=== PATIENT | female | born 1960 | race Caucasian/White ===

== ENCOUNTER → 2016-06-26 | Outpatient (REF) | payer BC ==
[~2016-06-26] MED LIST: ASPI81TA45 OR; CALTTAB5 PO; CELE-19 PO; GLUC1000 OR; HYDR12.55 PO; IMIT20SP; KLOR1TAB69 PO; LEVO125T3 PO; LEVO150T OR; NAPR500T OR; OMEP20CA3 PO; OMEP40CA2 PO; SIMV20TA2 OR; SKEL-29 PO; SOMA350T PO; TOPA50TA7 PO; TOPI1TAB31 PO; VALT1TAB PO; VIT D 2000 PO; VITA200028 PO
[2016-06-26 13:42] LABS: ALBUMIN 3.4 GM/DL (3.2-5.2); ALBUMIN/GLOBULIN RATIO 0.97 (1.00-1.93); ALKALINE PHOSPHATASE 122 U/L (45-117); ALT/SGPT 29 U/L (12-78); ANION GAP 8 MEQ/L (8-16); AST/SGOT 25 U/L (15-37); BILIRUBIN,TOTAL 0.2 MG/DL (0.2-1.0); BLOOD UREA NITROGEN 16 MG/DL (7-18); CALCIUM LEVEL 8.9 MG/DL (8.5-10.1); CARBON DIOXIDE LEVEL 28 MEQ/L (21-32); CHLORIDE LEVEL 109 MEQ/L (98-107); CHOLESTEROL LEVEL 155 MG/DL (<200); GLOMERULAR FILTRATION RATE > 60.0 (>51); GLUCOSE, FASTING 85 MG/DL (70-105); POTASSIUM SERUM 3.5 MEQ/L (3.5-5.1); SODIUM LEVEL 145 MEQ/L (136-145); TOTAL PROTEIN 6.9 GM/DL (6.4-8.2); TRIGLYCERIDES LEVEL 231 MG/DL (<150)
== END ==
LOC: M LABDRAW1 12:45
PROVIDERS: ATTEND Nurse Practitioner Family
DX: R60.0 Localized edema (principal); E03.8 Other specified hypothyroidism; E55.9 Vitamin D deficiency, unspecified

== ENCOUNTER → 2016-10-02 | Outpatient (REF) | payer BC ==
[2016-10-02 12:32] LABS: ALBUMIN 3.1 GM/DL (3.2-5.2); ALBUMIN/GLOBULIN RATIO 0.94 (1.00-1.93); ALKALINE PHOSPHATASE 92 U/L (45-117); ALT/SGPT 29 U/L (12-78); ANION GAP 8 MEQ/L (8-16); AST/SGOT 17 U/L (15-37); BILIRUBIN,TOTAL 0.3 MG/DL (0.2-1.0); BLOOD UREA NITROGEN 18 MG/DL (7-18); CALCIUM LEVEL 8.5 MG/DL (8.5-10.1); CARBON DIOXIDE LEVEL 27 MEQ/L (21-32); CHLORIDE LEVEL 108 MEQ/L (98-107); CHOLESTEROL LEVEL 92 MG/DL (<200); FREE T4 1.28 NG/DL (0.76-1.46); GLOMERULAR FILTRATION RATE > 60.0 (>51); GLUCOSE, FASTING 87 MG/DL (70-105); MAGNESIUM LEVEL 1.5 MG/DL (1.8-2.4); POTASSIUM SERUM 3.9 MEQ/L (3.5-5.1); SODIUM LEVEL 143 MEQ/L (136-145); TOTAL PROTEIN 6.4 GM/DL (6.4-8.2); TRIGLYCERIDES LEVEL 136 MG/DL (<150)
== END ==
LOC: M LABDRAW1 11:28
PROVIDERS: ATTEND Nurse Practitioner Family
DX: E88.81 Metabolic syndrome and other insulin resistance (principal); E03.8 Other specified hypothyroidism; E78.2 Mixed hyperlipidemia; K21.9 Gastro-esophageal reflux disease without esophagitis; E55.9 Vitamin D deficiency, unspecified

== ENCOUNTER → 2017-01-01 | Outpatient (REF) | payer BC ==
[~2017-01-01] MED LIST changes: -CELE-19 PO; +CELE1CAP4 PO; -LEVO125T3 PO; +LEVO125T4 PO; -SKEL-29 PO; +SKEL800T97 PO; -TOPA50TA7 PO; +TOPA50TA8 PO; +TOPI100T9 PO; -TOPI1TAB31 PO
[2017-01-01 16:39] LABS: ALBUMIN 3.5 GM/DL (3.2-5.2); ALBUMIN/GLOBULIN RATIO 1.17 (1.00-1.93); ALKALINE PHOSPHATASE 86 U/L (45-117); ALT/SGPT 27 U/L (12-78); ANION GAP 10 MEQ/L (8-16); AST/SGOT 17 U/L (15-37); BILIRUBIN,TOTAL 0.4 MG/DL (0.2-1.0); BLOOD UREA NITROGEN 14 MG/DL (7-18); CALCIUM LEVEL 9.1 MG/DL (8.5-10.1); CARBON DIOXIDE LEVEL 27 MEQ/L (21-32); CHLORIDE LEVEL 107 MEQ/L (98-107); CHOLESTEROL LEVEL 125 MG/DL (<200); CREATININE FOR GFR 0.73 MG/DL (0.55-1.02); FREE T4 1.52 NG/DL (0.76-1.46); GLOMERULAR FILTRATION RATE > 60.0 (>51); GLUCOSE, FASTING 84 MG/DL (70-105); POTASSIUM SERUM 3.7 MEQ/L (3.5-5.1); SODIUM LEVEL 144 MEQ/L (136-145); TOTAL PROTEIN 6.5 GM/DL (6.4-8.2); TRIGLYCERIDES LEVEL 85 MG/DL (<150)
== END ==
LOC: M LABDRAW1 15:39
PROVIDERS: ATTEND Nurse Practitioner Family
DX: E88.81 Metabolic syndrome and other insulin resistance (principal); E03.8 Other specified hypothyroidism

== ENCOUNTER → 2017-04-30 | Outpatient (CLI) | payer BC ==
--- NOTE | 2017-04-30 15:03 | REPMRS ---
Patient History The patient states she had a clinical breast exam in 05/13 Patient is postmenopausal. Family history of colorectal cancer in father at age 50 or over and unknown cancer in sister at age 50 or over. Benign ultrasound-guided core biopsy of the right breast, July 24, 2014. Digital Woman Screen Mammo: April 30, 2017 - Exam #: [id number] Bilateral CC and MLO view(s) were taken. Technologist: Georgette Art, Technologist Prior study comparison: January 20, 2016, digital woman screen mammo performed at [facility]. July 01, 2014, digital mammo diagnostic bilateral, performed at [facility]. FINDINGS: The breast tissue is heterogeneously dense. This may lower the sensitivity of mammography. There has been no change in the appearance of the mammogram from the prior studies. There is a moderate amount of anterior residual fibroglandular tissue which is fairly symmetric. There is no interval development of dominant mass, architectural distortion, or clustered microcalcification typical of malignancy. Prior right breast stereotactic clips in inner and outer half of breast unchanged. Scattered lymph nodes are seen in the axillae. There is a stable benign appearing intramammary node in the upper outer quadrant of the right breast at 9 o'clock. No significant changes when compared with prior studies. ASSESSMENT: BI-RADS/ACR category 2 mammogram. Benign finding(s). Recommendation Routine screening mammogram in 1 year (for women over age 40). This mammogram was interpreted with the aid of an FDA-approved computer-aided dectection system. A. Negative x-ray reports should not delay biopsy if a dominant or clinically suspicious mass is present. B. Four to eight percent of cancers are not identified by mammography. C. Adenosis and dense breast may obscure an underlying neoplasm. Electronically Signed By: Ari Beckett MD 04/30/17 [id number]
== END ==
LOC: M WHC 10:28
PROVIDERS: ATTEND Nurse Practitioner Women's Health
DX: Z12.31 Encounter for screening mammogram for malignant neoplasm of breast (principal)

== ENCOUNTER → 2017-04-30 | Outpatient (REF) | payer BC | LOC: M SFHCWAGY 10:45 | PROVIDERS: ATTEND Nurse Practitioner Women's Health | DX: N95.2 Postmenopausal atrophic vaginitis (principal) ==

== ENCOUNTER 2017-06-08 07:18 | Day surgery (SDC) | payer BC ==
[~2017-06-08 07:18] MED LIST changes: -ASPI81TA45 OR; -CALTTAB5 PO; -CELE1CAP4 PO; -GLUC1000 OR; +GLYCOPYRROLATE INJ 0.2 MG/ML 2 ML VIAL As Ordered; -HYDR12.55 PO; -IMIT20SP; +KETOROLAC 60 MG/2 ML VIAL (J1885) As Ordered; -KLOR1TAB69 PO; -LEVO125T4 PO; -LEVO150T OR; +LIDOCAINE 2% INJ 100 MG/5 ML SDV (FOR ANES.) As Ordered; +MIDAZOLAM INJ 2 MG/2 ML VIAL (J2250) As Ordered; -NAPR500T OR; +NEOSTIGMINE 10 MG/10 ML VIAL (J2710) As Ordered; -OMEP20CA3 PO; -OMEP40CA2 PO; +ONDANSETRON 4MG/2ML VIAL (J2405) As Ordered; +PROPOFOL 200 MG/20 ML VIAL As Ordered; +ROCURONIUM BROMIDE 50 MG/5 ML VIAL As Ordered; -SIMV20TA2 OR; -SKEL800T97 PO; -SOMA350T PO; -TOPA50TA8 PO; -TOPI100T9 PO; -VALT1TAB PO; -VIT D 2000 PO; -VITA200028 PO; +fentaNYL 100 MCG/2 ML INJECTION (J3010) As Ordered
[2017-06-08] MEDS ORDERED: ceFAZolin 2 GM/D5W 50 ML IV BAG (J0690 PER 500MG) As Ordered (07:51)
[2017-06-08 08:24] LABS: HEMATOCRIT 38.6 % (36.0-47.0); HEMOGLOBIN 12.7 g/dl (12.0-16.0); MEAN CORPUSCULAR HEMOGLOBIN 28.2 pg (27.0-33.0); MEAN CORPUSCULAR HGB CONC 32.9 g/dl (32.0-36.5); MEAN CORPUSCULAR VOLUME 85.8 fl (80.0-96.0); PLATELET COUNT, AUTOMATED 343 10^3/uL (150-450); RED CELL DISTRIBUTION WIDTH 14.8 % (11.5-14.5); WHITE BLOOD COUNT 5.3 10^3/uL (4.0-10.0)
[2017-06-08] MEDS: LR 1,000 ML IV (08:30)
[2017-06-08 08:50] LABS: BEDSIDE GLUCOSE 85 MG/DL (70-105)
[2017-06-08] MEDS: VASOPRESSIN INJ 20 UNITS/ML VIAL As Ordered (10:08)
[2017-06-08] MEDS ORDERED: ePHEDrine SULFATE 25 MG/5 ML(5MG/ML) SYRINGE As Ordered (10:31)
[2017-06-08] MEDS ORDERED: fentaNYL 100 MCG/2 ML INJECTION (J3010) As Ordered (11:30)
[2017-06-08] MEDS: METHYLENE BLUE 0.5% (5MG/ML) 10 ML AMP (PROVAYBLUE)(Q9968 PER 1MG) As Ordered (11:58)
[2017-06-08] MEDS: ESTROGENS VAGINAL CREAM 30GM As Ordered (12:06)
[2017-06-08] MEDS: BUPIVACAINE HCL 0.25% 30 ML VIAL As Ordered (12:07)
[2017-06-08] MEDS ORDERED: fentaNYL 100 MCG/2 ML INJECTION (J3010) IV (12:45)
[2017-06-08] MEDS ORDERED: ONDANSETRON 4MG/2ML VIAL (J2405) IV (12:45)
[2017-06-08] MEDS ORDERED: LR 1,000 ML IV ×2 (12:45)
== END 2017-06-08 15:55 | disposition home or self-care (01) ==
LOC: M SDC 07:18
DX: N81.2 Incomplete uterovaginal prolapse (principal); E03.9 Hypothyroidism, unspecified; I10 Essential (primary) hypertension; M54.5 Low back pain; E78.00 Pure hypercholesterolemia, unspecified; E11.9 Type 2 diabetes mellitus without complications; K21.9 Gastro-esophageal reflux disease without esophagitis; G43.909 Migraine, unspecified, not intractable, without status migrainosus; Z91.018 Allergy to other foods; Z91.040 Latex allergy status; Z79.899 Other long term (current) drug therapy; Z79.84 Long term (current) use of oral hypoglycemic drugs
CPT/HCPCS: 57240

== ENCOUNTER → 2017-06-28 | Outpatient (REF) | payer BC ==
[2017-06-28 15:12] LABS: TOTAL 25(OH) VITAMIN D 42.5 NG/ML (30.0-100.0)
[2017-06-28 15:42] LABS: ESTIMATED AVERAGE GLUCOSE 120 MG/DL (60-110); HEMOGLOBIN A1c 5.8 %
[2017-06-28 16:10] LABS: ALBUMIN 3.6 GM/DL (3.2-5.2); ALBUMIN/GLOBULIN RATIO 0.92 (1.00-1.93); ALKALINE PHOSPHATASE 114 U/L (45-117); ALT/SGPT 17 U/L (12-78); ANION GAP 10 MEQ/L (8-16); AST/SGOT 15 U/L (7-37); BILIRUBIN,TOTAL 0.2 MG/DL (0.2-1.0); BLOOD UREA NITROGEN 26 MG/DL (7-18); CALCIUM LEVEL 9.4 MG/DL (8.5-10.1); CARBON DIOXIDE LEVEL 26 MEQ/L (21-32); CHLORIDE LEVEL 107 MEQ/L (98-107); FREE T4 0.95 NG/DL (0.76-1.46); GLOMERULAR FILTRATION RATE 55.1 (>51); GLUCOSE, FASTING 90 MG/DL (70-100); POTASSIUM SERUM 3.4 MEQ/L (3.5-5.1); SODIUM LEVEL 143 MEQ/L (136-145); TOTAL PROTEIN 7.5 GM/DL (6.4-8.2)
== END ==
LOC: M LABDRAW1 10:35
DX: M25.50 Pain in unspecified joint (principal); E03.9 Hypothyroidism, unspecified; E88.81 Metabolic syndrome and other insulin resistance; E55.9 Vitamin D deficiency, unspecified

== ENCOUNTER → 2017-08-20 | Outpatient (REF) | payer BC ==
[2017-08-20 15:56] LABS: FREE T4 1.43 NG/DL (0.76-1.46); THYROID STIMULATING HORMONE 0.084 uIU/ML (0.358-3.740)
== END ==
LOC: M LABDRAW1 11:41
DX: E03.8 Other specified hypothyroidism (principal)
CPT/HCPCS: 84443

== ENCOUNTER → 2017-09-10 | Outpatient (REF) | payer BC ==
[2017-09-10 17:57] LABS: BASO # 0.1 10^3/uL (0.0-0.2); BASO % 0.9 % (0.0-1.0); EOS # 0.3 10^3/uL (0.0-0.50); EOS % 4.9 % (0.0-3.0); HEMATOCRIT 36.4 % (36.0-47.0); HEMOGLOBIN 11.5 g/dl (12.0-15.5); IMMATURE GRANULOCYTE % 0.2 % (0-3.0); LYMPH # 1.8 10^3/uL (1.5-4.5); LYMPH % 30.8 % (24.0-44.0); MEAN CORPUSCULAR HEMOGLOBIN 27.4 pg (27.0-33.0); MEAN CORPUSCULAR HGB CONC 31.6 g/dl (32.0-36.5); MEAN CORPUSCULAR VOLUME 86.9 fl (80.0-96.0); MONO # 0.6 10^3/uL (0.0-0.8); MONO % 9.7 % (0.0-5.0); NEUTROPHILS # 3.1 10^3/uL (1.8-7.7); NEUTROPHILS % 53.5 % (36.0-66.0); PLATELET COUNT, AUTOMATED 351 10^3/uL (150-450); RED BLOOD COUNT 4.19 10^6/uL (4.00-5.40); RED CELL DISTRIBUTION WIDTH 15.1 % (11.5-14.5); WHITE BLOOD COUNT 5.8 10^3/uL (4.0-10.0)
[2017-09-10 18:17] LABS: ALBUMIN/GLOBULIN RATIO 0.97 (1.00-1.93); ALKALINE PHOSPHATASE 149 U/L (45-117); ALT/SGPT 82 U/L (12-78); ANION GAP 7 MEQ/L (8-16); AST/SGOT 49 U/L (7-37); BILIRUBIN,TOTAL 0.3 MG/DL (0.2-1.0); BLOOD UREA NITROGEN 17 MG/DL (7-18); CALCIUM LEVEL 8.5 MG/DL (8.5-10.1); CARBON DIOXIDE LEVEL 22 MEQ/L (21-32); CHLORIDE LEVEL 119 MEQ/L (98-107); CREATININE FOR GFR 0.75 MG/DL (0.55-1.30); GLOMERULAR FILTRATION RATE > 60.0 (>51); GLUCOSE, FASTING 82 MG/DL (70-100); SODIUM LEVEL 148 MEQ/L (136-145); TOTAL PROTEIN 6.1 GM/DL (6.4-8.2)
== END ==
LOC: M LABDRAW1 17:03
DX: R51 Headache (principal)
CPT/HCPCS: 80053

== ENCOUNTER → 2017-11-10 | Outpatient (CLI) | payer OTHER | LOC: M LRY 17:58 | DX: M77.32 Calcaneal spur, left foot (principal); M51.36 Other intervertebral disc degeneration, lumbar region; S89.92XA Unspecified injury of left lower leg, initial encounter; S99.912A Unspecified injury of left ankle, initial encounter; M54.5 Low back pain; Y92.89 Other specified places as the place of occurrence of the external cause; Y93.89 Activity, other specified; Y99.8 Other external cause status; X58.XXXA Exposure to other specified factors, initial encounter | CPT/HCPCS: 72110 ==

== ENCOUNTER → 2017-11-27 | Outpatient (REF) | payer BC ==
[2017-11-27 12:38] LABS: TOTAL 25(OH) VITAMIN D 54.6 NG/ML (30.0-100.0)
[2017-11-27 12:43] LABS: ALBUMIN 3.4 GM/DL (3.2-5.2); ALBUMIN/GLOBULIN RATIO 1.03 (1.00-1.93); ALKALINE PHOSPHATASE 135 U/L (45-117); ALT/SGPT 26 U/L (12-78); ANION GAP 10 MEQ/L (8-16); AST/SGOT 15 U/L (7-37); BILIRUBIN,TOTAL 0.3 MG/DL (0.2-1.0); BLOOD UREA NITROGEN 25 MG/DL (7-18); CALCIUM LEVEL 8.8 MG/DL (8.5-10.1); CARBON DIOXIDE LEVEL 24 MEQ/L (21-32); CHLORIDE LEVEL 111 MEQ/L (98-107); CHOLESTEROL LEVEL 169 MG/DL (<200); FREE T4 1.27 NG/DL (0.76-1.46); GLOMERULAR FILTRATION RATE > 60.0 (>51); GLUCOSE, FASTING 97 MG/DL (70-100); HDL CHOLESTEROL 50 MG/DL (>40); LDL CHOLESTEROL 101.2 MG/DL (<100); NON-HDL-C 119 MG/DL; POTASSIUM SERUM 3.7 MEQ/L (3.5-5.1); SODIUM LEVEL 145 MEQ/L (136-145); THYROID STIMULATING HORMONE 0.082 uIU/ML (0.358-3.740); TOTAL PROTEIN 6.7 GM/DL (6.4-8.2); TRIGLYCERIDES LEVEL 89 MG/DL (<150)
[2017-11-27 14:04] LABS: ESTIMATED AVERAGE GLUCOSE 120 MG/DL (60-110); HEMOGLOBIN A1c 5.8 %
== END ==
LOC: M LABDRAW1 10:27
DX: E88.81 Metabolic syndrome and other insulin resistance (principal); E03.8 Other specified hypothyroidism; E78.2 Mixed hyperlipidemia; E55.9 Vitamin D deficiency, unspecified
CPT/HCPCS: 84443

== ENCOUNTER → 2017-12-13 | Outpatient (CLI) | payer BC | LOC: M EKG 15:01 | DX: Z01.818 Encounter for other preprocedural examination (principal); E78.00 Pure hypercholesterolemia, unspecified; E11.9 Type 2 diabetes mellitus without complications; E03.9 Hypothyroidism, unspecified; K21.9 Gastro-esophageal reflux disease without esophagitis | CPT/HCPCS: 93005 ==

== ENCOUNTER 2017-12-14 07:04 | Day surgery (SDC) | payer BC ==
[2017-12-14] MEDS ORDERED: LIDOCAINE 1% MDV 20ML VIAL SQ (07:15)
[2017-12-14] MEDS ORDERED: LR 1,000 ML IV ×2 (07:15→11:45)
[2017-12-14 07:51] LABS: BEDSIDE GLUCOSE 90 MG/DL (70-105)
[2017-12-14] MEDS ORDERED: fentaNYL 250 MCG/5 ML INJECTION (J3010) As Ordered (08:58)
[2017-12-14] MEDS ORDERED: LIDOCAINE 2% INJ 100 MG/5 ML SDV (FOR ANES.) As Ordered (08:58)
[2017-12-14] MEDS ORDERED: ONDANSETRON 4MG/2ML VIAL (J2405) As Ordered (08:58)
[2017-12-14] MEDS ORDERED: dexameTHASONE 4 MG/ML 1ML VIAL (J1100) As Ordered (08:58)
[2017-12-14] MEDS ORDERED: PROPOFOL 200 MG/20 ML VIAL As Ordered (08:58)
[2017-12-14] MEDS ORDERED: ROCURONIUM BROMIDE 50 MG/5 ML VIAL As Ordered (08:58)
[2017-12-14] MEDS ORDERED: MIDAZOLAM INJ 2 MG/2 ML VIAL (J2250) As Ordered (09:07)
[2017-12-14] MEDS: AMPICILLIN SOD/SULBACTAM SOD 3 GM in D5W MINI-BAG PLUS 100 ML IV (09:35)
[2017-12-14] MEDS: LIDOCAINE 1% SDV INJ 30 ML VIAL As Ordered (09:35)
[2017-12-14] MEDS ORDERED: SEVOFLURANE INHAL SOLN 250 ML BTL As Ordered (10:04)
[2017-12-14] MEDS ORDERED: NEOSTIGMINE 10 MG/10 ML VIAL (J2710) As Ordered (10:24)
[2017-12-14] MEDS ORDERED: KETOROLAC 60 MG/2 ML VIAL (J1885) As Ordered (10:24)
[2017-12-14] MEDS ORDERED: GLYCOPYRROLATE INJ 0.2 MG/ML 2 ML VIAL As Ordered (10:24)
[2017-12-14] MEDS ORDERED: HYDROmorphone HCL 2 MG/ML 1ML VIAL (J1170) As Ordered (10:24)
[2017-12-14] MEDS: BUPIVACAINE HCL 0.25% 30 ML VIAL As Ordered (10:56)
[2017-12-14] MEDS ORDERED: PERCOCET 5MG/325MG TAB As Ordered (11:31)
[2017-12-14] MEDS: PERCOCET 5MG/325MG TAB PO ×2 (11:31→12:00)
[2017-12-14] MEDS ORDERED: HYDROMORPHONE HCL 0.5 MG/ 0.5 ML SYRINGE (J1170 PER 1) IV (11:45)
[2017-12-14] MEDS ORDERED: fentaNYL 100 MCG/2 ML INJECTION (J3010) IV (11:45)
[2017-12-14] MEDS ORDERED: NORCO, ANEXSIA 5/325MG TABLET (HYDROcodone/ACETAMINOPHEN) PO ×2 (11:45)
[2017-12-14] MEDS ORDERED: KETOROLAC 30 MG/ML VIAL (J1885) IV (11:45)
[2017-12-14] MEDS ORDERED: ONDANSETRON 4MG/2ML VIAL (J2405) IV ×2 (11:45)
== END 2017-12-14 13:20 | disposition home or self-care (01) ==
LOC: M SDC 07:04
DX: K80.18 Calculus of gallbladder with other cholecystitis without obstruction (principal); E66.9 Obesity, unspecified; Z91.040 Latex allergy status
CPT/HCPCS: 47562

== ENCOUNTER → 2018-02-21 | Outpatient (REF) | payer BC ==
[2018-02-21 13:45] LABS: FREE T4 0.81 NG/DL (0.76-1.46); TOTAL 25(OH) VITAMIN D 32.4 NG/ML (30.0-100.0)
== END ==
LOC: M LABDRAW1 12:07
DX: E03.8 Other specified hypothyroidism (principal); E55.9 Vitamin D deficiency, unspecified
CPT/HCPCS: 84443

== ENCOUNTER → 2018-05-01 | Outpatient (CLI) | payer BC | LOC: M WHC 11:09 | DX: Z12.31 Encounter for screening mammogram for malignant neoplasm of breast (principal); Z78.0 Asymptomatic menopausal state; Z86.018 Personal history of other benign neoplasm | CPT/HCPCS: 77067 ==

== ENCOUNTER → 2018-05-30 | Outpatient (REF) | payer BC ==
[~2018-05-30] MED LIST changes: +ASPI81TA45 OR; +CALTTAB5 PO; +CELE1CAP4 PO; +CODE30TA3 PO; +ESTR62CR PV; +GLUC1000 PO; -GLYCOPYRROLATE INJ 0.2 MG/ML 2 ML VIAL As Ordered; +HYDR12.55 PO; +IBUP80TA PO; +IMIT100T PO; +IMIT20SP; -KETOROLAC 60 MG/2 ML VIAL (J1885) As Ordered; +KLOR1TAB69 PO; +LEVO125T4 PO; +LEVO150T OR; -LIDOCAINE 2% INJ 100 MG/5 ML SDV (FOR ANES.) As Ordered; -MIDAZOLAM INJ 2 MG/2 ML VIAL (J2250) As Ordered; +NAPR500T OR; -NEOSTIGMINE 10 MG/10 ML VIAL (J2710) As Ordered; +OMEP20CA3 PO; +OMEP40CA2 PO; -ONDANSETRON 4MG/2ML VIAL (J2405) As Ordered; -PROPOFOL 200 MG/20 ML VIAL As Ordered; +ROBA500T PO; -ROCURONIUM BROMIDE 50 MG/5 ML VIAL As Ordered; +SIMV20TA2 PO; +SKEL800T97 PO; +SOMA350T PO; +TOPA50TA8 PO; +TOPI100T9 PO; +VALT1TAB PO; +VIT D 2000 PO; +VITA200028 PO; -fentaNYL 100 MCG/2 ML INJECTION (J3010) As Ordered
[2018-05-30 16:55] LABS: FREE T4 1.17 NG/DL (0.76-1.46); THYROID STIMULATING HORMONE 0.55 uIU/ML (0.358-3.740)
== END ==
LOC: M LABDRAW1 16:02
PROVIDERS: ATTEND Nurse Practitioner Family
DX: E03.8 Other specified hypothyroidism (principal)

== ENCOUNTER → 2018-06-11 | Outpatient (CLI) | payer BC ==
--- NOTE | 2018-06-11 11:14 | REP ---
RIGHT LOWER EXTREMITY DUPLEX VEINS: HISTORY: Leg swelling. There are no filling defects in the deep venous system. The deep venous system is patent. IMPRESSION: There is no deep venous thrombosis. Electronically Signed by Alok Austin MD 06/11/2018 11:16 A
== END ==
LOC: M RAD 10:38
PROVIDERS: ATTEND Nurse Practitioner Family
DX: M79.604 Pain in right leg (principal)

== ENCOUNTER → 2018-07-01 | Outpatient (REF) | payer BC ==
[2018-07-01 16:48] LABS: BLOOD UREA NITROGEN 18 MG/DL (7-18); CALCIUM LEVEL 8.7 MG/DL (8.5-10.1); CARBON DIOXIDE LEVEL 28 MEQ/L (21-32); CHLORIDE LEVEL 109 MEQ/L (98-107); CREATININE FOR GFR 0.83 MG/DL (0.55-1.30); GLOMERULAR FILTRATION RATE > 60.0 (>51); GLUCOSE, FASTING 87 MG/DL (70-100); POTASSIUM SERUM 3.9 MEQ/L (3.5-5.1); SODIUM LEVEL 145 MEQ/L (136-145)
[2018-07-01 17:02] LABS: TOTAL 25(OH) VITAMIN D 31.1 NG/ML (30.0-100.0)
== END ==
LOC: M LABDRAW1 15:33
PROVIDERS: ATTEND Nurse Practitioner Family
DX: E88.81 Metabolic syndrome and other insulin resistance (principal); E55.9 Vitamin D deficiency, unspecified

== ENCOUNTER → 2018-07-11 | Outpatient (CLI) | payer BC ==
--- NOTE | 2018-07-11 10:15 | REP ---
LEFT FOOT, FOUR VIEWS: HISTORY: Pain. There is no acute fracture or dislocation. There is narrowing of the first metatarsophalangeal joint space. The remaining joint spaces are normal in appearance. IMPRESSION: There is no acute fracture or dislocation. Electronically Signed by Alok Austin MD 07/11/2018 10:16 A
== END ==
LOC: M SMT 09:43
PROVIDERS: ATTEND Nurse Practitioner Family
DX: M79.672 Pain in left foot (principal)

== ENCOUNTER → 2018-08-20 | Outpatient (CLI) | payer BC ==
--- NOTE | 2018-08-22 00:50 | ECWPNPC ---
PATIENT NAME: RIK FUNES : 1960 GENDER: FEMALE VISIT DATE: 08/20/2018 DISCHARGE DATE: 08/20/18 1515 VISIT LOCKED DATE TIME: PHYSICIAN: ANGELO HERNANDEZ RESOURCE: ANGELO HERNANDEZ REASON FOR APPOINTMENT 1. BACK PAIN HISTORY OF PRESENT ILLNESS HISTORY OF PRESENT ILLNESS: PAIN THE PATIENT DESCRIBES THE PAINDURING THE LAST MONTH SEVERITY - PAIN SCORE OF7/10 LOCATIONSLOWER BACK QUALITYACHING DURATIONCONSTANT PAIN IS INCREASED BY:PROLONGED STANDING, OTHERS PAIN IS DECREASED BY:OTHERS 58 YR OLD FEMALE HERE NEW PATIENT REFERRAL. SHE WAS A PATIENT OF PAIN MANAGEMENT IN THE PAST. SHE IS COMPLAINING OF LOWER LUMBAR PAIN WITH LEFT SIDED RADICULOPATHY. SHE SAYS IT WORSENED AT THE WEEKEND SHE TWISTED ON THE ESCALATOR. LAST MRI 2016: DEGENERATIVE DISC DISEASE AND FACET HYPERTROPHY. SHE SAYS SHE HAS BEEN USING X2 OTC STRENGTH ALLEVE, TWICE ADAY WITH MODERATE EFFECT. SHE DENIES SADDLE ANESTHESIA, FEVER, CHILLS. SHE IS ACTIVELY ON WEIGHT LOSS PROGRAM, MANAGED BY PCP. FALL RISK SCREENING: SCREENING :NO FALLS REPORTED IN THE LAST YEAR CURRENT MEDICATIONS TAKING TOPAMAX 100 MG TABLET 2 TABLETS ORALLY TWICE A DAY, NOTES: JORGE TAKING SUMATRIPTAN SUCCINATE 100 MG TABLET 1 TABLET NEEDED AT ONSET OF [place]OLFE ORALLY ONCE A DAY, NOTES: JORGE TAKING CALCIUM 600-D 600-400 MG-UNIT TABLET 1 TABLET WITH FOOD ORALLY ONCE A DAY TAKING CLARITIN 10 MG TABLET 1 TABLET ORALLY ONCE A DAY, NOTES: NEEDED TAKING SALINE NASAL SPRAY 0.65 % SOLUTION 2 DROPS IN EACH NOSTRIL NEEDED NASALLY EVERY 4HRS NEEDED TAKING NAPROXEN 500 MG TABLET 1 TABLET NEEDED ORALLY EVERY 12 HRS TAKING PHENTERMINE HCL 15 MG CAPSULE 1 CAPSULE ORALLY ONCE A DAY TAKING LEVOTHYROXINE SODIUM 150 MCG TABLET 1 TABLET ON AN EMPTY STOMACH IN THE MORNING ORALLY ONCE A DAY TAKING POTASSIUM CHLORIDE 10 MEQ CAPSULE EXTENDED RELEASE 3 CAPSULES WITH FOOD ORALLY DAILY TAKING DULOXETINE HCL 60 MG CAPSULE DELAYED RELEASE PARTICLES 1 CAPSULE ORALLY ONCE A DAY TAKING SIMVASTATIN 20 MG TABLET 1 TABLET IN THE EVENING ORALLY ONCE A DAY TAKING OMEPRAZOLE 40 MG CAPSULE DELAYED RELEASE 1 CAPSULE ORALLY ONCE A DAY TAKING DRISDOL 56781 UNIT CAPSULE 1 CAPSULE ORALLY ONCE EVERY 2 WEEKS WITH MEAL TAKING METFORMIN 500MG 1 ER TABLET 3 TAB(S) ORALLY DAILY TAKING LASIX 20 MG TABLET 1 TABLET ORALLY ONCE A DAY NOT-TAKING BLOOD GLUCOSE TEST - STRIP VERIO DIRECTED IN VITRO DX E88.81 DAILY NOT-TAKING ONE TOUCH ULTRA 2 LANCET DX 250.00 LANCET DIRECTED NA 1-2 TIMES A DAY NOT-TAKING HYDROCORTISONE 2.5 % CREAM 1 APPLICATION TO AFFECTED AREA EXTERNALLY TWICE A DAY NOT-TAKING MAY USE ONE TOUCH ULTRA GLUCOSE TSTING STRIPS DX 790.21 DIRECTED NA 1-2 TIMES A DAY NOT-TAKING VOLTAREN 1 % GEL 2 GRAMS TRANSDERMAL FOUR TIMES DAILY NOT-TAKING ROBAXIN 500 MG TABLET 2 TABLETS ORALLY EVERY 6 HRS MAY CAUSE DROWSINESS MEDICATION LIST REVIEWED AND RECONCILED WITH THE PATIENT PAST MEDICAL HISTORY GRAVE'S DISEASE/ HYPOTHYROID PRE-DM-2 HYPERLIPIDEMIA OBESITY UTERINE FIBROIDS 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 QUESADA /2017 FAMILY HISTORY FATHER: , COLON CANCER DX 85, DIAGNOSED WITH CANCER IN 85 MOTHER: ALIVE 78 YRS, SLE, CVA SIBLINGS: ALIVE, BROTHER HAS HTN PATERNAL GRAND FATHER: , UNKNOWN PATERNAL GRAND MOTHER: , UNKNOWN MATERNAL GRAND FATHER: , UNKNOWN MATERNAL GRAND MOTHER: , UNKNOWN PATERNAL AUNT: , BREAST CANCER, PRIOR TO AGE 50, CANCER NO KNOWN HX OF BREAST\/OVARIAN CANCER. SOCIAL HISTORY GENERAL: TOBACCO USE ARE YOU A:NONSMOKER LATEX QUESTIONNAIRE LATEX ALLERGY : HAVE YOU EVER DEVELOPED ANY TYPE OF REACTION AFTER HANDLING LATEX PRODUCTS SUCH RUBBER GLOVES, CONDOMS, DIAPHRAGMS, BALLOONS, SOCKS, OR UNDERWEAR?YES PT ALLERGIC TO LATEX BMI CARE GOAL FOLLOW-UP ABOVE NORMAL BMI FOLLOW-UPGIVING ENCOURAGEMENT TO EXERCISE, LIFESTYLE EDUCATION REGARDING DIET ALCOHOL SCREENING DID YOU HAVE A DRINK CONTAINING ALCOHOL IN THE PAST YEAR?NO POINTS0 INTERPRETATIONNEGATIVE RECREATIONAL DRUG USE DENIES. CAFFEINE CAFFEINE USE?YES 2-3 A DAY SEXUAL HX HAD SEX IN THE LAST 12 MONTHS (VAGINAL, ORAL, OR ANAL)?YES WITHMEN ONLY USE PROTECTION?NO LMP:POST MENOPAUSE HAVE YOU EVER HAD AN STD?NO HIV / HEP-C SCREENING HIV TEST OFFERED TO PATIENT:YES DATE OFFERED:11/10/2017 PREVIOUSLY DONE TEST ACCEPTED:YES HEP-C TEST OFFERED TO PATIENT:YES DATE OFFERED:11/10/2017 TEST ACCEPTED:NO REASON:PATIENT DECLINED BROCHURE PROVIDED TO PATIENTNO WORSHIP [id number] NONE LANGUAGE LANGUAGES SPOKEN:AZERI EDUCATION 12 GRADUATE. LEARNING BARRIERS / SPECIAL NEEDS CHANGE FROM LAST VISIT?NO BARRIERS TO LEARNING?NO HEARING IMPAIRED?NO VISION IMPAIRED?YES COGNITIVELY IMPAIRED?NO :CORRECTIVE LENSES READINESS TO LEARN?YES LEARNING PREFERENCES?YES :TAPES/VIDEOS, BOOKLETS, HANDOUTS LEARNING CAPABILITIES PRESENT?YES EMOTIONAL BARRIERS?NO SPECIAL DEVICES?NO PROJECTION TECHNICIAN NEEDED?NO DOMESTIC VIOLENCE NONE. 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 EXERCISE: WALKS DAILY, ELIPTYCAL INTERMITTENTLY PLANET FITNESS 5 DAYS A WEEK. MARITAL STATUS: .. OTHERS AT HOME: SON. PAIN CLINIC PFS, CLERGY, PUBLIC HEALTH REFERRALS HAS THE PATIENT BEEN EDUCATED REGARDING HIS/HER PLAN OF CARE?YES HAS THE PATIENT BEEN EDUCATED REGARDING PAIN, THE RISK FOR PAIN, THE IMPORTANCE OF EFFECTIVE PAIN MANAGEMENT, AND THE PAIN ASSESSMENT PROCESS?YES ADVANCE DIRECTIVE ADVANCE DIRECTIVE DISCUSSED WITH PATIENT:YES PT STATES SHE DOES NOT HAVE HCP. PAPERWORK GIVEN. ASSISTANCE WTIH FORM DECLINED. 08/20/18 08/20/18 REVIEWED WITH PT 1427 BV. HOSPITALIZATION/MAJOR DIAGNOSTIC PROCEDURE NONE REVIEW OF SYSTEMS REVIEWED BY: PROVIDER: ELOY Nguyen CONSTITUTIONAL: ANY CHANGE IN YOUR MEDICAL CONDITION? NO . CHILLS NO . FEVER NO . INFECTION: DO YOU HAVE NEW INFECTIONS? NO . DO YOU HAVE HISTORY OF MRSA? NO . MUSCULOSKELETAL: ANY NEW PATTERNS OF PAIN OR NUMBNESS? YES, PT STATES SHE HAS INTERMITTENT NUMBNESS IN FRONT RIGHT THIGH FOR THE PAST 2 MONTHS. STATES THIS IS NEW TO HER. . GASTROENTEROLOGY: ANY NEW CHANGE IN BOWEL CONTROL? NO . GENITOURINARY: ANY NEW CHANGE IN BLADDER CONTROL? NO . IS THERE A CHANCE YOU COULD BE ? NO . HEMATOLOGY/LYMPH: DO YOU TAKE ANY BLOOD THINNERS? (FOR EXAMPLE- COUMADIN, PLAVIX, AGGRENOX, PLATEL, PRADAXA, OR XARELTO) NO . WHEN WAS YOUR LAST DOSE? DATE: TIME: . NEUROLOGY: HAVE YOU FALLEN IN THE PAST 12 MONTHS? YES, PT HAD A FALL AND LANDED ON LEFT KNEE AT WORK. WAS SEEN AT [facility] REGARDING PAIN IN LEFT KNEE AND WAS CLEARED BY [facility]. . ANY NEW EXTREMITY NUMBNESS OR WEAKNESS? NO . CARDIOLOGY: DO YOU HAVE A PACEMAKER OR DEFIBRILLATOR? NO . RESPIRATORY: HAVE YOU BEEN SICK IN THE PAST WEEK? NO . FEVER NO . FLU LIKE SYMPTOMS? NO . COUGH NO . INTEGUMENTARY: DO YOU HAVE ANY RASHES OR OPEN SORES? NO . ALLERGIC/IMMUNO: ARE YOU ALLERGIC TO IV DYE? NO . ANY NEW ALLERGIES? NO . PSYCHIATRIC: DO YOU HAVE THOUGHTS OF HURTING YOURSELF OR SOMEONE ELSE? NO . ARE YOU ABUSED, NEGLECTED, OR IN AN UNSAFE ENVIRONMENT? NO . ENDOCRINOLOGY: ARE YOU DIABETIC? NO . OTHER: DO YOU NEED ANY PRESCRIPTIONS? NO . IF YES, PLEASE LIST: ____ . ANY NEW PROBLEMS WITH YOUR MEDICATIONS? NO . WHEN DID YOU LAST EAT? ____ . WHEN DID YOU LAST DRINK? ____ . WHAT DID YOU LAST DRINK? ____ . NAME OF PERSON DRIVING YOU HOME? ____ . DO YOU HAVE ANY OTHER QUESTIONS OR CONCERNS NO . VITAL SIGNS WT 217.4 LBS, HT 64 IN, BMI 37.31 INDEX, BP 140/84 MM HG, HR 91 /MIN, RR 18 /MIN, TEMP 98.8 F, OXYGEN SAT % 97%, NA INITIALS SC 14:17, REVIEWED BY: BV. EXAMINATION GENERAL EXAMINATION: GENERAL APPEARANCE:NO ACUTE DISTRESS, WELL NOURISHED AND HYDRATED. PSYCHAPPROPRIATE MOOD AND AFFECT . HEENT:EOMI, NO SCLERAL ICTERUS, NARES PATENT, ORAL MUCOSA MOIST. FACE:UNREMARKABLE. LUNGS:CLEAR TO AUSCULTATION BILATERALLY, NO WHEEZES, RHONCHI, RALES. HEART:NO MURMURS, REGULAR RATE AND RHYTHM. BACK: NO BONY TENDERNESS, NORMAL RANGE OF MOTION OF SPINE, SLR NEGATIVE BILAT,. MUSCULOSKELETAL: MUSCLE STRENGTH TESTING 5/5 BILATERAL. NEUROLOGIC EXAM: ALERT AND ORIENTED X 3, DTRS 1-2+ IN ALL 4 EXTREMITIES. ASSESSMENTS BILATERAL LOW BACK PAIN WITH LEFT-SIDED SCIATICA, UNSPECIFIED CHRONICITY - M54.42 (PRIMARY) TREATMENT BILATERAL LOW BACK PAIN WITH LEFT-SIDED SCIATICA, UNSPECIFIED CHRONICITY START GABAPENTIN CAPSULE, 100 MG, 1 CAPSULE, ORALLY, TWICE A DAY, 30 DAY(S), 60 CAPSULE CLINICAL NOTES: PLAN: START GABAPENTIN AT NIGHT TIME ONLY FOR THE NEXT WEEK, THEN INCREASE TO TWICE A WEEK IN THE FOLLOWING WEEK. ADVISED PATIENT TO D/C OR REDUCE TOPAMAX WHILE BEING TITRATED ON GABAPENTIN.RE ASSESS IN 2 WEEKS. PROCEDURE CODES FA211 ESTABILISHED PATIENT [facility] CHARGE DISPOSITION & COMMUNICATION FOLLOW UP 2 WEEKS ELECTRONICALLY SIGNED BY ALFA VORA ON 08/21/2018 AT 11:39 AM EDT DISCLAIMER : THIS IS A VISIT SUMMARY EXTRACTED FROM THE [facility] CHART. IT IS NOT A COPY OF THE [facility] PROGRESS NOTE. DESTINEY
== END ==
LOC: M PAIN 14:00
PROVIDERS: ATTEND Nurse Practitioner Family
DX: M54.42 Lumbago with sciatica, left side (principal); E03.9 Hypothyroidism, unspecified; E78.5 Hyperlipidemia, unspecified; G43.009 Migraine without aura, not intractable, without status migrainosus; E55.9 Vitamin D deficiency, unspecified; K21.9 Gastro-esophageal reflux disease without esophagitis; R73.03 Prediabetes; Z91.040 Latex allergy status; Z91.010 Allergy to peanuts; Z91.018 Allergy to other foods; Z79.84 Long term (current) use of oral hypoglycemic drugs; Z79.899 Other long term (current) drug therapy

== ENCOUNTER → 2018-09-03 | Outpatient (CLI) | payer BC ==
[~2018-09-03] MED LIST changes: +ACET300T47 PO; -CODE30TA3 PO
--- NOTE | 2018-09-05 00:27 | ECWPNPC ---
PATIENT NAME: RIK FUNES : 1960 GENDER: FEMALE VISIT DATE: 09/03/2018 DISCHARGE DATE: 09/03/18 1551 VISIT LOCKED DATE TIME: PHYSICIAN: ANGELO HERNANDEZ RESOURCE: ANGELO HERNANDEZ REASON FOR APPOINTMENT 1. BACK PAIN HISTORY OF PRESENT ILLNESS HISTORY OF PRESENT ILLNESS: PAIN THE PATIENT DESCRIBES THE PAIN... 58 YR OLD FEMALE HERE FOR 2 WEEK F/U.DID NOT START TAKIGN GABAPENTIN UNTIL LAST WEEK. CONTINUES TO HAVE LOWER BACK PAIN WITH SPAMS AND RIGHT SIDED RADICULOPATHY. FALL RISK SCREENING: SCREENING :NO FALLS REPORTED IN THE LAST YEAR CURRENT MEDICATIONS TAKING BLOOD GLUCOSE TEST - STRIP VERIO DIRECTED IN VITRO DX E88.81 DAILY TAKING ONE TOUCH ULTRA 2 LANCET DX 250.00 LANCET DIRECTED NA 1-2 TIMES A DAY TAKING HYDROCORTISONE 2.5 % CREAM 1 APPLICATION TO AFFECTED AREA EXTERNALLY TWICE A DAY NEEDED TAKING MAY USE ONE TOUCH ULTRA GLUCOSE TSTING STRIPS DX 790.21 DIRECTED NA 1-2 TIMES A DAY TAKING VOLTAREN 1 % GEL 2 GRAMS TRANSDERMAL FOUR TIMES DAILY NEEDED TAKING TOPAMAX 100 MG TABLET 2 TABLETS ORALLY TWICE A DAY, NOTES: JORGE TAKING SUMATRIPTAN SUCCINATE 100 MG TABLET 1 TABLET NEEDED AT ONSET OF [place]OL[place] ORALLY ONCE A DAY, NOTES: JORGE TAKING CALCIUM 600-D 600-400 MG-UNIT TABLET 1 TABLET WITH FOOD ORALLY ONCE A DAY TAKING CLARITIN 10 MG TABLET 1 TABLET ORALLY ONCE A DAY, NOTES: NEEDED TAKING SALINE NASAL SPRAY 0.65 % SOLUTION 2 DROPS IN EACH NOSTRIL NEEDED NASALLY EVERY 4HRS NEEDED TAKING NAPROXEN 500 MG TABLET 1 TABLET NEEDED ORALLY EVERY 12 HRS TAKING LEVOTHYROXINE SODIUM 150 MCG TABLET 1 TABLET ON AN EMPTY STOMACH IN THE MORNING ORALLY ONCE A DAY TAKING POTASSIUM CHLORIDE 10 MEQ CAPSULE EXTENDED RELEASE 3 CAPSULES WITH FOOD ORALLY DAILY TAKING DULOXETINE HCL 60 MG CAPSULE DELAYED RELEASE PARTICLES 1 CAPSULE ORALLY ONCE A DAY TAKING SIMVASTATIN 20 MG TABLET 1 TABLET IN THE EVENING ORALLY ONCE A DAY TAKING OMEPRAZOLE 40 MG CAPSULE DELAYED RELEASE 1 CAPSULE ORALLY ONCE A DAY TAKING DRISDOL 02400 UNIT CAPSULE 1 CAPSULE ORALLY ONCE EVERY 2 WEEKS WITH MEAL TAKING METFORMIN 500MG 1 ER TABLET 2 TAB(S) IN A.M./1 TAB IN P.M. 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 QUESADA FAMILY HISTORY FATHER: , COLON CANCER DX 85, DIAGNOSED WITH CANCER IN 87 MOTHER: ALIVE 78 YRS, SLE, CVA SIBLINGS: ALIVE, BROTHER HAS HTN PATERNAL GRAND FATHER: , UNKNOWN PATERNAL GRAND MOTHER: , UNKNOWN MATERNAL GRAND FATHER: , UNKNOWN MATERNAL GRAND MOTHER: , UNKNOWN PATERNAL AUNT: , BREAST CANCER, PRIOR TO AGE 52, CANCER NO KNOWN HX OF BREAST\\\/OVARIAN CANCER. SOCIAL HISTORY GENERAL: TOBACCO USE ARE YOU A:NONSMOKER LATEX QUESTIONNAIRE LATEX ALLERGY : HAVE YOU EVER DEVELOPED ANY TYPE OF REACTION AFTER HANDLING LATEX PRODUCTS SUCH RUBBER GLOVES, CONDOMS, DIAPHRAGMS, BALLOONS, SOCKS, OR UNDERWEAR?YES PT ALLERGIC TO LATEX BMI CARE GOAL FOLLOW-UP ABOVE NORMAL BMI FOLLOW-UPGIVING ENCOURAGEMENT TO EXERCISE, LIFESTYLE EDUCATION REGARDING DIET ALCOHOL SCREENING DID YOU HAVE A DRINK CONTAINING ALCOHOL IN THE PAST YEAR?NO POINTS0 INTERPRETATIONNEGATIVE RECREATIONAL DRUG USE DENIES. CAFFEINE CAFFEINE USE?YES 2-3 A DAY SEXUAL HX HAD SEX IN THE LAST 12 MONTHS (VAGINAL, ORAL, OR ANAL)?YES WITHMEN ONLY USE PROTECTION?NO LMP:POST MENOPAUSE HAVE YOU EVER HAD AN STD?NO HIV / HEP-C SCREENING HIV TEST OFFERED TO PATIENT:YES DATE OFFERED:11/10/2017 PREVIOUSLY DONE TEST ACCEPTED:YES HEP-C TEST OFFERED TO PATIENT:YES DATE OFFERED:11/10/2017 TEST ACCEPTED:NO REASON:PATIENT DECLINED BROCHURE PROVIDED TO PATIENTNO CHRISTIAN [id number] NONE LANGUAGE LANGUAGES SPOKEN:MEXICAN EDUCATION 12 GRADUATE. 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 EXERCISE: WALKS DAILY, ELIPTYCAL INTERMITTENTLY PLANET FITNESS 5 DAYS A WEEK. MARITAL STATUS: .. OTHERS AT HOME: SON. PAIN CLINIC PFS, CLERGY, PUBLIC HEALTH REFERRALS HAS THE PATIENT BEEN EDUCATED REGARDING HIS/HER PLAN OF CARE?YES HAS THE PATIENT BEEN EDUCATED REGARDING PAIN, THE RISK FOR PAIN, THE IMPORTANCE OF EFFECTIVE PAIN MANAGEMENT, AND THE PAIN ASSESSMENT PROCESS?YES ADVANCE DIRECTIVE ADVANCE DIRECTIVE DISCUSSED WITH PATIENT:YES 09/03/18 PT DOES NOT HAVE ANY ADVANCED DIRECTIVES. INFORMATION ON HCP GIVEN TO PT AND ASSISTANCE OFFERED IN COMPLETING. AD 08/20/18 REVIEWED WITH PT [id number] BV. HOSPITALIZATION/MAJOR DIAGNOSTIC PROCEDURE NONE REVIEW OF SYSTEMS REVIEWED BY: PROVIDER: ELOY . CONSTITUTIONAL: ANY CHANGE IN YOUR MEDICAL CONDITION? NO . CHILLS NO . FEVER NO . INFECTION: DO YOU HAVE NEW INFECTIONS? NO . DO YOU HAVE HISTORY OF MRSA? NO . MUSCULOSKELETAL: ANY NEW PATTERNS OF PAIN OR NUMBNESS? NO . GASTROENTEROLOGY: ANY NEW CHANGE IN BOWEL CONTROL? NO . GENITOURINARY: ANY NEW CHANGE IN BLADDER CONTROL? NO . IS THERE A CHANCE YOU COULD BE ? NO . HEMATOLOGY/LYMPH: DO YOU TAKE ANY BLOOD THINNERS? (FOR EXAMPLE- COUMADIN, PLAVIX, AGGRENOX, PLATEL, PRADAXA, OR XARELTO) NO . WHEN WAS YOUR LAST DOSE? DATE: TIME: . NEUROLOGY: HAVE YOU FALLEN IN THE PAST 12 MONTHS? YES, X 1 SLIPPED WHILE AT WORK . ANY NEW EXTREMITY NUMBNESS OR WEAKNESS? YES, OCCASSIONAL NUMBNESS RIGHT UPPER THIGH AFTER STANDING FOR LONG PERIODS . CARDIOLOGY: DO YOU HAVE A PACEMAKER OR DEFIBRILLATOR? NO . RESPIRATORY: HAVE YOU BEEN SICK IN THE PAST WEEK? NO . FEVER NO . FLU LIKE SYMPTOMS? NO . COUGH NO . INTEGUMENTARY: DO YOU HAVE ANY RASHES OR OPEN SORES? NO . ALLERGIC/IMMUNO: ARE YOU ALLERGIC TO IV DYE? NO . ANY NEW ALLERGIES? NO . PSYCHIATRIC: DO YOU HAVE THOUGHTS OF HURTING YOURSELF OR SOMEONE ELSE? NO . ARE YOU ABUSED, NEGLECTED, OR IN AN UNSAFE ENVIRONMENT? NO . ENDOCRINOLOGY: ARE YOU DIABETIC? YES, . OTHER: DO YOU NEED ANY PRESCRIPTIONS? NO . IF YES, PLEASE LIST: ____ . ANY NEW PROBLEMS WITH YOUR MEDICATIONS? NO . WHEN DID YOU LAST EAT? ____ . WHEN DID YOU LAST DRINK? ____ . WHAT DID YOU LAST DRINK? ____ . NAME OF PERSON DRIVING YOU HOME? ____ . DO YOU HAVE ANY OTHER QUESTIONS OR CONCERNS NO RELIEF FROM GABAPENTIN . VITAL SIGNS WT 215.4 LBS, HT 64 IN, BMI 36.97 INDEX, BP 125/84 MM HG, HR 96 /MIN, RR 18 /MIN, TEMP 97.4 F, OXYGEN SAT % 95%, SAFE IN ENV? (Y/N) Y, NA INITIALS AW 1449, REVIEWED BY: HAMLET. EXAMINATION GENERAL EXAMINATION: GENERAL APPEARANCE:NO ACUTE DISTRESS, WELL NOURISHED AND HYDRATED. PSYCHAPPROPRIATE MOOD AND AFFECT . LUNGS:CLEAR TO AUSCULTATION BILATERALLY, NO WHEEZES, RHONCHI, RALES. HEART:NO MURMURS, REGULAR RATE AND RHYTHM. BACK: NORMAL ALIGNMENT TENDER TO TOUCH ALONG LUMBAR PARASPINAL MUSCLES PAIN WITH EXTENSIONAND ROTATION OF LUMBAR SPINE SLR NEGATIVE BILATERAL . ASSESSMENTS BILATERAL LOW BACK PAIN WITH RIGHT-SIDED SCIATICA - M54.41 (PRIMARY) TREATMENT BILATERAL LOW BACK PAIN WITH RIGHT-SIDED SCIATICA CONTINUE GABAPENTIN CAPSULE, 300 MG, 1 CAPSULE, ORALLY, TWICE A DAY, 90 DAYS, 180 CAPSULE, REFILLS 1 START TIZANIDINE HCL TABLET, 2 MG, 1 TABLET NEEDED, ORALLY, AT BED TIME, 90 DAYS, 90, REFILLS 0 STOP ROBAXIN TABLET, 500 MG, 2 TABLETS, ORALLY, EVERY 6 HRS MAY CAUSE DROWSINESS NOTES: FACET JOINT INJECTION MATERIAL WAS PRINTED,FACET JOINT INJECTION: YOUR EXPERIENCE MATERIAL WAS PRINTED. CLINICAL NOTES: ISTOP REGISTRY REVIEWED AND DEMONSTRATES COMPLLIANCE. (REF # [id number] ) BRINGS IN MEDICATIONS WHICH IS APPROPRIATE FOR WHAT WAS DISPENSED. RECENT URINE TOXICOLOGY REVIEWED. NO UNAUTHORIZED MEDICATIONS. NO ILLICIT SUBSTANCES AND PRESCRIBED MEDICATIONS WERE PRESENT. THERAPEUTIC L4-L5, L5-S1 FACET BLOCK. PROCEDURE CODES FA211 ESTABILISHED PATIENT [facility] CHARGE DISPOSITION & COMMUNICATION FOLLOW UP POST PROCEDURE (REASON: THERAPEUTIC L4-L5, L5-S1 FACET BLOCK) ELECTRONICALLY SIGNED BY ALFA VORA ON 09/04/2018 AT 04:47 PM EDT DISCLAIMER : THIS IS A VISIT SUMMARY EXTRACTED FROM THE [facility] CHART. IT IS NOT A COPY OF THE [facility] PROGRESS NOTE. MTDD
== END ==
LOC: M PAIN 14:45
PROVIDERS: ATTEND Nurse Practitioner Family
DX: M54.41 Lumbago with sciatica, right side (principal); E05.00 Thyrotoxicosis with diffuse goiter without thyrotoxic crisis or storm; R73.03 Prediabetes; E66.9 Obesity, unspecified; D25.9 Leiomyoma of uterus, unspecified; G43.109 Migraine with aura, not intractable, without status migrainosus; E55.9 Vitamin D deficiency, unspecified; J30.9 Allergic rhinitis, unspecified; K21.9 Gastro-esophageal reflux disease without esophagitis; K29.70 Gastritis, unspecified, without bleeding; Z90.49 Acquired absence of other specified parts of digestive tract; Z79.84 Long term (current) use of oral hypoglycemic drugs; Z79.899 Other long term (current) drug therapy; Z91.040 Latex allergy status; Z91.018 Allergy to other foods

== ENCOUNTER → 2018-10-03 | Outpatient (CLI) | payer BC ==
[~2018-10-03] MED LIST changes: +BUPIVACAINE HCL 0.25% 30 ML VIAL As Ordered ONE; +ISOVUE-M 300 61% 15ML VIAL (Q9967) As Ordered ONE; +LIDOCAINE 1% SDV INJ 30 ML VIAL As Ordered ONE; +TRIAMCINOLONE ACETONIDE SUSP 40 MG/ML VIAL (J3301) As Ordered ONE; +diazePAM 5 MG TAB As Ordered ONE; +oxyCODONE 5MG TAB As Ordered ONE
--- NOTE | 2018-10-03 10:40 | REP ---
Partial lumbar spine series: To views. History: Injection procedure for pain. 33 seconds of fluoroscopy time is reported. Findings: A sequence of two fluoroscopically obtained last image hold procedural spot radiographs of the lumbar spine document needle position and contrast injection associated with injection procedure. Electronically Signed by Elliott Haque MD 10/03/2018 10:32 A
--- NOTE | 2018-10-19 23:41 | ECWPNPC ---
PATIENT NAME: RIK FUNES : 1960 GENDER: FEMALE VISIT DATE: 10/03/2018 DISCHARGE DATE: 10/03/18 1026 VISIT LOCKED DATE TIME: PHYSICIAN: ANITA ESCOBAR MD RESOURCE: ANITA ESCOBAR MD REASON FOR APPOINTMENT 1. THERAPEUTIC L4-L5, L5-S1 FACET BLOCK HISTORY OF PRESENT ILLNESS HISTORY OF PRESENT ILLNESS: PAIN THE PATIENT DESCRIBES THE PAIN... FALL RISK SCREENING: SCREENING :NO FALLS REPORTED IN THE LAST YEAR CURRENT MEDICATIONS TAKING BLOOD GLUCOSE TEST - STRIP VERIO DIRECTED IN VITRO DX E88.81 DAILY TAKING ONE TOUCH ULTRA 2 LANCET DX 250.00 LANCET DIRECTED NA 1-2 TIMES A DAY TAKING HYDROCORTISONE 2.5 % CREAM 1 APPLICATION TO AFFECTED AREA EXTERNALLY TWICE A DAY NEEDED, NOTES: NONE RECENT TAKING MAY USE ONE TOUCH ULTRA GLUCOSE TSTING STRIPS DX 790.21 DIRECTED NA 1-2 TIMES A DAY TAKING VOLTAREN 1 % GEL 2 GRAMS TRANSDERMAL FOUR TIMES DAILY NEEDED, NOTES: NONE RECENT TAKING TOPAMAX 100 MG TABLET 2 TABLETS ORALLY TWICE A DAY, NOTES: JORGE 10/02 499 TAKING SUMATRIPTAN SUCCINATE 100 MG TABLET 1 TABLET NEEDED AT ONSET OF [place] ORALLY ONCE A DAY, NOTES: JORGE NONE RECENT TAKING CALCIUM 600-D 600-400 MG-UNIT TABLET 1 TABLET WITH FOOD ORALLY ONCE A DAY, NOTES: 10/02 499 TAKING CLARITIN 10 MG TABLET 1 TABLET ORALLY ONCE A DAY, NOTES: NEEDED NONE RECENT TAKING SALINE NASAL SPRAY 0.65 % SOLUTION 2 DROPS IN EACH NOSTRIL NEEDED NASALLY EVERY 4HRS NEEDED, NOTES: NONE RECENT TAKING NAPROXEN 500 MG TABLET 1 TABLET NEEDED ORALLY EVERY 12 HRS, NOTES: NONE RECENT TAKING LEVOTHYROXINE SODIUM 150 MCG TABLET 1 TABLET ON AN EMPTY STOMACH IN THE MORNING ORALLY ONCE A DAY, NOTES: 10/02 499 TAKING POTASSIUM CHLORIDE 10 MEQ CAPSULE EXTENDED RELEASE 3 CAPSULES WITH FOOD ORALLY DAILY, NOTES: 2 TABS 10/02 499 TAKING DULOXETINE HCL 60 MG CAPSULE DELAYED RELEASE PARTICLES 1 CAPSULE ORALLY ONCE A DAY, NOTES: 10/02 499 TAKING SIMVASTATIN 20 MG TABLET 1 TABLET IN THE EVENING ORALLY ONCE A DAY, NOTES: 10/01 2299 TAKING OMEPRAZOLE 40 MG CAPSULE DELAYED RELEASE 1 CAPSULE ORALLY ONCE A DAY, NOTES: 10/02 499 TAKING DRISDOL 99534 UNIT CAPSULE 1 CAPSULE ORALLY ONCE EVERY 2 WEEKS WITH MEAL, NOTES: 10/02 499 TAKING METFORMIN 500MG 1 ER TABLET 2 TAB(S) IN A.M./1 TAB IN P.M. 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 QUESADA FAMILY HISTORY FATHER: , COLON CANCER DX 87, DIAGNOSED WITH CANCER IN 87 MOTHER: ALIVE 78 YRS, SLE, CVA SIBLINGS: ALIVE, BROTHER HAS HTN PATERNAL GRAND FATHER: , UNKNOWN PATERNAL GRAND MOTHER: , UNKNOWN MATERNAL GRAND FATHER: , UNKNOWN MATERNAL GRAND MOTHER: , UNKNOWN PATERNAL AUNT: , BREAST CANCER, PRIOR TO AGE 52, CANCER NO KNOWN HX OF BREAST\\\/OVARIAN CANCER. SOCIAL HISTORY GENERAL: TOBACCO USE ARE YOU A:NONSMOKER HIV / HEP-C SCREENING HIV TEST OFFERED TO PATIENT:YES DATE OFFERED:11/10/2017 PREVIOUSLY DONE TEST ACCEPTED:YES HEP-C TEST OFFERED TO PATIENT:YES DATE OFFERED:11/10/2017 TEST ACCEPTED:NO REASON:PATIENT DECLINED BROCHURE PROVIDED TO PATIENTNO OTHERS AT HOME: SON. EDUCATION 12 GRADUATE. 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 LANGUAGE LANGUAGES SPOKEN:MACEDONIAN DOMESTIC VIOLENCE DO YOU FEEL SAFE IN YOUR ENVIRONMENT?YES BMI CARE GOAL FOLLOW-UP ABOVE NORMAL BMI FOLLOW-UPGIVING ENCOURAGEMENT TO EXERCISE, LIFESTYLE EDUCATION REGARDING DIET RECREATIONAL DRUG USE DENIES. EXERCISE: WALKS DAILY, ELIPTYCAL INTERMITTENTLY PLANET FITNESS 5 DAYS A WEEK. LEARNING BARRIERS / SPECIAL NEEDS CHANGE FROM LAST VISIT?NO BARRIERS TO LEARNING?NO HEARING IMPAIRED?NO VISION IMPAIRED?YES COGNITIVELY IMPAIRED?NO :CORRECTIVE LENSES READINESS TO LEARN?YES LEARNING PREFERENCES?YES :TAPES/VIDEOS, BOOKLETS, HANDOUTS LEARNING CAPABILITIES PRESENT?YES EMOTIONAL BARRIERS?NO SPECIAL DEVICES?NO DISPATCHER SERVICE CHIEF NEEDED?NO PAIN CLINIC PFS, CLERGY, PUBLIC HEALTH REFERRALS HAS THE PATIENT BEEN EDUCATED REGARDING HIS/HER PLAN OF CARE?YES HAS THE PATIENT BEEN EDUCATED REGARDING PAIN, THE RISK FOR PAIN, THE IMPORTANCE OF EFFECTIVE PAIN MANAGEMENT, AND THE PAIN ASSESSMENT PROCESS?YES LATEX QUESTIONNAIRE LATEX ALLERGY : HAVE YOU EVER DEVELOPED ANY TYPE OF REACTION AFTER HANDLING LATEX PRODUCTS SUCH RUBBER GLOVES, CONDOMS, DIAPHRAGMS, BALLOONS, SOCKS, OR UNDERWEAR?YES PT ALLERGIC TO LATEX DATE ASKED : 10/03/2018 CAFFEINE CAFFEINE USE?YES 2-3 A DAY ADVANCE DIRECTIVE ADVANCE DIRECTIVE DISCUSSED WITH PATIENT:YES 10/03/18 PT DOES NOT HAVE ANY ADVANCED DIRECTIVES. INFORMATION ON HCP GIVEN TO PT AND ASSISTANCE OFFERED IN COMPLETING. AD JEHOVAH'S WITNESS [id number] NONE MARITAL STATUS: .. 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 SEXUAL HX HAD SEX IN THE LAST 12 MONTHS (VAGINAL, ORAL, OR ANAL)?YES WITHMEN ONLY USE PROTECTION?NO LMP:POST MENOPAUSE HAVE YOU EVER HAD AN STD?NO 08/20/18 REVIEWED WITH PT 1427 BV. HOSPITALIZATION/MAJOR DIAGNOSTIC PROCEDURE NONE REVIEW OF SYSTEMS REVIEWED BY: PROVIDER: . CONSTITUTIONAL: ANY CHANGE IN YOUR MEDICAL CONDITION? NO . CHILLS NO . FEVER NO . INFECTION: DO YOU HAVE NEW INFECTIONS? NO . DO YOU HAVE HISTORY OF MRSA? NO . MUSCULOSKELETAL: ANY NEW PATTERNS OF PAIN OR NUMBNESS? NO . GASTROENTEROLOGY: ANY NEW CHANGE IN BOWEL CONTROL? NO . GENITOURINARY: ANY NEW CHANGE IN BLADDER CONTROL? NO . IS THERE A CHANCE YOU COULD BE ? NO . HEMATOLOGY/LYMPH: DO YOU TAKE ANY BLOOD THINNERS? (FOR EXAMPLE- COUMADIN, PLAVIX, AGGRENOX, PLATEL, PRADAXA, OR XARELTO) NO . WHEN WAS YOUR LAST DOSE? DATE: TIME: . NEUROLOGY: HAVE YOU FALLEN IN THE PAST 12 MONTHS? NO . ANY NEW EXTREMITY NUMBNESS OR WEAKNESS? NO . CARDIOLOGY: DO YOU HAVE A PACEMAKER OR DEFIBRILLATOR? NO . RESPIRATORY: HAVE YOU BEEN SICK IN THE PAST WEEK? NO . FEVER NO . FLU LIKE SYMPTOMS? NO . COUGH NO . INTEGUMENTARY: DO YOU HAVE ANY RASHES OR OPEN SORES? NO . ALLERGIC/IMMUNO: ARE YOU ALLERGIC TO IV DYE? NO . ANY NEW ALLERGIES? NO . PSYCHIATRIC: DO YOU HAVE THOUGHTS OF HURTING YOURSELF OR SOMEONE ELSE? NO . ARE YOU ABUSED, NEGLECTED, OR IN AN UNSAFE ENVIRONMENT? NO . ENDOCRINOLOGY: ARE YOU DIABETIC? YES, FSBS @ 0715 WAS 91 . OTHER: DO YOU NEED ANY PRESCRIPTIONS? NO . IF YES, PLEASE LIST: ____ . ANY NEW PROBLEMS WITH YOUR MEDICATIONS? NO . WHEN DID YOU LAST EAT? 10/02 1929 . WHEN DID YOU LAST DRINK? 10/02 2099 . WHAT DID YOU LAST DRINK? WATER . NAME OF PERSON DRIVING YOU HOME? [employer] SWEET . DO YOU HAVE ANY OTHER QUESTIONS OR CONCERNS NO . VITAL SIGNS WT 207 LBS, HT 64 IN, BMI 35.53 INDEX, BP 127/82 MM HG, HR 84 /MIN, RR 18 /MIN, TEMP 96.8 F, OXYGEN SAT % 97%, NA INITIALS SC 08:42. ASSESSMENTS SPONDYLOSIS OF LUMBAR REGION WITHOUT MYELOPATHY OR RADICULOPATHY - M47.816 (PRIMARY) SPONDYLOSIS OF LUMBOSACRAL REGION WITHOUT MYELOPATHY OR RADICULOPATHY - M47.817 PROCEDURES PN LUMBAR FACET BLOCK THERAPEUTIC PRE PROCEDURE DIAGNOSIS LUMBAR SPONDYLOSIS, LUMBOSACRAL SPONDYLOSIS POST PROCEDURE DIAGNOSIS LUMBAR SPONDYLOSIS, LUMBOSACRAL SPONDYLOSIS PROCEDURE BILATERAL L4-L5 AND BILATERAL L5-S1 LUMBAR FACET THERAPEUTIC BLOCK SURGEON DR. 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 I EVALUATE THE PATIENT AND REVIEWED THE CHART. I WENT OVER THE RISKS, ALTERNATIVES, AND BENEFITS ASSOCIATED WITH THIS PROCEDURE. THE PATIENT WOULD LIKE TO PROCEED AND GIVE CONSENT TO PERFORMED THE PROCEDURE. THE PATIENT DENIES UNEXPLAINABLE WEIGHT LOSS, FEVER, CHILLS, OR NEW CHANGES IN URINARY OR BOWEL CONTROL DESCRIPTION OF PROCEDURE THE PATIENT WAS BROUGHT TO THE PROCEDURE ROOM AND PLACED IN THE PRONE POSITION. THE LUMBOSACRAL AREA WAS CLEANED WITH CHLORAPREP SOLUTION AND DRAPED ASEPTICALLY. THE PROCEDURE WAS DONE UNDER STERILE CONDITIONS. I CHECKED LATERALITY AND THE LEVEL WHERE THE PROCEDURE WAS GOING TO BE PERFORMED WITH THE PATIENT AND THE SUPPORTING STAFF AT THE MOMENT OF THE TIME OUT IN THE PROCEDURE ROOM. UNDER FLUOROSCOPIC GUIDANCE, THE TARGET POINT WAS SELECTED AT THE RIGHT AND LEFT L4-L5 AND RIGHT AND LEFT L5-S1 FACET JOINT. TARGET POINT WAS SELECTED AFTER LATERAL ROTATION AND TILT OF THE MAGNIFIER OF THE C-ARM. LIDOCAINE 0.5% WAS USED TO NUMB THE SKIN AND THE SUBCUTANEOUS TISSUE BELOW IT. SPINAL NEEDLES, 22-GAUGE, WERE ADVANCED UNDER FLUOROSCOPIC GUIDANCE AND FOLLOWING PATIENT FEEDBACK UNTIL THE TARGETS WERE TOUCHED. THE POSITION OF THE NEEDLES WAS VERIFIED WITH AP AND LATERAL VIEWS. AFTER PROPER POSITION OF THE NEEDLES WAS ACHIEVED, ISOVUE-M DYE 30% 0.1 ML WAS INJECTED SHOWING ADEQUATE SPREAD OF THE DYE. THEN A SOLUTION OF 1.9 ML OF BUPIVACAINE 0.125% OF KENALOG 10 MG WAS INJECTED AT EACH SITE. THERE WAS NO EVIDENCE OF BLOOD, PARESTHESIA OR CEREBROSPINAL FLUID DURING THE PROCEDURE. THE PATIENT WAS SENT TO THE RECOVERY ROOM. THE PATIENT WAS MOVING THE EXTREMITIES AND DOING WELL. THERE WAS NO COMPLICATION DURING THE PROCEDURE. FLUOROSCOPY TIME WAS 33 SECONDS POST PROCEDURE NOTE THE PATIENT WILL BE SEEN IN A FOLLOW UP IN THE NEXT FEW WEEKS. INSTRUCTIONS WERE GIVEN, QUESTIONS WERE ANSWERED, AND THE PATIENT EXPRESSED UNDERSTANDING AND AGREES WITH THE PLAN. I, SHYAM CUNNINGHAM, DOCUMENTED THE ABOVE INFORMATION ACTING A SCRIBE FOR DR. ESCOBAR. I HAVE REVIEWED THE ABOVE DOCUMENT, WRITTEN BY SHYAM FERRIS AND I VERIFY THAT IT IS ACCURATE. DIAGNOSTIC IMAGING [facility] FACET BLOCK (PAIN)[id number] PROCEDURE CODES 6045F RADXPS IN END [id number] PXD [id number] INJ PARAVERT F JNT L/S 1 LEV, MODIFIERS: 50 [id number] INJ PARAVERT F JNT L/S 2 LEV, MODIFIERS: 50 DISPOSITION & COMMUNICATION FOLLOW UP 3 WEEKS ELECTRONICALLY SIGNED BY ANITA ESCOBAR MD, MD ON 10/19/2018 AT 04:48 PM EDT DISCLAIMER : THIS IS A VISIT SUMMARY EXTRACTED FROM THE [employer] CHART. IT IS NOT A COPY OF THE [employer] PROGRESS NOTE. MTDD
== END ==
LOC: M PAIN 08:30
PROVIDERS: ATTEND Anesthesiology
DX: G89.29 Other chronic pain (principal); M47.816 Spondylosis without myelopathy or radiculopathy, lumbar region; M47.817 Spondylosis without myelopathy or radiculopathy, lumbosacral region; E03.9 Hypothyroidism, unspecified; E11.9 Type 2 diabetes mellitus without complications; E78.5 Hyperlipidemia, unspecified; G43.909 Migraine, unspecified, not intractable, without status migrainosus; K21.9 Gastro-esophageal reflux disease without esophagitis; Z79.84 Long term (current) use of oral hypoglycemic drugs; Z79.899 Other long term (current) drug therapy; Z91.018 Allergy to other foods; Z91.040 Latex allergy status
CPT/HCPCS: 64493; 64494; J3301; Q9967

== ENCOUNTER → 2018-10-31 | Outpatient (CLI) | payer BC ==
[~2018-10-31] MED LIST changes: -BUPIVACAINE HCL 0.25% 30 ML VIAL As Ordered ONE; -ISOVUE-M 300 61% 15ML VIAL (Q9967) As Ordered ONE; -LIDOCAINE 1% SDV INJ 30 ML VIAL As Ordered ONE; -TRIAMCINOLONE ACETONIDE SUSP 40 MG/ML VIAL (J3301) As Ordered ONE; -diazePAM 5 MG TAB As Ordered ONE; -oxyCODONE 5MG TAB As Ordered ONE
--- NOTE | 2018-11-15 02:28 | ECWPNPC ---
PATIENT NAME: RIK FUNES : 1960 GENDER: FEMALE VISIT DATE: 10/31/2018 DISCHARGE DATE: 10/31/18 1051 VISIT LOCKED DATE TIME: PHYSICIAN: JAY MATT RESOURCE: JAY MATT DISCLAIMER : THIS IS A VISIT SUMMARY [facility]ED FROM [facility]. IT IS NOT A COPY OF THE [employer] PROGRESS NOTE. DESTINEY
== END ==
LOC: M PAIN 09:00
PROVIDERS: ATTEND Nurse Practitioner Family
DX: M54.41 Lumbago with sciatica, right side (principal); G89.29 Other chronic pain; Z79.899 Other long term (current) drug therapy; Z79.891 Long term (current) use of opiate analgesic; F17.210 Nicotine dependence, cigarettes, uncomplicated; Z88.8 Allergy status to other drugs, medicaments and biological substances

== ENCOUNTER → 2018-10-31 | Outpatient (REF) | payer BC ==
[2018-10-31 14:29] LABS: ALBUMIN 3.5 GM/DL (3.2-5.2); ALT/SGPT 27 U/L (12-78); BILIRUBIN,TOTAL 0.2 MG/DL (0.2-1.0); BLOOD UREA NITROGEN 23 MG/DL (7-18); CALCIUM LEVEL 8.8 MG/DL (8.5-10.1); CARBON DIOXIDE LEVEL 23 MEQ/L (21-32); CHLORIDE LEVEL 115 MEQ/L (98-107); CREATININE FOR GFR 0.74 MG/DL (0.55-1.30); FREE T4 1.21 NG/DL (0.76-1.46); GLOMERULAR FILTRATION RATE > 60.0 (>51); GLUCOSE, FASTING 82 MG/DL (70-100); POTASSIUM SERUM 3.7 MEQ/L (3.5-5.1); SODIUM LEVEL 144 MEQ/L (136-145); THYROID STIMULATING HORMONE 0.142 uIU/ML (0.358-3.740); TOTAL PROTEIN 6.7 GM/DL (6.4-8.2)
== END ==
LOC: M LABDRAW1 11:12
PROVIDERS: ATTEND Nurse Practitioner Family
DX: R60.0 Localized edema (principal); E03.8 Other specified hypothyroidism; E88.81 Metabolic syndrome and other insulin resistance

== ENCOUNTER → 2018-11-20 | Outpatient (CLI) | payer BC ==
--- NOTE | 2018-11-21 13:39 | REP ---
MRI LUMBAR SPINE WITHOUT CONTRAST: HISTORY: Low back pain radiating down the left leg. Comparison MRI study is from July 24, 2014. Comparison radiographs are from November 10, 2017. TECHNIQUE: Sagittal and axial T1- and T2-weighted scans are acquired in the usual fashion with and without fat saturation. Sequences include spin echo, turbo spin echo, and STIR imaging sequences. MRI FINDINGS: There is straightening of the normal lumbar lordosis. Lumbar vertebral body heights are preserved. Alignment is otherwise normal. There is no evidence of spondylolysis or spondylolisthesis. No extra vertebral abnormality is appreciated. There is degenerative narrowing of the T12-L1 disc. Mild diffuse disc bulging is seen indenting the ventral margin of the thecal sac at this level. No cord compression is seen. The tip of the conus medullaris is normal in position and appearance at L1. At L1-L2, there is no abnormal finding. At L2-3, there is degenerative disc narrowing and diffuse bulging of the posterior disc margin indents the ventral aspect of the thecal sac. Canal size at L2-3 is borderline. These findings are unchanged. There is mild ligamentum flavum hypertrophy again noted. No neural foraminal narrowing or central canal stenosis is noted. At L3-4, there is minimal narrowing and some mild diffuse disc bulging of the posterior disc margin. This subtly indents the ventral margin of the thecal sac. Canal size is borderline unchanged. At L4-5, there is a small right foraminal disc bulge. The nerve root exits the neural foramen surrounded by epidural fat without compression. Minimal disc bulging is seen. There is mild facet hypertrophy and ligamentum flavum hypertrophy. No central canal stenosis is seen. The right foraminal disc bulge appears more prominent. Otherwise unchanged. At L5-S1, there is degenerative disc narrowing, mild diffuse disc bulging and osteophytic ridging, and osteoarthritic facet hypertrophy. No central canal stenosis is noted. There is mild neural foraminal encroachment as before bilaterally, right more so than left. IMPRESSION: Generative spondylosis changes. Multilevel bulging disc. Right foraminal disc bulge at L4-5. Mild bilateral L5-S1 foraminal encroachment unchanged. Electronically Signed by Elliott Haque MD 11/21/2018 02:24 P
== END ==
LOC: M RAD 16:05
PROVIDERS: ATTEND Nurse Practitioner Family
DX: M51.34 Other intervertebral disc degeneration, thoracic region (principal); M51.35 Other intervertebral disc degeneration, thoracolumbar region; M51.36 Other intervertebral disc degeneration, lumbar region; M51.37 Other intervertebral disc degeneration, lumbosacral region

== ENCOUNTER → 2018-12-05 | Outpatient (CLI) | payer BC ==
[~2018-12-05] MED LIST changes: -OMEP20CA3 PO; +OMEP20CA4 PO
== END ==
LOC: M PAIN 14:30
PROVIDERS: ATTEND Nurse Practitioner Family
DX: M54.41 Lumbago with sciatica, right side (principal); Z53.21 Procedure and treatment not carried out due to patient leaving prior to being seen by health care provider

== ENCOUNTER → 2018-12-11 | Outpatient (CLI) | payer BC ==
--- NOTE | 2018-12-26 00:37 | ECWPNPC ---
PATIENT NAME: RIK FUNES : 1960 GENDER: FEMALE VISIT DATE: 12/11/2018 DISCHARGE DATE: 12/11/18 1514 VISIT LOCKED DATE TIME: PHYSICIAN: JAY MATT RESOURCE: JAY MATT REASON FOR APPOINTMENT 1. BACK HISTORY OF PRESENT ILLNESS HISTORY OF PRESENT ILLNESS: HERE FOR F/U OF CHRONIC LBP.CONTINUES TO REPORT EPISODES OF INCAPACITATING PAIN.TRAMADOL 50MG BID HAS BEEN INEFFECTIVE.REVIEWED MRI L/S SPINE ORDERED AT LAST VISIT.DISCUSSED MEDICATION AND TREATMENT OPTIONS.RATING PAIN VAS 9/10. PAIN THE PATIENT DESCRIBES THE PAIN... FALL RISK SCREENING: SCREENING :NO FALLS REPORTED IN THE LAST YEAR CURRENT MEDICATIONS TAKING BLOOD GLUCOSE TEST - STRIP VERIO DIRECTED IN VITRO DX E88.81 DAILY TAKING MAY USE ONE TOUCH ULTRA GLUCOSE TSTING STRIPS DX 790.21 DIRECTED NA 1-2 TIMES A DAY TAKING TOPAMAX 100 MG TABLET 2 TABLETS ORALLY TWICE A DAY TAKING SUMATRIPTAN SUCCINATE 100 MG TABLET 1 TABLET NEEDED AT ONSET OF [place] ORALLY ONCE A DAY TAKING CALCIUM 600-D 600-400 MG-UNIT TABLET 1 TABLET WITH FOOD ORALLY ONCE A DAY TAKING CLARITIN 10 MG TABLET 1 TABLET ORALLY ONCE A DAY, NOTES: OCC TAKING SALINE NASAL SPRAY 0.65 % SOLUTION 2 DROPS IN EACH NOSTRIL NEEDED NASALLY EVERY 4HRS NEEDED TAKING NAPROXEN 500 MG TABLET 1 TABLET NEEDED ORALLY EVERY 12 HRS TAKING DULOXETINE HCL 60 MG CAPSULE DELAYED RELEASE PARTICLES 1 CAPSULE ORALLY ONCE A DAY TAKING DRISDOL 32641 UNIT CAPSULE 1 CAPSULE ORALLY ONCE EVERY 2 WEEKS WITH MEAL TAKING TIZANIDINE HCL 2 MG TABLET 1 TABLET NEEDED ORALLY AT BED TIME TAKING GABAPENTIN 300 MG CAPSULE 1 CAPSULE ORALLY TWICE A DAY TAKING LEVOTHYROXINE SODIUM 125 MCG TABLET 1 TABLET ON AN EMPTY STOMACH IN THE MORNING ORALLY ONCE A DAY TAKING SIMVASTATIN 20 MG TABLET 1 TABLET IN THE EVENING ORALLY ONCE A DAY TAKING OMEPRAZOLE 40 MG CAPSULE DELAYED RELEASE 1 CAPSULE ORALLY ONCE A DAY TAKING LASIX 20 MG TABLET 1 TABLET ORALLY ONCE A DAY TAKING POTASSIUM CHLORIDE 10 MEQ CAPSULE EXTENDED RELEASE 3 CAPSULES WITH FOOD ORALLY DAILY TAKING METFORMIN 500MG 1 ER TABLET 2 TAB(S) IN A.M./1 TAB IN P.M. 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 QUESADA FAMILY HISTORY FATHER: , COLON CANCER DX 85, DIAGNOSED WITH CANCER IN 87 MOTHER: ALIVE 78 YRS, SLE, CVA SIBLINGS: ALIVE, BROTHER HAS HTN PATERNAL GRAND FATHER: , UNKNOWN PATERNAL GRAND MOTHER: , UNKNOWN MATERNAL GRAND FATHER: , UNKNOWN MATERNAL GRAND MOTHER: , UNKNOWN PATERNAL AUNT: , BREAST CANCER, PRIOR TO AGE 52, CANCER NO KNOWN HX OF BREAST\\\/OVARIAN CANCER. SOCIAL HISTORY GENERAL: TOBACCO USE ARE YOU A:NONSMOKER HIV / HEP-C SCREENING HIV TEST OFFERED TO PATIENT:YES DATE OFFERED:11/10/2017 PREVIOUSLY DONE TEST ACCEPTED:YES HEP-C TEST OFFERED TO PATIENT:YES DATE OFFERED:11/10/2017 TEST ACCEPTED:NO REASON:PATIENT DECLINED BROCHURE PROVIDED TO PATIENTNO OTHERS AT HOME: SON. EDUCATION 12 GRADUATE. 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 LANGUAGE LANGUAGES SPOKEN:TURKISH DOMESTIC VIOLENCE DO YOU FEEL SAFE IN YOUR ENVIRONMENT?YES BMI CARE GOAL FOLLOW-UP ABOVE NORMAL BMI FOLLOW-UPGIVING ENCOURAGEMENT TO EXERCISE, LIFESTYLE EDUCATION REGARDING DIET RECREATIONAL DRUG USE DENIES. EXERCISE: WALKS DAILY, ELIPTYCAL INTERMITTENTLY PLANET FITNESS 5 DAYS A WEEK. 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 AUTOMATIC NEEDED?NO PAIN CLINIC PFS, CLERGY, PUBLIC HEALTH REFERRALS HAS THE PATIENT BEEN EDUCATED REGARDING HIS/HER PLAN OF CARE?YES HAS THE PATIENT BEEN EDUCATED REGARDING PAIN, THE RISK FOR PAIN, THE IMPORTANCE OF EFFECTIVE PAIN MANAGEMENT, AND THE PAIN ASSESSMENT PROCESS?YES LATEX QUESTIONNAIRE LATEX ALLERGY : HAVE YOU EVER DEVELOPED ANY TYPE OF REACTION AFTER HANDLING LATEX PRODUCTS SUCH RUBBER GLOVES, CONDOMS, DIAPHRAGMS, BALLOONS, SOCKS, OR UNDERWEAR?YES PT ALLERGIC TO LATEX DATE ASKED : 10/03/2018 CAFFEINE CAFFEINE USE?YES 2-3 A DAY ADVANCE DIRECTIVE ADVANCE DIRECTIVE DISCUSSED WITH PATIENT:YES PT DOES NOT HAVE ANY ADVANCED DIRECTIVES. INFORMATION ON HCP GIVEN TO PT AND ASSISTANCE OFFERED IN COMPLETING. LATTER-DAY [id number] NONE MARITAL STATUS: .. 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 SEXUAL HX HAD SEX IN THE LAST 12 MONTHS (VAGINAL, ORAL, OR ANAL)?YES WITHMEN ONLY USE PROTECTION?NO LMP:POST MENOPAUSE HAVE YOU EVER HAD AN STD?NO 08/20/18 REVIEWED WITH PT 1427 BV. HOSPITALIZATION/MAJOR DIAGNOSTIC PROCEDURE NONE REVIEW OF SYSTEMS REVIEWED BY: PROVIDER: JAY GRIMM . CONSTITUTIONAL: ANY CHANGE IN YOUR MEDICAL CONDITION? NO . CHILLS NO . FEVER NO . INFECTION: DO YOU HAVE NEW INFECTIONS? NO . DO YOU HAVE HISTORY OF MRSA? NO . MUSCULOSKELETAL: ANY NEW PATTERNS OF PAIN OR NUMBNESS? YES, SUNDAY LIMITED ROM PAIN TO RIGHT LOW BACK, SPONTANIOUSLY STARTED WITHOUT ASSOCIATION OF ACTIVITY OR ACCIDENT . GASTROENTEROLOGY: ANY NEW CHANGE IN BOWEL CONTROL? NO . GENITOURINARY: ANY NEW CHANGE IN BLADDER CONTROL? NO . IS THERE A CHANCE YOU COULD BE ? NO . HEMATOLOGY/LYMPH: DO YOU TAKE ANY BLOOD THINNERS? (FOR EXAMPLE- COUMADIN, PLAVIX, AGGRENOX, PLATEL, PRADAXA, OR XARELTO) NO . WHEN WAS YOUR LAST DOSE? DATE: TIME: . NEUROLOGY: HAVE YOU FALLEN IN THE PAST 12 MONTHS? NO . ANY NEW EXTREMITY NUMBNESS OR WEAKNESS? NO . CARDIOLOGY: DO YOU HAVE A PACEMAKER OR DEFIBRILLATOR? NO . RESPIRATORY: HAVE YOU BEEN SICK IN THE PAST WEEK? NO . FEVER NO . FLU LIKE SYMPTOMS? NO . COUGH NO . INTEGUMENTARY: DO YOU HAVE ANY RASHES OR OPEN SORES? NO . ALLERGIC/IMMUNO: ARE YOU ALLERGIC TO IV DYE? NO . ANY NEW ALLERGIES? NO . PSYCHIATRIC: DO YOU HAVE THOUGHTS OF HURTING YOURSELF OR SOMEONE ELSE? NO . ARE YOU ABUSED, NEGLECTED, OR IN AN UNSAFE ENVIRONMENT? NO . ENDOCRINOLOGY: ARE YOU DIABETIC? NO . OTHER: DO YOU NEED ANY PRESCRIPTIONS? YES, TO DISCUSS WITH JAY . IF YES, PLEASE LIST: ____ . ANY NEW PROBLEMS WITH YOUR MEDICATIONS? NO . WHEN DID YOU LAST EAT? ____ . WHEN DID YOU LAST DRINK? ____ . WHAT DID YOU LAST DRINK? ____ . NAME OF PERSON DRIVING YOU HOME? ____ . DO YOU HAVE ANY OTHER QUESTIONS OR CONCERNS YES, JUST WANT PAIN UNDER CONTROL . VITAL SIGNS WT 219.6 LBS, HT 64 IN, BMI 37.69 INDEX, BP 129/61 MM HG, HR 94 /MIN, RR 18 /MIN, TEMP 97.3 F, OXYGEN SAT % 96%, NA INITIALS SC 14:40, REVIEWED BY: EM. EXAMINATION GENERAL EXAMINATION: GENERAL AWAKE,ALERT ,PLEAASANT . PSYCH AFFECT NORMAL . LUNGS: LUNG DEL ROSARIO ARE CLEAR TO AUSCULTATION BILATERALLY. GOOD MOVEMENT OF AIR . HEART: S1, S2 IN A REGULAR RATE AND RHYTHM. NO SIGNIFICANT MURMURS, RUBS OR GALLOPS NOTED . LUMBAR SACRAL SPINEPALPATION:TENDER OVER BILAT. L4/5-L5/S1 LUMBAR FACETS WITH FACET LOADING.. DIAGNOSTIC TESTS REVIEWED MRI L/S SPINE-11/20/18. ASSESSMENTS SPONDYLOSIS OF LUMBOSACRAL JOINT - M47.817 (PRIMARY) BILATERAL LOW BACK PAIN WITH RIGHT-SIDED SCIATICA - M54.41 TREATMENT SPONDYLOSIS OF LUMBOSACRAL JOINT INCREASE TIZANIDINE HCL TABLET, 2 MG, 1 TO 2, ORALLY, AT BED TIME, 30 DAYS, 45, REFILLS 1 INCREASE TRAMADOL HCL TABLET, 50 MG, 1 TO 2, ORALLY, Q8H PRN MDD4, 30 DAY(S), 120, REFILLS 1 NOTES: BILAT L4/5-L5/S1 LFB , ISTOP REGISTRY REVIEWED AND DEMONSTRATES COMPLLIANCE. BRINGS IN MEDICATIONS WHICH IS APPROPRIATE FOR WHAT WAS DISPENSED. RECENT URINE TOXICOLOGY REVIEWED. NO UNAUTHORIZED MEDICATIONS. NO ILLICIT SUBSTANCES AND PRESCRIBED MEDICATIONS WERE PRESENT. , RISKS AND BENEFITS OF NARCOTIC/OPIOD MEDICATIONS WERE REVIEWED WITH PATIENT - THIS INCLUDES BUT IS NOT LIMITED TO RISK OF DEPENDANCE/DEVELOPMENT OF ADDICTION, MOOD DISTURBANCE AND DEPRESSION, OSTEOPOROSIS, HORMONAL AND LABIDAL CHANGES, RESPIRATORY DEPRESSION AND . PATIENT IS ADVISED NOT TO DRIVE OR DRINK ALCOHOL WHILE ON THESE MEDICATIONS. PROCEDURE CODES FA211 ESTABILISHED PATIENT [facility] CHARGE DISPOSITION & COMMUNICATION FOLLOW UP POST (REASON: BILAT L4/5-L5/S1 LFB DX) ELECTRONICALLY SIGNED BY ALFA WASSERMAN ON 12/25/2018 AT 04:14 PM EDT DISCLAIMER : THIS IS A VISIT SUMMARY EXTRACTED FROM THE [employer] CHART. IT IS NOT A COPY OF THE [employer] PROGRESS NOTE. DESTINEY
== END ==
LOC: M PAIN 14:30
PROVIDERS: ATTEND Nurse Practitioner Family
DX: M47.817 Spondylosis without myelopathy or radiculopathy, lumbosacral region (principal); M54.41 Lumbago with sciatica, right side; R73.03 Prediabetes; E78.5 Hyperlipidemia, unspecified; E66.9 Obesity, unspecified; E55.9 Vitamin D deficiency, unspecified; G43.009 Migraine without aura, not intractable, without status migrainosus; D25.9 Leiomyoma of uterus, unspecified; J30.9 Allergic rhinitis, unspecified; K21.9 Gastro-esophageal reflux disease without esophagitis; K29.70 Gastritis, unspecified, without bleeding; Z90.49 Acquired absence of other specified parts of digestive tract; Z79.1 Long term (current) use of non-steroidal anti-inflammatories (NSAID); Z79.84 Long term (current) use of oral hypoglycemic drugs; Z79.899 Other long term (current) drug therapy; Z91.018 Allergy to other foods; Z91.040 Latex allergy status

== ENCOUNTER → 2019-01-23 | Outpatient (CLI) | payer BC ==
[~2019-01-23] MED LIST changes: +BUPIVACAINE HCL 0.25% 30 ML VIAL As Ordered ONE; +ISOVUE-M 200 41% 20ML VIAL (Q9966) As Ordered ONE; +LIDOCAINE 1% SDV INJ 30 ML VIAL As Ordered ONE
--- NOTE | 2019-01-23 12:45 | REP ---
Partial lumbar spine series: Three views . History: Injection procedure for pain. 20 seconds of fluoroscopy time is reported. Findings: A sequence of three fluoroscopically obtained last image hold procedural spot radiographs of the lumbar spine document needle position and contrast injection associated with injection procedure. Electronically Signed by Elliott Haque MD 01/23/2019 12:37 P
--- NOTE | 2019-01-31 02:20 | ECWPNPC ---
PATIENT NAME: RIK FUNES : 1960 GENDER: FEMALE VISIT DATE: 01/23/2019 DISCHARGE DATE: 01/23/19 1031 VISIT LOCKED DATE TIME: PHYSICIAN: ANITA ESCOBAR MD RESOURCE: ANITA ESCOBAR MD REASON FOR APPOINTMENT 1. BILAT L4/5-L5/S1 LFB DX HISTORY OF PRESENT ILLNESS HISTORY OF PRESENT ILLNESS: PAIN THE PATIENT DESCRIBES THE PAIN... FALL RISK SCREENING: SCREENING :NO FALLS REPORTED IN THE LAST YEAR CURRENT MEDICATIONS TAKING BLOOD GLUCOSE TEST - STRIP VERIO DIRECTED IN VITRO DX E88.81 DAILY TAKING MAY USE ONE TOUCH ULTRA GLUCOSE TSTING STRIPS DX 790.21 DIRECTED NA 1-2 TIMES A DAY TAKING TOPAMAX 100 MG TABLET 2 TABLETS ORALLY TWICE A DAY TAKING SUMATRIPTAN SUCCINATE 100 MG TABLET 1 TABLET NEEDED AT ONSET OF [place] ORALLY ONCE A DAY TAKING CALCIUM 600-D 600-400 MG-UNIT TABLET 1 TABLET WITH FOOD ORALLY ONCE A DAY TAKING CLARITIN 10 MG TABLET 1 TABLET ORALLY ONCE A DAY, NOTES: OCC TAKING SALINE NASAL SPRAY 0.65 % SOLUTION 2 DROPS IN EACH NOSTRIL NEEDED NASALLY EVERY 4HRS NEEDED TAKING NAPROXEN 500 MG TABLET 1 TABLET NEEDED ORALLY EVERY 12 HRS TAKING DULOXETINE HCL 60 MG CAPSULE DELAYED RELEASE PARTICLES 1 CAPSULE ORALLY ONCE A DAY TAKING DRISDOL 58345 UNIT CAPSULE 1 CAPSULE ORALLY ONCE EVERY 2 WEEKS WITH MEAL TAKING LEVOTHYROXINE SODIUM 125 MCG TABLET 1 TABLET ON AN EMPTY STOMACH IN THE MORNING ORALLY ONCE A DAY TAKING SIMVASTATIN 20 MG TABLET 1 TABLET IN THE EVENING ORALLY ONCE A DAY TAKING OMEPRAZOLE 40 MG CAPSULE DELAYED RELEASE 1 CAPSULE ORALLY ONCE A DAY TAKING LASIX 20 MG TABLET 1 TABLET ORALLY ONCE A DAY TAKING POTASSIUM CHLORIDE 10 MEQ CAPSULE EXTENDED RELEASE 3 CAPSULES WITH FOOD ORALLY DAILY TAKING METFORMIN 500MG 1 ER TABLET 2 TAB(S) IN A.M./1 TAB IN P.M. ORALLY DAILY, NOTES: 01/22/19@0515 TAKING TIZANIDINE HCL 2 MG TABLET 1 TO 2 ORALLY AT BED TIME TAKING TRAMADOL HCL 50 MG TABLET 1 TO 2 ORALLY Q8H PRN MDD4 TAKING CHOLESTYRAMINE 4 GM/DOSE POWDER 1 SCOOP ORALLY DAILY TAKING PHENTERMINE HCL 30 MG CAPSULE 1 CAPSULE ORALLY ONCE A DAY IN AM TAKING ONE TOUCH ULTRA 2 LANCET DX 250.00 LANCET DIRECTED NA 1-2 TIMES A DAY DISCONTINUED GABAPENTIN 300 MG CAPSULE 1 CAPSULE ORALLY TWICE A DAY, NOTES: STOPPED PER PATIENT DISCONTINUED VOLTAREN 1 % GEL 2 GRAMS TRANSDERMAL FOUR TIMES DAILY NEEDED MEDICATION LIST REVIEWED AND RECONCILED WITH THE PATIENT PAST MEDICAL HISTORY GRAVE'S DISEASE/ HYPOTHYROID PRE-DM-2 HYPERLIPIDEMIA OBESITY UTERINE FIBROIDS 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 QUESADA FAMILY HISTORY FATHER: , COLON CANCER DX 85, DIAGNOSED WITH CANCER IN 85 MOTHER: ALIVE 78 YRS, SLE, CVA SIBLINGS: ALIVE, BROTHER HAS HTN PATERNAL GRAND FATHER: , UNKNOWN PATERNAL GRAND MOTHER: , UNKNOWN MATERNAL GRAND FATHER: , UNKNOWN MATERNAL GRAND MOTHER: , UNKNOWN PATERNAL AUNT: , BREAST CANCER, PRIOR TO AGE 52, CANCER NO KNOWN HX OF BREAST\\\/OVARIAN CANCER. SOCIAL HISTORY GENERAL: TOBACCO USE ARE YOU A:NONSMOKER HIV / HEP-C SCREENING HIV TEST OFFERED TO PATIENT:YES DATE OFFERED:11/10/2017 PREVIOUSLY DONE TEST ACCEPTED:YES HEP-C TEST OFFERED TO PATIENT:YES DATE OFFERED:11/10/2017 TEST ACCEPTED:NO REASON:PATIENT DECLINED BROCHURE PROVIDED TO PATIENTNO OTHERS AT HOME: SON. EDUCATION 12 GRADUATE. 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 LANGUAGE LANGUAGES SPOKEN:RWANDAN DOMESTIC VIOLENCE DO YOU FEEL SAFE IN YOUR ENVIRONMENT?YES BMI CARE GOAL FOLLOW-UP ABOVE NORMAL BMI FOLLOW-UPGIVING ENCOURAGEMENT TO EXERCISE, LIFESTYLE EDUCATION REGARDING DIET RECREATIONAL DRUG USE DENIES. EXERCISE: WALKS DAILY, ELIPTYCAL INTERMITTENTLY PLANET FITNESS 5 DAYS A WEEK. LEARNING BARRIERS / SPECIAL NEEDS CHANGE FROM LAST VISIT?NO BARRIERS TO LEARNING?NO HEARING IMPAIRED?NO VISION IMPAIRED?YES COGNITIVELY IMPAIRED?NO :CORRECTIVE LENSES READINESS TO LEARN?YES LEARNING PREFERENCES?YES :TAPES/VIDEOS, BOOKLETS, HANDOUTS LEARNING CAPABILITIES PRESENT?YES EMOTIONAL BARRIERS?NO SPECIAL DEVICES?NO PEOPLESOFT HCM CONSULTANT NEEDED?NO PAIN CLINIC PFS, CLERGY, PUBLIC HEALTH REFERRALS WAS THE PROVIDER NOTIFIED OF ANY PERTINENT INFO?YES HAS THE PATIENT BEEN EDUCATED REGARDING HIS/HER PLAN OF CARE?YES HAS THE PATIENT BEEN EDUCATED REGARDING PAIN, THE RISK FOR PAIN, THE IMPORTANCE OF EFFECTIVE PAIN MANAGEMENT, AND THE PAIN ASSESSMENT PROCESS?YES LATEX QUESTIONNAIRE LATEX ALLERGY : HAVE YOU EVER DEVELOPED ANY TYPE OF REACTION AFTER HANDLING LATEX PRODUCTS SUCH RUBBER GLOVES, CONDOMS, DIAPHRAGMS, BALLOONS, SOCKS, OR UNDERWEAR?YES PT ALLERGIC TO LATEX - PLEASE INDICATE :RUBBER GLOVES, CONDOMS, BALLOONS, DIAPHRAGMS, SOCKS, UNDERWEAR LATEX ALLERGY : HAVE YOU EVER DEVELOPED ANY TYPE OF REACTION DURING OR AFTER DENTAL APPOINTMENT, VAGINAL/RECTAL EXAMINATION, SURGICAL PROCEDURE, OR ANY OTHER EXPOSURE?YES - PLEASE INDICATE :DENTAL PROCEDURE, VAGINAL EXAM LATEX RISK : HAVE YOU EVER HAD ANY DIFFICULTY BREATHING OR HIVES AFTER EATING OR HANDLING ANY FRUITS, OR VEGETABLES; SUCH KIWI, BANANAS, STONE FRUITS, OR CHESTNUTSYES - PLEASE INDICATE : STONE FRUITS LATEX RISK : DO YOU HAVE A PREVIOUS PERSONAL HISTORY OF MORE THAN NINE SURGERIES, SPINA BIFIDA, OR REPEATED CATHERIZATIONS? NO LATEX RISK : ARE YOU FREQUENTLY EXPOSED TO LATEX PRODUCTS IN YOUR OCCUPATION?YES DATE ASKED : 10/03/2018 CAFFEINE CAFFEINE USE?YES 2-3 A DAY ADVANCE DIRECTIVE ADVANCE DIRECTIVE DISCUSSED WITH PATIENT:YES PT DOES NOT HAVE ANY ADVANCED DIRECTIVES. INFORMATION ON HCP GIVEN TO PT AND ASSISTANCE OFFERED IN COMPLETING. RESTORATIONISM [id number] NONE MARITAL STATUS: .. 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 SEXUAL HX HAD SEX IN THE LAST 12 MONTHS (VAGINAL, ORAL, OR ANAL)?YES WITHMEN ONLY USE PROTECTION?NO LMP:POST MENOPAUSE HAVE YOU EVER HAD AN STD?NO 08/20/18 REVIEWED WITH PT 1427 BV. HOSPITALIZATION/MAJOR DIAGNOSTIC PROCEDURE NONE REVIEW OF SYSTEMS REVIEWED BY: PROVIDER: . CONSTITUTIONAL: ANY CHANGE IN YOUR MEDICAL CONDITION? NO . CHILLS NO . FEVER NO . INFECTION: DO YOU HAVE NEW INFECTIONS? NO . DO YOU HAVE HISTORY OF MRSA? NO . MUSCULOSKELETAL: ANY NEW PATTERNS OF PAIN OR NUMBNESS? NO . GASTROENTEROLOGY: ANY NEW CHANGE IN BOWEL CONTROL? NO . GENITOURINARY: ANY NEW CHANGE IN BLADDER CONTROL? NO . IS THERE A CHANCE YOU COULD BE ? NO . HEMATOLOGY/LYMPH: DO YOU TAKE ANY BLOOD THINNERS? (FOR EXAMPLE- COUMADIN, PLAVIX, AGGRENOX, PLATEL, PRADAXA, OR XARELTO) NO . WHEN WAS YOUR LAST DOSE? DATE: TIME: . NEUROLOGY: HAVE YOU FALLEN IN THE PAST 12 MONTHS? NO . ANY NEW EXTREMITY NUMBNESS OR WEAKNESS? NO . CARDIOLOGY: DO YOU HAVE A PACEMAKER OR DEFIBRILLATOR? NO . RESPIRATORY: HAVE YOU BEEN SICK IN THE PAST WEEK? NO . FEVER NO . FLU LIKE SYMPTOMS? NO . COUGH NO . INTEGUMENTARY: DO YOU HAVE ANY RASHES OR OPEN SORES? NO . ALLERGIC/IMMUNO: ARE YOU ALLERGIC TO IV DYE? NO . ANY NEW ALLERGIES? NO . PSYCHIATRIC: DO YOU HAVE THOUGHTS OF HURTING YOURSELF OR SOMEONE ELSE? NO . ARE YOU ABUSED, NEGLECTED, OR IN AN UNSAFE ENVIRONMENT? NO . ENDOCRINOLOGY: ARE YOU DIABETIC? YES . OTHER: DO YOU NEED ANY PRESCRIPTIONS? NO . IF YES, PLEASE LIST: ____ . ANY NEW PROBLEMS WITH YOUR MEDICATIONS? NO . WHEN DID YOU LAST EAT? ____01/22/19 . WHEN DID YOU LAST DRINK? ____01/22/19 . WHAT DID YOU LAST DRINK? ____GINGERALE . NAME OF PERSON DRIVING YOU HOME? ____SON . DO YOU HAVE ANY OTHER QUESTIONS OR CONCERNS NO . VITAL SIGNS WT 213.2 LBS, HT 64 IN, BMI 36.59 INDEX, BP 133/91 MM HG, HR 77 /MIN, RR 18 /MIN, TEMP 98.9 F, OXYGEN SAT % 100%, SAFE IN ENV? (Y/N) YES, NA INITIALS MO 09:13, REVIEWED BY: VD. ASSESSMENTS SPONDYLOSIS OF LUMBAR REGION WITHOUT MYELOPATHY OR RADICULOPATHY - M47.816 (PRIMARY) SPONDYLOSIS OF LUMBOSACRAL REGION WITHOUT MYELOPATHY OR RADICULOPATHY - M47.817 PROCEDURES PN LUMBAR FACET BLOCK DIAGNOSTIC PRE PROCEDURE DIAGNOSIS LUMBAR SPONDYLOSIS, LUMBOSACRAL SPONDYLOSIS POST PROCEDURE DIAGNOSIS LUMBAR SPONDYLOSIS, LUMBOSACRAL SPONDYLOSIS PROCEDURE RIGHT L4-L5 AND RIGHT L5-S1 LUMBAR FACET BLOCK DIAGNOSTIC NUMBER [address] ANITA ESCOBAR CUFF SLITTER NONE ANESTHESIA LOCAL PRE PROCEDURE NOTE THE PATIENT WITH HISTORY OF CHRONIC LOW BACK PAIN. I EVALUATED THE PATIENT AND REVIEWED THE CHART. I WENT OVER THE RISKS, ALTERNATIVES, AND BENEFITS ASSOCIATED WITH THIS PROCEDURE. THE PATIENT WOULD LIKE TO PROCEED AND GAVE CONSENT TO PERFORM THE PROCEDURE. AGREED WITH THE PATIENT WE ARE DOING THIS PROCEDURE TO DETERMINE IF THE PATIENT IS A CANDIDATE FOR A RADIOFREQUENCY ABLATION OF THE FACETS JOINTS. THE PATIENT DENIES UNEXPLAINABLE WEIGHT LOSS, FEVER, CHILLS, OR NEW CHANGES IN URINARY OR BOWEL CONTROL DESCRIPTION OF PROCEDURE THE PATIENT WAS BROUGHT TO THE PROCEDURE ROOM AND PLACED IN THE PRONE POSITION. THE LUMBOSACRAL AREA WAS CLEANED WITH CHLORAPREP SOLUTION AND DRAPED ASEPTICALLY. THE PROCEDURE WAS DONE UNDER STERILE CONDITIONS. I CHECKED LATERALITY AND THE LEVEL WHERE THE PROCEDURE WAS GOING TO BE PERFORMED WITH THE PATIENT AND THE SUPPORTING STAFF AT THE MOMENT OF THE TIME OUT IN THE PROCEDURE ROOM. UNDER FLUOROSCOPIC GUIDANCE, TARGETS WERE SELECTED AT THE INTERSECTION OF THE RIGHT TRANSVERSE PROCESS OF L4, L5 AND ALA OF S1 WITH ITS RESPECTIVE SUPERIOR ARTICULAR PROCESS. LIDOCAINE WAS USED TO NUMB THE SKIN AND THE SUBCUTANEOUS TISSUE BELOW IT. SPINAL NEEDLE, 22-GAUGE WAS ADVANCED UNDER FLUOROSCOPIC GUIDANCE AND FOLLOWING PATIENT FEEDBACK UNTIL THE TARGETS WERE REACHED. POSITION OF THE NEEDLES WAS VERIFIED WITH AP AND LATERAL VIEWS. AFTER PROPER POSITION OF THE NEEDLES WAS ACHIEVED, ISOVUE-M DYE 30% 0.1 ML WAS INJECTED AT EACH SITE SHOWING ADEQUATE SPREAD OF THE DYE. THEN A SOLUTION OF 0.4 ML OF BUPIVACAINE 0.25% WAS INJECTED AT EACH SITE. THERE WAS NO EVIDENCE OF BLOOD, PARESTHESIA OR CEREBROSPINAL FLUID DURING THE PROCEDURE. THE PATIENT WAS SENT TO THE RECOVERY ROOM. THE PATIENT WAS MOVING THE EXTREMITIES AND DOING WELL. THERE WAS NO COMPLICATION DURING THE PROCEDURE. FLUOROSCOPY TIME WAS 20 SECONDS POST PROCEDURE NOTE THE PATIENT WILL DOCUMENT HIS PAIN LEVEL AND RESPONSE TO THIS PROCEDURE EVERY 30 MINUTES. THE PATIENT WILL BE SEEN IN A FOLLOW UP IN THE NEXT FEW WEEKS. FURTHER DETERMINATION FOR HIS CASE WILL BE DONE AT THE NEXT VISIT. INSTRUCTIONS WERE GIVEN, QUESTIONS WERE ANSWERED, AND THE PATIENT EXPRESSED UNDERSTANDING AND AGREED WITH THE PLAN. I, CHINYERE GALEAS, DOCUMENTED THE ABOVE INFORMATION ACTING A SCRIBE FOR DR. ESCOBAR. I HAVE REVIEWED THE ABOVE DOCUMENT, WRITTEN BY CHINYERE GALEAS SCRIBBecca AND I VERIFY THAT IT IS ACCURATE. DIAGNOSTIC IMAGING [facility] FACET BLOCK (PAIN)[id number] PROCEDURE CODES 03841 INJ PARAVERT F JNT L/S 1 LEV, MODIFIERS: [place] [address] INJ PARAVERT F JNT L/S 2 LEV, MODIFIERS: RT 6045F RADXPS IN END [id number] PXD DISPOSITION & COMMUNICATION FOLLOW UP 3 WEEKS ELECTRONICALLY SIGNED BY ANITA ESCOBAR MD, MD ON 01/30/2019 AT 01:29 PM EDT DISCLAIMER : THIS IS A VISIT SUMMARY EXTRACTED FROM THE [employer] CHART. IT IS NOT A COPY OF THE [employer] PROGRESS NOTE. MTDD
== END ==
LOC: M PAIN 09:00
PROVIDERS: ATTEND Anesthesiology
DX: M47.816 Spondylosis without myelopathy or radiculopathy, lumbar region (principal); M47.817 Spondylosis without myelopathy or radiculopathy, lumbosacral region; R73.03 Prediabetes; E78.5 Hyperlipidemia, unspecified; Z68.36 Body mass index [BMI] 36.0-36.9, adult; E66.9 Obesity, unspecified; E55.9 Vitamin D deficiency, unspecified; E05.00 Thyrotoxicosis with diffuse goiter without thyrotoxic crisis or storm; E03.9 Hypothyroidism, unspecified; G43.009 Migraine without aura, not intractable, without status migrainosus; M54.5 Low back pain; K21.9 Gastro-esophageal reflux disease without esophagitis; K29.70 Gastritis, unspecified, without bleeding; Z90.49 Acquired absence of other specified parts of digestive tract; Z79.891 Long term (current) use of opiate analgesic; Z79.84 Long term (current) use of oral hypoglycemic drugs; Z79.899 Other long term (current) drug therapy; Z91.018 Allergy to other foods; Z91.040 Latex allergy status
CPT/HCPCS: 64493; 64494; Q9966

== ENCOUNTER → 2019-01-28 | Outpatient (REF) | payer BC ==
[~2019-01-28] MED LIST changes: -BUPIVACAINE HCL 0.25% 30 ML VIAL As Ordered ONE; -ISOVUE-M 200 41% 20ML VIAL (Q9966) As Ordered ONE; -LIDOCAINE 1% SDV INJ 30 ML VIAL As Ordered ONE
[2019-01-28 17:10] LABS: HEMOGLOBIN A1c 5.7 %
[2019-01-28 17:13] LABS: ALBUMIN 3.4 GM/DL (3.2-5.2); BILIRUBIN,TOTAL 0.2 MG/DL (0.2-1.0); CALCIUM LEVEL 8.6 MG/DL (8.5-10.1); CHOLESTEROL RISK RATIO 3.106 (<5); CREATININE FOR GFR 1.03 MG/DL (0.55-1.30); FREE T4 0.83 NG/DL (0.76-1.46); POTASSIUM SERUM 3.8 MEQ/L (3.5-5.1); THYROID STIMULATING HORMONE 2.04 uIU/ML (0.358-3.740); TOTAL 25(OH) VITAMIN D 36.9 NG/ML (30.0-100.0); TOTAL PROTEIN 6.4 GM/DL (6.4-8.2)
== END ==
LOC: M LABDRAW1 15:54
PROVIDERS: ATTEND Nurse Practitioner Family
DX: R73.03 Prediabetes (principal); E03.8 Other specified hypothyroidism; E78.2 Mixed hyperlipidemia; E55.9 Vitamin D deficiency, unspecified

== ENCOUNTER → 2019-02-06 | Outpatient (CLI) | payer BC ==
--- NOTE | 2019-02-07 01:37 | ECWPNPC ---
PATIENT NAME: RIK FUNES : 1960 GENDER: FEMALE VISIT DATE: 02/06/2019 DISCHARGE DATE: 02/06/19 1507 VISIT LOCKED DATE TIME: PHYSICIAN: JAY MATT RESOURCE: JAY MATT REASON FOR APPOINTMENT 1. POST PROC HISTORY OF PRESENT ILLNESS HISTORY OF PRESENT ILLNESS: HERE FOR POST PROCEDURE F/U.HAD BILAT LFB DX ON 01/23/19.CONTINUES TO BENEFIT FROM THIS TODAY.RATING PAIN VAS 0-3/10.REPORTING IMPROVED FUNCTIONALITY SINCE PROCEDURE. PAIN THE PATIENT DESCRIBES THE PAIN... FALL RISK SCREENING: SCREENING :NO FALLS REPORTED IN THE LAST YEAR CURRENT MEDICATIONS TAKING BLOOD GLUCOSE TEST - STRIP VERIO DIRECTED IN VITRO DX E88.81 DAILY TAKING MAY USE ONE TOUCH ULTRA GLUCOSE TSTING STRIPS DX 790.21 DIRECTED NA 1-2 TIMES A DAY TAKING TOPAMAX 100 MG TABLET 2 TABLETS ORALLY TWICE A DAY TAKING SUMATRIPTAN SUCCINATE 100 MG TABLET 1 TABLET NEEDED AT ONSET OF [place] ORALLY ONCE A DAY TAKING CALCIUM 600-D 600-400 MG-UNIT TABLET 1 TABLET WITH FOOD ORALLY ONCE A DAY TAKING CLARITIN 10 MG TABLET 1 TABLET ORALLY ONCE A DAY, NOTES: OCC TAKING SALINE NASAL SPRAY 0.65 % SOLUTION 2 DROPS IN EACH NOSTRIL NEEDED NASALLY EVERY 4HRS NEEDED TAKING NAPROXEN 500 MG TABLET 1 TABLET NEEDED ORALLY EVERY 12 HRS TAKING DULOXETINE HCL 60 MG CAPSULE DELAYED RELEASE PARTICLES 1 CAPSULE ORALLY ONCE A DAY TAKING DRISDOL 36573 UNIT CAPSULE 1 CAPSULE ORALLY ONCE EVERY 2 WEEKS WITH MEAL TAKING LEVOTHYROXINE SODIUM 125 MCG TABLET 1 TABLET ON AN EMPTY STOMACH IN THE MORNING ORALLY ONCE A DAY TAKING SIMVASTATIN 20 MG TABLET 1 TABLET IN THE EVENING ORALLY ONCE A DAY TAKING OMEPRAZOLE 40 MG CAPSULE DELAYED RELEASE 1 CAPSULE ORALLY ONCE A DAY TAKING LASIX 20 MG TABLET 1 TABLET ORALLY ONCE A DAY TAKING POTASSIUM CHLORIDE 10 MEQ CAPSULE EXTENDED RELEASE 3 CAPSULES WITH FOOD ORALLY DAILY TAKING METFORMIN 500MG 1 ER TABLET 2 TAB(S) IN A.M./1 TAB IN P.M. 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 QUESADA FAMILY HISTORY FATHER: , COLON CANCER DX 87, DIAGNOSED WITH OTHER MALIGNANT NEOPLASM OF UNSPECIFIED SITE IN 85 MOTHER: ALIVE 78 YRS, SLE, CVA SIBLINGS: ALIVE, BROTHER HAS HTN PATERNAL GRAND FATHER: , UNKNOWN PATERNAL GRAND MOTHER: , UNKNOWN MATERNAL GRAND FATHER: , UNKNOWN MATERNAL GRAND MOTHER: , UNKNOWN PATERNAL AUNT: , BREAST CANCER, PRIOR TO AGE 52, OTHER MALIGNANT NEOPLASM OF UNSPECIFIED SITE NO KNOWN HX OF BREAST\\\/OVARIAN CANCER. SOCIAL HISTORY GENERAL: TOBACCO USE ARE YOU A:NONSMOKER HIV / HEP-C SCREENING HIV TEST OFFERED TO PATIENT:YES DATE OFFERED:11/10/2017 PREVIOUSLY DONE TEST ACCEPTED:YES HEP-C TEST OFFERED TO PATIENT:YES DATE OFFERED:11/10/2017 TEST ACCEPTED:NO REASON:PATIENT DECLINED BROCHURE PROVIDED TO PATIENTNO OTHERS AT HOME: SON. EDUCATION 12 GRADUATE. 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 LANGUAGE LANGUAGES SPOKEN:SENEGALESE DOMESTIC VIOLENCE DO YOU FEEL SAFE IN YOUR ENVIRONMENT?YES BMI CARE GOAL FOLLOW-UP ABOVE NORMAL BMI FOLLOW-UPGIVING ENCOURAGEMENT TO EXERCISE, LIFESTYLE EDUCATION REGARDING DIET RECREATIONAL DRUG USE DENIES. EXERCISE: WALKS DAILY, ELIPTYCAL INTERMITTENTLY PLANET FITNESS 5 DAYS A WEEK. LEARNING BARRIERS / SPECIAL NEEDS CHANGE FROM LAST VISIT?NO BARRIERS TO LEARNING?NO HEARING IMPAIRED?NO VISION IMPAIRED?YES COGNITIVELY IMPAIRED?NO :CORRECTIVE LENSES READINESS TO LEARN?YES LEARNING PREFERENCES?YES :TAPES/VIDEOS, BOOKLETS, HANDOUTS LEARNING CAPABILITIES PRESENT?YES EMOTIONAL BARRIERS?NO SPECIAL DEVICES?NO AUTOMOTIVE SERVICES MANAGER NEEDED?NO PAIN CLINIC PFS, CLERGY, PUBLIC HEALTH REFERRALS WAS THE PROVIDER NOTIFIED OF ANY PERTINENT INFO?YES HAS THE PATIENT BEEN EDUCATED REGARDING HIS/HER PLAN OF CARE?YES HAS THE PATIENT BEEN EDUCATED REGARDING PAIN, THE RISK FOR PAIN, THE IMPORTANCE OF EFFECTIVE PAIN MANAGEMENT, AND THE PAIN ASSESSMENT PROCESS?YES LATEX QUESTIONNAIRE LATEX ALLERGY : HAVE YOU EVER DEVELOPED ANY TYPE OF REACTION AFTER HANDLING LATEX PRODUCTS SUCH RUBBER GLOVES, CONDOMS, DIAPHRAGMS, BALLOONS, SOCKS, OR UNDERWEAR?YES PT ALLERGIC TO LATEX LATEX ALLERGY : HAVE YOU EVER DEVELOPED ANY TYPE OF REACTION DURING OR AFTER DENTAL APPOINTMENT, VAGINAL/RECTAL EXAMINATION, SURGICAL PROCEDURE, OR ANY OTHER EXPOSURE?YES - PLEASE INDICATE :RUBBER GLOVES, CONDOMS, BALLOONS, DIAPHRAGMS, SOCKS, UNDERWEAR - PLEASE INDICATE :DENTAL PROCEDURE, VAGINAL EXAM DATE ASKED : 10/03/2018 LATEX RISK : HAVE YOU EVER HAD ANY DIFFICULTY BREATHING OR HIVES AFTER EATING OR HANDLING ANY FRUITS, OR VEGETABLES; SUCH KIWI, BANANAS, STONE FRUITS, OR CHESTNUTSYES - PLEASE INDICATE : STONE FRUITS LATEX RISK : DO YOU HAVE A PREVIOUS PERSONAL HISTORY OF MORE THAN NINE SURGERIES, SPINA BIFIDA, OR REPEATED CATHERIZATIONS? NO LATEX RISK : ARE YOU FREQUENTLY EXPOSED TO LATEX PRODUCTS IN YOUR OCCUPATION?YES CAFFEINE CAFFEINE USE?YES 2-3 A DAY ADVANCE DIRECTIVE ADVANCE DIRECTIVE DISCUSSED WITH PATIENT:YES PT DOES NOT HAVE ANY ADVANCED DIRECTIVES. INFORMATION ON HCP GIVEN TO PT AND ASSISTANCE OFFERED IN COMPLETING. PACKET GIVEN TO PATIENT STATES SHE DOES NOT JOSE ASSISTANCE FILLING IT OUT 02/06/19 [facility] ANGLICAN [id number] NONE MARITAL STATUS: .. 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 SEXUAL HX HAD SEX IN THE LAST 12 MONTHS (VAGINAL, ORAL, OR ANAL)?YES WITHMEN ONLY USE PROTECTION?NO LMP:POST MENOPAUSE HAVE YOU EVER HAD AN STD?NO 08/20/18 REVIEWED WITH PT 1427 BVREVIEWED WITH PATIENT 02/06/19 1434 NL. HOSPITALIZATION/MAJOR DIAGNOSTIC PROCEDURE NONE REVIEW OF SYSTEMS REVIEWED BY: PROVIDER: JAY GRIMM . CONSTITUTIONAL: ANY CHANGE IN YOUR MEDICAL CONDITION? NO . CHILLS NO . FEVER NO . INFECTION: DO YOU HAVE NEW INFECTIONS? NO . DO YOU HAVE HISTORY OF MRSA? NO . MUSCULOSKELETAL: ANY NEW PATTERNS OF PAIN OR NUMBNESS? NO- STATES THE DIAGNOSTIC BLOCK WORKED WELL AND CONTINUES TO HAVE PAIN RELIEF . GASTROENTEROLOGY: ANY NEW CHANGE IN BOWEL CONTROL? NO . GENITOURINARY: ANY NEW CHANGE IN BLADDER CONTROL? NO . IS THERE A CHANCE YOU COULD BE ? NO . HEMATOLOGY/LYMPH: DO YOU TAKE ANY BLOOD THINNERS? (FOR EXAMPLE- COUMADIN, PLAVIX, AGGRENOX, PLATEL, PRADAXA, OR XARELTO) NO . WHEN WAS YOUR LAST DOSE? DATE: TIME: . NEUROLOGY: HAVE YOU FALLEN IN THE PAST 12 MONTHS? NO . ANY NEW EXTREMITY NUMBNESS OR WEAKNESS? NO . CARDIOLOGY: DO YOU HAVE A PACEMAKER OR DEFIBRILLATOR? NO . RESPIRATORY: HAVE YOU BEEN SICK IN THE PAST WEEK? NO . FEVER NO . FLU LIKE SYMPTOMS? NO . COUGH NO . INTEGUMENTARY: DO YOU HAVE ANY RASHES OR OPEN SORES? NO . ALLERGIC/IMMUNO: ARE YOU ALLERGIC TO IV DYE? NO . ANY NEW ALLERGIES? NO . PSYCHIATRIC: DO YOU HAVE THOUGHTS OF HURTING YOURSELF OR SOMEONE ELSE? NO . ARE YOU ABUSED, NEGLECTED, OR IN AN UNSAFE ENVIRONMENT? NO . ENDOCRINOLOGY: ARE YOU DIABETIC? YES . OTHER: DO YOU NEED ANY PRESCRIPTIONS? YES . IF YES, PLEASE LIST: ____TRAMADOL . ANY NEW PROBLEMS WITH YOUR MEDICATIONS? NO . WHEN DID YOU LAST EAT? ____ . WHEN DID YOU LAST DRINK? ____ . WHAT DID YOU LAST DRINK? ____ . NAME OF PERSON DRIVING YOU HOME? ____ . DO YOU HAVE ANY OTHER QUESTIONS OR CONCERNS NO- STATES DIAGNOSTIC LUMBAR BLOCK WORKED WELL AND SHE CONTINUES TO HAVE PAIN RELIEF . VITAL SIGNS WT 205.8 LBS, HT 64 IN, BMI 35.32 INDEX, BP 119/72 MM HG, HR 86 /MIN, RR 18 /MIN, TEMP 97.3 F, OXYGEN SAT % 97%, SAFE IN ENV? (Y/N) YES, NA INITIALS AW 1433, REVIEWED BY: SP. EXAMINATION GENERAL EXAMINATION: GENERALAWAKE,ALERT ,PLEAASANT . PSYCHAFFECT NORMAL . LUNGS:LUNG DEL ROSARIO ARE CLEAR TO AUSCULTATION BILATERALLY. GOOD MOVEMENT OF AIR . HEART:S1, S2 IN A REGULAR RATE AND RHYTHM. NO SIGNIFICANT MURMURS, RUBS OR GALLOPS NOTED . ASSESSMENTS SPONDYLOSIS OF LUMBAR REGION WITHOUT MYELOPATHY OR RADICULOPATHY - M47.816 (PRIMARY) TREATMENT SPONDYLOSIS OF LUMBAR REGION WITHOUT MYELOPATHY OR RADICULOPATHY CONTINUE TIZANIDINE HCL TABLET, 2 MG, 1 TO 2, ORALLY, AT BED TIME REFILL TRAMADOL HCL TABLET, 50 MG, 1, ORALLY, Q8H PRN PAIN MDD3 #90 TAB FOR 3 MOS SUPPLY CAT D CHRONIC PAIN, 90 DAY(S), 90, REFILLS 0 NOTES: ISTOP REGISTRY REVIEWED AND DEMONSTRATES COMPLLIANCE. (REF # ) BRINGS IN MEDICATIONS WHICH IS APPROPRIATE FOR WHAT WAS DISPENSED. RECENT URINE TOXICOLOGY REVIEWED. NO UNAUTHORIZED MEDICATIONS. NO ILLICIT SUBSTANCES AND PRESCRIBED MEDICATIONS WERE PRESENT. PROCEDURE CODES FA211 ESTABILISHED PATIENT [facility] FACILITY CHARGE DISPOSITION & COMMUNICATION FOLLOW UP 2 MONTHS ELECTRONICALLY SIGNED BY ALFA WASSERMAN ON 02/06/2019 AT 03:19 PM EDT DISCLAIMER : THIS IS A VISIT SUMMARY EXTRACTED FROM THE [employer] CHART. IT IS NOT A COPY OF THE [employer] PROGRESS NOTE. DESTINEY
== END ==
LOC: M PAIN 14:30
PROVIDERS: ATTEND Nurse Practitioner Family
DX: M47.816 Spondylosis without myelopathy or radiculopathy, lumbar region (principal); E03.9 Hypothyroidism, unspecified; E78.5 Hyperlipidemia, unspecified; G43.009 Migraine without aura, not intractable, without status migrainosus; E55.9 Vitamin D deficiency, unspecified; K21.9 Gastro-esophageal reflux disease without esophagitis; Z91.010 Allergy to peanuts; Z91.018 Allergy to other foods; Z91.040 Latex allergy status; E11.9 Type 2 diabetes mellitus without complications; Z79.84 Long term (current) use of oral hypoglycemic drugs; Z79.891 Long term (current) use of opiate analgesic; Z79.899 Other long term (current) drug therapy

== ENCOUNTER → 2019-04-10 | Outpatient (CLI) | payer BC ==
[~2019-04-10] MED LIST changes: -OMEP40CA2 PO; +OMEP40CA97 PO
--- NOTE | 2019-04-29 07:33 | ECWPNPC ---
PATIENT NAME: RIK FUNES : 1960 GENDER: FEMALE VISIT DATE: 04/10/2019 DISCHARGE DATE: 04/10/19 1533 VISIT LOCKED DATE TIME: PHYSICIAN: JAY MATT RESOURCE: JAY MATT REASON FOR APPOINTMENT 1. LOW BACK HISTORY OF PRESENT ILLNESS HISTORY OF PRESENT ILLNESS: COMPLAIING OF AN INCREASE IN LOW BACK PAIN OVER THE PAST MONTH.RATING PAIN VAS 7/10.DESCRIBES PAIN CONTINUOUS AND ACHING.USES TRAMADOL PRN WITH SOME IMPROVEMENT.HAS RESPONDED TO LUMBAR THERAPEUTIC FACET BLOCKS IN PAST. PAIN THE PATIENT DESCRIBES THE PAIN... FALL RISK SCREENING: SCREENING :NO FALLS REPORTED IN THE LAST YEAR CURRENT MEDICATIONS TAKING BLOOD GLUCOSE TEST - STRIP VERIO DIRECTED IN VITRO DX E88.81 DAILY TAKING MAY USE ONE TOUCH ULTRA GLUCOSE TSTING STRIPS DX 790.21 DIRECTED NA 1-2 TIMES A DAY TAKING TOPAMAX 100 MG TABLET 2 TABLETS ORALLY TWICE A DAY TAKING SUMATRIPTAN SUCCINATE 100 MG TABLET 1 TABLET NEEDED AT ONSET OF [place] ORALLY ONCE A DAY TAKING CALCIUM 600-D 600-400 MG-UNIT TABLET 1 TABLET WITH FOOD ORALLY ONCE A DAY TAKING CLARITIN 10 MG TABLET 1 TABLET ORALLY ONCE A DAY, NOTES: OCC TAKING SALINE NASAL SPRAY 0.65 % SOLUTION 2 DROPS IN EACH NOSTRIL NEEDED NASALLY EVERY 4HRS NEEDED TAKING NAPROXEN 500 MG TABLET 1 TABLET NEEDED ORALLY EVERY 12 HRS TAKING ONE TOUCH ULTRA 2 LANCET DX 250.00 LANCET DIRECTED NA 1-2 TIMES A DAY TAKING TIZANIDINE HCL 2 MG TABLET 1 TO 2 ORALLY AT BED TIME TAKING TRAMADOL HCL 50 MG TABLET 1 ORALLY Q8H PRN PAIN MDD3 #90 TAB FOR 3 MOS SUPPLY CAT D CHRONIC PAIN TAKING CHOLESTYRAMINE 4 GM/DOSE POWDER 1 SCOOP ORALLY DAILY TAKING DULOXETINE HCL 60 MG CAPSULE DELAYED RELEASE PARTICLES 1 CAPSULE ORALLY ONCE A DAY TAKING METFORMIN 500MG 1 ER TABLET 2 TAB(S) IN A.M./1 TAB IN P.M. ORALLY 3 TABS DAILY TAKING LASIX 20 MG TABLET 1 TABLET ORALLY ONCE A DAY TAKING LEVOTHYROXINE SODIUM 125 MCG TABLET 1 TABLET ON AN EMPTY STOMACH IN THE MORNING ORALLY ONCE A DAY TAKING POTASSIUM CHLORIDE 10 MEQ CAPSULE EXTENDED RELEASE 3 CAPSULES WITH FOOD ORALLY DAILY TAKING OMEPRAZOLE 40 MG CAPSULE DELAYED RELEASE 1 CAPSULE ORALLY ONCE A DAY TAKING SIMVASTATIN 20 MG TABLET 1 TABLET IN THE EVENING ORALLY ONCE A DAY TAKING PHENTERMINE HCL 30 MG CAPSULE 1 CAPSULE ORALLY ONCE A DAY IN AM TAKING DRISDOL 93356 UNIT CAPSULE 1 CAPSULE ORALLY ONCE EVERY 2 WEEKS WITH MEAL MEDICATION LIST REVIEWED AND RECONCILED WITH THE PATIENT PAST MEDICAL HISTORY GRAVE'S DISEASE/ HYPOTHYROID PRE-DM-2 HYPERLIPIDEMIA OBESITY UTERINE FIBROIDS 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 QUESADA FAMILY HISTORY FATHER: , COLON CANCER DX 87, DIAGNOSED WITH OTHER MALIGNANT NEOPLASM OF UNSPECIFIED SITE IN 85 MOTHER: ALIVE 78 YRS, SLE, CVA SIBLINGS: ALIVE, BROTHER HAS HTN PATERNAL GRAND FATHER: , UNKNOWN PATERNAL GRAND MOTHER: , UNKNOWN MATERNAL GRAND FATHER: , UNKNOWN MATERNAL GRAND MOTHER: , UNKNOWN PATERNAL AUNT: , BREAST CANCER, PRIOR TO AGE 50, OTHER MALIGNANT NEOPLASM OF UNSPECIFIED SITE NO KNOWN HX OF BREAST\\\/OVARIAN CANCER. SOCIAL HISTORY GENERAL: TOBACCO USE ARE YOU A:NONSMOKER HIV / HEP-C SCREENING HIV TEST OFFERED TO PATIENT:YES DATE OFFERED:11/10/2017 PREVIOUSLY DONE TEST ACCEPTED:YES HEP-C TEST OFFERED TO PATIENT:YES DATE OFFERED:11/10/2017 TEST ACCEPTED:NO REASON:PATIENT DECLINED BROCHURE PROVIDED TO PATIENTNO OTHERS AT HOME: SON. EDUCATION 12 GRADUATE. 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 LANGUAGE LANGUAGES SPOKEN:TURKMEN DOMESTIC VIOLENCE DO YOU FEEL SAFE IN YOUR ENVIRONMENT?YES BMI CARE GOAL FOLLOW-UP ABOVE NORMAL BMI FOLLOW-UPGIVING ENCOURAGEMENT TO EXERCISE, LIFESTYLE EDUCATION REGARDING DIET RECREATIONAL DRUG USE DENIES. EXERCISE: WALKS DAILY, ELIPTYCAL INTERMITTENTLY PLANET FITNESS 5 DAYS A WEEK. LEARNING BARRIERS / SPECIAL NEEDS CHANGE FROM LAST VISIT?NO BARRIERS TO LEARNING?NO HEARING IMPAIRED?NO VISION IMPAIRED?YES COGNITIVELY IMPAIRED?NO :CORRECTIVE LENSES READINESS TO LEARN?YES LEARNING PREFERENCES?YES :TAPES/VIDEOS, BOOKLETS, HANDOUTS LEARNING CAPABILITIES PRESENT?YES EMOTIONAL BARRIERS?NO SPECIAL DEVICES?NO FORGING PRESS LEVER TENDER NEEDED?NO PAIN CLINIC PFS, CLERGY, PUBLIC HEALTH REFERRALS WAS THE PROVIDER NOTIFIED OF ANY PERTINENT INFO?YES HAS THE PATIENT BEEN EDUCATED REGARDING HIS/HER PLAN OF CARE?YES HAS THE PATIENT BEEN EDUCATED REGARDING PAIN, THE RISK FOR PAIN, THE IMPORTANCE OF EFFECTIVE PAIN MANAGEMENT, AND THE PAIN ASSESSMENT PROCESS?YES LATEX QUESTIONNAIRE LATEX ALLERGY : HAVE YOU EVER DEVELOPED ANY TYPE OF REACTION AFTER HANDLING LATEX PRODUCTS SUCH RUBBER GLOVES, CONDOMS, DIAPHRAGMS, BALLOONS, SOCKS, OR UNDERWEAR?YES PT ALLERGIC TO LATEX - PLEASE INDICATE :RUBBER GLOVES, CONDOMS, BALLOONS, DIAPHRAGMS, SOCKS, UNDERWEAR LATEX ALLERGY : HAVE YOU EVER DEVELOPED ANY TYPE OF REACTION DURING OR AFTER DENTAL APPOINTMENT, VAGINAL/RECTAL EXAMINATION, SURGICAL PROCEDURE, OR ANY OTHER EXPOSURE?YES - PLEASE INDICATE :DENTAL PROCEDURE, VAGINAL EXAM LATEX RISK : HAVE YOU EVER HAD ANY DIFFICULTY BREATHING OR HIVES AFTER EATING OR HANDLING ANY FRUITS, OR VEGETABLES; SUCH KIWI, BANANAS, STONE FRUITS, OR CHESTNUTSYES - PLEASE INDICATE : STONE FRUITS LATEX RISK : DO YOU HAVE A PREVIOUS PERSONAL HISTORY OF MORE THAN NINE SURGERIES, SPINA BIFIDA, OR REPEATED CATHERIZATIONS? NO LATEX RISK : ARE YOU FREQUENTLY EXPOSED TO LATEX PRODUCTS IN YOUR OCCUPATION?YES DATE ASKED : 10/03/2018 CAFFEINE CAFFEINE USE?YES 2-3 A DAY ADVANCE DIRECTIVE ADVANCE DIRECTIVE DISCUSSED WITH PATIENT:YES PT DOES NOT HAVE ANY ADVANCED DIRECTIVES. INFORMATION ON HCP GIVEN TO PT AND ASSISTANCE OFFERED IN COMPLETING. PACKET GIVEN TO PATIENT STATES SHE DOES NOT NEED ASSISTANCE FILLING IT OUT. ANGLICAN [id number] NONE MARITAL STATUS: .. 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 SEXUAL HX HAD SEX IN THE LAST 12 MONTHS (VAGINAL, ORAL, OR ANAL)?YES WITHMEN ONLY USE PROTECTION?NO LMP:POST MENOPAUSE HAVE YOU EVER HAD AN STD?NO 08/20/18 REVIEWED WITH PT 1427 BVREVIEWED WITH PATIENT 02/06/19 1434 NLJREVIEWED WITH PATIENT 04/10/19 9508 JS. HOSPITALIZATION/MAJOR DIAGNOSTIC PROCEDURE NONE REVIEW OF SYSTEMS REVIEWED BY: PROVIDER: JAY GRIMM . CONSTITUTIONAL: ANY CHANGE IN YOUR MEDICAL CONDITION? NO . CHILLS NO . FEVER NO . INFECTION: DO YOU HAVE NEW INFECTIONS? NO . DO YOU HAVE HISTORY OF MRSA? NO . MUSCULOSKELETAL: ANY NEW PATTERNS OF PAIN OR NUMBNESS? NO . GASTROENTEROLOGY: ANY NEW CHANGE IN BOWEL CONTROL? NO . GENITOURINARY: ANY NEW CHANGE IN BLADDER CONTROL? NO . IS THERE A CHANCE YOU COULD BE ? NO . HEMATOLOGY/LYMPH: DO YOU TAKE ANY BLOOD THINNERS? (FOR EXAMPLE- COUMADIN, PLAVIX, AGGRENOX, PLATEL, PRADAXA, OR XARELTO) NO . WHEN WAS YOUR LAST DOSE? DATE: TIME: . NEUROLOGY: HAVE YOU FALLEN IN THE PAST 12 MONTHS? NO . ANY NEW EXTREMITY NUMBNESS OR WEAKNESS? NO . CARDIOLOGY: DO YOU HAVE A PACEMAKER OR DEFIBRILLATOR? NO . RESPIRATORY: HAVE YOU BEEN SICK IN THE PAST WEEK? NO . FEVER NO . FLU LIKE SYMPTOMS? NO . COUGH NO . INTEGUMENTARY: DO YOU HAVE ANY RASHES OR OPEN SORES? NO . ALLERGIC/IMMUNO: ARE YOU ALLERGIC TO IV DYE? NO . ANY NEW ALLERGIES? NO . PSYCHIATRIC: DO YOU HAVE THOUGHTS OF HURTING YOURSELF OR SOMEONE ELSE? NO . ARE YOU ABUSED, NEGLECTED, OR IN AN UNSAFE ENVIRONMENT? NO . ENDOCRINOLOGY: ARE YOU DIABETIC? YES . OTHER: DO YOU NEED ANY PRESCRIPTIONS? YES . IF YES, PLEASE LIST: ____TRAMADOL, TIZANIDINE . ANY NEW PROBLEMS WITH YOUR MEDICATIONS? NO . WHEN DID YOU LAST EAT? ____ . WHEN DID YOU LAST DRINK? ____ . WHAT DID YOU LAST DRINK? ____ . NAME OF PERSON DRIVING YOU HOME? ____ . DO YOU HAVE ANY OTHER QUESTIONS OR CONCERNS YES, FLU VACCINE IN FEBRUARY . VITAL SIGNS WT 205.8 LBS, HT 64 IN, BMI 35.32 INDEX, BP 117/83 MM HG, HR 109 /MIN, RR 18 /MIN, TEMP 97.0 F, OXYGEN SAT % 99%, SAFE IN ENV? (Y/N) YES, NA INITIALS AW 1450, REVIEWED BY: JS. EXAMINATION GENERAL EXAMINATION: GENERAL AWAKE,ALERT ,PLEASANT . PSYCH AFFECT NORMAL . LUNGS: LUNG DEL ROSARIO ARE CLEAR TO AUSCULTATION BILATERALLY. GOOD MOVEMENT OF AIR . HEART: S1, S2 IN A REGULAR RATE AND RHYTHM. NO SIGNIFICANT MURMURS, RUBS OR GALLOPS NOTED . LUMBAR SACRAL SPINEPALPATION:TENDER OVER BILAT. L4/5-L5/S1 LUMBAR FACETS WITH FACET LOADING.. DIAGNOSTIC: MRI L/S SPINE-11/20/18-REVIEWED. ASSESSMENTS SPONDYLOSIS OF LUMBOSACRAL JOINT - M47.817 (PRIMARY) BILATERAL LOW BACK PAIN WITH RIGHT-SIDED SCIATICA - M54.41 TREATMENT SPONDYLOSIS OF LUMBOSACRAL JOINT REFILL TIZANIDINE HCL TABLET, 2 MG, 1 TO 2, ORALLY, AT BED TIME, 90 DAY(S), 180, REFILLS 0 REFILL TRAMADOL HCL TABLET, 50 MG, 1, ORALLY, Q8H PRN PAIN MDD3 #90 TAB FOR 3 MOS SUPPLY CAT D CHRONIC PAIN, 90 DAY(S), 90, REFILLS 0 NOTES: RIGHT L4/5 -L5/S1 LFBDX #2 . PREVENTIVE MEDICINE PAIN CLINIC TEACHING: PROCEDURE TEACHING REVIEWED INFORMATION ON FACET BLOCK PROCEDURE WITH PATIENT. ALSO REVIEWED PRE-PROCEDURE INSTRUCTIONS. PATIENT VERBALIZED AN UNDERSTANDING. RACHAEL PAN 04/10/2019 3:41:40 PM > . PROCEDURE CODES FA211 ESTABILISHED PATIENT [facility] CHARGE DISPOSITION & COMMUNICATION FOLLOW UP POST (REASON: RIGHT L4/5 -L5/S1 LFBDX #2) ELECTRONICALLY SIGNED BY ALFA WASSERMAN ON 04/28/2019 AT 04:32 PM EST DISCLAIMER : THIS IS A VISIT SUMMARY EXTRACTED FROM THE [employer] CHART. IT IS NOT A COPY OF THE [employer] PROGRESS NOTE. DESTINEY
== END ==
LOC: M PAIN 14:45
PROVIDERS: ATTEND Nurse Practitioner Family
DX: M47.817 Spondylosis without myelopathy or radiculopathy, lumbosacral region (principal); M54.41 Lumbago with sciatica, right side; E03.9 Hypothyroidism, unspecified; E11.9 Type 2 diabetes mellitus without complications; E78.5 Hyperlipidemia, unspecified; G43.909 Migraine, unspecified, not intractable, without status migrainosus; E55.9 Vitamin D deficiency, unspecified; K21.9 Gastro-esophageal reflux disease without esophagitis; Z91.010 Allergy to peanuts; Z91.018 Allergy to other foods; Z91.040 Latex allergy status; Z79.84 Long term (current) use of oral hypoglycemic drugs; Z79.891 Long term (current) use of opiate analgesic; Z79.899 Other long term (current) drug therapy

== ENCOUNTER → 2019-05-05 | Outpatient (REF) | payer BC ==
[~2019-05-05] MED LIST changes: +OMEP-172 PO; -OMEP20CA4 PO
[2019-05-05 19:13] LABS: ALBUMIN 3.3 GM/DL (3.2-5.2); ALT/SGPT 16 U/L (12-78); BILIRUBIN,TOTAL 0.5 MG/DL (0.2-1.0); BLOOD UREA NITROGEN 11 MG/DL (7-18); CALCIUM LEVEL 8.9 MG/DL (8.5-10.1); CARBON DIOXIDE LEVEL 26 MEQ/L (21-32); CHLORIDE LEVEL 111 MEQ/L (98-107); CREATININE FOR GFR 0.97 MG/DL (0.55-1.30); FREE T4 0.92 NG/DL (0.76-1.46); GLOMERULAR FILTRATION RATE > 60.0 (>51); GLUCOSE, FASTING 88 MG/DL (70-100); POTASSIUM SERUM 3.5 MEQ/L (3.5-5.1); SODIUM LEVEL 143 MEQ/L (136-145); TOTAL 25(OH) VITAMIN D 30.4 NG/ML (30.0-100.0); TOTAL PROTEIN 6.6 GM/DL (6.4-8.2)
[2019-05-05 19:14] LABS: HEMOGLOBIN A1c 5.7 %
== END ==
LOC: M LABDRAW1 16:55
PROVIDERS: ATTEND Nurse Practitioner Family
DX: E03.9 Hypothyroidism, unspecified (principal); R73.03 Prediabetes; E55.9 Vitamin D deficiency, unspecified

== ENCOUNTER 2019-05-15 17:50 | Emergency (ER) | payer BC ==
[~2019-05-15] VITALS: Ht 160 cm; Wt 92.3 kg
[2019-05-15] MEDS ORDERED: TETRACAINE 0.5% OPHTH SOLN 4ML OS ONE (19:15)
[2019-05-15] MEDS ORDERED: TROPICAMIDE 0.5% OPHTH SOLN 15 ML OS ONE (19:15)
--- NOTE | 2019-05-15 21:21 | REPVR ---
PROCEDURE INFORMATION: Exam: MR Head Without Contrast Exam date and time: 05/15/2019 8:12 PM Age: 58 years old Clinical indication: Visual disturbance; Patient HX: Vision loss lt eye; Additional info: Vision changes TECHNIQUE: Imaging protocol: MR of the head without contrast. COMPARISON: CT Head without contrast 05/15/2019 6:15 PM FINDINGS: Brain: Normal. No acute infarct. No hemorrhage. No significant white matter disease. No edema. Ventricles: Normal. No ventriculomegaly. Bones/joints: Unremarkable. Soft tissues: Unremarkable. Sinuses: Normal as visualized. No acute sinusitis. Mastoid air cells: Normal as visualized. No mastoid effusion. Orbits: Unremarkable. IMPRESSION: No acute findings. Electronically signed by: Robin Washburn On 05/15/2019 21:20:46 PM
--- NOTE | 2019-05-15 21:25 | REPVR ---
PROCEDURE INFORMATION: Exam: MR Angiogram Head Without Contrast, Arteries Exam date and time: 05/15/2019 8:12 PM Age: 58 years old Clinical indication: Visual disturbance; Sudden visual loss; Patient HX: Vision loss lt eye; Additional info: Vision changes TECHNIQUE: Imaging protocol: MR angiogram head without contrast. Exam focused on the arteries. COMPARISON: CT Head without contrast 05/15/2019 6:15 PM FINDINGS: Right internal carotid artery: Unremarkable. Intracranial segment is patent with no significant stenosis. No aneurysm. Right anterior cerebral artery: Unremarkable. No occlusion or significant stenosis. No aneurysm. Right middle cerebral artery: Unremarkable. No occlusion or significant stenosis. No aneurysm. Right posterior cerebral artery: Unremarkable. No occlusion or significant stenosis. No aneurysm. Right vertebral artery: Unremarkable. No occlusion or significant stenosis. No aneurysm. Left internal carotid artery: Unremarkable. Intracranial segment is patent with no significant stenosis. No aneurysm. Left anterior cerebral artery: Unremarkable. No occlusion or significant stenosis. No aneurysm. Left middle cerebral artery: Unremarkable. No occlusion or significant stenosis. No aneurysm. Left posterior cerebral artery: Unremarkable. No occlusion or significant stenosis. No aneurysm. Left vertebral artery: Unremarkable. No occlusion or significant stenosis. No aneurysm. Basilar artery: Unremarkable. No occlusion or significant stenosis. No aneurysm. IMPRESSION: No acute findings. Normal MRA. No significant stenosis, aneurysm, or vascular occlusion. Electronically signed by: Robin Washburn On 05/15/2019 21:25:06 PM
[2019-05-15 22:29] VITALS: BP 130/83
--- NOTE | 2019-05-16 08:24 | REP ---
CT brain: 05/15/2019. Indication: Blurred vision. Stroke. Comparison: None. Technique: Unenhanced axial CT images of the brain were performed from skull base to vertex with coronal reconstructions provided. Findings: There is no acute intracranial hemorrhage, acute cortical infarction, mass effect or hydrocephalous. Impression: No acute intracranial process. Electronically Signed by Haider Interiano DO 05/16/2019 08:15 A
== END 2019-05-15 22:48 | disposition home or self-care (01) ==
LOC: M ED 17:50
DX: H53.8 Other visual disturbances (principal); E11.9 Type 2 diabetes mellitus without complications; K21.9 Gastro-esophageal reflux disease without esophagitis; E03.9 Hypothyroidism, unspecified; E78.5 Hyperlipidemia, unspecified; G89.29 Other chronic pain; M54.9 Dorsalgia, unspecified; G43.909 Migraine, unspecified, not intractable, without status migrainosus; Z79.899 Other long term (current) drug therapy; Z91.018 Allergy to other foods; Z91.040 Latex allergy status

== ENCOUNTER → 2019-06-30 | Outpatient (REF) | payer BC ==
[~2019-06-30] MED LIST changes: -OMEP-172 PO; +OMEP1CAP73 PO
[2019-06-30 16:42] LABS: BLOOD UREA NITROGEN 33 MG/DL (7-18); CALCIUM LEVEL 8.9 MG/DL (8.5-10.1); CARBON DIOXIDE LEVEL 30 MEQ/L (21-32); CHLORIDE LEVEL 112 MEQ/L (98-107); CREATININE FOR GFR 0.71 MG/DL (0.55-1.30); FREE T4 1.73 NG/DL (0.76-1.46); GLOMERULAR FILTRATION RATE > 60.0 (>51); GLUCOSE, FASTING 78 MG/DL (70-100); SODIUM LEVEL 144 MEQ/L (136-145); THYROID STIMULATING HORMONE 0.262 uIU/ML (0.358-3.740)
== END ==
LOC: M LABDRAW1 15:43
PROVIDERS: ATTEND Nurse Practitioner Family
DX: E03.8 Other specified hypothyroidism (principal); R73.03 Prediabetes

== ENCOUNTER → 2019-07-28 | Outpatient (CLI) | payer BC ==
[~2019-07-28] MED LIST changes: +BUPIVACAINE HCL 0.25% 30 ML VIAL As Ordered ONE; +ISOVUE-M 300 61% 15ML VIAL (Q9967) As Ordered ONE; +LIDOCAINE 1% SDV INJ 30 ML VIAL As Ordered ONE
--- NOTE | 2019-07-28 14:01 | REP ---
C-ARM VIEWS LUMBAR SPINE: CLINICAL HISTORY: Pain. Three C-arm views of the lower lumbar spine are performed during facet injection performed by Dr. Heredia. [place] are seen along the lower lumbar facet joints and a small amount of contrast is injected. 19 seconds fluoroscopy time utilized. Electronically Signed by Berny Beck MD 07/28/2019 05:55 P
--- NOTE | 2019-08-05 03:38 | ECWPNPC ---
PATIENT NAME: RIK FUNES : 1960 GENDER: FEMALE VISIT DATE: 07/28/2019 DISCHARGE DATE: 07/28/19 1315 VISIT LOCKED DATE TIME: PHYSICIAN: ANITA ESCOBAR MD RESOURCE: ANITA ESCOBAR MD REASON FOR APPOINTMENT 1. RIGHT L4/5 -L5/S1 LFBDX #2 HISTORY OF PRESENT ILLNESS HISTORY OF PRESENT ILLNESS: PAIN THE PATIENT DESCRIBES THE PAIN... FALL RISK SCREENING: SCREENING :NO FALLS REPORTED IN THE LAST YEAR CURRENT MEDICATIONS TAKING BLOOD GLUCOSE TEST - STRIP VERIO DIRECTED IN VITRO DX E88.81 DAILY TAKING MAY USE ONE TOUCH ULTRA GLUCOSE TSTING STRIPS DX 790.21 DIRECTED NA 1-2 TIMES A DAY TAKING SUMATRIPTAN SUCCINATE 100 MG TABLET 1 TABLET NEEDED AT ONSET OF [place] ORALLY ONCE A DAY, NOTES: NONE LATELY TAKING CLARITIN 10 MG TABLET 1 TABLET ORALLY ONCE A DAY, NOTES: NONE LATELY TAKING SALINE NASAL SPRAY 0.65 % SOLUTION 2 DROPS IN EACH NOSTRIL NEEDED NASALLY EVERY 4HRS NEEDED, NOTES: NONE LATELY TAKING NAPROXEN 500 MG TABLET 1 TABLET NEEDED ORALLY EVERY 12 HRS, NOTES: 07/28/19 TAKING ONE TOUCH ULTRA 2 LANCET DX 250.00 LANCET DIRECTED NA 1-2 TIMES A DAY TAKING LEVOTHYROXINE SODIUM 125 MCG TABLET 1 TABLET ON AN EMPTY STOMACH IN THE MORNING ORALLY ONCE A DAY, NOTES: 07/28/19 TAKING METFORMIN 500MG 1 ER TABLET 2 TAB(S) IN A.M./1 TAB IN P.M. ORALLY DAILY, NOTES: 07/27/19 TAKING SIMVASTATIN 20 MG TABLET 1 TABLET IN THE EVENING ORALLY ONCE A DAY, NOTES: 07/27/19 TAKING OMEPRAZOLE 40 MG CAPSULE DELAYED RELEASE 1 CAPSULE ORALLY ONCE A DAY, NOTES: 07/27/19 TAKING CHOLESTYRAMINE 4 GM/DOSE POWDER 1 SCOOP ORALLY DAILY, NOTES: 07/27/19 TAKING DULOXETINE HCL 60 MG CAPSULE DELAYED RELEASE PARTICLES 1 CAPSULE ORALLY ONCE A DAY, NOTES: NONE LATELY TAKING DRISDOL 57983 UNIT CAPSULE 1 CAPSULE ORALLY ONCE EVERY WEEK WITH MEAL, NOTES: 07/28/19 TAKING LASIX 20 MG TABLET 1 TABLET ORALLY ONCE A DAY, NOTES: 07/25/19 TAKING POTASSIUM CHLORIDE 10 MEQ CAPSULE EXTENDED RELEASE 3 CAPSULES WITH FOOD ORALLY DAILY, NOTES: 07/27/19 NOT-TAKING TOPAMAX 100 MG TABLET 2 TABLETS ORALLY TWICE A DAY DISCONTINUED CALCIUM 600-D 600-400 MG-UNIT TABLET 1 TABLET WITH FOOD ORALLY ONCE A DAY DISCONTINUED TIZANIDINE HCL 2 MG TABLET 1 TO 2 ORALLY AT BED TIME DISCONTINUED TRAMADOL HCL 50 MG TABLET 1 ORALLY Q8H PRN PAIN MDD3 #90 TAB FOR 3 MOS SUPPLY CAT D CHRONIC PAIN MEDICATION LIST REVIEWED AND RECONCILED WITH THE PATIENT PAST MEDICAL HISTORY GRAVE'S DISEASE/ HYPOTHYROID PRE-DM-2 HYPERLIPIDEMIA OBESITY UTERINE FIBROIDS 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 QUESADA /2017 DETACHMENT LEFT RETINA FAMILY HISTORY FATHER: , COLON CANCER DX 85, DIAGNOSED WITH OTHER MALIGNANT NEOPLASM OF UNSPECIFIED SITE IN 85 MOTHER: ALIVE 78 YRS, SLE, CVA SIBLINGS: ALIVE, BROTHER HAS HTN PATERNAL GRAND FATHER: , UNKNOWN PATERNAL GRAND MOTHER: , UNKNOWN MATERNAL GRAND FATHER: , UNKNOWN MATERNAL GRAND MOTHER: , UNKNOWN PATERNAL AUNT: , BREAST CANCER, PRIOR TO AGE 52, OTHER MALIGNANT NEOPLASM OF UNSPECIFIED SITE NO KNOWN HX OF BREAST\\\/OVARIAN CANCER. SOCIAL HISTORY GENERAL: TOBACCO USE ARE YOU A:NONSMOKER HIV / HEP-C SCREENING HIV TEST OFFERED TO PATIENT:YES DATE OFFERED:11/10/2017 PREVIOUSLY DONE TEST ACCEPTED:YES HEP-C TEST OFFERED TO PATIENT:YES DATE OFFERED:11/10/2017 TEST ACCEPTED:NO REASON:PATIENT DECLINED BROCHURE PROVIDED TO PATIENTNO OTHERS AT HOME: SON. EDUCATION 12 GRADUATE. 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 LANGUAGE LANGUAGES SPOKEN:NIGERIEN DOMESTIC VIOLENCE DO YOU FEEL SAFE IN YOUR ENVIRONMENT?YES BMI CARE GOAL FOLLOW-UP ABOVE NORMAL BMI FOLLOW-UPGIVING ENCOURAGEMENT TO EXERCISE, LIFESTYLE EDUCATION REGARDING DIET RECREATIONAL DRUG USE DENIES. EXERCISE: WALKS DAILY, ELIPTYCAL INTERMITTENTLY PLANET FITNESS 5 DAYS A WEEK. LEARNING BARRIERS / SPECIAL NEEDS CHANGE FROM LAST VISIT?NO BARRIERS TO LEARNING?NO HEARING IMPAIRED?NO VISION IMPAIRED?YES COGNITIVELY IMPAIRED?NO :CORRECTIVE LENSES READINESS TO LEARN?YES LEARNING PREFERENCES?YES :TAPES/VIDEOS, BOOKLETS, HANDOUTS LEARNING CAPABILITIES PRESENT?YES EMOTIONAL BARRIERS?NO SPECIAL DEVICES?NO OWNER/PHOTOGRAPHER NEEDED?NO PAIN CLINIC PFS, CLERGY, PUBLIC HEALTH REFERRALS WAS THE PROVIDER NOTIFIED OF ANY PERTINENT INFO?YES HAS THE PATIENT BEEN EDUCATED REGARDING HIS/HER PLAN OF CARE?YES HAS THE PATIENT BEEN EDUCATED REGARDING PAIN, THE RISK FOR PAIN, THE IMPORTANCE OF EFFECTIVE PAIN MANAGEMENT, AND THE PAIN ASSESSMENT PROCESS?YES LATEX QUESTIONNAIRE LATEX ALLERGY : HAVE YOU EVER DEVELOPED ANY TYPE OF REACTION AFTER HANDLING LATEX PRODUCTS SUCH RUBBER GLOVES, CONDOMS, DIAPHRAGMS, BALLOONS, SOCKS, OR UNDERWEAR?YES PT ALLERGIC TO LATEX LATEX ALLERGY : HAVE YOU EVER DEVELOPED ANY TYPE OF REACTION DURING OR AFTER DENTAL APPOINTMENT, VAGINAL/RECTAL EXAMINATION, SURGICAL PROCEDURE, OR ANY OTHER EXPOSURE?YES - PLEASE INDICATE :RUBBER GLOVES, CONDOMS, BALLOONS, DIAPHRAGMS, SOCKS, UNDERWEAR - PLEASE INDICATE :DENTAL PROCEDURE, VAGINAL EXAM DATE ASKED : 10/03/2018 LATEX RISK : HAVE YOU EVER HAD ANY DIFFICULTY BREATHING OR HIVES AFTER EATING OR HANDLING ANY FRUITS, OR VEGETABLES; SUCH KIWI, BANANAS, STONE FRUITS, OR CHESTNUTSYES - PLEASE INDICATE : STONE FRUITS LATEX RISK : DO YOU HAVE A PREVIOUS PERSONAL HISTORY OF MORE THAN NINE SURGERIES, SPINA BIFIDA, OR REPEATED CATHERIZATIONS? NO LATEX RISK : ARE YOU FREQUENTLY EXPOSED TO LATEX PRODUCTS IN YOUR OCCUPATION?YES CAFFEINE CAFFEINE USE?YES 2-3 A DAY ADVANCE DIRECTIVE ADVANCE DIRECTIVE DISCUSSED WITH PATIENT:YES PT DOES NOT HAVE ANY ADVANCED DIRECTIVES. INFORMATION ON HCP GIVEN TO PT AND ASSISTANCE OFFERED IN COMPLETING. PACKET GIVEN TO PATIENT STATES SHE DOES NOT NEED ASSISTANCE FILLING IT OUT. CAODAISM [id number] NONE MARITAL STATUS: .. 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 SEXUAL HX HAD SEX IN THE LAST 12 MONTHS (VAGINAL, ORAL, OR ANAL)?YES WITHMEN ONLY USE PROTECTION?NO LMP:POST MENOPAUSE HAVE YOU EVER HAD AN STD?NO 08/20/18 REVIEWED WITH PT 1427 BVREVIEWED WITH PATIENT 02/06/19 1434 NLJREVIEWED WITH PATIENT 04/10/19 1458 JSPREADMISSION COMPLETED 07-14-19 KEG. HOSPITALIZATION/MAJOR DIAGNOSTIC PROCEDURE NONE REVIEW OF SYSTEMS REVIEWED BY: PROVIDER: . CONSTITUTIONAL: ANY CHANGE IN YOUR MEDICAL CONDITION? NO . CHILLS NO . FEVER NO . INFECTION: DO YOU HAVE NEW INFECTIONS? NO . DO YOU HAVE HISTORY OF MRSA? NO . MUSCULOSKELETAL: ANY NEW PATTERNS OF PAIN OR NUMBNESS? NO . GASTROENTEROLOGY: ANY NEW CHANGE IN BOWEL CONTROL? NO . GENITOURINARY: ANY NEW CHANGE IN BLADDER CONTROL? NO . IS THERE A CHANCE YOU COULD BE ? NO . HEMATOLOGY/LYMPH: DO YOU TAKE ANY BLOOD THINNERS? (FOR EXAMPLE- COUMADIN, PLAVIX, AGGRENOX, PLATEL, PRADAXA, OR XARELTO) NO . WHEN WAS YOUR LAST DOSE? DATE: TIME: . NEUROLOGY: HAVE YOU FALLEN IN THE PAST 12 MONTHS? YES, FELL LAST WEEK ON THE ICE, PT REPORTS INJURIES TO CHEST, PT WAS SEEN AT CLINIC WHERE IMAGING WAS DONE, NO FX NOTED. . ANY NEW EXTREMITY NUMBNESS OR WEAKNESS? NO . CARDIOLOGY: DO YOU HAVE A PACEMAKER OR DEFIBRILLATOR? NO . RESPIRATORY: HAVE YOU BEEN SICK IN THE PAST WEEK? NO . FEVER NO . FLU LIKE SYMPTOMS? NO . COUGH NO . INTEGUMENTARY: DO YOU HAVE ANY RASHES OR OPEN SORES? NO . ALLERGIC/IMMUNO: ARE YOU ALLERGIC TO IV DYE? NO . ANY NEW ALLERGIES? NO . PSYCHIATRIC: DO YOU HAVE THOUGHTS OF HURTING YOURSELF OR SOMEONE ELSE? NO . ARE YOU ABUSED, NEGLECTED, OR IN AN UNSAFE ENVIRONMENT? NO . ENDOCRINOLOGY: ARE YOU DIABETIC? YES, FS 111 TODAY AT 0715 . OTHER: DO YOU NEED ANY PRESCRIPTIONS? NO . IF YES, PLEASE LIST: ____ . ANY NEW PROBLEMS WITH YOUR MEDICATIONS? NO . WHEN DID YOU LAST EAT? 07/27/191999 . WHEN DID YOU LAST DRINK? 07/28/19714 . WHAT DID YOU LAST DRINK? POWER AIDE DRINK . NAME OF PERSON DRIVING YOU HOME? [facility] . DO YOU HAVE ANY OTHER QUESTIONS OR CONCERNS NO . VITAL SIGNS WT 218.8 LBS, HT 64 IN, BMI 37.55 INDEX, BP 161/90 MM HG, HR 78 /MIN, RR 18 /MIN, TEMP 96.8 F, OXYGEN SAT % 99%, SAFE IN ENV? (Y/N) Y, NA INITIALS AW 1137, REVIEWED BY: EM. ASSESSMENTS SPONDYLOSIS WITHOUT MYELOPATHY OR RADICULOPATHY, LUMBAR REGION - M47.816 (PRIMARY) SPONDYLOSIS OF LUMBOSACRAL REGION WITHOUT MYELOPATHY OR RADICULOPATHY - M47.817 TREATMENT SPONDYLOSIS OF LUMBOSACRAL REGION WITHOUT MYELOPATHY OR RADICULOPATHY SMC FACET BLOCK (PAIN)[id number] PROCEDURES PN LUMBAR FACET BLOCK DIAGNOSTIC PRE PROCEDURE DIAGNOSIS LUMBAR SPONDYLOSIS, LUMBOSACRAL SPONDYLOSIS POST PROCEDURE DIAGNOSIS LUMBAR SPONDYLOSIS, LUMBOSACRAL SPONDYLOSIS PROCEDURE RIGHT L4-L5 AND RIGHT L5-S1 FACET BLOCK DIAGNOSTIC NUMBER [address] ANITA ESCOBAR GREETING CARD EDITOR NONE ANESTHESIA LOCAL PRE PROCEDURE NOTE THE PATIENT WITH HISTORY OF CHRONIC LOW BACK PAIN. I EVALUATED THE PATIENT AND REVIEWED THE CHART. I WENT OVER THE RISKS, ALTERNATIVES, AND BENEFITS ASSOCIATED WITH THIS PROCEDURE. THE PATIENT WOULD LIKE TO PROCEED AND GAVE CONSENT TO PERFORM THE PROCEDURE. AGREED WITH THE PATIENT WE ARE DOING THIS PROCEDURE TO DETERMINE IF THE PATIENT IS A CANDIDATE FOR A RADIOFREQUENCY ABLATION OF THE FACETS JOINTS. THE PATIENT DENIES UNEXPLAINABLE WEIGHT LOSS, FEVER, CHILLS, OR NEW CHANGES IN URINARY OR BOWEL CONTROL DESCRIPTION OF PROCEDURE THE PATIENT WAS BROUGHT TO THE PROCEDURE ROOM AND PLACED IN THE PRONE POSITION. THE LUMBOSACRAL AREA WAS CLEANED WITH CHLORAPREP SOLUTION AND DRAPED ASEPTICALLY. THE PROCEDURE WAS DONE UNDER STERILE CONDITIONS. I CHECKED LATERALITY AND THE LEVEL WHERE THE PROCEDURE WAS GOING TO BE PERFORMED WITH THE PATIENT AND THE SUPPORTING STAFF AT THE MOMENT OF THE TIME OUT IN THE PROCEDURE ROOM. UNDER FLUOROSCOPIC GUIDANCE, TARGETS WERE SELECTED AT THE INTERSECTION OF THE RIGHT TRANSVERSE PROCESS OF L4, L5 AND ALA OF S1 WITH ITS RESPECTIVE SUPERIOR ARTICULAR PROCESS. LIDOCAINE WAS USED TO NUMB THE SKIN AND THE SUBCUTANEOUS TISSUE BELOW IT. SPINAL NEEDLE, 22-GAUGE WAS ADVANCED UNDER FLUOROSCOPIC GUIDANCE AND FOLLOWING PATIENT FEEDBACK UNTIL THE TARGETS WERE REACHED. POSITION OF THE NEEDLES WAS VERIFIED WITH AP AND LATERAL VIEWS. AFTER PROPER POSITION OF THE NEEDLES WAS ACHIEVED, ISOVUE-M DYE 30% 0.1 ML WAS INJECTED AT EACH SITE SHOWING ADEQUATE SPREAD OF THE DYE. THEN A SOLUTION OF 0.4 ML OF BUPIVACAINE 0.25% WAS INJECTED AT EACH SITE. THERE WAS NO EVIDENCE OF BLOOD, PARESTHESIA OR CEREBROSPINAL FLUID DURING THE PROCEDURE. THE PATIENT WAS SENT TO THE RECOVERY ROOM. THE PATIENT WAS MOVING THE EXTREMITIES AND DOING WELL. THERE WAS NO COMPLICATION DURING THE PROCEDURE. FLUOROSCOPY TIME WAS 19 SECONDS POST PROCEDURE NOTE THE PATIENT WILL DOCUMENT HIS PAIN LEVEL AND RESPONSE TO THIS PROCEDURE EVERY 30 MINUTES. THE PATIENT WILL BE SEEN IN A FOLLOW UP IN THE NEXT FEW WEEKS. FURTHER DETERMINATION FOR HIS CASE WILL BE DONE AT THE NEXT VISIT. INSTRUCTIONS WERE GIVEN, QUESTIONS WERE ANSWERED, AND THE PATIENT EXPRESSED UNDERSTANDING AND AGREED WITH THE PLAN. I, CHINYERE GALEAS, DOCUMENTED THE ABOVE INFORMATION ACTING A SCRIBE FOR DR. ESCOBAR. I HAVE REVIEWED THE ABOVE DOCUMENT, WRITTEN BY CHINYERE GALEAS SCRIBE AND I VERIFY THAT IT IS ACCURATE. PROCEDURE CODES 18049 INJ PARAVERT F JNT L/S 1 LEV, MODIFIERS: [place] [id number] INJ PARAVERT F JNT L/S 2 LEV, MODIFIERS: RT 6045F RADXPS IN END [id number] PXD DISPOSITION & COMMUNICATION FOLLOW UP 3 WEEKS ELECTRONICALLY SIGNED BY ANITA ESCOBAR MD, MD ON 08/04/2019 AT 03:31 PM EDT DISCLAIMER : THIS IS A VISIT SUMMARY EXTRACTED FROM THE [employer] CHART. IT IS NOT A COPY OF THE [employer] PROGRESS NOTE. MTDD
== END ==
LOC: M PAIN 11:15
PROVIDERS: ATTEND Anesthesiology
DX: M47.816 Spondylosis without myelopathy or radiculopathy, lumbar region (principal); M47.817 Spondylosis without myelopathy or radiculopathy, lumbosacral region; R73.03 Prediabetes; E78.5 Hyperlipidemia, unspecified; E66.9 Obesity, unspecified; E55.9 Vitamin D deficiency, unspecified; G43.909 Migraine, unspecified, not intractable, without status migrainosus; J30.9 Allergic rhinitis, unspecified; K21.9 Gastro-esophageal reflux disease without esophagitis; Z68.37 Body mass index [BMI] 37.0-37.9, adult; Z79.84 Long term (current) use of oral hypoglycemic drugs; Z79.899 Other long term (current) drug therapy; Z91.040 Latex allergy status; Z91.018 Allergy to other foods; Z91.010 Allergy to peanuts
CPT/HCPCS: 64493; 64494; Q9967

== ENCOUNTER → 2019-08-11 | Outpatient (CLI) | payer BC ==
[~2019-08-11] MED LIST changes: -BUPIVACAINE HCL 0.25% 30 ML VIAL As Ordered ONE; -ISOVUE-M 300 61% 15ML VIAL (Q9967) As Ordered ONE; -LIDOCAINE 1% SDV INJ 30 ML VIAL As Ordered ONE
--- NOTE | 2019-08-26 05:00 | ECWPNPC ---
PATIENT NAME: RIK FUNES : 1960 GENDER: FEMALE VISIT DATE: 08/11/2019 DISCHARGE DATE: 08/11/19 1213 VISIT LOCKED DATE TIME: PHYSICIAN: JAY MATT RESOURCE: JAY MATT REASON FOR APPOINTMENT 1. POST FACET HISTORY OF PRESENT ILLNESS HISTORY OF PRESENT ILLNESS: HERE FOR POST PROCEDURE FOLLOW-UP. HAD RIGHT L4-5, L5-S1 DIAGNOSTIC LUMBAR FACET BLOCK #2 ON . REPORTS MARKED REDUCTION IN RIGHT LOW BACK PAIN THAT CONTINUES TODAY. RATING 0/10 VAS FOR RIGHT LOW BACK PAIN. SUFFERS FROM PERSISTENT LEFT LOW BACK PAIN THAT RADIATES INTO LEFT LATERAL THIGH. STATES THIS BEGAN AFTER BLUNT TRAUMA INJURY IN APRIL. DISCUSSED INITIAL WORKUP FOR PERSISTENT PAIN POST INJURY TO INCLUDE PHYSICAL THERAPY AND X-RAY AND PATIENT IS DECLINING AT THIS TIME. PAIN THE PATIENT DESCRIBES THE PAIN... FALL RISK SCREENING: SCREENING :NO FALLS REPORTED IN THE LAST YEAR CURRENT MEDICATIONS TAKING BLOOD GLUCOSE TEST - STRIP VERIO DIRECTED IN VITRO DX E88.81 DAILY TAKING MAY USE ONE TOUCH ULTRA GLUCOSE TSTING STRIPS DX 790.21 DIRECTED NA 1-2 TIMES A DAY TAKING SUMATRIPTAN SUCCINATE 100 MG TABLET 1 TABLET NEEDED AT ONSET OF [place] ORALLY ONCE A DAY TAKING CLARITIN 10 MG TABLET 1 TABLET ORALLY ONCE A DAY TAKING SALINE NASAL SPRAY 0.65 % SOLUTION 2 DROPS IN EACH NOSTRIL NEEDED NASALLY EVERY 4HRS NEEDED TAKING NAPROXEN 500 MG TABLET 1 TABLET NEEDED ORALLY EVERY 12 HRS TAKING ONE TOUCH ULTRA 2 LANCET DX 250.00 LANCET DIRECTED NA 1-2 TIMES A DAY TAKING LEVOTHYROXINE SODIUM 125 MCG TABLET 1 TABLET ON AN EMPTY STOMACH IN THE MORNING ORALLY ONCE A DAY TAKING METFORMIN 500MG 1 ER TABLET 2 TAB(S) IN A.M./1 TAB IN P.M. ORALLY DAILY TAKING SIMVASTATIN 20 MG TABLET 1 TABLET IN THE EVENING ORALLY ONCE A DAY TAKING OMEPRAZOLE 40 MG CAPSULE DELAYED RELEASE 1 CAPSULE ORALLY ONCE A DAY TAKING CHOLESTYRAMINE 4 GM/DOSE POWDER 1 SCOOP ORALLY DAILY TAKING DULOXETINE HCL 60 MG CAPSULE DELAYED RELEASE PARTICLES 1 CAPSULE ORALLY ONCE A DAY TAKING DRISDOL 43787 UNIT CAPSULE 1 CAPSULE ORALLY ONCE EVERY WEEK WITH MEAL TAKING LASIX 20 MG TABLET 1 TABLET ORALLY ONCE A DAY TAKING POTASSIUM CHLORIDE 10 MEQ CAPSULE EXTENDED RELEASE 3 CAPSULES WITH FOOD ORALLY DAILY TAKING TRAMADOL HCL 50 MG TABLET SOLUBLE Q8 PRN ORALLY MDD 3 TAKING TIZANIDINE HCL 2 MG TABLET ORALLY PRN HS MDD 2 NOT-TAKING TOPAMAX 100 MG TABLET 2 TABLETS ORALLY TWICE A DAY MEDICATION LIST REVIEWED AND RECONCILED WITH THE PATIENT PAST MEDICAL HISTORY GRAVE'S DISEASE/ HYPOTHYROID PRE-DM-2 HYPERLIPIDEMIA OBESITY UTERINE FIBROIDS 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 QUESADA DETACHMENT LEFT RETINA FAMILY HISTORY FATHER: , COLON CANCER DX 85, DIAGNOSED WITH OTHER MALIGNANT NEOPLASM OF UNSPECIFIED SITE IN 85 MOTHER: ALIVE 78 YRS, SLE, CVA SIBLINGS: ALIVE, BROTHER HAS HTN PATERNAL GRAND FATHER: , UNKNOWN PATERNAL GRAND MOTHER: , UNKNOWN MATERNAL GRAND FATHER: , UNKNOWN MATERNAL GRAND MOTHER: , UNKNOWN PATERNAL AUNT: , BREAST CANCER, PRIOR TO AGE 50, OTHER MALIGNANT NEOPLASM OF UNSPECIFIED SITE NO KNOWN HX OF BREAST\\\/OVARIAN CANCER. SOCIAL HISTORY GENERAL: TOBACCO USE ARE YOU A:NONSMOKER HIV / HEP-C SCREENING HIV TEST OFFERED TO PATIENT:YES DATE OFFERED:11/10/2017 PREVIOUSLY DONE TEST ACCEPTED:YES HEP-C TEST OFFERED TO PATIENT:YES DATE OFFERED:11/10/2017 TEST ACCEPTED:NO REASON:PATIENT DECLINED BROCHURE PROVIDED TO PATIENTNO OTHERS AT HOME: SON. EDUCATION 12 GRADUATE. 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 LANGUAGE LANGUAGES SPOKEN:TURKISH DOMESTIC VIOLENCE DO YOU FEEL SAFE IN YOUR ENVIRONMENT?YES BMI CARE GOAL FOLLOW-UP ABOVE NORMAL BMI FOLLOW-UPGIVING ENCOURAGEMENT TO EXERCISE, LIFESTYLE EDUCATION REGARDING DIET RECREATIONAL DRUG USE DENIES. EXERCISE: WALKS DAILY, ELIPTYCAL INTERMITTENTLY PLANET FITNESS 5 DAYS A WEEK. LEARNING BARRIERS / SPECIAL NEEDS CHANGE FROM LAST VISIT?NO BARRIERS TO LEARNING?NO HEARING IMPAIRED?NO VISION IMPAIRED?YES COGNITIVELY IMPAIRED?NO :CORRECTIVE LENSES READINESS TO LEARN?YES LEARNING PREFERENCES?YES :TAPES/VIDEOS, BOOKLETS, HANDOUTS LEARNING CAPABILITIES PRESENT?YES EMOTIONAL BARRIERS?NO SPECIAL DEVICES?NO CASINO CAGE SUPERVISOR NEEDED?NO PAIN CLINIC PFS, CLERGY, PUBLIC HEALTH REFERRALS WAS THE PROVIDER NOTIFIED OF ANY PERTINENT INFO?YES HAS THE PATIENT BEEN EDUCATED REGARDING HIS/HER PLAN OF CARE?YES HAS THE PATIENT BEEN EDUCATED REGARDING PAIN, THE RISK FOR PAIN, THE IMPORTANCE OF EFFECTIVE PAIN MANAGEMENT, AND THE PAIN ASSESSMENT PROCESS?YES LATEX QUESTIONNAIRE LATEX ALLERGY : HAVE YOU EVER DEVELOPED ANY TYPE OF REACTION AFTER HANDLING LATEX PRODUCTS SUCH RUBBER GLOVES, CONDOMS, DIAPHRAGMS, BALLOONS, SOCKS, OR UNDERWEAR?YES PT ALLERGIC TO LATEX - PLEASE INDICATE :RUBBER GLOVES, CONDOMS, BALLOONS, DIAPHRAGMS, SOCKS, UNDERWEAR LATEX ALLERGY : HAVE YOU EVER DEVELOPED ANY TYPE OF REACTION DURING OR AFTER DENTAL APPOINTMENT, VAGINAL/RECTAL EXAMINATION, SURGICAL PROCEDURE, OR ANY OTHER EXPOSURE?YES - PLEASE INDICATE :DENTAL PROCEDURE, VAGINAL EXAM LATEX RISK : HAVE YOU EVER HAD ANY DIFFICULTY BREATHING OR HIVES AFTER EATING OR HANDLING ANY FRUITS, OR VEGETABLES; SUCH KIWI, BANANAS, STONE FRUITS, OR CHESTNUTSYES - PLEASE INDICATE : STONE FRUITS LATEX RISK : DO YOU HAVE A PREVIOUS PERSONAL HISTORY OF MORE THAN NINE SURGERIES, SPINA BIFIDA, OR REPEATED CATHERIZATIONS? NO LATEX RISK : ARE YOU FREQUENTLY EXPOSED TO LATEX PRODUCTS IN YOUR OCCUPATION?YES DATE ASKED : 07/24/2019 CAFFEINE CAFFEINE USE?YES 2-3 A DAY ADVANCE DIRECTIVE ADVANCE DIRECTIVE DISCUSSED WITH PATIENT:YES HCP - [facility]I GOMEZ (SON) TAOISM [id number] NONE MARITAL STATUS: .. 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 SEXUAL HX HAD SEX IN THE LAST 12 MONTHS (VAGINAL, ORAL, OR ANAL)?YES WITHMEN ONLY USE PROTECTION?NO LMP:POST MENOPAUSE HAVE YOU EVER HAD AN STD?NO HOSPITALIZATION/MAJOR DIAGNOSTIC PROCEDURE NONE REVIEW OF SYSTEMS REVIEWED BY: PROVIDER: JAY GRIMM . CONSTITUTIONAL: ANY CHANGE IN YOUR MEDICAL CONDITION? NO . CHILLS NO . FEVER NO . INFECTION: DO YOU HAVE NEW INFECTIONS? NO . DO YOU HAVE HISTORY OF MRSA? NO . MUSCULOSKELETAL: ANY NEW PATTERNS OF PAIN OR NUMBNESS? NO . GASTROENTEROLOGY: ANY NEW CHANGE IN BOWEL CONTROL? NO . GENITOURINARY: ANY NEW CHANGE IN BLADDER CONTROL? NO . IS THERE A CHANCE YOU COULD BE ? NO . HEMATOLOGY/LYMPH: DO YOU TAKE ANY BLOOD THINNERS? (FOR EXAMPLE- COUMADIN, PLAVIX, AGGRENOX, PLATEL, PRADAXA, OR XARELTO) NO . WHEN WAS YOUR LAST DOSE? DATE: TIME: . NEUROLOGY: HAVE YOU FALLEN IN THE PAST 12 MONTHS? YES, FALL AT END OF JUNE FROM SLIPPING ON ICE - WENT TO [facility] DUE TO RIB PAIN, NO BROKEN RIBS SEEN ON IMAGING . ANY NEW EXTREMITY NUMBNESS OR WEAKNESS? NO . CARDIOLOGY: DO YOU HAVE A PACEMAKER OR DEFIBRILLATOR? NO . RESPIRATORY: HAVE YOU BEEN SICK IN THE PAST WEEK? NO . FEVER NO . FLU LIKE SYMPTOMS? NO . COUGH NO . INTEGUMENTARY: DO YOU HAVE ANY RASHES OR OPEN SORES? NO . ALLERGIC/IMMUNO: ARE YOU ALLERGIC TO IV DYE? NO . ANY NEW ALLERGIES? NO . PSYCHIATRIC: DO YOU HAVE THOUGHTS OF HURTING YOURSELF OR SOMEONE ELSE? NO . ARE YOU ABUSED, NEGLECTED, OR IN AN UNSAFE ENVIRONMENT? NO - MARKED INCORRECTLY ON SHEET . ENDOCRINOLOGY: ARE YOU DIABETIC? YES . OTHER: DO YOU NEED ANY PRESCRIPTIONS? YES . IF YES, PLEASE LIST: ____TIZANIDINE, TRAMADOL . ANY NEW PROBLEMS WITH YOUR MEDICATIONS? NO . WHEN DID YOU LAST EAT? ____ . WHEN DID YOU LAST DRINK? ____ . WHAT DID YOU LAST DRINK? ____ . NAME OF PERSON DRIVING YOU HOME? ____ . DO YOU HAVE ANY OTHER QUESTIONS OR CONCERNS NO . VITAL SIGNS WT 214.4 LBS, HT 64 IN, BMI 36.80 INDEX, BP 136/93 MM HG, HR 74 /MIN, RR 16 /MIN, TEMP 98.5 F, OXYGEN SAT % 99%, SAFE IN ENV? (Y/N) YES, REVIEWED BY: MIMA. EXAMINATION GENERAL EXAMINATION: GENERALAWAKE,ALERT ,PLEASANT . PSYCHAFFECT NORMAL . LUNGS:LUNG DEL ROSARIO ARE CLEAR TO AUSCULTATION BILATERALLY. GOOD MOVEMENT OF AIR . HEART:S1, S2 IN A REGULAR RATE AND RHYTHM. NO SIGNIFICANT MURMURS, RUBS OR GALLOPS NOTED . ASSESSMENTS SPONDYLOSIS OF LUMBOSACRAL JOINT - M47.817 (PRIMARY) BILATERAL LOW BACK PAIN WITH RIGHT-SIDED SCIATICA - M54.41 TREATMENT SPONDYLOSIS OF LUMBOSACRAL JOINT REFILL TRAMADOL HCL TABLET SOLUBLE, 50 MG, Q8 PRN, ORALLY, MDD 3 (3 MOS SUPPLY CAT D CHRONIC PAIN), 90 DAY(S), 270, REFILLS 0 REFILL TIZANIDINE HCL TABLET, 2 MG, 1 TAB, ORALLY, PRN HS MDD 2, 90 DAY(S), 180, REFILLS 0 NOTES: ISTOP REGISTRY REVIEWED AND DEMONSTRATES COMPLLIANCE. (REF # ) FORGOT TO BRING IN MEDICATION RECENT URINE TOXICOLOGY REVIEWED. NO UNAUTHORIZED MEDICATIONS. NO ILLICIT SUBSTANCES AND PRESCRIBED MEDICATIONS WERE PRESENT. UTOX NEXT VISIT, RISKS OF NARCOTIC/OPIOD MEDICATIONS INCLUDES BUT IS NOT LIMITED TO RISK OF DEPENDANCE/DEVELOPMENT OF ADDICTION, MOOD DISTURBANCE AND DEPRESSION, OSTEOPOROSIS, HORMONAL AND LABIDAL CHANGES, RESPIRATORY DEPRESSION AND . PATIENT IS ADVISED NOT TO DRIVE OR DRINK ALCOHOL WHILE ON THESE MEDICATIONS. PROCEDURE CODES FA211 ESTABILISHED PATIENT [facility] CHARGE DISPOSITION & COMMUNICATION FOLLOW UP 2 MONTHS ELECTRONICALLY SIGNED BY ALFA WASSERMAN ON 08/25/2019 AT 02:34 PM EDT DISCLAIMER : THIS IS A VISIT SUMMARY EXTRACTED FROM THE [employer] CHART. IT IS NOT A COPY OF THE [employer] PROGRESS NOTE. DESTINEY
== END ==
LOC: M PAIN 10:45
PROVIDERS: ATTEND Nurse Practitioner Family
DX: M47.817 Spondylosis without myelopathy or radiculopathy, lumbosacral region (principal); M54.41 Lumbago with sciatica, right side; Z79.84 Long term (current) use of oral hypoglycemic drugs; Z79.891 Long term (current) use of opiate analgesic; Z79.899 Other long term (current) drug therapy; Z91.010 Allergy to peanuts; Z91.018 Allergy to other foods; Z91.040 Latex allergy status

== ENCOUNTER → 2019-10-16 | Outpatient (REF) | payer BC ==
[2019-10-16 18:41] LABS: BLOOD UREA NITROGEN 17 MG/DL (7-18); CALCIUM LEVEL 8.7 MG/DL (8.5-10.1); CARBON DIOXIDE LEVEL 27 MEQ/L (21-32); CHLORIDE LEVEL 111 MEQ/L (98-107); CREATININE FOR GFR 0.88 MG/DL (0.55-1.30); FREE T4 0.95 NG/DL (0.76-1.46); GLOMERULAR FILTRATION RATE > 60.0 (>51); GLUCOSE, FASTING 82 MG/DL (70-100); POTASSIUM SERUM 4.2 MEQ/L (3.5-5.1); SODIUM LEVEL 142 MEQ/L (136-145)
[2019-10-16 19:38] LABS: HEMOGLOBIN A1c 5.6 %
== END ==
LOC: M PLALAB 14:03
PROVIDERS: ATTEND Nurse Practitioner Family
DX: E03.8 Other specified hypothyroidism (principal); R73.03 Prediabetes

== ENCOUNTER → 2019-10-27 | Outpatient (CLI) | payer BC ==
--- NOTE | 2019-10-29 00:58 | ECWPNPC ---
PATIENT NAME: RIK FUNES : 1960 GENDER: FEMALE VISIT DATE: 10/27/2019 DISCHARGE DATE: 10/27/19 1556 VISIT LOCKED DATE TIME: PHYSICIAN: JAY MATT RESOURCE: JAY MATT REASON FOR APPOINTMENT 1. 2 MONTHS HISTORY OF PRESENT ILLNESS GENERAL: HERE FOR FOLLOW-UP OF CHRONIC LOW BACK PAIN. PAIN HAS INCREASED DRAMATICALLY SINCE HER LAST VISIT HERE. SHE IS STATUS POST RIGHT DIAGNOSTIC #2 LUMBAR FACET BLOCK DONE IN JULY. SHE HAD A THERAPEUTIC RESPONSE GREATER THAN 48 HOURS OF PAIN CONTROL POST DIAGNOSTIC TEST. DISCUSSED RADIOFREQUENCY. -. FALL RISK SCREENING: SCREENING :ONE FALL WITH INJURY IN THE PAST YEAR SLIPPED ON ICE INJURYING CHEST-WAS SEEN AT -CHEST XRAY WAS NEG PAIN SCREENING: PATIENT HAS A COMPLAINT OF ACUTE OR CHRONIC PAIN :YES LOCATION OF PAIN:LOW BACK INTENSITY OF PAIN (SCALE OF 1 TO 10):9 AVERAGING 9/10 WHAT DOES YOUR PAIN FEEL LIKE:ACHING, BURNING, CONTINOUS, SHARP, STABBING, TENDER, THROBBING, SORE, SHOOTING, OTHER PINCHING DURATION:CONTINOUS, CONSTANT, ALL DAY, AWAKENS FROM SLEEP PAIN IS INCREASED BY: EVERYTHING PAIN IS DECREASED BY: NOTHING PLAN/GOALS/TREATMENT/INTERVENTION/FOLLOW UP:SEE PLAN NURSING NOTE: -. PAIN CENTER INTAKE QUESTIONS: DO YOU HAVE A HISTORY OF MRSA? :NO DO YOU TAKE A BLOOD THINNERS? :NO DO YOU HAVE ANY BLEEDING DISORDERS? :NO ANY NEW NUMBNESS OR WEAKNESS IN YOUR LEGS OR ARMS? :YES FRI. SHE HAS "ELECTRICAL SHOCK" DOWN LEFT ARM X2 ANY PACEMAKER,DEFIBRILLATOR, OR DORSAL COLUMN STIMULATOR? :NO DO YOU HAVE ANY RASHES OR OPEN SORES? :NO ARE YOU ALLERGIC TO IV DYE? :NO ARE YOU DIABETIC? :YES ANY NEW PROBLEMS WITH YOUR MEDICATIONS? :NO HAVE YOU RECEIVED A VACCINE IN THE PAST 30 DAYS? :NO DO YOU PLAN TO RECEIVE A VACCINE IN THE NEXT 21 DAYS? :NO DO YOU NEED ANY PRESCRIPTION? :NO DO YOU TAKE ANY IMMUNOSUPPRESSIVE MEDICATIONS? :NO CURRENT MEDICATIONS TAKING BLOOD GLUCOSE TEST - STRIP VERIO DIRECTED IN VITRO DX E88.81 DAILY TAKING MAY USE ONE TOUCH ULTRA GLUCOSE TSTING STRIPS DX 790.21 DIRECTED NA 1-2 TIMES A DAY TAKING SUMATRIPTAN SUCCINATE 100 MG TABLET 1 TABLET NEEDED AT ONSET OF [place]OL[place] ORALLY ONCE A DAY TAKING CLARITIN 10 MG TABLET 1 TABLET ORALLY ONCE A DAY TAKING SALINE NASAL SPRAY 0.65 % SOLUTION 2 DROPS IN EACH NOSTRIL NEEDED NASALLY EVERY 4HRS NEEDED TAKING NAPROXEN 500 MG TABLET 1 TABLET NEEDED ORALLY EVERY 12 HRS TAKING ONE TOUCH ULTRA 2 LANCET DX 250.00 LANCET DIRECTED NA 1-2 TIMES A DAY TAKING TIZANIDINE HCL 2 MG TABLET 1 TAB ORALLY PRN HS MDD 2 TAKING CHOLESTYRAMINE 4 GM/DOSE POWDER 1 SCOOP ORALLY DAILY TAKING SYNTHROID 150 MCG TABLET 1 TABLET IN THE MORNING ON AN EMPTY STOMACH ORALLY ONCE A DAY *ELIZA* TAKING METFORMIN 500MG 1 ER TABLET 2 TAB(S) IN A.M./1 TAB IN P.M. ORALLY DAILY TAKING OMEPRAZOLE 40 MG CAPSULE DELAYED RELEASE 1 CAPSULE ORALLY ONCE A DAY TAKING LASIX 20 MG TABLET 1 TABLET ORALLY ONCE A DAY TAKING POTASSIUM CHLORIDE 10 MEQ CAPSULE EXTENDED RELEASE 3 CAPSULES WITH FOOD ORALLY DAILY TAKING DRISDOL 58096 UNIT CAPSULE 1 CAPSULE ORALLY ONCE EVERY WEEK WITH MEAL TAKING DULOXETINE HCL 60 MG CAPSULE DELAYED RELEASE PARTICLES 1 CAPSULE ORALLY ONCE A DAY TAKING SIMVASTATIN 20 MG TABLET 1 TABLET IN THE EVENING ORALLY ONCE A DAY TAKING TOPAMAX 100 MG TABLET 2 TABLETS ORALLY TWICE A DAY NOT-TAKING TRAMADOL HCL 50 MG TABLET SOLUBLE Q8 PRN ORALLY MDD 3 (3 MOS SUPPLY CAT D CHRONIC PAIN) MEDICATION LIST REVIEWED AND RECONCILED WITH THE PATIENT PAST MEDICAL HISTORY GRAVE'S DISEASE/ HYPOTHYROID PRE-DM-2 HYPERLIPIDEMIA OBESITY UTERINE FIBROIDS 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 QUESADA /2017 DETACHMENT LEFT RETINA FAMILY HISTORY FATHER: , COLON CANCER DX 85, DIAGNOSED WITH OTHER MALIGNANT NEOPLASM OF UNSPECIFIED SITE IN 85 MOTHER: ALIVE 78 YRS, SLE, CVA SIBLINGS: ALIVE, BROTHER HAS HTN PATERNAL GRAND FATHER: , UNKNOWN PATERNAL GRAND MOTHER: , UNKNOWN MATERNAL GRAND FATHER: , UNKNOWN MATERNAL GRAND MOTHER: , UNKNOWN PATERNAL AUNT: , BREAST CANCER, PRIOR TO AGE 50, OTHER MALIGNANT NEOPLASM OF UNSPECIFIED SITE NO KNOWN HX OF BREAST\\\\\\/OVARIAN CANCER. SOCIAL HISTORY GENERAL: TOBACCO USE ARE YOU A:NONSMOKER LATEX QUESTIONNAIRE LATEX ALLERGY : HAVE YOU EVER DEVELOPED ANY TYPE OF REACTION AFTER HANDLING LATEX PRODUCTS SUCH RUBBER GLOVES, CONDOMS, DIAPHRAGMS, BALLOONS, SOCKS, OR UNDERWEAR?YES PT ALLERGIC TO LATEX - PLEASE INDICATE :RUBBER GLOVES, CONDOMS, BALLOONS, DIAPHRAGMS, SOCKS, UNDERWEAR LATEX ALLERGY : HAVE YOU EVER DEVELOPED ANY TYPE OF REACTION DURING OR AFTER DENTAL APPOINTMENT, VAGINAL/RECTAL EXAMINATION, SURGICAL PROCEDURE, OR ANY OTHER EXPOSURE?YES - PLEASE INDICATE :DENTAL PROCEDURE, VAGINAL EXAM LATEX RISK : HAVE YOU EVER HAD ANY DIFFICULTY BREATHING OR HIVES AFTER EATING OR HANDLING ANY FRUITS, OR VEGETABLES; SUCH KIWI, BANANAS, STONE FRUITS, OR CHESTNUTSYES - PLEASE INDICATE : STONE FRUITS LATEX RISK : DO YOU HAVE A PREVIOUS PERSONAL HISTORY OF MORE THAN NINE SURGERIES, SPINA BIFIDA, OR REPEATED CATHERIZATIONS? NO LATEX RISK : ARE YOU FREQUENTLY EXPOSED TO LATEX PRODUCTS IN YOUR OCCUPATION?YES DATE ASKED : 10/27/2019 BMI CARE GOAL FOLLOW-UP ABOVE NORMAL BMI FOLLOW-UPGIVING ENCOURAGEMENT TO EXERCISE, LIFESTYLE EDUCATION REGARDING DIET ALCOHOL SCREENING DID YOU HAVE A DRINK CONTAINING ALCOHOL IN THE PAST YEAR?NO POINTS0 INTERPRETATIONNEGATIVE RECREATIONAL DRUG USE DENIES. CAFFEINE CAFFEINE USE?YES 2-3 A DAY SEXUAL HX HAD SEX IN THE LAST 12 MONTHS (VAGINAL, ORAL, OR ANAL)?YES WITHMEN ONLY USE PROTECTION?NO LMP:POST MENOPAUSE HAVE YOU EVER HAD AN STD?NO HIV / HEP-C SCREENING HIV TEST OFFERED TO PATIENT:YES DATE OFFERED:11/10/2017 PREVIOUSLY DONE TEST ACCEPTED:YES HEP-C TEST OFFERED TO PATIENT:YES DATE OFFERED:11/10/2017 TEST ACCEPTED:NO REASON:PATIENT DECLINED BROCHURE PROVIDED TO PATIENTNO CONFUCIANIST [id number] NONE LANGUAGE LANGUAGES SPOKEN:MACANESE EDUCATION 12 GRADUATE. 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 EXERCISE: WALKS DAILY, ELIPTYCAL INTERMITTENTLY PLANET FITNESS 5 DAYS A WEEK. MARITAL STATUS: .. OTHERS AT HOME: SON. PAIN CLINIC PFS, CLERGY, PUBLIC HEALTH REFERRALS HAS THE PATIENT BEEN EDUCATED REGARDING HIS/HER PLAN OF CARE?YES HAS THE PATIENT BEEN EDUCATED REGARDING PAIN, THE RISK FOR PAIN, THE IMPORTANCE OF EFFECTIVE PAIN MANAGEMENT, AND THE PAIN ASSESSMENT PROCESS?YES ADVANCE DIRECTIVE ADVANCE DIRECTIVE DISCUSSED WITH PATIENT:YES 10/27/2019 PT STATES SHE HAS A HCP - [facility] GOME[facility] ([facility]) HOSPITALIZATION/MAJOR DIAGNOSTIC PROCEDURE NONE REVIEW OF SYSTEMS CONSTITUTIONAL: ANY RECENT FEVER OR ILLNESS NO . CHILLS NO . GASTROENTEROLOGY: BOWEL INCONTINENCE NO . ANY NEW CHANGE IN BOWEL CONTROL? NO . ABDOMINAL PAIN NO . CONSTIPATION NO . GENITOURINARY: ANY NEW CHANGE IN BLADDER CONTROL? NO . IS THERE A CHANCE YOU COULD BE ? NO . URINARY INCONTINENCE NO . CARDIOLOGY: CHEST PRESSURE NO . CHEST PAIN NO . RESPIRATORY: COUGH NO . SHORTNESS OF BREATH NO . VITAL SIGNS WT 217.6 LBS, HT 64 IN, BMI 37.35 INDEX, BP 127/71 MM HG, HR 95 /MIN, RR 16 /MIN, TEMP 98 F, OXYGEN SAT % 98, SAFE IN ENV? (Y/N) Y, NA INITIALS TL, REVIEWED BY: HAMLET. EXAMINATION GENERAL EXAMINATION: GENERAL AWAKE,ALERT ,PLEASANT . PSYCH AFFECT NORMAL . LUNGS: LUNG DEL ROSARIO ARE CLEAR TO AUSCULTATION BILATERALLY. GOOD MOVEMENT OF AIR . HEART: S1, S2 IN A REGULAR RATE AND RHYTHM. NO SIGNIFICANT MURMURS, RUBS OR GALLOPS NOTED . LUMBAR:PALPATION:TENDER OVER BILAT. L4/5-L5/S1 LUMBAR FACETS WITH FACET LOADING.. DIAGNOSTIC: MRI L/S SPINE-11/20/18-REVIEWED. ASSESSMENTS SPONDYLOSIS OF LUMBOSACRAL JOINT - M47.817 (PRIMARY) BILATERAL LOW BACK PAIN WITH RIGHT-SIDED SCIATICA - M54.41 TREATMENT SPONDYLOSIS OF LUMBOSACRAL JOINT NOTES: RIGHT L4-5, L5-S1 RADIOFREQUENCY. PREVENTIVE MEDICINE PAIN CLINIC TEACHING: PROCEDURE TEACHING PRINTED INFORMATION ON LUMBAR RADIOFREQUENCY GIVEN TO AND REVIEWED WITH PATIENT ALONG WITH PRINTED PRE-PROCDURED INSTRUCTIONS. PATIENT VERBALIZED UNDERSTANDING. AD. PROCEDURE CODES [id number] ESTABILISHED PATIENT [facility] CHARGE DISPOSITION & COMMUNICATION FOLLOW UP POST PROCEDURE (REASON: RIGHT L4-5, L5-S1 RADIOFREQUENCY) ELECTRONICALLY SIGNED BY ALFA WASSERMAN ON 10/28/2019 AT 03:44 PM EDT DISCLAIMER : THIS IS A VISIT SUMMARY EXTRACTED FROM THE [facility] CHART. IT IS NOT A COPY OF THE [employer] PROGRESS NOTE. MTDD
== END ==
LOC: M PAIN 14:30
PROVIDERS: ATTEND Nurse Practitioner Family
DX: M47.817 Spondylosis without myelopathy or radiculopathy, lumbosacral region (principal); M54.41 Lumbago with sciatica, right side; E11.9 Type 2 diabetes mellitus without complications; E03.9 Hypothyroidism, unspecified; Z79.84 Long term (current) use of oral hypoglycemic drugs; Z79.899 Other long term (current) drug therapy; Z91.018 Allergy to other foods; Z91.040 Latex allergy status

== ENCOUNTER → 2019-12-15 | Outpatient (REF) | payer BC ==
[2019-12-15 18:12] LABS: ALBUMIN 2.9 GM/DL (3.2-5.2); ALT/SGPT 52 U/L (12-78); BILIRUBIN,TOTAL 0.2 MG/DL (0.2-1.0); BLOOD UREA NITROGEN 15 MG/DL (7-18); CALCIUM LEVEL 8.9 MG/DL (8.5-10.1); CARBON DIOXIDE LEVEL 26 MEQ/L (21-32); CHLORIDE LEVEL 112 MEQ/L (98-107); CREATININE FOR GFR 0.76 MG/DL (0.55-1.30); FREE T4 1.09 NG/DL (0.76-1.46); GLOMERULAR FILTRATION RATE > 60.0 (>51); GLUCOSE, FASTING 84 MG/DL (70-100); SODIUM LEVEL 144 MEQ/L (136-145); TOTAL PROTEIN 6.6 GM/DL (6.4-8.2)
== END ==
LOC: M PLALAB 14:36
PROVIDERS: ATTEND Nurse Practitioner Family
DX: R60.0 Localized edema (principal); E03.8 Other specified hypothyroidism

== ENCOUNTER → 2019-12-15 | Outpatient (CLI) | payer BC ==
[2020-02-10 14:57] LABS: TOPIRAMATE LEVEL SEE SEPARATE REPORT
== END ==
LOC: M PLALAB 14:37
PROVIDERS: ATTEND Physician Assistant Medical
DX: G43.919 Migraine, unspecified, intractable, without status migrainosus (principal)

== ENCOUNTER → 2020-01-31 | Outpatient (CLI) | payer BC | LOC: M LABSMTC 09:01 | PROVIDERS: ATTEND Nurse Practitioner Family | DX: Z20.828 Contact with and (suspected) exposure to other viral communicable diseases (principal) | CPT/HCPCS: C9803; U0003 ==

== ENCOUNTER → 2020-02-05 | Outpatient (CLI) | payer BC ==
[~2020-02-05] MED LIST changes: +BUPIVACAINE HCL 0.25% 30ML VIAL As Ordered ONE; +LIDOCAINE 1% SDV 30ML VIAL As Ordered ONE
--- NOTE | 2020-02-25 13:22 | REP ---
C-ARM VIEWS OF THE LOWER LUMBAR SPINE: HISTORY: Pain. FINDINGS: Multiple C-arm views of the lumbar spine performed during injections by Dr. Heredia. [place] are seen along the lower lumbar spine. 1 minute 10 seconds fluoroscopy time utilized. DESTINEY
== END ==
LOC: M PAIN 09:48
PROVIDERS: ATTEND Anesthesiology
DX: M47.816 Spondylosis without myelopathy or radiculopathy, lumbar region (principal); M47.817 Spondylosis without myelopathy or radiculopathy, lumbosacral region

== ENCOUNTER → 2020-02-24 | Outpatient (CLI) | payer BC ==
[~2020-02-24] MED LIST changes: -BUPIVACAINE HCL 0.25% 30ML VIAL As Ordered ONE; -LIDOCAINE 1% SDV 30ML VIAL As Ordered ONE
== END ==
LOC: M PAIN 10:27
PROVIDERS: ATTEND Nurse Practitioner Family
DX: M47.816 Spondylosis without myelopathy or radiculopathy, lumbar region (principal)

== ENCOUNTER → 2020-03-13 | Outpatient (CLI) | payer BC | LOC: M LABSMTC 11:45 | PROVIDERS: ATTEND Anesthesiology | DX: Z20.828 Contact with and (suspected) exposure to other viral communicable diseases (principal) | CPT/HCPCS: C9803; U0003 ==

== ENCOUNTER → 2020-03-18 | Outpatient (CLI) | payer BC ==
[~2020-03-18] MED LIST changes: +BUPIVACAINE HCL 0.25% 30ML VIAL As Ordered ONE; +ISOVUE-M 300 61% 15ML VIAL As Ordered ONE; +LIDOCAINE 1% SDV 30ML VIAL As Ordered ONE
--- NOTE | 2020-03-18 12:09 | REP ---
INDICATION: LEFT LUMBAR DIAGNOSTIC FACET BLOCK. Pain COMPARISON: None. TECHNIQUE: C-arm views lower lumbar spine performed. FINDINGS: [place] are seen along the left lower lumbar facet joints. A small amount of contrast is injected. IMPRESSION: 25 seconds of fluoroscopy time utilized. <Electronically signed by Berny Beck > 03/18/20 [id number]
--- NOTE | 2020-03-22 16:55 | ECWPNPC ---
PATIENT NAME: RIK FUNES : 1960 GENDER: FEMALE VISIT DATE: 03/18/2020 DISCHARGE DATE: 03/18/20 1140 VISIT LOCKED DATE TIME: PHYSICIAN: ANITA ESCOBAR MD PHYSICIAN PAGER NO: ACTIVE RESOURCE: ANITA ESCOBAR MD REASON FOR APPOINTMENT 1. DIAGNOSTIC LUMBAR FACET BLOCK LEFT L4/L5, L5/S1 # 2 HISTORY OF PRESENT ILLNESS GENERAL: -. FALL RISK SCREENING: SCREENING :NO FALLS REPORTED IN THE LAST YEAR PAIN SCREENING: PATIENT HAS A COMPLAINT OF ACUTE OR CHRONIC PAIN :YES LOCATION OF PAIN:LOW BACK, LEFT HIP INTENSITY OF PAIN (SCALE OF 1 TO 10):8 WHAT DOES YOUR PAIN FEEL LIKE:ACHING, CONTINOUS DURATION:CONTINOUS PAIN IS INCREASED BY:ACTIVITIES, PROLONGED STANDING PAIN IS DECREASED BY:OTHERS NOTHING REALLY HELPS THE PAIN RIGHT NOW NURSING NOTE: -. PAIN CENTER INTAKE QUESTIONS: DO YOU HAVE A HISTORY OF MRSA? :NO DO YOU TAKE A BLOOD THINNERS? :NO DO YOU HAVE ANY BLEEDING DISORDERS? :NO ANY NEW NUMBNESS OR WEAKNESS IN YOUR LEGS OR ARMS? :NO ANY PACEMAKER,DEFIBRILLATOR, OR DORSAL COLUMN STIMULATOR? :NO DO YOU HAVE ANY RASHES OR OPEN SORES? :NO ARE YOU ALLERGIC TO IV DYE? :NO ARE YOU DIABETIC? :YES FSBS 96 0600 ANY NEW PROBLEMS WITH YOUR MEDICATIONS? :NO HAVE YOU RECEIVED A VACCINE IN THE PAST 30 DAYS? :YES IF SO WHAT VACCINE AND WHEN? - 2019 DO YOU PLAN TO RECEIVE A VACCINE IN THE NEXT 21 DAYS? :NO DO YOU TAKE ANY IMMUNOSUPPRESSIVE MEDICATIONS? :NO ANY HISTORY OF SEIZURES? :NO ANY HISTORY OF CARDIAC ISSUES OR EVENTS? :NO DO YOU HAVE SLEEP APNEA? :NO ANY RECENT HEAD INJURY? :NO DO YOU HAVE ANY NEW INFECTIONS? :NO IS THERE A CHANCE YOU COULD BE ? :NO ARE YOU BREAST FEEDING? :NO WHEN DID YOU LAST EAT? : 03/17/20202029 WHEN DID YOU LAST DRINK? : 03/17/20202029 WHAT DID YOU LAST DRINK? : WATER NAME OF PERSON DRIVING YOU HOME? : SON-GOPI DO YOU HAVE ANY OTHER QUESTIONS OR CONCERNS? : - CURRENT MEDICATIONS TAKING BLOOD GLUCOSE TEST - STRIP VERIO DIRECTED IN VITRO DX E88.81 DAILY TAKING MAY USE ONE TOUCH ULTRA GLUCOSE TSTING STRIPS DX 790.21 DIRECTED NA 1-2 TIMES A DAY TAKING SUMATRIPTAN SUCCINATE 100 MG TABLET 1 TABLET NEEDED AT ONSET OF [place] ORALLY ONCE A DAY, NOTES: A COUPLE OF WEEKS AGO TAKING CLARITIN 10 MG TABLET 1 TABLET ORALLY ONCE A DAY, NOTES: TAKING SALINE NASAL SPRAY 0.65 % SOLUTION 2 DROPS IN EACH NOSTRIL NEEDED NASALLY EVERY 4HRS NEEDED, NOTES: TAKING NAPROXEN 500 MG TABLET 1 TABLET NEEDED ORALLY EVERY 12 HRS, NOTES: 03/17/2020899 TAKING ONE TOUCH ULTRA 2 LANCET DX 250.00 LANCET DIRECTED NA 1-2 TIMES A DAY TAKING CHOLESTYRAMINE 4 GM/DOSE POWDER 1 SCOOP ORALLY DAILY, NOTES: 03/17/2020899 TAKING SYNTHROID 150 MCG TABLET 1 TABLET IN THE MORNING ON AN EMPTY STOMACH ORALLY ONCE A DAY *ELIZA*, NOTES: 03/17/2020899 TAKING METFORMIN 500MG 1 ER TABLET 2 TAB(S) IN A.M./1 TAB IN P.M. ORALLY DAILY, NOTES: 03/17/2020499 TAKING OMEPRAZOLE 40 MG CAPSULE DELAYED RELEASE 1 CAPSULE ORALLY ONCE A DAY, NOTES: 03/17/2020499 TAKING LASIX 20 MG TABLET 1 TABLET ORALLY ONCE A DAY, NOTES: 03/17/2020499 TAKING DRISDOL 46701 UNIT CAPSULE 1 CAPSULE ORALLY ONCE EVERY WEEK WITH MEAL, NOTES: SUNDAY TAKING DULOXETINE HCL 60 MG CAPSULE DELAYED RELEASE PARTICLES 1 CAPSULE ORALLY ONCE A DAY, NOTES: 03/17/2020499 TAKING SIMVASTATIN 20 MG TABLET 1 TABLET IN THE EVENING ORALLY ONCE A DAY, NOTES: 03/16/20202099 TAKING TOPAMAX 100 MG TABLET 2 TABLETS ORALLY TWICE A DAY, NOTES: 03/17/2020499 TAKING POTASSIUM CHLORIDE 10 MEQ CAPSULE EXTENDED RELEASE 3 CAPSULES WITH FOOD ORALLY DAILY, NOTES: 03/17/2020499 NOT-TAKING TIZANIDINE HCL 2 MG TABLET 1 TAB ORALLY PRN HS MDD 2 NOT-TAKING TRAMADOL HCL 50 MG TABLET SOLUBLE Q8 PRN ORALLY MDD 3 (3 MOS SUPPLY CAT D CHRONIC PAIN) MEDICATION LIST REVIEWED AND RECONCILED WITH THE PATIENT PAST MEDICAL HISTORY GRAVE'S DISEASE/ HYPOTHYROID PRE-DM-2 HYPERLIPIDEMIA OBESITY UTERINE FIBROIDS 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 QUESADA DETACHMENT LEFT RETINA FAMILY HISTORY FATHER: , COLON CANCER DX 85, DIAGNOSED WITH OTHER MALIGNANT NEOPLASM OF UNSPECIFIED SITE IN 85 MOTHER: ALIVE 78 YRS, SLE, CVA SIBLINGS: ALIVE, BROTHER HAS HTN PATERNAL GRAND FATHER: , UNKNOWN PATERNAL GRAND MOTHER: , UNKNOWN MATERNAL GRAND FATHER: , UNKNOWN MATERNAL GRAND MOTHER: , UNKNOWN PATERNAL AUNT: , BREAST CANCER, PRIOR TO AGE 50, OTHER MALIGNANT NEOPLASM OF UNSPECIFIED SITE NO KNOWN HX OF BREAST\\\/OVARIAN CANCER. SOCIAL HISTORY GENERAL: TOBACCO USE ARE YOU A:NONSMOKER LATEX QUESTIONNAIRE LATEX ALLERGY : HAVE YOU EVER DEVELOPED ANY TYPE OF REACTION AFTER HANDLING LATEX PRODUCTS SUCH RUBBER GLOVES, CONDOMS, DIAPHRAGMS, BALLOONS, SOCKS, OR UNDERWEAR?YES PT ALLERGIC TO LATEX - PLEASE INDICATE :RUBBER GLOVES, CONDOMS, BALLOONS, DIAPHRAGMS, SOCKS, UNDERWEAR LATEX ALLERGY : HAVE YOU EVER DEVELOPED ANY TYPE OF REACTION DURING OR AFTER DENTAL APPOINTMENT, VAGINAL/RECTAL EXAMINATION, SURGICAL PROCEDURE, OR ANY OTHER EXPOSURE?YES - PLEASE INDICATE :DENTAL PROCEDURE, VAGINAL EXAM LATEX RISK : HAVE YOU EVER HAD ANY DIFFICULTY BREATHING OR HIVES AFTER EATING OR HANDLING ANY FRUITS, OR VEGETABLES; SUCH KIWI, BANANAS, STONE FRUITS, OR CHESTNUTSYES - PLEASE INDICATE : STONE FRUITS LATEX RISK : DO YOU HAVE A PREVIOUS PERSONAL HISTORY OF MORE THAN NINE SURGERIES, SPINA BIFIDA, OR REPEATED CATHERIZATIONS? NO LATEX RISK : ARE YOU FREQUENTLY EXPOSED TO LATEX PRODUCTS IN YOUR OCCUPATION?YES DATE ASKED : 03/18/2020 BMI CARE GOAL FOLLOW-UP ABOVE NORMAL BMI FOLLOW-UPGIVING ENCOURAGEMENT TO EXERCISE, LIFESTYLE EDUCATION REGARDING DIET ALCOHOL SCREENING DID YOU HAVE A DRINK CONTAINING ALCOHOL IN THE PAST YEAR?NO POINTS0 INTERPRETATIONNEGATIVE RECREATIONAL DRUG USE DENIES. CAFFEINE CAFFEINE USE?YES 2-3 A DAY SEXUAL HX HAD SEX IN THE LAST 12 MONTHS (VAGINAL, ORAL, OR ANAL)?YES WITHMEN ONLY USE PROTECTION?NO LMP:POST MENOPAUSE HAVE YOU EVER HAD AN STD?NO HIV / HEP-C SCREENING HIV TEST OFFERED TO PATIENT:YES DATE OFFERED:11/10/2017 PREVIOUSLY DONE TEST ACCEPTED:YES HEP-C TEST OFFERED TO PATIENT:YES DATE OFFERED:11/10/2017 TEST ACCEPTED:NO REASON:PATIENT DECLINED BROCHURE PROVIDED TO PATIENTNO CHEONDOISM [id number] NONE LANGUAGE LANGUAGES SPOKEN:ITALIAN EDUCATION 12 GRADUATE. 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 EXERCISE: WALKS DAILY, ELIPTYCAL INTERMITTENTLY PLANET FITNESS 5 DAYS A WEEK. MARITAL STATUS: .. OTHERS AT HOME: SON. PAIN CLINIC PFS, CLERGY, PUBLIC HEALTH REFERRALS HAS THE PATIENT BEEN EDUCATED REGARDING HIS/HER PLAN OF CARE?YES HAS THE PATIENT BEEN EDUCATED REGARDING PAIN, THE RISK FOR PAIN, THE IMPORTANCE OF EFFECTIVE PAIN MANAGEMENT, AND THE PAIN ASSESSMENT PROCESS?YES ADVANCE DIRECTIVE ADVANCE DIRECTIVE DISCUSSED WITH PATIENT:YES 10/27/2019 PT STATES SHE HAS A HCP - [facility] ([facility]) HOSPITALIZATION/MAJOR DIAGNOSTIC PROCEDURE NONE VITAL SIGNS WT 238.6 LBS, HT 64 IN, BMI 40.95 INDEX, BP 122/85 MM HG, HR 86 /MIN, RR 16 /MIN, TEMP 95.4 F, OXYGEN SAT % 95%, BLOOD GLUCOSE LEVEL 96 @ 0600, SAFE IN ENV? (Y/N) YES, NA INITIALS LA 09:34, REVIEWED BY: SP. EXAMINATION GENERAL EXAMINATION: THE PATIENT IS ALERT, ORIENTED TIMES THREE AND COOPERATIVE. HEART SHOWS REGULAR RHYTHM, NO MURMURS AND NO GALLOPS. LUNGS ARE CLEAR TO AUSCULTATION. ASSESSMENTS SPONDYLOSIS WITHOUT MYELOPATHY OR RADICULOPATHY, LUMBAR REGION - M47.816 (PRIMARY) SPONDYLOSIS WITHOUT MYELOPATHY OR RADICULOPATHY, LUMBOSACRAL REGION - M47.817 TREATMENT SPONDYLOSIS WITHOUT MYELOPATHY OR RADICULOPATHY, LUMBAR REGION [facility] FACET BLOCK (PAIN)[id number] PROCEDURES PAIN NURSING RECORD PROCEDURE IN ROOM 1100, PHYSICIAN IN ROOM 1115, START 1119, FINISH 1124, PHYSICIAN OUT OF ROOM 1126, OUT OF ROOM 1131, STEROID N/A, O2 RA, ECG NORMAL SINUS, PATIENT SHIELDED YES, SAFETY STRAP YES, PREP CHLOROPREP BY Nate OSORIO RN, IV INFUSED N/A, DRESSING TEGADERM BY DR ESCOBAR LOC: SHYAM GALLO 03/18/2020 11:12:08 AM > , 1. ALERT, ORIENTED RESP: SHYAM GALLO 03/18/2020 11:12:12 AM > , 1. REGULAR, NO DYSPNEA COLOR: SHYAM GALLO 03/18/2020 11:12:15 AM > , 1. PINK SKIN: SHYAM GALLO 03/18/2020 11:12:17 AM > , 1. WARM, DRY POSITION: SHYAM GALLO 03/18/2020 11:12:20 AM > , 1. PRONE VITALS: SHYAM GALLO 03/18/2020 11:05:24 AM > 127/54-49-86-100% RA SHYAM GALLO 03/18/2020 11:15 AM> 139/75-69-11-100% RA SHYAM GALLO 03/18/2020 11:36 AM > 159/79-77-18-99% RA DISCHARGE: POST PAIN 0/10 LEFT LOWER BACK, DRESSING SITE DRY AND INTACT LEFT LOWER BACK, IV N/A, GAIT STEADY, TEACHING COMPLETED, PATIENT ACKNOWLEDGES UNDERSTANDING YES PATIENT VERBALIZES UNDERSTANDING OF DISCHARGE INSTRUCTIONS REVIEWED., PATIENT DISCHARGED AT 1142 PN LUMBAR FACET BLOCK DIAGNOSTIC PRE PROCEDURE DIAGNOSIS LUMBAR SPONDYLOSIS, LUMBOSACRAL SPONDYLOSIS POST PROCEDURE DIAGNOSIS LUMBAR SPONDYLOSIS, LUMBOSACRAL SPONDYLOSIS PROCEDURE LEFT L4-L5 AND LEFT L5-S1 FACET BLOCK DIAGNOSTIC NUMBER [address] ANITA ESCOBAR DEHYDROGENATION OPERATOR NONE ANESTHESIA LOCAL PRE PROCEDURE NOTE THE PATIENT WITH HISTORY OF CHRONIC LOW BACK PAIN. I EVALUATED THE PATIENT AND REVIEWED THE CHART. THE PATIENT HAD A BILATERAL L4-L5, L5-S1 DIAGNOSTIC FACET BLOCK NUMBER ONE DONE ON 10/12/2012. I WENT OVER THE RISKS, ALTERNATIVES, AND BENEFITS ASSOCIATED WITH THIS PROCEDURE. THE PATIENT WOULD LIKE TO PROCEED AND GAVE CONSENT TO PERFORM THE PROCEDURE. AGREED WITH THE PATIENT, WE ARE DOING THIS PROCEDURE TO DETERMINE IF THE PATIENT IS A CANDIDATE FOR A RADIOFREQUENCY ABLATION OF THE FACETS JOINTS. THE PATIENT DENIES UNEXPLAINABLE WEIGHT LOSS, FEVER, CHILLS, OR NEW CHANGES IN URINARY OR BOWEL CONTROL. THE PATIENT IS COVID-19 NEGATIVE DESCRIPTION OF PROCEDURE THE PATIENT WAS BROUGHT TO THE PROCEDURE ROOM AND PLACED IN THE PRONE POSITION. THE LUMBOSACRAL AREA WAS CLEANED WITH CHLORAPREP SOLUTION AND DRAPED ASEPTICALLY. THE PROCEDURE WAS DONE UNDER STERILE CONDITIONS. A TIMEOUT WAS PERFORMED WHERE LATERALITY AND THE SITE OF THE PROCEDURE WERE CHECKED AND CONFIRMED WITH EVERYONE IN THE ROOM. UNDER FLUOROSCOPIC GUIDANCE, TARGETS WERE SELECTED AT THE INTERSECTION OF THE LEFT TRANSVERSE PROCESS OF L4, L5 AND ALA OF S1 WITH ITS RESPECTIVE SUPERIOR ARTICULAR PROCESS WITH A TARGET OF THE MEDIAN BRANCHES OF L3, L4 AND THE DORSAL RAMI OF L5. I CONFIRMED AGAIN WITH EVERYONE IN THE ROOM THE LATERALITY OF THE TARGET AT 1019. LIDOCAINE WAS USED TO NUMB THE SKIN AND THE SUBCUTANEOUS TISSUE BELOW IT. SPINAL NEEDLE, 22-GAUGE, WAS ADVANCED UNDER FLUOROSCOPIC GUIDANCE AND FOLLOWING PATIENT FEEDBACK UNTIL THE TARGETS WERE REACHED. POSITION OF THE NEEDLES WAS VERIFIED WITH AP AND LATERAL VIEWS. AFTER PROPER POSITION OF THE NEEDLES WAS ACHIEVED, ISOVUE-M DYE 30%, 0.1 ML, WAS INJECTED AT EACH SITE SHOWING ADEQUATE SPREAD OF THE DYE. THEN, A SOLUTION OF 0.4 ML OF BUPIVACAINE 0.25% WAS INJECTED AT EACH SITE. THE MEDICATIONS WERE VERIFIED WITH THE NURSE. THERE WAS NO EVIDENCE OF BLOOD, PARESTHESIA OR CEREBROSPINAL FLUID DURING THE PROCEDURE. THE PATIENT WAS SENT TO THE RECOVERY ROOM. THE PATIENT WAS MOVING THE EXTREMITIES AND DOING WELL. THERE WERE NO COMPLICATIONS DURING THE PROCEDURE. ESTIMATED BLOOD LOSS WAS LESS THAN 5 ML. FLUOROSCOPY TIME WAS 24 SECONDS POST PROCEDURE NOTE THE PATIENT WILL DOCUMENT THE PAIN LEVEL AND RESPONSE TO THIS PROCEDURE PER PAIN DIARY. THE PATIENT WILL BE SEEN IN A FOLLOW UP IN THE NEXT FEW WEEKS. FURTHER DETERMINATION FOR THE PATIENT'S CASE WILL BE DONE AT THE NEXT VISIT. INSTRUCTIONS WERE GIVEN, QUESTIONS WERE ANSWERED, AND THE PATIENT EXPRESSED UNDERSTANDING AND AGREED WITH THE PLAN. I, NOAH BALLARD, DOCUMENTED THE ABOVE INFORMATION ACTING A SCRIBE FOR DR. ESCOBAR. I HAVE REVIEWED THE ABOVE DOCUMENT, WRITTEN BY NOAH BALLARD, MAILER, AND I VERIFY THAT IT IS ACCURATE PROCEDURE CODES 37106 INJ PARAVERT F JNT L/S 1 LEV, MODIFIERS: [place] [id number] INJ PARAVERT F JNT L/S 2 LEV, MODIFIERS: LT DISPOSITION & COMMUNICATION FOLLOW UP FOLLOW UP WITH LOGISTICS SUPERVISOR (REASON: POST DIAGNOSTIC FACET BLOCK LEFT L4-L5, L5-S1 #2) ELECTRONICALLY SIGNED BY ANITA ESCOBAR MD, MD ON 03/22/2020 AT 02:10 PM EDT DISCLAIMER : THIS IS A VISIT SUMMARY EXTRACTED FROM THE [employer] CHART. IT IS NOT A COPY OF THE [employer] PROGRESS NOTE. MTDD
== END ==
LOC: M PAIN 09:30
PROVIDERS: ATTEND Anesthesiology
DX: M47.816 Spondylosis without myelopathy or radiculopathy, lumbar region (principal); M47.817 Spondylosis without myelopathy or radiculopathy, lumbosacral region; E03.9 Hypothyroidism, unspecified; E11.9 Type 2 diabetes mellitus without complications; E78.5 Hyperlipidemia, unspecified; G43.909 Migraine, unspecified, not intractable, without status migrainosus; E55.9 Vitamin D deficiency, unspecified; K21.9 Gastro-esophageal reflux disease without esophagitis; Z91.010 Allergy to peanuts; Z91.018 Allergy to other foods; Z91.040 Latex allergy status; E66.01 Morbid (severe) obesity due to excess calories; Z68.41 Body mass index [BMI] 40.0-44.9, adult; Z79.84 Long term (current) use of oral hypoglycemic drugs; Z79.899 Other long term (current) drug therapy
CPT/HCPCS: 64493; 64494; Q9967

== ENCOUNTER → 2020-04-20 | Outpatient (CLI) | payer BC ==
[~2020-04-20] MED LIST changes: -BUPIVACAINE HCL 0.25% 30ML VIAL As Ordered ONE; -ISOVUE-M 300 61% 15ML VIAL As Ordered ONE; -LIDOCAINE 1% SDV 30ML VIAL As Ordered ONE
--- NOTE | 2020-04-27 03:46 | ECWPNPC ---
PATIENT NAME: RIK FUNES : 1960 GENDER: FEMALE VISIT DATE: 04/20/2020 DISCHARGE DATE: 04/20/20 1152 VISIT LOCKED DATE TIME: PHYSICIAN: JAY MATT PHYSICIAN PAGER NO: ACTIVE RESOURCE: JAY MATT REASON FOR APPOINTMENT 1. POST DIAGNOSTIC FACET BLOCK LEFT L4-L5, L5-S1 #2 HISTORY OF PRESENT ILLNESS GENERAL: HERE FOR POST PROCEDURE FOLLOW-UP. HAD LEFT L4-5, L5-S1 LUMBAR FACET BLOCK DIAGNOSTIC #2 ON 03/18/2020. PATIENT REPORTS MARKED REDUCTION IN PAIN FOR SEVERAL DAYS POSTPROCEDURE. PAIN RETURNED ABRUPTLY WITH INCREASE RESPONSIBILITY AND LIFTING AT WORK A FEW DAYS AGO. DISCUSSED RADIOFREQUENCY PROCEDURE. DISCUSSED TREATMENT OF ACUTE LOW BACK PAIN. -. FALL RISK SCREENING: SCREENING :NO FALLS REPORTED IN THE LAST YEAR PAIN SCREENING: PATIENT HAS A COMPLAINT OF ACUTE OR CHRONIC PAIN :YES LOCATION OF PAIN:OTHER: LEFT LOW BACK, LEFT BUTTOCK, LEFT LATERAL THIGH INTENSITY OF PAIN (SCALE OF 1 TO 10):7 WHAT DOES YOUR PAIN FEEL LIKE:ACHING, BURNING, SHARP DURATION:CONTINOUS PAIN IS INCREASED BY:ACTIVITIES, PROLONGED STANDING PAIN IS DECREASED BY:USE OF PAIN MEDICATIONS USES ADVIL WITH ONLY SLIGHT IMPROVEMENT NURSING NOTE: -. PAIN CENTER INTAKE QUESTIONS: DO YOU HAVE A HISTORY OF MRSA? :NO DO YOU TAKE A BLOOD THINNERS? :NO DO YOU HAVE ANY BLEEDING DISORDERS? :NO ANY NEW NUMBNESS OR WEAKNESS IN YOUR LEGS OR ARMS? :NO ANY PACEMAKER,DEFIBRILLATOR, OR DORSAL COLUMN STIMULATOR? :NO DO YOU HAVE ANY RASHES OR OPEN SORES? :NO ARE YOU ALLERGIC TO IV DYE? :NO ARE YOU DIABETIC? :YES ANY NEW PROBLEMS WITH YOUR MEDICATIONS? :NO HAVE YOU RECEIVED A VACCINE IN THE PAST 30 DAYS? :NO DO YOU PLAN TO RECEIVE A VACCINE IN THE NEXT 21 DAYS? :NO DO YOU NEED ANY PRESCRIPTION? :YES WOULD LIKE PAIN MEDICINE. DO YOU TAKE ANY IMMUNOSUPPRESSIVE MEDICATIONS? :NO IS THERE A CHANCE YOU COULD BE ? :NO ARE YOU BREAST FEEDING? :NO CURRENT MEDICATIONS TAKING BLOOD GLUCOSE TEST - STRIP VERIO DIRECTED IN VITRO DX E88.81 DAILY TAKING MAY USE ONE TOUCH ULTRA GLUCOSE TSTING STRIPS DX 790.21 DIRECTED NA 1-2 TIMES A DAY TAKING SUMATRIPTAN SUCCINATE 100 MG TABLET 1 TABLET NEEDED AT ONSET OF [place] ORALLY ONCE A DAY TAKING CLARITIN 10 MG TABLET 1 TABLET ORALLY ONCE A DAY TAKING SALINE NASAL SPRAY 0.65 % SOLUTION 2 DROPS IN EACH NOSTRIL NEEDED NASALLY EVERY 4HRS NEEDED TAKING ONE TOUCH ULTRA 2 LANCET DX 250.00 LANCET DIRECTED NA 1-2 TIMES A DAY TAKING SYNTHROID 150 MCG TABLET 1 TABLET IN THE MORNING ON AN EMPTY STOMACH ORALLY ONCE A DAY *ELIZA* TAKING OMEPRAZOLE 40 MG CAPSULE DELAYED RELEASE 1 CAPSULE ORALLY ONCE A DAY TAKING DRISDOL 51522 UNIT CAPSULE 1 CAPSULE ORALLY ONCE EVERY WEEK WITH MEAL TAKING TOPAMAX 100 MG TABLET 2 TABLETS ORALLY TWICE A DAY TAKING POTASSIUM CHLORIDE 10 MEQ CAPSULE EXTENDED RELEASE 3 CAPSULES WITH FOOD ORALLY DAILY TAKING METFORMIN 500MG 1 ER TABLET 2 TAB(S) IN A.M./1 TAB IN P.M. ORALLY DAILY TAKING SIMVASTATIN 20 MG TABLET 1 TABLET IN THE EVENING ORALLY ONCE A DAY TAKING DULOXETINE HCL 60 MG CAPSULE DELAYED RELEASE PARTICLES 1 CAPSULE ORALLY ONCE A DAY TAKING LASIX 20 MG TABLET 1 TABLET ORALLY ONCE A DAY TAKING CHOLESTYRAMINE 4 GM/DOSE POWDER 1 SCOOP ORALLY DAILY TAKING ADVIL 200 MG TABLET 2 TABLETS WITH FOOD OR MILK NEEDED ORALLY 2TIMES A DAY NEEDED NOT-TAKING NAPROXEN 500 MG TABLET 1 TABLET NEEDED ORALLY EVERY 12 HRS NOT-TAKING TIZANIDINE HCL 2 MG TABLET 1 TAB ORALLY PRN HS MDD 2 NOT-TAKING TRAMADOL HCL 50 MG TABLET SOLUBLE Q8 PRN ORALLY MDD 3 (3 MOS SUPPLY CAT D CHRONIC PAIN) MEDICATION LIST REVIEWED AND RECONCILED WITH THE PATIENT PAST MEDICAL HISTORY GRAVE'S DISEASE/ HYPOTHYROID PRE-DM-2 HYPERLIPIDEMIA OBESITY UTERINE FIBROIDS 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 QUESADA DETACHMENT LEFT RETINA / FAMILY HISTORY FATHER: , COLON CANCER DX 85, DIAGNOSED WITH OTHER MALIGNANT NEOPLASM OF UNSPECIFIED SITE IN 85 MOTHER: ALIVE 78 YRS, SLE, CVA SIBLINGS: ALIVE, BROTHER HAS HTN PATERNAL GRAND FATHER: , UNKNOWN PATERNAL GRAND MOTHER: , UNKNOWN MATERNAL GRAND FATHER: , UNKNOWN MATERNAL GRAND MOTHER: , UNKNOWN PATERNAL AUNT: , BREAST CANCER, PRIOR TO AGE 50, OTHER MALIGNANT NEOPLASM OF UNSPECIFIED SITE 2 BROTHER(S) , 3 SISTER(S) . 2 SON(S) , 1 DAUGHTER(S) - HEALTHY. NO KNOWN HX OF BREAST\\\/OVARIAN CANCER1 SISTER DUE TO EKATERINA'S. SOCIAL HISTORY GENERAL: TOBACCO USE ARE YOU A:NONSMOKER LATEX QUESTIONNAIRE LATEX ALLERGY : HAVE YOU EVER DEVELOPED ANY TYPE OF REACTION AFTER HANDLING LATEX PRODUCTS SUCH RUBBER GLOVES, CONDOMS, DIAPHRAGMS, BALLOONS, SOCKS, OR UNDERWEAR?YES PT ALLERGIC TO LATEX LATEX ALLERGY : HAVE YOU EVER DEVELOPED ANY TYPE OF REACTION DURING OR AFTER DENTAL APPOINTMENT, VAGINAL/RECTAL EXAMINATION, SURGICAL PROCEDURE, OR ANY OTHER EXPOSURE?YES - PLEASE INDICATE :RUBBER GLOVES, CONDOMS, BALLOONS, DIAPHRAGMS, SOCKS, UNDERWEAR - PLEASE INDICATE :DENTAL PROCEDURE, VAGINAL EXAM DATE ASKED : 03/18/2020 LATEX RISK : HAVE YOU EVER HAD ANY DIFFICULTY BREATHING OR HIVES AFTER EATING OR HANDLING ANY FRUITS, OR VEGETABLES; SUCH KIWI, BANANAS, STONE FRUITS, OR CHESTNUTSYES - PLEASE INDICATE : STONE FRUITS LATEX RISK : DO YOU HAVE A PREVIOUS PERSONAL HISTORY OF MORE THAN NINE SURGERIES, SPINA BIFIDA, OR REPEATED CATHERIZATIONS? NO LATEX RISK : ARE YOU FREQUENTLY EXPOSED TO LATEX PRODUCTS IN YOUR OCCUPATION?YES BMI CARE GOAL FOLLOW-UP ABOVE NORMAL BMI FOLLOW-UPGIVING ENCOURAGEMENT TO EXERCISE, LIFESTYLE EDUCATION REGARDING DIET ALCOHOL SCREENING DID YOU HAVE A DRINK CONTAINING ALCOHOL IN THE PAST YEAR?NO POINTS0 INTERPRETATIONNEGATIVE RECREATIONAL DRUG USE DENIES. CAFFEINE CAFFEINE USE?YES 2-3 A DAY SEXUAL HX HAD SEX IN THE LAST 12 MONTHS (VAGINAL, ORAL, OR ANAL)?YES WITHMEN ONLY USE PROTECTION?NO LMP:POST MENOPAUSE HAVE YOU EVER HAD AN STD?NO HIV / HEP-C SCREENING HIV TEST OFFERED TO PATIENT:YES DATE OFFERED:11/10/2017 PREVIOUSLY DONE TEST ACCEPTED:YES HEP-C TEST OFFERED TO PATIENT:YES DATE OFFERED:11/10/2017 TEST ACCEPTED:NO REASON:PATIENT DECLINED BROCHURE PROVIDED TO PATIENTNO HOLINESS [id number] NONE LANGUAGE LANGUAGES SPOKEN:LATVIAN EDUCATION 12 GRADUATE. 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 EXERCISE: WALKS DAILY, ELIPTYCAL INTERMITTENTLY PLANET FITNESS 5 DAYS A WEEK. MARITAL STATUS: .. OTHERS AT HOME: SON. PAIN CLINIC PFS, CLERGY, PUBLIC HEALTH REFERRALS HAS THE PATIENT BEEN EDUCATED REGARDING HIS/HER PLAN OF CARE?YES HAS THE PATIENT BEEN EDUCATED REGARDING PAIN, THE RISK FOR PAIN, THE IMPORTANCE OF EFFECTIVE PAIN MANAGEMENT, AND THE PAIN ASSESSMENT PROCESS?YES ADVANCE DIRECTIVE ADVANCE DIRECTIVE DISCUSSED WITH PATIENT:YES 10/27/2019 PT STATES SHE HAS A HCP - [facility] GOME[facility] ([facility]) HOSPITALIZATION/MAJOR DIAGNOSTIC PROCEDURE NONE REVIEW OF SYSTEMS CONSTITUTIONAL: ANY RECENT FEVER NO . CHILLS NO . WEIGHT CHANGE OF UNKNOWN REASONS NO . GASTROENTEROLOGY: NEW UNEXPLAINABLE CHANGES IN BOWEL CONTROL NO . CONSTIPATION NO . GENITOURINARY: ANY NEW CHANGE IN BLADDER CONTROL? NO . NEUROLOGY: NEW ONSET DIZZINESS OR NEUROLOGICAL CHANGES NOT MENTIONED NO . NEW NUMBNESS OR PAIN PATTERNS NOT MENTIONED AND PERTINENT TO TODAY'S VISIT NO . CARDIOLOGY: NEW CHEST PRESSURE NO . NEW CHEST PAIN NO . RESPIRATORY: UNEXPLAINABLE COUGH NO . NEW SHORTNESS OF BREATH NO . VITAL SIGNS WT 244.2 LBS, HT 64 IN, BMI 41.91 INDEX, BP 138/109 MM HG, HR 95 /MIN, RR 18 /MIN, TEMP 97.3 F, OXYGEN SAT % 98%, SAFE IN ENV? (Y/N) YES, NA INITIALS DC 10:51REVIEWED 04/20/20 1112 Maurizio KRISHNAMURTHY RNB/P RECHECKED 144/94. 04/20/20 1117 Maurizio KRISHNAMURTHY RN. EXAMINATION GENERAL EXAMINATION: GENERAL AWAKE,ALERT ,PLEASANT . PSYCH AFFECT NORMAL . LUNGS: LUNG DEL ROSARIO ARE CLEAR TO AUSCULTATION BILATERALLY. GOOD MOVEMENT OF AIR . HEART: S1, S2 IN A REGULAR RATE AND RHYTHM. NO SIGNIFICANT MURMURS, RUBS OR GALLOPS NOTED . LUMBAR:PALPATION:TENDER OVER BILAT. L4/5-L5/S1 LUMBAR FACETS WITH FACET LOADING.. DIAGNOSTIC: MRI L/S SPINE-11/20/18-REVIEWED. ASSESSMENTS SPONDYLOSIS OF LUMBOSACRAL JOINT - M47.817 (PRIMARY) OTHER CHRONIC PAIN - G89.29 TREATMENT SPONDYLOSIS OF LUMBOSACRAL JOINT START KETOROLAC TROMETHAMINE TABLET, 10 MG, 1 TABLET WITH FOOD OR MILK NEEDED, ORALLY, EVERY 6 HRS, 5 DAY(S), 20, REFILLS 0 START TRAMADOL HCL TABLET, 50 MG, 1 TO 2 TAB DIRECTED, ORALLY, Q4-6HR PRN PAIN MDD4, 30 DAYS, 45, REFILLS 1 NOTES: LEFT L4-5, L5-S1 RADIOFREQUENCY PRE-PROCEDURE INSTRUCTIONS REVIEWED WITH PT. WRITTEN INFORMATION PROVIDED AND DISCUSSED REGARDING NEW MEDICATIONS KETOROLAC AND TRAMADOL. VERBALIZED UNDERSTANDING. OTHER CHRONIC PAIN PAIN PROCEDURE LOGDATE OF OEIHYCHDA20/22/2020PROCEDURE:LEFT LUMBAR FACET BLOCK DIAGNOSTIC #2 L4/5, L5/[id number] OF PRE SEDATEGREATER THAN 80% REDUCTION IN PAIN FOR 24 HOURS PROCEDURE CODES FA211 ESTABILISHED [facility]IENT [facility] CHARGE DISPOSITION & COMMUNICATION FOLLOW UP POST PROCEDURE (REASON: LEFT L4-5, L5-S1 RADIOFREQUENCY) ELECTRONICALLY SIGNED BY ALFA WASSERMAN ON 04/26/2020 AT 01:24 PM EST DISCLAIMER : THIS IS A VISIT SUMMARY EXTRACTED FROM THE [employer] CHART. IT IS NOT A COPY OF THE [employer] PROGRESS NOTE. DESTINEY
== END ==
LOC: M PAIN 10:45
PROVIDERS: ATTEND Nurse Practitioner Family
DX: G89.29 Other chronic pain (principal); M47.817 Spondylosis without myelopathy or radiculopathy, lumbosacral region; E05.00 Thyrotoxicosis with diffuse goiter without thyrotoxic crisis or storm; R73.03 Prediabetes; E66.9 Obesity, unspecified; G43.909 Migraine, unspecified, not intractable, without status migrainosus; E55.9 Vitamin D deficiency, unspecified; Z79.84 Long term (current) use of oral hypoglycemic drugs; Z79.899 Other long term (current) drug therapy; Z91.018 Allergy to other foods; Z91.040 Latex allergy status

== ENCOUNTER → 2020-06-01 | Outpatient (REF) | payer BC ==
[2020-06-01 18:50] LABS: HEMOGLOBIN A1c 5.7 %
[2020-06-01 19:03] LABS: ALBUMIN 3.2 GM/DL (3.2-5.2); ALT/SGPT 23 U/L (12-78); BILIRUBIN,TOTAL 0.2 MG/DL (0.2-1.0); BLOOD UREA NITROGEN 17 MG/DL (7-18); CALCIUM LEVEL 8.6 MG/DL (8.5-10.1); CARBON DIOXIDE LEVEL 25 MEQ/L (21-32); CHLORIDE LEVEL 114 MEQ/L (98-107); CHOLESTEROL LEVEL 175 MG/DL (<200); CHOLESTEROL RISK RATIO 4.166 (<5); CREATININE FOR GFR 0.94 MG/DL (0.55-1.30); FREE T4 1.16 NG/DL (0.76-1.46); GLOMERULAR FILTRATION RATE > 60.0 (>51); GLUCOSE, FASTING 87 MG/DL (70-100); HDL CHOLESTEROL 42 MG/DL (>40); LDL CHOLESTEROL 104 MG/DL (<100); NON-HDL-C 133 MG/DL; POTASSIUM SERUM 4.3 MEQ/L (3.5-5.1); SODIUM LEVEL 143 MEQ/L (136-145); THYROID STIMULATING HORMONE 0.323 uIU/ML (0.358-3.740); TOTAL PROTEIN 6.5 GM/DL (6.4-8.2); TRIGLYCERIDES LEVEL 144 MG/DL (<150)
[2020-06-01 19:42] LABS: TOTAL 25(OH) VITAMIN D 54.4 NG/ML (30.0-100.0)
[2020-06-01 20:26] LABS: CREATININE, URINE 60.2 MG/DL; MALB URINE SIEMENS < 5.0 MG/L; MAU/CREAT RATIO 8.3 MCG/MG (0.0-30.0)
== END ==
LOC: M PLALAB 14:31
PROVIDERS: ATTEND Nurse Practitioner Family
DX: R73.03 Prediabetes (principal); E03.8 Other specified hypothyroidism; E78.2 Mixed hyperlipidemia; E55.9 Vitamin D deficiency, unspecified

== ENCOUNTER → 2020-06-05 | Outpatient (CLI) | payer BC | LOC: M LABSMTC 09:59 | PROVIDERS: ATTEND Anesthesiology | DX: Z01.812 Encounter for preprocedural laboratory examination (principal); Z20.822 Contact with and (suspected) exposure to COVID-19 ==

== ENCOUNTER → 2020-06-10 | Outpatient (CLI) | payer BC ==
[~2020-06-10] MED LIST changes: +BUPIVACAINE HCL 0.25% 30ML VIAL As Ordered ONE; +ISOVUE-M 300 61% 15ML VIAL As Ordered ONE; +LIDOCAINE 1% SDV 30ML VIAL As Ordered ONE; +dexameTHASONE 10MG/1ML VIAL PRES.FREE (J1100 PER 1MG) As Ordered ONE
--- NOTE | 2020-06-11 09:31 | REP ---
INDICATION: LEFT RADIOFREQUENCY. COMPARISON: 03/18/2020. TECHNIQUE: Two C-arm views lower lumbar spine performed. FINDINGS: Tornado are seen along the lower lumbar spine. A small amount of contrast is injected. IMPRESSION: 27 seconds fluoroscopy time utilized. <Electronically signed by Berny Beck > 06/11/20 0928
--- NOTE | 2020-06-12 04:11 | ECWPNPC ---
PATIENT NAME: RIK FUNES : 1960 GENDER: FEMALE VISIT DATE: 06/10/2020 DISCHARGE DATE: 06/10/20 1153 VISIT LOCKED DATE TIME: PHYSICIAN: ANITA ESCOBAR MD PHYSICIAN PAGER NO: ACTIVE RESOURCE: ANITA ESCOBAR MD REASON FOR APPOINTMENT 1. LEFT DIAGNOSTIC LUMBAR FACET BLOCK #2 L4-L5, L5-S1 HISTORY OF PRESENT ILLNESS PAIN CENTER INTAKE QUESTIONS: DO YOU HAVE A HISTORY OF MRSA? :NO DO YOU TAKE A BLOOD THINNERS? :NO DO YOU HAVE ANY BLEEDING DISORDERS? :NO ANY NEW NUMBNESS OR WEAKNESS IN YOUR LEGS OR ARMS? :NO ANY PACEMAKER,DEFIBRILLATOR, OR DORSAL COLUMN STIMULATOR? :NO DO YOU HAVE ANY RASHES OR OPEN SORES? :NO ARE YOU ALLERGIC TO IV DYE? :NO ARE YOU DIABETIC? :YES FINGER STICK 89 ANY NEW PROBLEMS WITH YOUR MEDICATIONS? :NO HAVE YOU RECEIVED A VACCINE IN THE PAST 30 DAYS? :NO DO YOU PLAN TO RECEIVE A VACCINE IN THE NEXT 21 DAYS? :NO DO YOU NEED ANY PRESCRIPTION? :NO DO YOU TAKE ANY IMMUNOSUPPRESSIVE MEDICATIONS? :NO ANY HISTORY OF SEIZURES? :NO ANY HISTORY OF CARDIAC ISSUES OR EVENTS? :NO DO YOU HAVE SLEEP APNEA? :NO ANY RECENT HEAD INJURY? :NO DO YOU HAVE ANY NEW INFECTIONS? :NO IS THERE A CHANCE YOU COULD BE ? :NO ARE YOU BREAST FEEDING? :NO WHEN DID YOU LAST EAT? : -LAST NIGHT 1900 WHEN DID YOU LAST DRINK? : LATE LAST NIGHT WHAT DID YOU LAST DRINK? : -JUSICE NAME OF PERSON DRIVING YOU HOME? : -GOPI GOMEZ PTS SON DO YOU HAVE ANY OTHER QUESTIONS OR CONCERNS? : - CURRENT MEDICATIONS TAKING BLOOD GLUCOSE TEST - STRIP VERIO DIRECTED IN VITRO DX E88.81 DAILY TAKING MAY USE ONE TOUCH ULTRA GLUCOSE TSTING STRIPS DX 790.21 DIRECTED NA 1-2 TIMES A DAY TAKING SUMATRIPTAN SUCCINATE 100 MG TABLET 1 TABLET NEEDED AT ONSET OF [place] ORALLY ONCE A DAY TAKING CLARITIN 10 MG TABLET 1 TABLET ORALLY ONCE A DAY TAKING SALINE NASAL SPRAY 0.65 % SOLUTION 2 DROPS IN EACH NOSTRIL NEEDED NASALLY EVERY 4HRS NEEDED TAKING ONE TOUCH ULTRA 2 LANCET DX 250.00 LANCET DIRECTED NA 1-2 TIMES A DAY TAKING SYNTHROID 150 MCG TABLET 1 TABLET IN THE MORNING ON AN EMPTY STOMACH ORALLY ONCE A DAY *ELIZA* TAKING OMEPRAZOLE 40 MG CAPSULE DELAYED RELEASE 1 CAPSULE ORALLY ONCE A DAY TAKING DRISDOL 08051 UNIT CAPSULE 1 CAPSULE ORALLY ONCE EVERY WEEK WITH MEAL TAKING TOPAMAX 100 MG TABLET 2 TABLETS ORALLY TWICE A DAY TAKING POTASSIUM CHLORIDE 10 MEQ CAPSULE EXTENDED RELEASE 3 CAPSULES WITH FOOD ORALLY DAILY TAKING METFORMIN 500MG 1 ER TABLET 2 TAB(S) IN A.M./1 TAB IN P.M. ORALLY DAILY TAKING SIMVASTATIN 20 MG TABLET 1 TABLET IN THE EVENING ORALLY ONCE A DAY TAKING DULOXETINE HCL 60 MG CAPSULE DELAYED RELEASE PARTICLES 1 CAPSULE ORALLY ONCE A DAY TAKING LASIX 20 MG TABLET 1 TABLET ORALLY ONCE A DAY TAKING ADVIL 200 MG TABLET 2 TABLETS WITH FOOD OR MILK NEEDED ORALLY 2TIMES A DAY NEEDED TAKING CHOLESTYRAMINE 4 GM/DOSE POWDER 1 SCOOP ORALLY DAILY TAKING TRAMADOL HCL 50 MG TABLET 1 TO 2 TAB DIRECTED ORALLY Q4-6HR PRN PAIN MDD4 NOT-TAKING KETOROLAC TROMETHAMINE 10 MG TABLET 1 TABLET WITH FOOD OR MILK NEEDED ORALLY EVERY 6 HRS NOT-TAKING NAPROXEN 500 MG TABLET 1 TABLET NEEDED ORALLY EVERY 12 HRS NOT-TAKING TIZANIDINE HCL 2 MG TABLET 1 TAB ORALLY PRN HS MDD 2 NOT-TAKING TRAMADOL HCL 50 MG TABLET SOLUBLE Q8 PRN ORALLY MDD 3 (3 MOS SUPPLY CAT D CHRONIC PAIN) MEDICATION LIST REVIEWED AND RECONCILED WITH THE PATIENT PAST MEDICAL HISTORY GRAVE'S DISEASE/ HYPOTHYROID PRE-DM-2 HYPERLIPIDEMIA OBESITY UTERINE FIBROIDS 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 QUESADA DETACHMENT LEFT RETINA FAMILY HISTORY FATHER: , COLON CANCER DX 87, DIAGNOSED WITH OTHER MALIGNANT NEOPLASM OF UNSPECIFIED SITE IN 85 MOTHER: ALIVE 78 YRS, SLE, CVA SIBLINGS: ALIVE, BROTHER HAS HTN PATERNAL GRAND FATHER: , UNKNOWN PATERNAL GRAND MOTHER: , UNKNOWN MATERNAL GRAND FATHER: , UNKNOWN MATERNAL GRAND MOTHER: , UNKNOWN PATERNAL AUNT: , BREAST CANCER, PRIOR TO AGE 50, OTHER MALIGNANT NEOPLASM OF UNSPECIFIED SITE 2 BROTHER(S) , 3 SISTER(S) . 2 SON(S) , 1 DAUGHTER(S) - HEALTHY. NO KNOWN HX OF BREAST\\\/OVARIAN CANCER1 SISTER DUE TO EKATERINA'S. SOCIAL HISTORY GENERAL: TOBACCO USE ARE YOU A:NONSMOKER LATEX QUESTIONNAIRE LATEX ALLERGY : HAVE YOU EVER DEVELOPED ANY TYPE OF REACTION AFTER HANDLING LATEX PRODUCTS SUCH RUBBER GLOVES, CONDOMS, DIAPHRAGMS, BALLOONS, SOCKS, OR UNDERWEAR?YES PT ALLERGIC TO LATEX LATEX ALLERGY : HAVE YOU EVER DEVELOPED ANY TYPE OF REACTION DURING OR AFTER DENTAL APPOINTMENT, VAGINAL/RECTAL EXAMINATION, SURGICAL PROCEDURE, OR ANY OTHER EXPOSURE?YES - PLEASE INDICATE :RUBBER GLOVES, CONDOMS, BALLOONS, DIAPHRAGMS, SOCKS, UNDERWEAR - PLEASE INDICATE :DENTAL PROCEDURE, VAGINAL EXAM DATE ASKED : 03/18/2020 LATEX RISK : HAVE YOU EVER HAD ANY DIFFICULTY BREATHING OR HIVES AFTER EATING OR HANDLING ANY FRUITS, OR VEGETABLES; SUCH KIWI, BANANAS, STONE FRUITS, OR CHESTNUTSYES - PLEASE INDICATE : STONE FRUITS LATEX RISK : DO YOU HAVE A PREVIOUS PERSONAL HISTORY OF MORE THAN NINE SURGERIES, SPINA BIFIDA, OR REPEATED CATHERIZATIONS? NO LATEX RISK : ARE YOU FREQUENTLY EXPOSED TO LATEX PRODUCTS IN YOUR OCCUPATION?YES BMI CARE GOAL FOLLOW-UP ABOVE NORMAL BMI FOLLOW-UPGIVING ENCOURAGEMENT TO EXERCISE, LIFESTYLE EDUCATION REGARDING DIET ALCOHOL SCREENING DID YOU HAVE A DRINK CONTAINING ALCOHOL IN THE PAST YEAR?NO POINTS0 INTERPRETATIONNEGATIVE RECREATIONAL DRUG USE DENIES. CAFFEINE CAFFEINE USE?YES 2-3 A DAY SEXUAL HX HAD SEX IN THE LAST 12 MONTHS (VAGINAL, ORAL, OR ANAL)?YES WITHMEN ONLY USE PROTECTION?NO LMP:POST MENOPAUSE HAVE YOU EVER HAD AN STD?NO HIV / HEP-C SCREENING HIV TEST OFFERED TO PATIENT:YES DATE OFFERED:11/10/2017 PREVIOUSLY DONE TEST ACCEPTED:YES HEP-C TEST OFFERED TO PATIENT:YES DATE OFFERED:11/10/2017 TEST ACCEPTED:NO REASON:PATIENT DECLINED BROCHURE PROVIDED TO PATIENTNO MU-ISM [id number] NONE LANGUAGE LANGUAGES SPOKEN:ESTONIAN EDUCATION 12 GRADUATE. 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 EXERCISE: WALKS DAILY, ELIPTYCAL INTERMITTENTLY PLANET FITNESS 5 DAYS A WEEK. MARITAL STATUS: .. OTHERS AT HOME: SON. PAIN CLINIC PFS, CLERGY, PUBLIC HEALTH REFERRALS HAS THE PATIENT BEEN EDUCATED REGARDING HIS/HER PLAN OF CARE?YES HAS THE PATIENT BEEN EDUCATED REGARDING PAIN, THE RISK FOR PAIN, THE IMPORTANCE OF EFFECTIVE PAIN MANAGEMENT, AND THE PAIN ASSESSMENT PROCESS?YES ADVANCE DIRECTIVE ADVANCE DIRECTIVE DISCUSSED WITH PATIENT:YES 10/27/2019 PT STATES SHE HAS A HCP - [facility]I GOME[facility] ([facility]) HOSPITALIZATION/MAJOR DIAGNOSTIC PROCEDURE NONE VITAL SIGNS WT 234.6 LBS, HT 64 IN, BMI 40.26 INDEX, BP 123/83 MM HG, HR 77 /MIN, RR 18 /MIN, TEMP 97.1 F, OXYGEN SAT % 96%, NA INITIALS SC 10:05. ASSESSMENTS SPONDYLOSIS WITHOUT MYELOPATHY OR RADICULOPATHY, LUMBAR REGION - M47.816 (PRIMARY) SPONDYLOSIS WITHOUT MYELOPATHY OR RADICULOPATHY, LUMBOSACRAL REGION - M47.817 TREATMENT SPONDYLOSIS WITHOUT MYELOPATHY OR RADICULOPATHY, LUMBAR REGION SMC FACET BLOCK (PAIN)[id number] SPONDYLOSIS WITHOUT MYELOPATHY OR RADICULOPATHY, LUMBOSACRAL REGION SMC FACET BLOCK (PAIN)[id number] PROCEDURES PAIN NURSING RECORD PROCEDURE IN ROOM 1120, PHYSICIAN IN ROOM 1134, START 1136, FINISH 1139, PHYSICIAN OUT OF ROOM 1141, OUT OF ROOM 1145, ECG NORMAL SINUS, PATIENT SHIELDED YES, SAFETY STRAP YES, PREP CHLOROPREP Nate OSORIO RN, DRESSING TEGADERM DR ESCOBAR LOC: 1. ALERT, ORIENTED RESP: 1. REGULAR, NO DYSPNEA COLOR: 1. PINK SKIN: 1. WARM, DRY POSITION: 1. PRONE VITALS: 1120 130/86 61 18 100% KGULLO RN NOTES WENT OVER THE IMPORTANCE OF THE DIARY AND DOCUMENTING PAIN ALL DAY WITH THE PT WHO VERBALIZES UNDERSTANDING DISCHARGE: POST PAIN 0, DRESSING SITE DRY AND INTACT, GAIT STEADY, TEACHING COMPLETED, PATIENT ACKNOWLEDGES UNDERSTANDING YES, PATIENT DISCHARGED AT 1155 PN LUMBAR FACET BLOCK DIAGNOSTIC PRE PROCEDURE DIAGNOSIS LUMBAR SPONDYLOSIS, LUMBOSACRAL SPONDYLOSIS POST PROCEDURE DIAGNOSIS LUMBAR SPONDYLOSIS, LUMBOSACRAL SPONDYLOSIS PROCEDURE LEFT L4-L5 AND LEFT L5-S1 FACET BLOCK DIAGNOSTIC NUMBER [address] ANITA ESCOBAR ASSET MANAGEMENT ANALYST NONE ANESTHESIA LOCAL PRE PROCEDURE NOTE THE PATIENT WITH HISTORY OF CHRONIC LOW BACK PAIN. I EVALUATED THE PATIENT AND REVIEWED THE CHART. I WENT OVER THE RISKS, ALTERNATIVES, AND BENEFITS ASSOCIATED WITH THIS PROCEDURE. THE PATIENT WOULD LIKE TO PROCEED AND GAVE CONSENT TO PERFORM THE PROCEDURE. AGREED WITH THE PATIENT, WE ARE DOING THIS PROCEDURE TO DETERMINE IF THE PATIENT IS A CANDIDATE FOR A RADIOFREQUENCY ABLATION OF THE FACETS JOINTS. THE PATIENT DENIES UNEXPLAINABLE WEIGHT LOSS, FEVER, CHILLS, OR NEW CHANGES IN URINARY OR BOWEL CONTROL. THE PATIENT IS COVID-19 NEGATIVE DESCRIPTION OF PROCEDURE THE PATIENT WAS BROUGHT TO THE PROCEDURE ROOM AND PLACED IN THE PRONE POSITION. THE LUMBOSACRAL AREA WAS CLEANED WITH CHLORAPREP SOLUTION AND DRAPED ASEPTICALLY. THE PROCEDURE WAS DONE UNDER STERILE CONDITIONS. A TIMEOUT WAS PERFORMED WHERE LATERALITY AND THE SITE OF THE PROCEDURE WERE CHECKED AND CONFIRMED WITH EVERYONE IN THE ROOM. UNDER FLUOROSCOPIC GUIDANCE, TARGETS WERE SELECTED AT THE INTERSECTION OF THE LEFT TRANSVERSE PROCESS OF L4, L5 AND ALA OF S1 WITH ITS RESPECTIVE SUPERIOR ARTICULAR PROCESS WITH A TARGET OF THE MEDIAN BRANCHES OF L3, L4 AND THE DORSAL RAMI OF L5. I CONFIRMED AGAIN WITH EVERYONE IN THE ROOM THE LATERALITY AND SITE OF THE TARGET AT 1135. LIDOCAINE WAS USED TO NUMB THE SKIN AND THE SUBCUTANEOUS TISSUE BELOW IT. SPINAL NEEDLE, 22-GAUGE, WAS ADVANCED UNDER FLUOROSCOPIC GUIDANCE AND FOLLOWING PATIENT FEEDBACK UNTIL THE TARGETS WERE REACHED. POSITION OF THE NEEDLES WAS VERIFIED WITH AP AND LATERAL VIEWS. AFTER PROPER POSITION OF THE NEEDLES WAS ACHIEVED, ISOVUE-M DYE 30%, 0.1 ML, WAS INJECTED AT EACH SITE SHOWING ADEQUATE SPREAD OF THE DYE. THEN, A SOLUTION OF 0.4 ML OF BUPIVACAINE 0.25% WAS INJECTED AT EACH SITE. THE MEDICATIONS WERE VERIFIED WITH THE NURSE. THERE WAS NO EVIDENCE OF BLOOD, PARESTHESIA OR CEREBROSPINAL FLUID DURING THE PROCEDURE. THE PATIENT WAS SENT TO THE RECOVERY ROOM. THE PATIENT WAS MOVING THE EXTREMITIES AND DOING WELL. THERE WERE NO COMPLICATIONS DURING THE PROCEDURE. ESTIMATED BLOOD LOSS WAS LESS THAN 5 ML. FLUOROSCOPY TIME WAS 26 SECONDS POST PROCEDURE NOTE THE PATIENT WILL DOCUMENT THE PAIN LEVEL AND RESPONSE TO THIS PROCEDURE PER PAIN DIARY. THE PATIENT WILL BE SEEN IN A FOLLOW UP IN THE NEXT FEW WEEKS. FURTHER DETERMINATION FOR THE PATIENT'S CASE WILL BE DONE AT THE NEXT VISIT. INSTRUCTIONS WERE GIVEN, QUESTIONS WERE ANSWERED, AND THE PATIENT EXPRESSED UNDERSTANDING AND AGREED WITH THE PLAN. I, NOAH BALLARD, DOCUMENTED THE ABOVE INFORMATION ACTING A SCRIBE FOR DR. ESCOBAR. I HAVE REVIEWED THE ABOVE DOCUMENT, WRITTEN BY NOAH BALLARD, MANUFACTURING SUPPORT ENGINEER, AND I VERIFY THAT IT IS ACCURATE PROCEDURE CODES 68899 INJ PARAVERT F JNT L/S 1 LEV, MODIFIERS: [place] [id number] INJ PARAVERT F JNT L/S 2 LEV, MODIFIERS: LT DISPOSITION & COMMUNICATION FOLLOW UP FOLLOW UP WITH HEAD WAITER/WAITRESS (REASON: POST LEFT DIAGNOSTIC LUMBAR FACET BLOCK #2 L4-L5, L5-S1) ELECTRONICALLY SIGNED BY ANITA ESCOBAR MD, MD ON 06/11/2020 AT 01:22 PM EST DISCLAIMER : THIS IS A VISIT SUMMARY EXTRACTED FROM THE [employer] CHART. IT IS NOT A COPY OF THE [employer] PROGRESS NOTE. DESTINEY
== END ==
LOC: M PAIN 10:00
PROVIDERS: ATTEND Anesthesiology
DX: M47.816 Spondylosis without myelopathy or radiculopathy, lumbar region (principal); M47.817 Spondylosis without myelopathy or radiculopathy, lumbosacral region; E11.9 Type 2 diabetes mellitus without complications; E03.9 Hypothyroidism, unspecified; G43.909 Migraine, unspecified, not intractable, without status migrainosus; E55.9 Vitamin D deficiency, unspecified; K21.9 Gastro-esophageal reflux disease without esophagitis; Z91.010 Allergy to peanuts; Z91.018 Allergy to other foods; Z91.040 Latex allergy status; E66.01 Morbid (severe) obesity due to excess calories; Z68.41 Body mass index [BMI] 40.0-44.9, adult; Z79.84 Long term (current) use of oral hypoglycemic drugs; Z79.891 Long term (current) use of opiate analgesic; Z79.899 Other long term (current) drug therapy
CPT/HCPCS: 64493; 64494; J1100; Q9967

== ENCOUNTER → 2020-06-24 | Outpatient (CLI) | payer BC ==
[~2020-06-24] MED LIST changes: -BUPIVACAINE HCL 0.25% 30ML VIAL As Ordered ONE; -ISOVUE-M 300 61% 15ML VIAL As Ordered ONE; -LIDOCAINE 1% SDV 30ML VIAL As Ordered ONE; -dexameTHASONE 10MG/1ML VIAL PRES.FREE (J1100 PER 1MG) As Ordered ONE
--- NOTE | 2020-06-30 02:18 | ECWPNPC ---
PATIENT NAME: RIK FUNES : 1960 GENDER: FEMALE VISIT DATE: 06/24/2020 DISCHARGE DATE: 06/24/20 1519 VISIT LOCKED DATE TIME: PHYSICIAN: JAY MATT PHYSICIAN PAGER NO: ACTIVE RESOURCE: JAY MATT REASON FOR APPOINTMENT 1. POST LEFT DIAGNOSTIC LUMBAR FACET BLOCK #2 L4-L5, L5-S1 HISTORY OF PRESENT ILLNESS GENERAL: HERE FOR POST PROCEDURE F/U.HAD LEFT LUMBAR FACET BLOCK #2.HOURLY POST PROCEDURE DIARY IS REVIEWED AND IS SHOWING MARKED REDUCTION IN PAIN FOR GREATER THAN 24 HRS.DISCUSSED RADIOFREQUENCY PROCEDURE. -. FALL RISK SCREENING: SCREENING :NO FALLS REPORTED IN THE LAST YEAR PAIN SCREENING: PATIENT HAS A COMPLAINT OF ACUTE OR CHRONIC PAIN :YES LOCATION OF PAIN:LOW BACK INTENSITY OF PAIN (SCALE OF 1 TO 10):0 TREATMENT/MEDICATIONS USED TO MANAGE PAIN:OPIOIDS TIZANIDINE AND TRAMADOL. PATIENT STATES "LEFT LUMBAR FACET BLOCK HAS HELPED THE MOST." LEVEL OF RELIEF FROM PAIN TREATMENTS IN THE PAST:100% NURSING NOTE: -. PAIN CENTER INTAKE QUESTIONS: DO YOU HAVE A HISTORY OF MRSA? :NO DO YOU TAKE A BLOOD THINNERS? :NO DO YOU HAVE ANY BLEEDING DISORDERS? :NO ANY NEW NUMBNESS OR WEAKNESS IN YOUR LEGS OR ARMS? :NO ANY PACEMAKER,DEFIBRILLATOR, OR DORSAL COLUMN STIMULATOR? :NO DO YOU HAVE ANY RASHES OR OPEN SORES? :NO ARE YOU ALLERGIC TO IV DYE? :NO ARE YOU DIABETIC? :NO ANY NEW PROBLEMS WITH YOUR MEDICATIONS? :NO HAVE YOU RECEIVED A VACCINE IN THE PAST 30 DAYS? :NO DO YOU PLAN TO RECEIVE A VACCINE IN THE NEXT 21 DAYS? :NO DO YOU NEED ANY PRESCRIPTION? :NO DO YOU TAKE ANY IMMUNOSUPPRESSIVE MEDICATIONS? :NO IS THERE A CHANCE YOU COULD BE ? :NO ARE YOU BREAST FEEDING? :NO CURRENT MEDICATIONS TAKING DRISDOL 77289 UNIT CAPSULE 1 CAPSULE ORALLY ONCE EVERY WEEK WITH MEAL TAKING OMEPRAZOLE 40 MG CAPSULE DELAYED RELEASE 1 CAPSULE ORALLY ONCE A DAY TAKING METFORMIN 500MG 1 ER TABLET 2 TAB(S) IN A.M./1 TAB IN P.M. ORALLY DAILY TAKING LEVOTHYROXINE SODIUM 125 MCG TABLET 1 TABLET IN THE MORNING ON AN EMPTY STOMACH ORALLY ONCE A DAY TAKING SIMVASTATIN 20 MG TABLET 1 TABLET IN THE EVENING ORALLY ONCE A DAY TAKING POTASSIUM CHLORIDE 10 MEQ CAPSULE EXTENDED RELEASE 3 CAPSULES WITH FOOD ORALLY DAILY TAKING LASIX 20 MG TABLET 1TAB ORALLY ONCE A DAY TAKING BLOOD GLUCOSE TEST - STRIP VERIO DIRECTED IN VITRO DX E88.81 DAILY TAKING MAY USE ONE TOUCH ULTRA GLUCOSE TSTING STRIPS DX 790.21 DIRECTED NA 1-2 TIMES A DAY TAKING SUMATRIPTAN SUCCINATE 100 MG TABLET 1 TABLET NEEDED AT ONSET OF [place] ORALLY ONCE A DAY TAKING CLARITIN 10 MG TABLET 1 TABLET ORALLY ONCE A DAY TAKING SALINE NASAL SPRAY 0.65 % SOLUTION 2 DROPS IN EACH NOSTRIL NEEDED NASALLY EVERY 4HRS NEEDED TAKING ONE TOUCH ULTRA 2 LANCET DX 250.00 LANCET DIRECTED NA 1-2 TIMES A DAY TAKING TOPAMAX 100 MG TABLET 2 TABLETS ORALLY TWICE A DAY TAKING DULOXETINE HCL 60 MG CAPSULE DELAYED RELEASE PARTICLES 1 CAPSULE ORALLY ONCE A DAY TAKING ADVIL 200 MG TABLET 1 TABLET WITH FOOD OR MILK NEEDED ORALLY 2TIMES A DAY NEEDED TAKING CHOLESTYRAMINE 4 GM/DOSE POWDER 1 SCOOP ORALLY DAILY TAKING TRAMADOL HCL 50 MG TABLET 1 TO 2 TAB DIRECTED ORALLY Q4-6HR PRN PAIN MDD4 TAKING KETOROLAC TROMETHAMINE 10 MG TABLET 1 TABLET WITH FOOD OR MILK NEEDED ORALLY EVERY 6 HRS NOT-TAKING TIZANIDINE HCL 2 MG TABLET 1 TAB ORALLY PRN HS MDD 2 NOT-TAKING TRAMADOL HCL 50 MG TABLET SOLUBLE Q8 PRN ORALLY MDD 3 (3 MOS SUPPLY CAT D CHRONIC PAIN) MEDICATION LIST REVIEWED AND RECONCILED WITH THE PATIENT PAST MEDICAL HISTORY GRAVE'S DISEASE/ HYPOTHYROID PRE-DM-2 HYPERLIPIDEMIA OBESITY UTERINE FIBROIDS 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, 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 CHRONIC LOW BACK PAIN UNSPECIFIED VITAMIN D DEFICIENCY ALLERGIC RHINITIS, CAUSE UNSPECIFIED CHOLELITHIASIS ESOPHAGEAL REFLUX, GASTRITIS 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YES - PLEASE INDICATE :DENTAL PROCEDURE, VAGINAL EXAM LATEX RISK : HAVE YOU EVER HAD ANY DIFFICULTY BREATHING OR HIVES AFTER EATING OR HANDLING ANY FRUITS, OR VEGETABLES; SUCH KIWI, BANANAS, STONE FRUITS, OR CHESTNUTSYES - PLEASE INDICATE : STONE FRUITS LATEX RISK : DO YOU HAVE A PREVIOUS PERSONAL HISTORY OF MORE THAN NINE SURGERIES, SPINA BIFIDA, OR REPEATED CATHERIZATIONS? NO LATEX RISK : ARE YOU FREQUENTLY EXPOSED TO LATEX PRODUCTS IN YOUR OCCUPATION?YES DATE ASKED : 06/24/2020 ALCOHOL USE: NO. BMI CARE GOAL FOLLOW-UP ABOVE NORMAL BMI FOLLOW-UPGIVING ENCOURAGEMENT TO EXERCISE, LIFESTYLE EDUCATION REGARDING DIET ALCOHOL SCREENING DID YOU HAVE A DRINK CONTAINING ALCOHOL IN THE PAST YEAR?NO POINTS0 INTERPRETATIONNEGATIVE RECREATIONAL DRUG USE DENIES. CAFFEINE CAFFEINE USE?YES 2-3 A DAY SEXUAL HX HAD SEX IN THE LAST 12 MONTHS (VAGINAL, ORAL, OR ANAL)?YES WITHMEN ONLY USE PROTECTION?NO LMP:POST MENOPAUSE HAVE YOU EVER HAD AN STD?NO HIV / HEP-C SCREENING HIV TEST OFFERED TO PATIENT:YES DATE OFFERED:11/10/2017 PREVIOUSLY DONE TEST ACCEPTED:YES HEP-C TEST OFFERED TO PATIENT:YES DATE OFFERED:11/10/2017 TEST ACCEPTED:NO REASON:PATIENT DECLINED BROCHURE PROVIDED TO PATIENTNO MOSQUE [id number] NONE LANGUAGE LANGUAGES SPOKEN:[employer]UC[employer] 12 GRADUATE. 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 EXERCISE: WALKS DAILY, ELIPTYCAL INTERMITTENTLY PLANET FITNESS 5 DAYS A WEEK. MARITAL STATUS: .. OTHERS AT HOME: SON. - HAS THE PATIENT BEEN EDUCATED REGARDING HIS/HER PLAN OF CARE?YES HAS THE PATIENT BEEN EDUCATED REGARDING PAIN, THE RISK FOR PAIN, THE IMPORTANCE OF EFFECTIVE PAIN MANAGEMENT, AND THE PAIN ASSESSMENT PROCESS?YES ADVANCE DIRECTIVE ADVANCE DIRECTIVE DISCUSSED WITH PATIENT:YES 10/27/2019 PT STATES SHE HAS A HCP - GOPI GOMEZ ([facility]) REVIEW OF SYSTEMS CONSTITUTIONAL: ANY RECENT FEVER NO . CHILLS NO . WEIGHT CHANGE OF UNKNOWN REASONS NO . GASTROENTEROLOGY: NEW UNEXPLAINABLE CHANGES IN BOWEL CONTROL NO . CONSTIPATION NO . GENITOURINARY: ANY NEW CHANGE IN BLADDER CONTROL? NO . NEUROLOGY: NEW ONSET DIZZINESS OR NEUROLOGICAL CHANGES NOT MENTIONED NO . NEW NUMBNESS OR PAIN PATTERNS NOT MENTIONED AND PERTINENT TO TODAY'S VISIT NO . CARDIOLOGY: NEW CHEST PRESSURE NO . NEW CHEST PAIN NO . RESPIRATORY: UNEXPLAINABLE COUGH NO . NEW SHORTNESS OF BREATH NO . VITAL SIGNS WT 237 LBS, HT 64 IN, BMI 40.68 INDEX, BP 117/74 MM HG, HR 75 /MIN, RR 18 /MIN, TEMP 98.7 F, OXYGEN SAT % 98%, SAFE IN ENV? (Y/N) YES, REVIEWED BY: KEN BOYCE MA. EXAMINATION GENERAL EXAMINATION: GENERAL AWAKE,ALERT ,PLEASANT . PSYCH AFFECT NORMAL . LUNGS: LUNG DEL ROSARIO ARE CLEAR TO AUSCULTATION BILATERALLY. GOOD MOVEMENT OF AIR . HEART: S1, S2 IN A REGULAR RATE AND RHYTHM. NO SIGNIFICANT MURMURS, RUBS OR GALLOPS NOTED . LUMBAR:PALPATION:TENDER OVER LEFT L4/5-L5/S1 LUMBAR FACETS WITH FACET LOADING.. DIAGNOSTIC: MRI L/S SPINE-11/20/18-REVIEWED. ASSESSMENTS OTHER CHRONIC PAIN - G89.29 (PRIMARY) TREATMENT OTHER CHRONIC PAIN PAIN PROCEDURE LOGDATE OF PROCEDURE06/10/20PROCEDURE:LEFT DIAGNOSTIC LUMBAR FACET BLOCKAMOUNT OF PRE SEDATENONERESULT:MARKED REDUCTION IN PAIN FOR GREATER THAN 24 HRS NOTES: LEFT COOL RADIOFREQUENCY L4-5, L5-S1. CLINICAL NOTES: 06/24/2020. PATIENT GIVEN PRE PROCEDURE INFORMATION. PATIENT REFUSED INFORMATION ON PROCEDURE. CHAR BOYCE MA. PROCEDURE CODES [id number] ESTABILISHED PATIENT [facility] CHARGE DISPOSITION & COMMUNICATION FOLLOW UP POST PROCEDURE (REASON: LEFT COOL RADIOFREQUENCY L4-5, L5-S1) ELECTRONICALLY SIGNED BY ALFA WASSERMAN ON 06/29/2020 AT 06:18 PM EST DISCLAIMER : THIS IS A VISIT SUMMARY EXTRACTED FROM THE [facility] CHART. IT IS NOT A COPY OF THE [employer] PROGRESS NOTE. MTDD
== END ==
LOC: M PAIN 14:45
PROVIDERS: ATTEND Nurse Practitioner Family
DX: G89.29 Other chronic pain (principal); R73.03 Prediabetes; E78.5 Hyperlipidemia, unspecified; E66.9 Obesity, unspecified; E03.9 Hypothyroidism, unspecified; Z68.41 Body mass index [BMI] 40.0-44.9, adult; M54.5 Low back pain; E55.9 Vitamin D deficiency, unspecified; K21.9 Gastro-esophageal reflux disease without esophagitis; G43.909 Migraine, unspecified, not intractable, without status migrainosus; Z91.040 Latex allergy status; Z91.018 Allergy to other foods; Z79.84 Long term (current) use of oral hypoglycemic drugs; Z79.891 Long term (current) use of opiate analgesic; Z79.899 Other long term (current) drug therapy

== ENCOUNTER → 2020-07-13 | Outpatient (CLI) | payer BC | LOC: M PAIN 14:00 | PROVIDERS: ATTEND Anesthesiology | DX: Z53.29 Procedure and treatment not carried out because of patient's decision for other reasons (principal) ==

== ENCOUNTER → 2020-07-27 | Outpatient (CLI) | payer BC ==
[~2020-07-27] MED LIST changes: +BUPIVACAINE HCL 0.25% 30ML VIAL As Ordered ONE; +LIDOCAINE 1% SDV 30ML VIAL As Ordered ONE; +dexameTHASONE 10MG/1ML VIAL PRES.FREE (J1100 PER 1MG) As Ordered ONE
--- NOTE | 2020-07-27 16:24 | REP ---
INDICATION: LEFT LUMBAR COOL RADIOFREQUENCY. COMPARISON: None. TECHNIQUE: Intraoperative fluoroscopic imaging using portable C-arm technique FINDINGS: Catheter is identified along the lumbar facet joints. Total fluoroscopic time 1 minutes 19 seconds. IMPRESSION: Findings consistent with left lumbar facet block. <Electronically signed by Brendan Sam > 07/27/20 [id number]
--- NOTE | 2020-08-04 01:39 | ECWPNPC ---
PATIENT NAME: RIK FUNES : 1960 GENDER: FEMALE VISIT DATE: 07/27/2020 DISCHARGE DATE: 07/27/20 1639 VISIT LOCKED DATE TIME: PHYSICIAN: ANITA ESCOBAR MD PHYSICIAN PAGER NO: ACTIVE RESOURCE: ANITA ESCOBAR MD REASON FOR APPOINTMENT 1. LEFT LUMBAR COOL RADIOFREQUENCY L4-L5, L5-S1 HISTORY OF PRESENT ILLNESS GENERAL: -. FALL RISK SCREENING: SCREENING : NO FALLS REPORTED IN THE LAST YEAR. PAIN SCREENING: PATIENT HAS A COMPLAINT OF ACUTE OR CHRONIC PAIN :YES LOCATION OF PAIN:LOW BACK, LEFT HIP INTENSITY OF PAIN (SCALE OF 1 TO 10):8 WHAT DOES YOUR PAIN FEEL LIKE:ACHING, BURNING, CONTINOUS, SHARP, STABBING, TENDER, THROBBING, SORE, SHOOTING DURATION:CONSTANT PAIN IS INCREASED BY:ACTIVITIES NURSING NOTE: -. PAIN CENTER INTAKE QUESTIONS: DO YOU HAVE A HISTORY OF MRSA? :NO DO YOU TAKE A BLOOD THINNERS? :NO DO YOU HAVE ANY BLEEDING DISORDERS? :NO ANY NEW NUMBNESS OR WEAKNESS IN YOUR LEGS OR ARMS? :NO ANY PACEMAKER,DEFIBRILLATOR, OR DORSAL COLUMN STIMULATOR? :NO DO YOU HAVE ANY RASHES OR OPEN SORES? :NO ARE YOU ALLERGIC TO IV DYE? :NO ARE YOU DIABETIC? :NO ANY NEW PROBLEMS WITH YOUR MEDICATIONS? :NO HAVE YOU RECEIVED A VACCINE IN THE PAST 30 DAYS? :NO DO YOU PLAN TO RECEIVE A VACCINE IN THE NEXT 21 DAYS? :NO DO YOU TAKE ANY IMMUNOSUPPRESSIVE MEDICATIONS? :NO ANY HISTORY OF SEIZURES? :NO ANY HISTORY OF CARDIAC ISSUES OR EVENTS? :NO DO YOU HAVE ANY KIDNEY OR LIVER DISEASE? :NO DO YOU HAVE SLEEP APNEA? :NO ANY RECENT HEAD INJURY? :NO DO YOU HAVE ANY NEW INFECTIONS? :NO IS THERE A CHANCE YOU COULD BE ? :NO ARE YOU BREAST FEEDING? :NO WHEN DID YOU LAST EAT? : -07/26/20`@2100 WHEN DID YOU LAST DRINK? : -07/27/20 @0600 WHAT DID YOU LAST DRINK? : -SIPS OF WATER NAME OF PERSON DRIVING YOU HOME? : -SON GOPI GOMEZ DO YOU HAVE ANY OTHER QUESTIONS OR CONCERNS? : DENES CURRENT MEDICATIONS TAKING DRISDOL 96276 UNIT CAPSULE 1 CAPSULE ORALLY ONCE EVERY WEEK WITH MEAL TAKING OMEPRAZOLE 40 MG CAPSULE DELAYED RELEASE 1 CAPSULE ORALLY ONCE A DAY TAKING METFORMIN 500MG 1 ER TABLET 2 TAB(S) IN A.M./1 TAB IN P.M. ORALLY DAILY, NOTES: 07/12/200 TAKING LEVOTHYROXINE SODIUM 125 MCG TABLET 1 TABLET IN THE MORNING ON AN EMPTY STOMACH ORALLY ONCE A DAY TAKING SIMVASTATIN 20 MG TABLET 1 TABLET IN THE EVENING ORALLY ONCE A DAY TAKING POTASSIUM CHLORIDE 10 MEQ CAPSULE EXTENDED RELEASE 3 CAPSULES WITH FOOD ORALLY DAILY TAKING LASIX 20 MG TABLET 1TAB ORALLY ONCE A DAY, NOTES: 07/12/20 0500 TAKING BLOOD GLUCOSE TEST - STRIP VERIO DIRECTED IN VITRO DX E88.81 DAILY TAKING MAY USE ONE TOUCH ULTRA GLUCOSE TSTING STRIPS DX 790.21 DIRECTED NA 1-2 TIMES A DAY TAKING SUMATRIPTAN SUCCINATE 100 MG TABLET 1 TABLET NEEDED AT ONSET OF [place] ORALLY ONCE A DAY TAKING CLARITIN 10 MG TABLET 1 TABLET ORALLY ONCE A DAY TAKING SALINE NASAL SPRAY 0.65 % SOLUTION 2 DROPS IN EACH NOSTRIL NEEDED NASALLY EVERY 4HRS NEEDED TAKING ONE TOUCH ULTRA 2 LANCET DX 250.00 LANCET DIRECTED NA 1-2 TIMES A DAY TAKING TOPAMAX 100 MG TABLET 2 TABLETS ORALLY TWICE A DAY TAKING ADVIL 200 MG TABLET 1 TABLET WITH FOOD OR MILK NEEDED ORALLY 2TIMES A DAY NEEDED, NOTES: 07/12/20 0500 TAKING CHOLESTYRAMINE 4 GM/DOSE POWDER 1 SCOOP ORALLY DAILY TAKING TRAMADOL HCL 50 MG TABLET 1 TO 2 TAB DIRECTED ORALLY Q4-6HR PRN PAIN MDD4, NOTES: 07/26/20 @ 1900 TAKING KETOROLAC TROMETHAMINE 10 MG TABLET 1 TABLET WITH FOOD OR MILK NEEDED ORALLY EVERY 6 HRS, NOTES: 07/26/20 @ 1900 TAKING DULOXETINE HCL 60 MG CAPSULE DELAYED RELEASE PARTICLES 1 CAPSULE ORALLY ONCE A DAY NOT-TAKING TIZANIDINE HCL 2 MG TABLET 1 TAB ORALLY PRN HS MDD 2 NOT-TAKING TRAMADOL HCL 50 MG TABLET SOLUBLE Q8 PRN ORALLY MDD 3 (3 MOS SUPPLY CAT D CHRONIC PAIN) MEDICATION LIST REVIEWED AND RECONCILED WITH THE PATIENT PAST MEDICAL HISTORY GRAVE'S DISEASE/ HYPOTHYROID PRE-DM-2 HYPERLIPIDEMIA OBESITY UTERINE FIBROIDS 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 QUESADA DETACHMENT LEFT RETINA SOCIAL HISTORY GENERAL: TOBACCO USE ARE YOU A:NONSMOKER LATEX QUESTIONNAIRE LATEX ALLERGY : HAVE YOU EVER DEVELOPED ANY TYPE OF REACTION AFTER HANDLING LATEX PRODUCTS SUCH RUBBER GLOVES, CONDOMS, DIAPHRAGMS, BALLOONS, SOCKS, OR UNDERWEAR?YES PT ALLERGIC TO LATEX LATEX ALLERGY : HAVE YOU EVER DEVELOPED ANY TYPE OF REACTION DURING OR AFTER DENTAL APPOINTMENT, VAGINAL/RECTAL EXAMINATION, SURGICAL PROCEDURE, OR ANY OTHER EXPOSURE?YES - PLEASE INDICATE :RUBBER GLOVES, CONDOMS, BALLOONS, DIAPHRAGMS, SOCKS, UNDERWEAR - PLEASE INDICATE :DENTAL PROCEDURE, VAGINAL EXAM DATE ASKED : 07/13/2020 LATEX RISK : HAVE YOU EVER HAD ANY DIFFICULTY BREATHING OR HIVES AFTER EATING OR HANDLING ANY FRUITS, OR VEGETABLES; SUCH KIWI, BANANAS, STONE FRUITS, OR CHESTNUTSYES - PLEASE INDICATE : STONE FRUITS LATEX RISK : DO YOU HAVE A PREVIOUS PERSONAL HISTORY OF MORE THAN NINE SURGERIES, SPINA BIFIDA, OR REPEATED CATHERIZATIONS? NO LATEX RISK : ARE YOU FREQUENTLY EXPOSED TO LATEX PRODUCTS IN YOUR OCCUPATION?YES ALCOHOL USE: NO. BMI CARE GOAL FOLLOW-UP ABOVE NORMAL BMI FOLLOW-UPGIVING ENCOURAGEMENT TO EXERCISE, LIFESTYLE EDUCATION REGARDING DIET ALCOHOL SCREENING DID YOU HAVE A DRINK CONTAINING ALCOHOL IN THE PAST YEAR?NO POINTS0 INTERPRETATIONNEGATIVE RECREATIONAL DRUG USE DENIES. CAFFEINE CAFFEINE USE?YES 2-3 A DAY SEXUAL HX HAD SEX IN THE LAST 12 MONTHS (VAGINAL, ORAL, OR ANAL)?YES WITHMEN ONLY USE PROTECTION?NO LMP:POST MENOPAUSE HAVE YOU EVER HAD AN STD?NO HIV / HEP-C SCREENING HIV TEST OFFERED TO PATIENT:YES DATE OFFERED:11/10/2017 PREVIOUSLY DONE TEST ACCEPTED:YES HEP-C TEST OFFERED TO PATIENT:YES DATE OFFERED:11/10/2017 TEST ACCEPTED:NO REASON:PATIENT DECLINED BROCHURE PROVIDED TO PATIENTNO JUDAISM [id number] NONE LANGUAGE LANGUAGES SPOKEN:VIETNAMESE EDUCATION 12 GRADUATE. 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 EXERCISE: WALKS DAILY, ELIPTYCAL INTERMITTENTLY PLANET FITNESS 5 DAYS A WEEK. MARITAL STATUS: .. OTHERS AT HOME: SON. - HAS THE PATIENT BEEN EDUCATED REGARDING HIS/HER PLAN OF CARE?YES HAS THE PATIENT BEEN EDUCATED REGARDING PAIN, THE RISK FOR PAIN, THE IMPORTANCE OF EFFECTIVE PAIN MANAGEMENT, AND THE PAIN ASSESSMENT PROCESS?YES ADVANCE DIRECTIVE ADVANCE DIRECTIVE DISCUSSED WITH PATIENT:YES 10/27/2019 PT STATES SHE HAS A HCP - GOPI GOMEZ ([facility]) HOSPITALIZATION/MAJOR DIAGNOSTIC PROCEDURE NONE VITAL SIGNS WT 232.6 LBS, HT 64 IN, BMI 39.92 INDEX, BP 131/78 MM HG, HR 84 /MIN, RR 18 /MIN, TEMP 98.5 F, OXYGEN SAT % 95%, NA INITIALS AW 1402. EXAMINATION GENERAL EXAMINATION: THE PATIENT IS ALERT, ORIENTED TIMES THREE AND COOPERATIVE. LUNGS ARE CLEAR TO AUSCULTATION. HEART SHOWS REGULAR RHYTHM, NO MURMURS AND NO GALLOPS. ASSESSMENTS SPONDYLOSIS WITHOUT MYELOPATHY OR RADICULOPATHY, LUMBAR REGION - M47.816 (PRIMARY) SPONDYLOSIS WITHOUT MYELOPATHY OR RADICULOPATHY, LUMBOSACRAL REGION - M47.817 TREATMENT SPONDYLOSIS WITHOUT MYELOPATHY OR RADICULOPATHY, LUMBAR REGION [facility] FACET BLOCK (PAIN)[id number] COMPLETION OF PROCEDURAL VISIT WHEN MEETS CRITERIAROEL ROPER 07/27/2020 4:41:42 PM > CRITERIA MET AT 1631 PROCEDURES PAIN NURSING RECORD PROCEDURE IN ROOM 1512, PHYSICIAN IN ROOM 1536, START 1541, FINISH 1615, PHYSICIAN OUT OF ROOM 1618, OUT OF ROOM 1626, ECG NORMAL SINUS, PATIENT SHIELDED YES, SAFETY STRAP N/A, PREP CHLOROPREP BY Stef WADE, DRESSING TEGADERM TO LOWER BACK BY DR ESCOBAR LOC: 1. ALERT, ORIENTEDJUDSON TOM 07/27/2020 1540> RESP: 1. REGULAR, NO DYSPNEABRADLEY,ROEL 07/27/2020 1540 COLOR: 1. PINKBRADLEY,ROEL 07/27/2020 1540 SKIN: 1. WARM, DRYBRADLEY,ROEL 07/27/2020 1540 POSITION: 1. PRONEBRADLEY,[facility] 07/27/2020 1540 VITALS: 1530- HR 69, 131/78, 100% R 16 1545 - HR 61, 134/78, 99%, R 16 1600 - HR 69, 136/86, 99%, R 16 1615- HR 66, 127/79, 99%, R16 EXIT VITALS 1631 - HR 72, 141/91, 100%, R 16 ETELVINA ROPER RN COMPLETION OF PROCEDURE APPOINTMENT: POST PAIN 0, DRESSING SITE DRY AND INTACT, IV N/A, GAIT STEADY, TEACHING COMPLETED, PATIENT ACKNOWLEDGES UNDERSTANDING YES, PROCEDURE APPOINTMENT COMPLETED AT 1631 PN RADIOFREQUENCY DATE OF PROCEDURE 07/27/2020 . THERMO LESION RADIOFREQUENCY > 80 DEGREES : V[employer]ler - [employer] SYSTEM SET AT 60* WITH TISSUE TARGET TEMP > 80* OR MORE. STRAIGHT NEEDLE . SIDE: : LEFT . LEVELS: : L4-L5, L5-S1. NEEDLE/CATHETER/GAUGE: : 17 . CANULA LENGTH: : 150 MM . ACTIVE TIP: : 4 MM . GROUNDING PAD PLACED ON AFFECTED SIDE (MUSCULAR AREA): : LUMBAR (POSTERIOR UPPER THIGH) . 1 ST LEVEL: : L3,INITAL POSTIVE SENSORY RESPONE (50 HZ) 0.4,MOTOR RESPONSE (2 HZ-UP TO 3 VOLTS) 3.0 ,PRE-LOCAL IMPEDENCE READING OHMS 581 ,POST-LOCAL IMPEDENCE READING OHMS 178 ,DURING RF IMPEDENCE READING OHMS 202 , 2 ND LEVEL: : L4,INITIAL POSITIVE SENSORY RESPONSE (50 HZ) 0.2,MOTOR RESPONSE (2 HZ- UP TO 3 VOLTS) 3.0 ,PRE-LOCAL IMPEDENCE READING OHMS 560 ,POST-LOCAL IMEPEDENCE READING OHMS 408 ,DURING RF IMPEDENCE READING OHMS 324 , 3 RD LEVEL: : L5,INITIAL POSITIVE SENSORY RESPONSE (50 HZ) 0.1,MOTOR RESPONSE (2HZ- UP TO 3 VOLTS) 3.0 ,PRE- LOCAL IMPEDENCE READING OHMS 650 ,POST-LOCAL IMPEDENCE READING OHMS 416 ,DURING RF IMPEDENCE READING OHMS 336 , PRE PROCEDURE DIAGNOSES 1. LUMBAR SPONDYLOSIS. 2. LUMBOSACRAL SPONDYLOSIS POST PROCEDURE DIAGNOSES 1. LUMBAR SPONDYLOSIS. 2. LUMBOSACRAL SPONDYLOSIS PROCEDURE LEFT L4-L5 AND LEFT L5-S1 LUMBAR FACET RADIOFREQUENCY- AVANOS:COOLED RF SURGEON DR. ANITA ESCOBAR ROLLER COASTER DESIGNER NONE ANESTHESIA LOCAL PRE PROCEDURE REPORT THE PATIENT HAS HISTORY OF CHRONIC LOW BACK PAIN. I EVALUATED THE PATIENT AND REVIEWED THE CHART. I WENT OVER THE RISKS, ALTERNATIVES, AND BENEFITS ASSOCIATED WITH THIS PROCEDURE. THE PATIENT WOULD LIKE TO PROCEED AND GIVE CONSENT TO PERFORMED THE PROCEDURE. THE PATIENT DENIES UNEXPLAINABLE WEIGHT LOSS, FEVER, CHILLS, OR NEW CHANGES IN URINARY OR BOWEL CONTROL. THE PATIENT IS COVID-19 NEGATIVE DESCRIPTION OF PROCEDURE THE PATIENT WAS BROUGHT TO THE PROCEDURE ROOM AND PLACED IN THE PRONE POSITION. A TIMEOUT WAS PERFORMED WHERE THE CONSENTED SITE WAS VERIFIED WITH EVERYONE IN THE ROOM. THE LUMBOSACRAL AREA WAS CLEANED WITH CHLORAPREP SOLUTION AND DRAPED ASEPTICALLY. THE PROCEDURE WAS DONE UNDER STERILE CONDITIONS. UNDER FLUOROSCOPIC GUIDANCE, TARGETS WERE SELECTED AT THE INTERSECTION OF THE LEFT TRANSVERSE PROCESS OF L4, L5 AND ALA OF S1 WITH ITS RESPECTIVE SUPERIOR ARTICULAR PROCESS. I CONFIRMED AGAIN THE SITE OF TARGET. LIDOCAINE WAS USED TO NUMB THE SKIN AND THE SUBCUTANEOUS TISSUE BELOW IT. RADIOFREQUENCY CANNULAS, 17-GAUGE, 150 MM LONG WITH 4 MM ACTIVE TIP, WERE ADVANCED UNDER FLUOROSCOPIC GUIDANCE AND FOLLOWING PATIENT FEEDBACK UNTIL THE TARGET AREA WAS REACHED. POSITION OF THE CANNULA WAS VERIFIED WITH AP AND LATERAL VIEWS. AFTER PROPER POSITION OF THE CANNULA WAS ACHIEVED, WE WORKED WITH THE LEFT SELECTED MEDIAN BRANCHES OF L3, L4 AND THE DORSAL RAMI OF L5. WE MEASURED THE CORRESPONDING IMPEDANCES AND MOTOR RESPONSES INDICATED IN THE RADIOFREQUENCY WORK SHEET. POSITION OF THE CANNULA WAS VERIFIED AGAIN WITH AP AND LATERAL VIEWS. LIDOCAINE 1%, 2 ML, WAS INJECTED AT EACH LEVEL. RADIOFREQUENCY WAS DONE AT EACH LEVEL USING THE The [employer] SYSTEM-- COOLED RF-- WITH A SETTING AT THE MACHINE OF 60 DEGREES WITH A TARGET TISSUE TEMPERATURE OF 80 TO 90 DEGREES FOR A MINIMUM OF 150 SECONDS. AFTER RADIOFREQUENCY WAS DONE, THE PATIENT RECEIVED BUPIVACAINE 0.125%,1 ML, WITH DEXAMETHASONE 3 MG AT EACH SITE. THERE WAS NO EVIDENCE OF BLOOD, PARESTHESIA OR CEREBROSPINAL FLUID DURING THE PROCEDURE. THE PATIENT WAS SENT TO THE RECOVERY ROOMS. THE PATIENT WAS MOVING THE EXTREMITIES AND DOING WELL. EBL LESS THAN 5 ML. THERE WERE NO COMPLICATIONS DURING THE PROCEDURE. FLUOROSCOPY TIME WAS 1 MINUTE 19 SECONDS. POST PROCEDURE NOTE THE PROCEDURE DONE WAS DISCUSSED WITH THE PATIENT. THE PATIENT WILL BE SEEN IN A FOLLOW UP IN THE NEXT FEW WEEKS. I AM LOOKING FOR LONG LASTING PAIN RELIEF FOR THE PATIENT WITH THIS INTERVENTION. INSTRUCTIONS WERE GIVEN, QUESTIONS WERE ANSWERED, AND THE PATIENT EXPRESSED UNDERSTANDING AND AGREES WITH THE PLAN. I, NOAH BALLARD, DOCUMENTED THE ABOVE INFORMATION ACTING A SCRIBE FOR DR. ESCOBAR. I HAVE REVIEWED THE ABOVE DOCUMENT, WRITTEN BY NOAH BALLARD, VICE PRESIDENT OF COMMUNICATIONS, AND I VERIFY THAT IT IS ACCURATE PROCEDURE CODES 48720 DESTROY LUMB/SAC FACET JNT, [place]: [place] [id number] DESTROY L/S FACET JNT ADDL, MODIFIERS: LT DISPOSITION & COMMUNICATION FOLLOW UP FOLLOW UP WITH PHD INTERN (REASON: POST LEFT LUMBAR COOL RADIOFREQUENCY L4-L5, L5-S1) ELECTRONICALLY SIGNED BY ANITA ESCOBAR MD, MD ON 08/03/2020 AT 12:42 PM EST DISCLAIMER : THIS IS A VISIT SUMMARY EXTRACTED FROM THE [employer] CHART. IT IS NOT A COPY OF THE [employer] [facility] PROGRESS NOTE. DESTINEY
== END ==
LOC: M PAIN 14:00
PROVIDERS: ATTEND Anesthesiology
DX: M47.816 Spondylosis without myelopathy or radiculopathy, lumbar region (principal); M47.817 Spondylosis without myelopathy or radiculopathy, lumbosacral region; E03.9 Hypothyroidism, unspecified; R73.03 Prediabetes; G43.909 Migraine, unspecified, not intractable, without status migrainosus; E55.9 Vitamin D deficiency, unspecified; K21.9 Gastro-esophageal reflux disease without esophagitis; Z91.018 Allergy to other foods; Z91.040 Latex allergy status; Z79.84 Long term (current) use of oral hypoglycemic drugs; Z79.891 Long term (current) use of opiate analgesic; Z79.899 Other long term (current) drug therapy
CPT/HCPCS: 64635; 64636; J1100

== ENCOUNTER → 2020-08-19 | Outpatient (CLI) | payer BC ==
[~2020-08-19] MED LIST changes: -BUPIVACAINE HCL 0.25% 30ML VIAL As Ordered ONE; -LIDOCAINE 1% SDV 30ML VIAL As Ordered ONE; -dexameTHASONE 10MG/1ML VIAL PRES.FREE (J1100 PER 1MG) As Ordered ONE
--- NOTE | 2020-08-26 02:01 | ECWPNPC ---
PATIENT NAME: RIK FUNES : 1960 GENDER: FEMALE VISIT DATE: 08/19/2020 DISCHARGE DATE: 08/19/20 1506 VISIT LOCKED DATE TIME: PHYSICIAN: JAY MATT PHYSICIAN PAGER NO: ACTIVE RESOURCE: JAY MATT REASON FOR APPOINTMENT 1. POST LEFT LUMBAR COOL RADIOFREQUENCY L4-L5, L5-S1 HISTORY OF PRESENT ILLNESS DEPRESSION SCREENING: PHQ-2 (2015 EDITION) LITTLE INTEREST OR PLEASURE IN DOING THINGS?NOT AT ALL FEELING DOWN, DEPRESSED, OR HOPELESS?NOT AT ALL TOTAL SCORE0 GENERAL: HERE FOR POST PROCEDURE FOLLOW-UP. HAD LEFT COOL RF L4-5, L5-S1 ON 07/27/2020. REPORTING MARKED REDUCTION IN LOW BACK PAIN THAT CONTINUES TODAY BUT HAS ONE AREA OVER THE SACROILIAC JOINT THAT HAS BEEN BOTHERSOME AND NOT IMPROVED WITH INJECTIONS OR TESTING WE HAVE DONE HERE. THIS OCCURRED AFTER LIFTING A PATIENT OVER A YEAR AGO. REVIEWED MRI OF THE LS-SPINE. DISCUSSED SACROILIAC JOINT BLOCK.-. FALL RISK SCREENING: SCREENING : NO FALLS REPORTED IN THE LAST YEAR. PAIN SCREENING: PATIENT HAS A COMPLAINT OF ACUTE OR CHRONIC PAIN :YES LOCATION OF PAIN:LOW BACK INTENSITY OF PAIN (SCALE OF 1 TO 10):8 WHAT DOES YOUR PAIN FEEL LIKE:ACHING, BURNING, TENDER, THROBBING, SHOOTING DURATION:CONTINOUS, CONSTANT, ALL DAY PAIN IS INCREASED BY:ACTIVITIES PAIN IS DECREASED BY:OTHERS NOTHING HELP NURSING NOTE: -. PAIN CENTER INTAKE QUESTIONS: DO YOU HAVE A HISTORY OF MRSA? :NO DO YOU TAKE A BLOOD THINNERS? :NO DO YOU HAVE ANY BLEEDING DISORDERS? :NO ANY NEW NUMBNESS OR WEAKNESS IN YOUR LEGS OR ARMS? :NO ANY PACEMAKER,DEFIBRILLATOR, OR DORSAL COLUMN STIMULATOR? :NO DO YOU HAVE ANY RASHES OR OPEN SORES? :NO ARE YOU ALLERGIC TO IV DYE? :NO ARE YOU DIABETIC? :YES ANY NEW PROBLEMS WITH YOUR MEDICATIONS? :NO HAVE YOU RECEIVED A VACCINE IN THE PAST 30 DAYS? :NO DO YOU PLAN TO RECEIVE A VACCINE IN THE NEXT 21 DAYS? :NO DO YOU NEED ANY PRESCRIPTION? :NO DO YOU TAKE ANY IMMUNOSUPPRESSIVE MEDICATIONS? :NO IS THERE A CHANCE YOU COULD BE ? :NO ARE YOU BREAST FEEDING? :NO CURRENT MEDICATIONS TAKING DRISDOL 22117 UNIT CAPSULE 1 CAPSULE ORALLY ONCE EVERY WEEK WITH MEAL TAKING OMEPRAZOLE 40 MG CAPSULE DELAYED RELEASE 1 CAPSULE ORALLY ONCE A DAY TAKING METFORMIN 500MG 1 ER TABLET 2 TAB(S) IN A.M./1 TAB IN P.M. ORALLY DAILY TAKING LEVOTHYROXINE SODIUM 125 MCG TABLET 1 TABLET IN THE MORNING ON AN EMPTY STOMACH ORALLY ONCE A DAY TAKING SIMVASTATIN 20 MG TABLET 1 TABLET IN THE EVENING ORALLY ONCE A DAY TAKING POTASSIUM CHLORIDE 10 MEQ CAPSULE EXTENDED RELEASE 3 CAPSULES WITH FOOD ORALLY DAILY TAKING LASIX 20 MG TABLET 1TAB ORALLY ONCE A DAY TAKING BLOOD GLUCOSE TEST - STRIP VERIO DIRECTED IN VITRO DX E88.81 DAILY TAKING MAY USE ONE TOUCH ULTRA GLUCOSE TSTING STRIPS DX 790.21 DIRECTED NA 1-2 TIMES A DAY TAKING SUMATRIPTAN SUCCINATE 100 MG TABLET 1 TABLET NEEDED AT ONSET OF [place] ORALLY ONCE A DAY TAKING CLARITIN 10 MG TABLET 1 TABLET ORALLY ONCE A DAY TAKING SALINE NASAL SPRAY 0.65 % SOLUTION 2 DROPS IN EACH NOSTRIL NEEDED NASALLY EVERY 4HRS NEEDED TAKING ONE TOUCH ULTRA 2 LANCET DX 250.00 LANCET DIRECTED NA 1-2 TIMES A DAY TAKING TOPAMAX 100 MG TABLET 2 TABLETS ORALLY TWICE A DAY TAKING ADVIL 200 MG TABLET 1 TABLET WITH FOOD OR MILK NEEDED ORALLY 2TIMES A DAY NEEDED TAKING CHOLESTYRAMINE 4 GM/DOSE POWDER 1 SCOOP ORALLY DAILY TAKING TRAMADOL HCL 50 MG TABLET 1 TO 2 TAB DIRECTED ORALLY Q4-6HR PRN PAIN MDD4 TAKING KETOROLAC TROMETHAMINE 10 MG TABLET 1 TABLET WITH FOOD OR MILK NEEDED ORALLY EVERY 6 HRS TAKING DULOXETINE HCL 60 MG CAPSULE DELAYED RELEASE PARTICLES 1 CAPSULE ORALLY ONCE A DAY NOT-TAKING TIZANIDINE HCL 2 MG TABLET 1 TAB ORALLY PRN HS MDD 2 NOT-TAKING TRAMADOL HCL 50 MG TABLET SOLUBLE Q8 PRN ORALLY MDD 3 (3 MOS SUPPLY CAT D CHRONIC PAIN) MEDICATION LIST REVIEWED AND RECONCILED WITH THE PATIENT PAST MEDICAL HISTORY GRAVE'S DISEASE/ HYPOTHYROID PRE-DM-2 HYPERLIPIDEMIA OBESITY UTERINE FIBROIDS 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, 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 CHRONIC LOW BACK PAIN UNSPECIFIED VITAMIN D DEFICIENCY ALLERGIC RHINITIS, CAUSE UNSPECIFIED CHOLELITHIASIS ESOPHAGEAL REFLUX, GASTRITIS 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YES - PLEASE INDICATE :DENTAL PROCEDURE, VAGINAL EXAM LATEX RISK : HAVE YOU EVER HAD ANY DIFFICULTY BREATHING OR HIVES AFTER EATING OR HANDLING ANY FRUITS, OR VEGETABLES; SUCH KIWI, BANANAS, STONE FRUITS, OR CHESTNUTSYES - PLEASE INDICATE : STONE FRUITS LATEX RISK : DO YOU HAVE A PREVIOUS PERSONAL HISTORY OF MORE THAN NINE SURGERIES, SPINA BIFIDA, OR REPEATED CATHERIZATIONS? NO LATEX RISK : ARE YOU FREQUENTLY EXPOSED TO LATEX PRODUCTS IN YOUR OCCUPATION?YES DATE ASKED : 08/19/2020 ALCOHOL USE: NO. BMI CARE GOAL FOLLOW-UP ABOVE NORMAL BMI FOLLOW-UPGIVING ENCOURAGEMENT TO EXERCISE, LIFESTYLE EDUCATION REGARDING DIET ALCOHOL SCREENING DID YOU HAVE A DRINK CONTAINING ALCOHOL IN THE PAST YEAR?NO POINTS0 INTERPRETATIONNEGATIVE RECREATIONAL DRUG USE DENIES. CAFFEINE CAFFEINE USE?YES 2-3 A DAY SEXUAL HX HAD SEX IN THE LAST 12 MONTHS (VAGINAL, ORAL, OR ANAL)?YES WITHMEN ONLY USE PROTECTION?NO LMP:POST MENOPAUSE HAVE YOU EVER HAD AN STD?NO HIV / HEP-C SCREENING HIV TEST OFFERED TO PATIENT:YES DATE OFFERED:11/10/2017 PREVIOUSLY DONE TEST ACCEPTED:YES HEP-C TEST OFFERED TO PATIENT:YES DATE OFFERED:11/10/2017 TEST ACCEPTED:NO REASON:PATIENT DECLINED BROCHURE PROVIDED TO PATIENTNO MANDAEISM [id number] NONE LANGUAGE LANGUAGES SPOKEN:[employer] EDUCATION 12 GRADUATE. 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 EXERCISE: WALKS DAILY, ELIPTYCAL INTERMITTENTLY PLANET FITNESS 5 DAYS A WEEK. MARITAL STATUS: .. OTHERS AT HOME: SON. - HAS THE PATIENT BEEN EDUCATED REGARDING HIS/HER PLAN OF CARE?YES HAS THE PATIENT BEEN EDUCATED REGARDING PAIN, THE RISK FOR PAIN, THE IMPORTANCE OF EFFECTIVE PAIN MANAGEMENT, AND THE PAIN ASSESSMENT PROCESS?YES ADVANCE DIRECTIVE ADVANCE DIRECTIVE DISCUSSED WITH PATIENT:YES 10/27/2019 PT STATES SHE HAS A HCP - GOPI GOMEZ ([facility]) REVIEW OF SYSTEMS CONSTITUTIONAL: ANY RECENT FEVER NO . CHILLS NO . WEIGHT CHANGE OF UNKNOWN REASONS NO . GASTROENTEROLOGY: NEW UNEXPLAINABLE CHANGES IN BOWEL CONTROL NO . CONSTIPATION NO . GENITOURINARY: ANY NEW CHANGE IN BLADDER CONTROL? NO . NEUROLOGY: NEW ONSET DIZZINESS OR NEUROLOGICAL CHANGES NOT MENTIONED NO . NEW NUMBNESS OR PAIN PATTERNS NOT MENTIONED AND PERTINENT TO TODAY'S VISIT NO . CARDIOLOGY: NEW CHEST PRESSURE NO . PATIENT DENIES NO . RESPIRATORY: UNEXPLAINABLE COUGH NO . NEW SHORTNESS OF BREATH NO . VITAL SIGNS WT 234 LBS, HT 64 IN, BMI 40.16 INDEX, BP 121/81 MM HG, HR 82 /MIN, RR 18 /MIN, TEMP 98.2 F, OXYGEN SAT % 98%, SAFE IN ENV? (Y/N) YEST.GELA WEBSTER. EXAMINATION GENERAL EXAMINATION: GENERAL ALERT,NO DISTRESS . PSYCH AFFECT NORMAL . LUNGS: LUNG SOUNDS ARE CLEAR . HEART: HEART RATE REGULAR . MUSCULOSKELETAL: MST 5/5 BILAT. LOWER EXTREMITIES . LUMBAR: SPECIFIC POINT TENDERNESS NOTED OVER LEFT. SIJ . DIAGNOSTIC TESTS REVIEWED CT L/S [id number] . ASSESSMENTS OTHER CHRONIC PAIN - G89.29 (PRIMARY) SACROILIITIS - M46.1 TREATMENT OTHER CHRONIC PAIN REFILL TRAMADOL HCL TABLET, 50 MG, 1 TO 2 TAB NEEDED, ORALLY, TWICE DAILY PRN MDD4 3 MOS SUPPLY CAT D CHRONIC PAIN, 90 DAY(S), 360, REFILLS 0 PAIN PROCEDURE LOGDATE OF PROCEDURE07/27/20PROCEDURE:LEFT COOL RADIOFREQUENCY L4-L5, L5-H2LTIDRS OF PRE SEDATE0/0RESULT:REDUCTION IN PAIN CONTINUES TODAY NOTES: LEFT SACROILIAC JOINT BLOCK , ISTOP REGISTRY REVIEWED AND DEMONSTRATES COMPLLIANCE. BRINGS IN MEDICATIONS WHICH IS APPROPRIATE FOR WHAT WAS DISPENSED. RECENT URINE TOXICOLOGY REVIEWED. NO UNAUTHORIZED MEDICATIONS. NO ILLICIT SUBSTANCES AND PRESCRIBED MEDICATIONS WERE PRESENT. PRINTED AND REVIEWED PRE PROCEDURE WITH PATIENT CARLOS WEBSTER. PROCEDURE CODES FA211 ESTABILISHED PATIENT [facility] FACILITY CHARGE DISPOSITION & COMMUNICATION FOLLOW UP POST PROCEDURE (REASON: LEFT SACROILIAC JOINT BLOCK ) ELECTRONICALLY SIGNED BY ALFA WASSERMAN ON 08/25/2020 AT 03:33 PM EDT DISCLAIMER : THIS IS A VISIT SUMMARY EXTRACTED FROM THE [employer] CHART. IT IS NOT A COPY OF THE [employer] PROGRESS NOTE. DESTINEY
== END ==
LOC: M PAIN 14:15
PROVIDERS: ATTEND Nurse Practitioner Family
DX: M46.1 Sacroiliitis, not elsewhere classified (principal); G89.29 Other chronic pain; E11.9 Type 2 diabetes mellitus without complications; E03.9 Hypothyroidism, unspecified; G43.909 Migraine, unspecified, not intractable, without status migrainosus; E55.9 Vitamin D deficiency, unspecified; K21.9 Gastro-esophageal reflux disease without esophagitis; Z91.010 Allergy to peanuts; Z91.018 Allergy to other foods; Z91.040 Latex allergy status; E66.01 Morbid (severe) obesity due to excess calories; Z68.41 Body mass index [BMI] 40.0-44.9, adult; Z79.84 Long term (current) use of oral hypoglycemic drugs; Z79.891 Long term (current) use of opiate analgesic; Z79.899 Other long term (current) drug therapy

== ENCOUNTER → 2020-09-11 | Outpatient (CLI) | payer BC | LOC: M LABSMTC 09:42 | PROVIDERS: ATTEND Anesthesiology | DX: Z01.812 Encounter for preprocedural laboratory examination (principal); Z20.828 Contact with and (suspected) exposure to other viral communicable diseases ==

== ENCOUNTER → 2020-09-16 | Outpatient (CLI) | payer BC ==
[~2020-09-16] MED LIST changes: +BUPIVACAINE HCL 0.25% 30ML VIAL As Ordered ONE; +ISOVUE-M 300 61% 15ML VIAL As Ordered ONE; +LIDOCAINE 1% SDV 30ML VIAL As Ordered ONE; +TRIAMCINOLONE ACETONIDE SUSP 40 MG/ML VIAL (J3301) As Ordered ONE
--- NOTE | 2020-09-16 12:45 | REP ---
INDICATION: LEFT SACROILIAC JOINT BLOCK. COMPARISON: None. TECHNIQUE: Single-view. 34.0 seconds of fluoroscopy is reported. FINDINGS: A single last image hold fluoroscopically obtained spot radiograph documents needle position associated with injection procedure left SI joint. IMPRESSION: Procedural imaging. <Electronically signed by Billy Haque > 09/16/20 [id number]
--- NOTE | 2020-09-22 03:00 | ECWPNPC ---
PATIENT NAME: RIK FUNES : 1960 GENDER: FEMALE VISIT DATE: 09/16/2020 DISCHARGE DATE: 09/16/20 1144 VISIT LOCKED DATE TIME: PHYSICIAN: ANITA ESCOBAR MD PHYSICIAN PAGER NO: ACTIVE RESOURCE: ANITA ESCOBAR MD REASON FOR APPOINTMENT 1. LEFT SACROILIAC JOINT BLOCK HISTORY OF PRESENT ILLNESS GENERAL: -. FALL RISK SCREENING: SCREENING : NO FALLS REPORTED IN THE LAST YEAR. PAIN SCREENING: PATIENT HAS A COMPLAINT OF ACUTE OR CHRONIC PAIN :YES LOCATION OF PAIN:LOW BACK, LEFT HIP, LEG(S) DOWN TO LEFT KNEE INTENSITY OF PAIN (SCALE OF 1 TO 10):8 WHAT DOES YOUR PAIN FEEL LIKE:ACHING, CONTINOUS DURATION:CONSTANT PAIN IS INCREASED BY:ACTIVITIES PAIN IS DECREASED BY:USE OF PAIN MEDICATIONS NURSING NOTE: -. PAIN CENTER INTAKE QUESTIONS: DO YOU HAVE A HISTORY OF MRSA? :NO DO YOU TAKE A BLOOD THINNERS? :NO DO YOU HAVE ANY BLEEDING DISORDERS? :NO ANY NEW NUMBNESS OR WEAKNESS IN YOUR LEGS OR ARMS? :NO ANY PACEMAKER,DEFIBRILLATOR, OR DORSAL COLUMN STIMULATOR? :NO DO YOU HAVE ANY RASHES OR OPEN SORES? :NO ARE YOU ALLERGIC TO IV DYE? :NO ARE YOU DIABETIC? :YES BORDERLINE ANY NEW PROBLEMS WITH YOUR MEDICATIONS? :NO HAVE YOU RECEIVED A VACCINE IN THE PAST 30 DAYS? :NO DO YOU PLAN TO RECEIVE A VACCINE IN THE NEXT 21 DAYS? :NO DO YOU TAKE ANY IMMUNOSUPPRESSIVE MEDICATIONS? :NO ANY HISTORY OF SEIZURES? :NO ANY HISTORY OF CARDIAC ISSUES OR EVENTS? :NO DO YOU HAVE ANY KIDNEY OR LIVER DISEASE? :NO DO YOU HAVE SLEEP APNEA? :NO ANY RECENT HEAD INJURY? :NO DO YOU HAVE ANY NEW INFECTIONS? :NO IS THERE A CHANCE YOU COULD BE ? :NO ARE YOU BREAST FEEDING? :NO WHEN DID YOU LAST EAT? : 09/15/2020 173 WHEN DID YOU LAST DRINK? : 09/15/20202199 WHAT DID YOU LAST DRINK? : WATER NAME OF PERSON DRIVING YOU HOME? : SON DO YOU HAVE ANY OTHER QUESTIONS OR CONCERNS? : - CURRENT MEDICATIONS TAKING DRISDOL 47721 UNIT CAPSULE 1 CAPSULE ORALLY ONCE EVERY WEEK WITH MEAL TAKING OMEPRAZOLE 40 MG CAPSULE DELAYED RELEASE 1 CAPSULE ORALLY ONCE A DAY TAKING METFORMIN 500MG 1 ER TABLET 2 TAB(S) IN A.M./1 TAB IN P.M. ORALLY DAILY TAKING LEVOTHYROXINE SODIUM 125 MCG TABLET 1 TABLET IN THE MORNING ON AN EMPTY STOMACH ORALLY ONCE A DAY TAKING SIMVASTATIN 20 MG TABLET 1 TABLET IN THE EVENING ORALLY ONCE A DAY TAKING POTASSIUM CHLORIDE 10 MEQ CAPSULE EXTENDED RELEASE 3 CAPSULES WITH FOOD ORALLY DAILY TAKING LASIX 20 MG TABLET 1TAB ORALLY ONCE A DAY TAKING BLOOD GLUCOSE TEST - STRIP VERIO DIRECTED IN VITRO DX E88.81 DAILY TAKING MAY USE ONE TOUCH ULTRA GLUCOSE TSTING STRIPS DX 790.21 DIRECTED NA 1-2 TIMES A DAY TAKING SUMATRIPTAN SUCCINATE 100 MG TABLET 1 TABLET NEEDED AT ONSET OF [place] ORALLY ONCE A DAY TAKING CLARITIN 10 MG TABLET 1 TABLET ORALLY ONCE A DAY TAKING SALINE NASAL SPRAY 0.65 % SOLUTION 2 DROPS IN EACH NOSTRIL NEEDED NASALLY EVERY 4HRS NEEDED TAKING ONE TOUCH ULTRA 2 LANCET DX 250.00 LANCET DIRECTED NA 1-2 TIMES A DAY TAKING TOPAMAX 100 MG TABLET 2 TABLETS ORALLY TWICE A DAY TAKING ADVIL 200 MG TABLET 1 TABLET WITH FOOD OR MILK NEEDED ORALLY 2TIMES A DAY NEEDED TAKING CHOLESTYRAMINE 4 GM/DOSE POWDER 1 SCOOP ORALLY DAILY TAKING TRAMADOL HCL 50 MG TABLET 1 TO 2 TAB DIRECTED ORALLY Q4-6HR PRN PAIN MDD4 TAKING DULOXETINE HCL 60 MG CAPSULE DELAYED RELEASE PARTICLES 1 CAPSULE ORALLY ONCE A DAY TAKING TRAMADOL HCL 50 MG TABLET 1 TO 2 TAB NEEDED ORALLY TWICE DAILY PRN MDD4 3 MOS SUPPLY CAT D CHRONIC PAIN TAKING KETOROLAC TROMETHAMINE 10 MG TABLET 1 TABLET WITH FOOD OR MILK NEEDED ORALLY EVERY 6 HRS NOT-TAKING TIZANIDINE HCL 2 MG TABLET 1 TAB ORALLY PRN HS MDD 2 MEDICATION LIST REVIEWED AND RECONCILED WITH THE PATIENT PAST MEDICAL HISTORY GRAVE'S DISEASE/ HYPOTHYROID PRE-DM-2 HYPERLIPIDEMIA OBESITY UTERINE FIBROIDS 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, 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 CHRONIC LOW BACK PAIN UNSPECIFIED VITAMIN D DEFICIENCY ALLERGIC RHINITIS, CAUSE UNSPECIFIED CHOLELITHIASIS ESOPHAGEAL REFLUX, GASTRITIS 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YES - PLEASE INDICATE :DENTAL PROCEDURE, VAGINAL EXAM LATEX RISK : HAVE YOU EVER HAD ANY DIFFICULTY BREATHING OR HIVES AFTER EATING OR HANDLING ANY FRUITS, OR VEGETABLES; SUCH KIWI, BANANAS, STONE FRUITS, OR CHESTNUTSYES - PLEASE INDICATE : STONE FRUITS LATEX RISK : DO YOU HAVE A PREVIOUS PERSONAL HISTORY OF MORE THAN NINE SURGERIES, SPINA BIFIDA, OR REPEATED CATHERIZATIONS? NO LATEX RISK : ARE YOU FREQUENTLY EXPOSED TO LATEX PRODUCTS IN YOUR OCCUPATION?YES DATE ASKED : 09/16/2020 ALCOHOL USE: NO. BMI CARE GOAL FOLLOW-UP ABOVE NORMAL BMI FOLLOW-UPGIVING ENCOURAGEMENT TO EXERCISE, LIFESTYLE EDUCATION REGARDING DIET ALCOHOL SCREENING DID YOU HAVE A DRINK CONTAINING ALCOHOL IN THE PAST YEAR?NO POINTS0 INTERPRETATIONNEGATIVE RECREATIONAL DRUG USE DENIES. CAFFEINE CAFFEINE USE?YES 2-3 A DAY SEXUAL HX HAD SEX IN THE LAST 12 MONTHS (VAGINAL, ORAL, OR ANAL)?YES WITHMEN ONLY USE PROTECTION?NO LMP:POST MENOPAUSE HAVE YOU EVER HAD AN STD?NO HIV / HEP-C SCREENING HIV TEST OFFERED TO PATIENT:YES DATE OFFERED:11/10/2017 PREVIOUSLY DONE TEST ACCEPTED:YES HEP-C TEST OFFERED TO PATIENT:YES DATE OFFERED:11/10/2017 TEST ACCEPTED:NO REASON:PATIENT DECLINED BROCHURE PROVIDED TO PATIENTNO [id number] NONE LANGUAGE LANGUAGES SPOKEN:[employer] EDUCATION 12 GRADUATE. 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 EXERCISE: WALKS DAILY, ELIPTYCAL INTERMITTENTLY PLANET FITNESS 5 DAYS A WEEK. MARITAL STATUS: .. OTHERS AT HOME: SON. - HAS THE PATIENT BEEN EDUCATED REGARDING HIS/HER PLAN OF CARE?YES HAS THE PATIENT BEEN EDUCATED REGARDING PAIN, THE RISK FOR PAIN, THE IMPORTANCE OF EFFECTIVE PAIN MANAGEMENT, AND THE PAIN ASSESSMENT PROCESS?YES ADVANCE DIRECTIVE ADVANCE DIRECTIVE DISCUSSED WITH PATIENT:YES 10/27/2019 PT STATES SHE HAS A HCP - GOPI GOMEZ ([facility]) VITAL SIGNS WT 227.6 LBS, HT 64 IN, BMI 39.06 INDEX, BP 124/85 MM HG, HR 87 /MIN, RR 18 /MIN, TEMP 96.8 F, OXYGEN SAT % 99%, SAFE IN ENV? (Y/N) YES, NA INITIALS SC 10:31, REVIEWED BY: Nate OSORIO RN. EXAMINATION GENERAL: A HISTORY AND PHYSICAL EXAM ON THE PATIENT WAS DONE ON 08/19/2020 (DATE OF ORIGINAL ASSESSMENT) IN PREPARATION OF SURGERY/PROCEDURE. I HAVE NOW REASSESSED THIS PATIENT'S HEALTH STATUS AND PERFORMED AN UPDATED EXAM TODAY. ALL CHANGES IN THE PATIENT'S HISTORY, PHYSICAL EXAM, PRE-EXISTING CONDITONS, AND INDICATIONS/CONTRAINDICATIONS TO THE PLANNED PROCEDURE AND ANESTHESIA ARE DOCUMENTED AND EVALUATED BELOW. I ATTEST TO THE ADEQUACY AND APPROPRIATENESS OF MY ASSESSMENT, AND CONFIRM THE NECESSITY FOR THE PLANNED PROCEDURE. THE PATIENT IS ALERT, ORIENTED TIMES THREE AND COOPERATIVE. LUNGS ARE CLEAR TO AUSCULTATION. HEART SHOWS REGULAR RHYTHM, NO MURMURS AND NO GALLOPS. ASSESSMENTS SACROILIITIS - M46.1 (PRIMARY) TREATMENT SACROILIITIS [facility] FLUORO GUIDANCE (PAIN)[id number] COMPLETION OF PROCEDURAL VISIT WHEN MEETS CRITERIASHYAM GALLO 09/16/2020 11:48:55 AM > 1144 CRITERIA MET PROCEDURES PAIN NURSING RECORD PROCEDURE IN ROOM 1107, PHYSICIAN IN ROOM 1117, START 1125, FINISH 1127, PHYSICIAN OUT OF ROOM 1128, OUT OF ROOM 1137 VIA STRETCHER, ECG NORMAL SINUS, PATIENT SHIELDED YES, SAFETY STRAP YES, PREP CHLOROPREP Israel OSORIO RN, DRESSING TEGADERM DR. ESCOBAR LOC: SHYAM GALLO 09/16/2020 11:22:12 AM > , 1. ALERT, ORIENTED RESP: SHYAM GALLO 09/16/2020 11:22:19 AM > , 1. REGULAR, NO DYSPNEA COLOR: SHYAM GALLO 09/16/2020 11:22:23 AM > , 1. PINK SKIN: SHYAM GALLO 09/16/2020 11:22:27 AM > , 1. WARM, DRY POSITION: SHYAM GALLO 09/16/2020 11:23:53 AM > , 1. PRONE VITALS: SHYAM GALLO 09/16/2020 11:23:56 AM > 126/79-68-18-98%/ 09/16/2020 1141 171/77-80-18-99% NOTES Israel OSORIO RN COMPLETION OF PROCEDURE APPOINTMENT: POST PAIN 0, DRESSING SITE DRY AND INTACT LEFT LOW BACK, IV N/A, GAIT STEADY, TEACHING COMPLETED, PATIENT ACKNOWLEDGES UNDERSTANDING YES PATIENT VERBALIZES UNDERSTANDING OF POST PROCEDURE INSTRUCTIONS REVIEWED, PROCEDURE APPOINTMENT COMPLETED AT 1144 BY: Israel OSORIO RN PRE PROCEDURE DIAGNOSIS SACROILITIS, SACROILIAC JOINT DYSFUNCTION POST PROCEDURE DIAGNOSIS SACROILIITIS, SACROILIAC JOINT DYSFUNCTION PROCEDURE LEFT SACROILIAC JOINT BLOCK SURGEON DR. ANITA ESCOBAR PORTFOLIO MANAGER NONE ANESTHESIA LOCAL PRE PROCEDURE NOTE THE PATIENT HAS A HISTORY OF CHRONIC LOW BACK PAIN. I EVALUATED THE PATIENT AND REVIEWED THE CHART. I WENT OVER THE RISKS, BENEFITS AND ALTERNATIVES ASSOCIATED WITH THIS PROCEDURE. THE PATIENT WOULD LIKE TO PROCEED AND GIVES CONSENT TO PERFORM THE PROCEDURE. THE PATIENT DENIES UNEXPLAINABLE WEIGHT LOSS, FEVER, CHILLS OR NEW CHANGES IN URINARY OR BOWEL CONTROL. THE PATIENT IS COVID-19 NEGATIVE. DESCRIPTION OF PROCEDURE THE PATIENT WAS BROUGHT TO THE PROCEDURE ROOM AND PLACED IN THE PRONE POSITION. THE LUMBOSACRAL AREA WAS CLEANED WITH CHLORHEXIDINE AND DURAPREP SOLUTION AND DRAPED ASEPTICALLY. THE PROCEDURE WAS DONE UNDER STERILE CONDITIONS. A TIMEOUT WAS PERFORMED WHERE THE CONSENTED SITE WAS VERIFIED WITH EVERYONE IN THE ROOM UNDER FLUOROSCOPIC GUIDANCE, THE TARGET POINT WAS SELECTED AT THE LOWER BORDER OF THE LEFT SACROILIAC JOINT. TARGET POINT WAS SELECTED AFTER MEDIAL ROTATION AND TILT OF THE MAGNIFIER OR THE C-ARM. I CONFIRMED AGAIN THE SITE OF TARGET. LIDOCAINE 0.5% WAS USED TO NUMB THE SKIN AND THE SUBCUTANEOUS TISSUE BELOW IT. SPINAL NEEDLE, 22-GAUGE, WAS ADVANCED UNDER FLUOROSCOPIC GUIDANCE AND FOLLOWING PATIENT FEEDBACK UNTIL THE TARGET WAS TOUCHED. THE POSITION OF THE NEEDLE WAS VERIFIED WITH AP AND OBLIQUE VIEWS. AFTER PROPER POSITION OF THE NEEDLE WAS ACHIEVED, ISOVUE-M DYE 30%, 0.1 ML, WAS INJECTED SHOWING ADEQUATE SPREAD OF THE DYE. KENALOG 40 MG WAS INJECTED. THEN, A SOLUTION OF 3.0 ML OF BUPIVACAINE 0.125% WAS USED TO FLUSH THE NEEDLE. THE MEDICATIONS WERE VERIFIED WITH THE NURSE. THERE WAS NO EVIDENCE OF BLOOD, PARESTHESIA OR CEREBROSPINAL FLUID DURING THE PROCEDURE. THE PATIENT WAS SENT TO THE RECOVERY ROOM. THE PATIENT WAS MOVING THE EXTREMITIES AND DOING WELL. THERE WERE NO COMPLICATIONS DURING THE PROCEDURE. ESTIMATED BLOOD LOSS WAS LESS THAN 5 ML. FLUOROSCOPIC TIME WAS 33 SECONDS. POST PROCEDURE NOTE DEPENDING ON THE RESULTS, CONSIDER AN EPIDURAL STEROID INJECTION. THE PATIENT WILL BE SEEN IN A FOLLOW UP IN THE NEXT FEW WEEKS. I AM LOOKING FOR LONG LASTING RELIEF FOR THE PATIENT WITH THIS INTERVENTION. INSTRUCTIONS WERE GIVEN, QUESTIONS WERE ANSWERED AND THE PATIENT EXPRESSED UNDERSTANDING AND AGREES WITH THE PAIN. I, NOAH BALLARD, DOCUMENTED THE ABOVE INFORMATION ACTING A SCRIBE FOR DR. ESCOBAR. I HAVE REVIEWED THE ABOVE DOCUMENT WRITTEN BY NOAH BALLARD, BLACKING WHEEL TENDER, AND I VERIFY THAT IT IS ACCURATE. PROCEDURE CODES 51234 INJECT SACROILIAC JOINT, MODIFIERS: LT DISPOSITION & COMMUNICATION FOLLOW UP FOLLOW UP WITH STRIP MINE SUPERVISOR (REASON: POST LEFT SACROILIAC JOINT BLOCK) ELECTRONICALLY SIGNED BY ANITA ESCOBAR MD, MD ON 09/21/2020 AT 11:46 AM EDT DISCLAIMER : THIS IS A VISIT SUMMARY EXTRACTED FROM THE [employer] CHART. IT IS NOT A COPY OF THE [employer] PROGRESS NOTE. DESTINEY
== END ==
LOC: M PAIN 10:20
PROVIDERS: ATTEND Anesthesiology
DX: M46.1 Sacroiliitis, not elsewhere classified (principal); E03.9 Hypothyroidism, unspecified; R73.03 Prediabetes; E78.5 Hyperlipidemia, unspecified; E66.9 Obesity, unspecified; G43.909 Migraine, unspecified, not intractable, without status migrainosus; K21.9 Gastro-esophageal reflux disease without esophagitis; J30.9 Allergic rhinitis, unspecified; M54.5 Low back pain; E55.9 Vitamin D deficiency, unspecified; Z68.39 Body mass index [BMI] 39.0-39.9, adult; Z79.891 Long term (current) use of opiate analgesic; Z79.899 Other long term (current) drug therapy; Z79.84 Long term (current) use of oral hypoglycemic drugs; Z91.018 Allergy to other foods; Z91.040 Latex allergy status
CPT/HCPCS: G0260; J3301; Q9967

== ENCOUNTER → 2020-09-16 | Outpatient (CLI) | payer BC ==
[~2020-09-16] MED LIST changes: -BUPIVACAINE HCL 0.25% 30ML VIAL As Ordered ONE; -ISOVUE-M 300 61% 15ML VIAL As Ordered ONE; -LIDOCAINE 1% SDV 30ML VIAL As Ordered ONE; -TRIAMCINOLONE ACETONIDE SUSP 40 MG/ML VIAL (J3301) As Ordered ONE
--- NOTE | 2020-09-16 16:12 | REPPI ---
INDICATION: M79.672 PAIN IN LEFT FOOT COMPARISON: Left foot dated 07/11/2018 TECHNIQUE: AP, lateral, bilateral oblique views right and left foot. FINDINGS: The osseous structures and joint spaces are intact, symmetric and demonstrate mild age-related arthritic degenerative changes including subchondral sclerosis and joint space narrowing at the bilateral 1st metatarsophalangeal joints as well as subtle heterogeneity and joint space narrowing at the tarsal and tarsometatarsal joints. Lateral views demonstrate moderate bilateral calcaneal heel spurs. There is no evidence for acute fracture or dislocation. Surrounding soft tissues are unremarkable. IMPRESSION: Relatively symmetric moderate age related arthritic changes which remain relatively stable when compared with left foot radiographs dated 2019. <Electronically signed by Brendan Sam > 09/16/20 [id number]
[2020-09-16 18:40] LABS: BLOOD UREA NITROGEN 23 MG/DL (7-18); CALCIUM LEVEL 9.4 MG/DL (8.5-10.1); CARBON DIOXIDE LEVEL 25 MEQ/L (21-32); CHLORIDE LEVEL 113 MEQ/L (98-107); CREATININE FOR GFR 0.78 MG/DL (0.55-1.30); FREE T4 0.95 NG/DL (0.76-1.46); GLOMERULAR FILTRATION RATE > 60.0 (>51); GLUCOSE, FASTING 127 MG/DL (70-100); POTASSIUM SERUM 3.9 MEQ/L (3.5-5.1); SODIUM LEVEL 142 MEQ/L (136-145); THYROID STIMULATING HORMONE 0.348 uIU/ML (0.358-3.740); TOTAL 25(OH) VITAMIN D 61.3 NG/ML (30.0-100.0)
[2020-09-16 19:09] LABS: HEMOGLOBIN A1c 5.6 %
== END ==
LOC: M PLAIMG 15:48
PROVIDERS: ATTEND Nurse Practitioner Family
DX: M19.072 Primary osteoarthritis, left ankle and foot (principal); M79.672 Pain in left foot

== ENCOUNTER → 2020-09-28 | Outpatient (CLI) | payer BC ==
--- NOTE | 2020-09-30 03:20 | ECWPNPC ---
PATIENT NAME: RIK FUNES : 1960 GENDER: FEMALE VISIT DATE: 09/28/2020 DISCHARGE DATE: 09/28/20 1542 VISIT LOCKED DATE TIME: PHYSICIAN: JAY MATT PHYSICIAN PAGER NO: ACTIVE RESOURCE: JAY MATT REASON FOR APPOINTMENT 1. POST LEFT SACROILIAC JOINT BLOCK HISTORY OF PRESENT ILLNESS GENERAL: HERE FOR POST PROCEDURE F/U.HAD LEFT SIJ ON 09/16/2020.REPORTING MARKED REDUCTION IN PAIN THAT CONTINUES TODAY.HAS NOT NEEDED TO TAKE PAIN MEDICATION SINCE PROCEDURE. -. FALL RISK SCREENING: SCREENING : NO FALLS REPORTED IN THE LAST YEAR. PAIN SCREENING: PATIENT HAS A COMPLAINT OF ACUTE OR CHRONIC PAIN :YES LOCATION OF PAIN:LOW BACK INTENSITY OF PAIN (SCALE OF 1 TO 10):3 WHAT DOES YOUR PAIN FEEL LIKE:TENDER DURATION:CONTINOUS, STEADY PAIN IS INCREASED BY:ACTIVITIES, PROLONGED STANDING PAIN IS DECREASED BY:USE OF PAIN MEDICATIONS NURSING NOTE: -. PAIN CENTER INTAKE QUESTIONS: DO YOU HAVE A HISTORY OF MRSA? :NO DO YOU TAKE A BLOOD THINNERS? :NO DO YOU HAVE ANY BLEEDING DISORDERS? :NO ANY NEW NUMBNESS OR WEAKNESS IN YOUR LEGS OR ARMS? :NO ANY PACEMAKER,DEFIBRILLATOR, OR DORSAL COLUMN STIMULATOR? :NO DO YOU HAVE ANY RASHES OR OPEN SORES? :NO ARE YOU ALLERGIC TO IV DYE? :NO ARE YOU DIABETIC? :NO ANY NEW PROBLEMS WITH YOUR MEDICATIONS? :NO HAVE YOU RECEIVED A VACCINE IN THE PAST 30 DAYS? :NO DO YOU PLAN TO RECEIVE A VACCINE IN THE NEXT 21 DAYS? :NO DO YOU NEED ANY PRESCRIPTION? :YES KETOROAC TROMETHAMINE DO YOU TAKE ANY IMMUNOSUPPRESSIVE MEDICATIONS? :NO IS THERE A CHANCE YOU COULD BE ? :NO ARE YOU BREAST FEEDING? :NO CURRENT MEDICATIONS TAKING OMEPRAZOLE 40 MG CAPSULE DELAYED RELEASE 1 CAPSULE ORALLY ONCE A DAY TAKING METFORMIN 500MG 1 ER TABLET 2 TAB(S) IN A.M./1 TAB IN P.M. ORALLY DAILY TAKING SIMVASTATIN 20 MG TABLET 1 TABLET IN THE EVENING ORALLY ONCE A DAY TAKING POTASSIUM CHLORIDE 10 MEQ CAPSULE EXTENDED RELEASE 3 CAPSULES WITH FOOD ORALLY DAILY TAKING LASIX 20 MG TABLET 1TAB ORALLY ONCE A DAY TAKING BLOOD GLUCOSE TEST - STRIP VERIO DIRECTED IN VITRO DX E88.81 DAILY TAKING MAY USE ONE TOUCH ULTRA GLUCOSE TSTING STRIPS DX 790.21 DIRECTED NA 1-2 TIMES A DAY TAKING SUMATRIPTAN SUCCINATE 100 MG TABLET 1 TABLET NEEDED AT ONSET OF [place] ORALLY ONCE A DAY TAKING CLARITIN 10 MG TABLET 1 TABLET ORALLY ONCE A DAY TAKING SALINE NASAL SPRAY 0.65 % SOLUTION 2 DROPS IN EACH NOSTRIL NEEDED NASALLY EVERY 4HRS NEEDED TAKING ONE TOUCH ULTRA 2 LANCET DX 250.00 LANCET DIRECTED NA 1-2 TIMES A DAY TAKING TOPAMAX 100 MG TABLET 2 TABLETS ORALLY TWICE A DAY TAKING ADVIL 200 MG TABLET 1 TABLET WITH FOOD OR MILK NEEDED ORALLY 2TIMES A DAY NEEDED TAKING CHOLESTYRAMINE 4 GM/DOSE POWDER 1 SCOOP ORALLY DAILY TAKING TRAMADOL HCL 50 MG TABLET 1 TO 2 TAB DIRECTED ORALLY Q4-6HR PRN PAIN MDD4 TAKING DULOXETINE HCL 60 MG CAPSULE DELAYED RELEASE PARTICLES 1 CAPSULE ORALLY ONCE A DAY TAKING TRAMADOL HCL 50 MG TABLET 1 TO 2 TAB NEEDED ORALLY TWICE DAILY PRN MDD4 3 MOS SUPPLY CAT D CHRONIC PAIN TAKING KETOROLAC TROMETHAMINE 10 MG TABLET 1 TABLET WITH FOOD OR MILK NEEDED ORALLY EVERY 6 HRS TAKING LEVOTHYROXINE SODIUM 125 MCG TABLET 1 TABLET IN THE MORNING ON AN EMPTY STOMACH ORALLY ONCE A DAY TAKING VITAMIN D3 25 MCG (1000 UT) CAPSULE 1 CAPSULE ORALLY ONCE A DAY NOT-TAKING TIZANIDINE HCL 2 MG TABLET 1 TAB ORALLY PRN HS MDD 2 MEDICATION LIST REVIEWED AND RECONCILED WITH THE PATIENT PAST MEDICAL HISTORY GRAVE'S DISEASE/ HYPOTHYROID PRE-DM-2 HYPERLIPIDEMIA OBESITY UTERINE FIBROIDS 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 QUESADA /2017 DETACHMENT LEFT RETINA -2019 CATARACT SURG LEFT EYE 09/29/2020 SOCIAL HISTORY GENERAL: TOBACCO USE ARE YOU A:NONSMOKER LATEX QUESTIONNAIRE LATEX ALLERGY : HAVE YOU EVER DEVELOPED ANY TYPE OF REACTION AFTER HANDLING LATEX PRODUCTS SUCH RUBBER GLOVES, CONDOMS, DIAPHRAGMS, BALLOONS, SOCKS, OR UNDERWEAR?YES PT ALLERGIC TO LATEX - PLEASE INDICATE :RUBBER GLOVES, CONDOMS, BALLOONS, DIAPHRAGMS, SOCKS, UNDERWEAR LATEX ALLERGY : HAVE YOU EVER DEVELOPED ANY TYPE OF REACTION DURING OR AFTER DENTAL APPOINTMENT, VAGINAL/RECTAL EXAMINATION, SURGICAL PROCEDURE, OR ANY OTHER EXPOSURE?YES - PLEASE INDICATE :DENTAL PROCEDURE, VAGINAL EXAM LATEX RISK : HAVE YOU EVER HAD ANY DIFFICULTY BREATHING OR HIVES AFTER EATING OR HANDLING ANY FRUITS, OR VEGETABLES; SUCH KIWI, BANANAS, STONE FRUITS, OR CHESTNUTSYES - PLEASE INDICATE : STONE FRUITS LATEX RISK : DO YOU HAVE A PREVIOUS PERSONAL HISTORY OF MORE THAN NINE SURGERIES, SPINA BIFIDA, OR REPEATED CATHERIZATIONS? NO LATEX RISK : ARE YOU FREQUENTLY EXPOSED TO LATEX PRODUCTS IN YOUR OCCUPATION?YES DATE ASKED : 09/16/2020 ALCOHOL USE: NO. BMI CARE GOAL FOLLOW-UP ABOVE NORMAL BMI FOLLOW-UPGIVING ENCOURAGEMENT TO EXERCISE, LIFESTYLE EDUCATION REGARDING DIET ALCOHOL SCREENING DID YOU HAVE A DRINK CONTAINING ALCOHOL IN THE PAST YEAR?NO POINTS0 INTERPRETATIONNEGATIVE RECREATIONAL DRUG USE DENIES. CAFFEINE CAFFEINE USE?YES 2-3 A DAY SEXUAL HX HAD SEX IN THE LAST 12 MONTHS (VAGINAL, ORAL, OR ANAL)?YES WITHMEN ONLY USE PROTECTION?NO LMP:POST MENOPAUSE HAVE YOU EVER HAD AN STD?NO HIV / HEP-C SCREENING HIV TEST OFFERED TO PATIENT:YES DATE OFFERED:11/10/2017 PREVIOUSLY DONE TEST ACCEPTED:YES HEP-C TEST OFFERED TO PATIENT:YES DATE OFFERED:11/10/2017 TEST ACCEPTED:NO REASON:PATIENT DECLINED BROCHURE PROVIDED TO PATIENTNO RASTAFARIAN [id number] NONE LANGUAGE LANGUAGES SPOKEN:BENGALI EDUCATION 12 GRADUATE. 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 EXERCISE: WALKS DAILY, ELIPTYCAL INTERMITTENTLY PLANET FITNESS 5 DAYS A WEEK. MARITAL STATUS: .. OTHERS AT HOME: SON. - HAS THE PATIENT BEEN EDUCATED REGARDING HIS/HER PLAN OF CARE?YES HAS THE PATIENT BEEN EDUCATED REGARDING PAIN, THE RISK FOR PAIN, THE IMPORTANCE OF EFFECTIVE PAIN MANAGEMENT, AND THE PAIN ASSESSMENT PROCESS?YES ADVANCE DIRECTIVE ADVANCE DIRECTIVE DISCUSSED WITH PATIENT:YES 10/27/2019 PT STATES SHE HAS A HCP - [facility] GOMEZ ([facility]) HOSPITALIZATION/MAJOR DIAGNOSTIC PROCEDURE NONE REVIEW OF SYSTEMS CONSTITUTIONAL: ANY RECENT FEVER NO . CHILLS NO . WEIGHT CHANGE OF UNKNOWN REASONS NO . GASTROENTEROLOGY: NEW UNEXPLAINABLE CHANGES IN BOWEL CONTROL NO . CONSTIPATION NO . GENITOURINARY: ANY NEW CHANGE IN BLADDER CONTROL? NO . NEUROLOGY: NEW ONSET DIZZINESS OR NEUROLOGICAL CHANGES NOT MENTIONED NO . NEW NUMBNESS OR PAIN PATTERNS NOT MENTIONED AND PERTINENT TO TODAY'S VISIT NO . CARDIOLOGY: NEW CHEST PRESSURE NO . PATIENT DENIES NO . RESPIRATORY: UNEXPLAINABLE COUGH NO . NEW SHORTNESS OF BREATH NO . VITAL SIGNS WT 226.8 LBS, HT 64 IN, BMI 38.93 INDEX, BP 140/94 MM HG, HR 76 /MIN, RR 18 /MIN, TEMP 97.6 F, OXYGEN SAT % 97%, SAFE IN ENV? (Y/N) YES, NA INITIALS AW 1521T.GELA WEBSTER. EXAMINATION GENERAL EXAMINATION: GENERALAWAKE,ALERT ,PLEASANT . PSYCHAFFECT NORMAL . LUNGS:LUNG DEL ROSARIO ARE CLEAR TO AUSCULTATION BILATERALLY. GOOD MOVEMENT OF AIR . HEART:S1, S2 IN A REGULAR RATE AND RHYTHM. NO SIGNIFICANT MURMURS, RUBS OR GALLOPS NOTED . ASSESSMENTS OTHER CHRONIC PAIN - G89.29 (PRIMARY) SACROILIITIS - M46.1 TREATMENT OTHER CHRONIC PAIN REFILL KETOROLAC TROMETHAMINE TABLET, 10 MG, 1 TABLET WITH FOOD OR MILK NEEDED, ORALLY, EVERY 6 HRS, 5 DAY(S), 20, REFILLS 0 PAIN PROCEDURE LOGDATE OF PROCEDURE1PROCEDURE:LEFT SACROILIAC JOINT BLOCKAMOUNT OF PRE SEDATE0/0RESULT:MRKED REDUCTION IN PAIN CONTINUES TODAY PROCEDURE CODES FA211 ESTABILISHED PATIENT [facility] FACILITY CHARGE DISPOSITION & COMMUNICATION FOLLOW UP 3 MONTHS (REASON: LEFT LOW BACK/RESPONDS WELL TO SIJ) ELECTRONICALLY SIGNED BY ALFA WASSERMAN ON 09/29/2020 AT 03:40 PM EDT DISCLAIMER : THIS IS A VISIT SUMMARY EXTRACTED FROM THE [employer] CHART. IT IS NOT A COPY OF THE [employer] PROGRESS NOTE. DESTINEY
== END ==
LOC: M PAIN 14:45
PROVIDERS: ATTEND Nurse Practitioner Family
DX: M46.1 Sacroiliitis, not elsewhere classified (principal); G89.29 Other chronic pain; E03.9 Hypothyroidism, unspecified; R73.03 Prediabetes; G43.909 Migraine, unspecified, not intractable, without status migrainosus; E55.9 Vitamin D deficiency, unspecified; K21.9 Gastro-esophageal reflux disease without esophagitis; Z91.010 Allergy to peanuts; Z91.018 Allergy to other foods; Z91.040 Latex allergy status; Z79.84 Long term (current) use of oral hypoglycemic drugs; Z79.891 Long term (current) use of opiate analgesic; Z79.899 Other long term (current) drug therapy

== ENCOUNTER → 2020-12-13 | Outpatient (CLI) | payer BC ==
[~2020-12-13] MED LIST changes: +OMEP40CA4 PO; -OMEP40CA97 PO
[2020-12-13 18:11] LABS: HEMOGLOBIN A1c 5.7 %
[2020-12-13 18:26] LABS: CALCIUM LEVEL 8.7 MG/DL (8.5-10.1); CREATININE FOR GFR 1.13 MG/DL (0.55-1.30); FREE T4 1.1 NG/DL (0.76-1.46); GLOMERULAR FILTRATION RATE 52.6 (>51); POTASSIUM SERUM 4.1 MEQ/L (3.5-5.1); THYROID STIMULATING HORMONE 8.93 uIU/ML (0.358-3.740)
== END ==
LOC: M PLALAB 14:53
PROVIDERS: ATTEND Nurse Practitioner Family
DX: R73.03 Prediabetes (principal); E03.8 Other specified hypothyroidism; E06.3 Autoimmune thyroiditis

== ENCOUNTER → 2020-12-29 | Outpatient (CLI) | payer BC ==
--- NOTE | 2020-12-31 04:23 | ECWPNPC ---
PATIENT NAME: RIK FUNES : 1960 GENDER: FEMALE VISIT DATE: 12/29/2020 DISCHARGE DATE: 12/29/20 1519 VISIT LOCKED DATE TIME: PHYSICIAN: JAY MATT PHYSICIAN PAGER NO: ACTIVE RESOURCE: JAY MATT REASON FOR APPOINTMENT 1. LEFT LOW BACK/RESPONDS WELL TO SIJ HISTORY OF PRESENT ILLNESS GENERAL: HERE FOR FOLLOW-UP OF CHRONIC LOW BACK PAIN. PAIN HAS INCREASED OVER THE PAST 3 WEEKS. 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 PATIENT WAS BEDRIDDEN DUE TO LOW BACK PAIN YESTERDAY. REVIEWED MRI OF THE LS SPINE AND DISCUSSED TREATMENT PLAN. -. FALL RISK SCREENING: SCREENING : NO FALLS REPORTED IN THE LAST YEAR. PAIN SCREENING: PATIENT HAS A COMPLAINT OF ACUTE OR CHRONIC PAIN :YES LOCATION OF PAIN:LOW BACK INTENSITY OF PAIN (SCALE OF 1 TO 10):10 SPAMS WHAT DOES YOUR PAIN FEEL LIKE:CONTINOUS, SHOOTING DURATION:CONTINOUS, CONSTANT, ALL DAY PAIN IS INCREASED BY:ACTIVITIES PAIN IS DECREASED BY:OTHERS NOTHING NURSING NOTE: -. PAIN CENTER INTAKE QUESTIONS: DO YOU HAVE A HISTORY OF MRSA? :NO DO YOU TAKE A BLOOD THINNERS? :NO DO YOU HAVE ANY BLEEDING DISORDERS? :NO ANY NEW NUMBNESS OR WEAKNESS IN YOUR LEGS OR ARMS? :NO ANY PACEMAKER,DEFIBRILLATOR, OR DORSAL COLUMN STIMULATOR? :NO DO YOU HAVE ANY RASHES OR OPEN SORES? :NO ARE YOU ALLERGIC TO IV DYE? :NO ARE YOU DIABETIC? :NO ANY NEW PROBLEMS WITH YOUR MEDICATIONS? :NO HAVE YOU RECEIVED A VACCINE IN THE PAST 30 DAYS? :NO DO YOU PLAN TO RECEIVE A VACCINE IN THE NEXT 21 DAYS? :NO DO YOU NEED ANY PRESCRIPTION? :YES ON ALL HER PAIN MEDS DO YOU TAKE ANY IMMUNOSUPPRESSIVE MEDICATIONS? :NO IS THERE A CHANCE YOU COULD BE ? :NO ARE YOU BREAST FEEDING? :NO CURRENT MEDICATIONS TAKING OMEPRAZOLE 40 MG CAPSULE DELAYED RELEASE 1 CAPSULE ORALLY ONCE A DAY TAKING METFORMIN 500MG 1 ER TABLET 2 TAB(S) IN A.M./1 TAB IN P.M. ORALLY DAILY TAKING SIMVASTATIN 20 MG TABLET 1 TABLET IN THE EVENING ORALLY ONCE A DAY TAKING POTASSIUM CHLORIDE 10 MEQ CAPSULE EXTENDED RELEASE 3 CAPSULES WITH FOOD ORALLY DAILY TAKING LASIX 20 MG TABLET 1TAB ORALLY ONCE A DAY TAKING BLOOD GLUCOSE TEST - STRIP VERIO DIRECTED IN VITRO DX E88.81 DAILY TAKING MAY USE ONE TOUCH ULTRA GLUCOSE TSTING STRIPS DX 790.21 DIRECTED NA 1-2 TIMES A DAY TAKING SUMATRIPTAN SUCCINATE 100 MG TABLET 1 TABLET NEEDED AT ONSET OF [place] ORALLY ONCE A DAY TAKING CLARITIN 10 MG TABLET 1 TABLET ORALLY ONCE A DAY TAKING SALINE NASAL SPRAY 0.65 % SOLUTION 2 DROPS IN EACH NOSTRIL NEEDED NASALLY EVERY 4HRS NEEDED TAKING ONE TOUCH ULTRA 2 LANCET DX 250.00 LANCET DIRECTED NA 1-2 TIMES A DAY TAKING TOPAMAX 100 MG TABLET 2 TABLETS ORALLY TWICE A DAY TAKING ADVIL 200 MG TABLET 1 TABLET WITH FOOD OR MILK NEEDED ORALLY 2TIMES A DAY NEEDED TAKING CHOLESTYRAMINE 4 GM/DOSE POWDER 1 SCOOP ORALLY DAILY TAKING TRAMADOL HCL 50 MG TABLET 1 TO 2 TAB DIRECTED ORALLY Q4-6HR PRN PAIN MDD4 TAKING DULOXETINE HCL 60 MG CAPSULE DELAYED RELEASE PARTICLES 1 CAPSULE ORALLY ONCE A DAY TAKING TRAMADOL HCL 50 MG TABLET 1 TO 2 TAB NEEDED ORALLY TWICE DAILY PRN MDD4 3 MOS SUPPLY CAT D CHRONIC PAIN TAKING LEVOTHYROXINE SODIUM 125 MCG TABLET 1 TABLET IN THE MORNING ON AN EMPTY STOMACH ORALLY ONCE A DAY TAKING VITAMIN D3 25 MCG (1000 UT) CAPSULE 1 CAPSULE ORALLY ONCE A DAY TAKING KETOROLAC TROMETHAMINE 10 MG TABLET 1 TABLET WITH FOOD OR MILK NEEDED ORALLY EVERY 6 HRS NOT-TAKING TIZANIDINE HCL 2 MG TABLET 1 TAB ORALLY PRN HS MDD 2 MEDICATION LIST REVIEWED AND RECONCILED WITH THE PATIENT PAST MEDICAL HISTORY GRAVE'S DISEASE/ HYPOTHYROID PRE-DM-2 HYPERLIPIDEMIA OBESITY UTERINE FIBROIDS 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 QUESADA DETACHMENT LEFT RETINA CATARACT SURG LEFT EYE 09/29/2020 RIGHT CATARACT SURG October SOCIAL HISTORY GENERAL: TOBACCO USE ARE YOU A:NONSMOKER LATEX QUESTIONNAIRE LATEX ALLERGY : HAVE YOU EVER DEVELOPED ANY TYPE OF REACTION AFTER HANDLING LATEX PRODUCTS SUCH RUBBER GLOVES, CONDOMS, DIAPHRAGMS, BALLOONS, SOCKS, OR UNDERWEAR?YES PT ALLERGIC TO LATEX - PLEASE INDICATE :RUBBER GLOVES, CONDOMS, BALLOONS, DIAPHRAGMS, SOCKS, UNDERWEAR LATEX ALLERGY : HAVE YOU EVER DEVELOPED ANY TYPE OF REACTION DURING OR AFTER DENTAL APPOINTMENT, VAGINAL/RECTAL EXAMINATION, SURGICAL PROCEDURE, OR ANY OTHER EXPOSURE?YES - PLEASE INDICATE :DENTAL PROCEDURE, VAGINAL EXAM LATEX RISK : HAVE YOU EVER HAD ANY DIFFICULTY BREATHING OR HIVES AFTER EATING OR HANDLING ANY FRUITS, OR VEGETABLES; SUCH KIWI, BANANAS, STONE FRUITS, OR CHESTNUTSYES - PLEASE INDICATE : STONE FRUITS LATEX RISK : DO YOU HAVE A PREVIOUS PERSONAL HISTORY OF MORE THAN NINE SURGERIES, SPINA BIFIDA, OR REPEATED CATHERIZATIONS? NO LATEX RISK : ARE YOU FREQUENTLY EXPOSED TO LATEX PRODUCTS IN YOUR OCCUPATION?YES DATE ASKED : 12/29/2020 ALCOHOL USE: NO. BMI CARE GOAL FOLLOW-UP ABOVE NORMAL BMI FOLLOW-UPGIVING ENCOURAGEMENT TO EXERCISE, LIFESTYLE EDUCATION REGARDING DIET ALCOHOL SCREENING DID YOU HAVE A DRINK CONTAINING ALCOHOL IN THE PAST YEAR?NO POINTS0 INTERPRETATIONNEGATIVE RECREATIONAL DRUG USE DENIES. CAFFEINE CAFFEINE USE?YES 2-3 A DAY SEXUAL HX HAD SEX IN THE LAST 12 MONTHS (VAGINAL, ORAL, OR ANAL)?YES WITHMEN ONLY USE PROTECTION?NO HAVE YOU EVER HAD AN STD?NO LMP:POST MENOPAUSE HIV / HEP-C SCREENING HIV TEST OFFERED TO PATIENT:YES DATE OFFERED:11/10/2017 PREVIOUSLY DONE TEST ACCEPTED:YES BROCHURE PROVIDED TO PATIENTNO HEP-C TEST OFFERED TO PATIENT:YES DATE OFFERED:11/10/2017 TEST ACCEPTED:NO REASON:PATIENT DECLINED BAPTIST [id number] NONE LANGUAGE LANGUAGES SPOKEN:OMANI EDUCATION 12 GRADUATE. 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 EXERCISE: WALKS DAILY, ELIPTYCAL INTERMITTENTLY PLANET FITNESS 5 DAYS A WEEK. MARITAL STATUS: .. OTHERS AT HOME: SON. - HAS THE PATIENT BEEN EDUCATED REGARDING HIS/HER PLAN OF CARE?YES HAS THE PATIENT BEEN EDUCATED REGARDING PAIN, THE RISK FOR PAIN, THE IMPORTANCE OF EFFECTIVE PAIN MANAGEMENT, AND THE PAIN ASSESSMENT PROCESS?YES ADVANCE DIRECTIVE ADVANCE DIRECTIVE DISCUSSED WITH PATIENT:YES 10/27/2019 PT STATES SHE HAS A HCP - [facility] ([facility]) HOSPITALIZATION/MAJOR DIAGNOSTIC PROCEDURE NONE REVIEW OF SYSTEMS CONSTITUTIONAL: ANY RECENT FEVER NO . CHILLS NO . WEIGHT CHANGE OF UNKNOWN REASONS NO . GASTROENTEROLOGY: NEW UNEXPLAINABLE CHANGES IN BOWEL CONTROL NO . CONSTIPATION NO . GENITOURINARY: ANY NEW CHANGE IN BLADDER CONTROL? NO . NEUROLOGY: NEW ONSET DIZZINESS OR NEUROLOGICAL CHANGES NOT MENTIONED NO . NEW NUMBNESS OR PAIN PATTERNS NOT MENTIONED AND PERTINENT TO TODAY'S VISIT NO . CARDIOLOGY: NEW CHEST PRESSURE NO . PATIENT DENIES NO . RESPIRATORY: UNEXPLAINABLE COUGH NO . NEW SHORTNESS OF BREATH NO . VITAL SIGNS WT 234 LBS, WT-KG 106.14 KG, HT 64 IN, BMI 40.16 INDEX, BP 126/88 MM HG, HR 86 /MIN, RR 18 /MIN, TEMP 97.8 F, OXYGEN SAT % 96%, SAFE IN ENV? (Y/N) YEST.GELA WEBSTER. EXAMINATION GENERAL EXAMINATION: GENERAL AWAKE,ALERT ,PLEAASANT . PSYCH AFFECT NORMAL . LUNGS: LUNG DEL ROSARIO ARE CLEAR TO AUSCULTATION BILATERALLY. GOOD MOVEMENT OF AIR . HEART: S1, S2 IN A REGULAR RATE AND RHYTHM. NO SIGNIFICANT MURMURS, RUBS OR GALLOPS NOTED . MUSCULOSKELETAL: MUSCLE STRENGTH TESTING 4/5 BILATERAL LOWER EXTREMITIES. LUMBAR: TRIGGER POINTS:, ELICITED WITH PALPATION OVER LUMBAR PARAVERTEBRAL MUSCLES. PAIN IS AGGRAVATED IN THIS REGION WITH RANGE OF JOINT MOTION OF THE SPINE.. ASSESSMENTS MYALGIA, UNSPECIFIED SITE - M79.10 (PRIMARY) TREATMENT MYALGIA, UNSPECIFIED SITE START SOMA TABLET, 350 MG, 1 TABLET NEEDED, ORALLY, AT BEDTIME NEEDED MDD1, 30 DAYS, 30, REFILLS 0 NOTES: TRIGGER POINT INJECTIONS BILATERAL LOW BACK PRINTED AND REVIEWED PRE PROCEDURE INFORMATION, PATIENT VERBALIZED UNDERSTANDING CARLOS RUIZ PROCEDURE CODES FA211 ESTABILISHED PATIENT [facility] CHARGE DISPOSITION & COMMUNICATION FOLLOW UP POST (REASON: TRIGGER POINT INJECTIONS BILATERAL LOW BACK) ELECTRONICALLY SIGNED BY ALFA WASSERMAN ON 12/30/2020 AT 11:19 AM EDT DISCLAIMER : THIS IS A VISIT SUMMARY EXTRACTED FROM THE [employer] CHART. IT IS NOT A COPY OF THE [employer] PROGRESS NOTE. DESTINEY
== END ==
LOC: M PAIN 14:30
PROVIDERS: ATTEND Nurse Practitioner Family
DX: M79.10 Myalgia, unspecified site (principal); E03.9 Hypothyroidism, unspecified; R73.03 Prediabetes; G43.909 Migraine, unspecified, not intractable, without status migrainosus; E55.9 Vitamin D deficiency, unspecified; K21.9 Gastro-esophageal reflux disease without esophagitis; Z91.010 Allergy to peanuts; Z91.018 Allergy to other foods; Z91.040 Latex allergy status; E66.01 Morbid (severe) obesity due to excess calories; Z68.41 Body mass index [BMI] 40.0-44.9, adult; Z79.84 Long term (current) use of oral hypoglycemic drugs; Z79.891 Long term (current) use of opiate analgesic; Z79.899 Other long term (current) drug therapy

== ENCOUNTER → 2021-02-03 | Outpatient (CLI) | payer BC | LOC: M LABSMTC 09:10 | PROVIDERS: ATTEND Anesthesiology | DX: Z20.822 Contact with and (suspected) exposure to COVID-19 (principal) ==

== ENCOUNTER → 2021-02-03 | Outpatient (CLI) | payer BC ==
[2021-02-03 13:55] LABS: ALT/SGPT 24 U/L (12-78); BILIRUBIN,TOTAL 0.3 MG/DL (0.2-1.0); BLOOD UREA NITROGEN 16 MG/DL (7-18); CARBON DIOXIDE LEVEL 24 MEQ/L (21-32); CHLORIDE LEVEL 112 MEQ/L (98-107); CHOLESTEROL LEVEL 163 MG/DL (<200); CREATININE FOR GFR 0.91 MG/DL (0.55-1.30); GLOMERULAR FILTRATION RATE > 60.0 (>51); GLUCOSE, FASTING 84 MG/DL (70-100); HDL CHOLESTEROL 48 MG/DL (>40); POTASSIUM SERUM 4.4 MEQ/L (3.5-5.1); SODIUM LEVEL 142 MEQ/L (136-145); TRIGLYCERIDES LEVEL 133 MG/DL (<150)
[2021-02-03 13:56] LABS: ALBUMIN 3.6 GM/DL (3.2-5.2); CHOLESTEROL RISK RATIO 3.395 (<5); FREE T4 1.22 NG/DL (0.76-1.46); LDL CHOLESTEROL 88 MG/DL (<100); NON-HDL-C 115 MG/DL; TOTAL 25(OH) VITAMIN D 30.4 NG/ML (30.0-100.0); TOTAL PROTEIN 6.8 GM/DL (6.4-8.2)
[2021-02-03 14:00] LABS: CREATININE, URINE 18.2 MG/DL; MALB URINE SIEMENS < 5.0 MG/L; MAU/CREAT RATIO 27.4 MCG/MG (0.0-30.0)
[2021-02-03 14:42] LABS: HEMOGLOBIN A1c 5.8 %
== END ==
LOC: M PLALAB 09:19
PROVIDERS: ATTEND Nurse Practitioner Family
DX: R73.03 Prediabetes (principal); E03.8 Other specified hypothyroidism; E78.2 Mixed hyperlipidemia; E55.9 Vitamin D deficiency, unspecified

== ENCOUNTER → 2021-02-03 | Outpatient (CLI) | payer BC | LOC: M PLALAB 09:15 | PROVIDERS: ATTEND Physician Assistant Medical | DX: G43.909 Migraine, unspecified, not intractable, without status migrainosus (principal) ==

== ENCOUNTER → 2021-02-08 | Outpatient (CLI) | payer BC ==
[~2021-02-08] MED LIST changes: +BUPIVACAINE HCL 0.25% 10ML VIAL As Ordered ONE; +BUPIVACAINE HCL 0.25% 30ML VIAL As Ordered ONE; +TRIAMCINOLONE ACETONIDE SUSP 40 MG/ML VIAL (J3301) As Ordered ONE
== END ==
LOC: M PAIN 08:30
PROVIDERS: ATTEND Anesthesiology
DX: M79.18 Myalgia, other site (principal); E03.9 Hypothyroidism, unspecified; R73.03 Prediabetes; G43.909 Migraine, unspecified, not intractable, without status migrainosus; E55.9 Vitamin D deficiency, unspecified; K21.9 Gastro-esophageal reflux disease without esophagitis; Z91.010 Allergy to peanuts; Z91.018 Allergy to other foods; Z91.040 Latex allergy status; E66.01 Morbid (severe) obesity due to excess calories; Z68.41 Body mass index [BMI] 40.0-44.9, adult; Z79.84 Long term (current) use of oral hypoglycemic drugs; Z79.891 Long term (current) use of opiate analgesic; Z79.899 Other long term (current) drug therapy
CPT/HCPCS: 20552; J3301

== ENCOUNTER → 2021-04-14 | Outpatient (CLI) | payer BC ==
[~2021-04-14] MED LIST changes: -BUPIVACAINE HCL 0.25% 10ML VIAL As Ordered ONE; -BUPIVACAINE HCL 0.25% 30ML VIAL As Ordered ONE; -TRIAMCINOLONE ACETONIDE SUSP 40 MG/ML VIAL (J3301) As Ordered ONE
== END ==
LOC: M PAIN 10:30
PROVIDERS: ATTEND Anesthesiology
DX: G89.29 Other chronic pain (principal); M51.16 Intervertebral disc disorders with radiculopathy, lumbar region; E05.00 Thyrotoxicosis with diffuse goiter without thyrotoxic crisis or storm; R73.03 Prediabetes; E78.5 Hyperlipidemia, unspecified; E66.9 Obesity, unspecified; G43.909 Migraine, unspecified, not intractable, without status migrainosus; E55.9 Vitamin D deficiency, unspecified; K21.9 Gastro-esophageal reflux disease without esophagitis; Z79.891 Long term (current) use of opiate analgesic; Z79.84 Long term (current) use of oral hypoglycemic drugs; Z79.899 Other long term (current) drug therapy; Z91.040 Latex allergy status; Z91.018 Allergy to other foods; Z68.41 Body mass index [BMI] 40.0-44.9, adult

== ENCOUNTER → 2021-05-27 | Outpatient (CLI) | payer BC | LOC: M LABSMTC 12:02 | PROVIDERS: ATTEND Anesthesiology | DX: Z01.812 Encounter for preprocedural laboratory examination (principal); Z20.822 Contact with and (suspected) exposure to COVID-19 ==

== ENCOUNTER → 2021-06-28 | Outpatient (REF) | LOC: M LABSMTC 13:06 | PROVIDERS: ATTEND Family Medicine | DX: Z20.828 Contact with and (suspected) exposure to other viral communicable diseases (principal) ==

== ENCOUNTER → 2021-07-28 | Outpatient (CLI) | payer BC | LOC: M LABSMTC 09:32 | PROVIDERS: ATTEND Anesthesiology | DX: Z01.812 Encounter for preprocedural laboratory examination (principal); Z20.822 Contact with and (suspected) exposure to COVID-19 ==

== ENCOUNTER → 2021-08-02 | Outpatient (CLI) | payer BC ==
[~2021-08-02] MED LIST changes: +ISOVUE-M 300 61% 15ML VIAL As Ordered ONE; +LIDOCAINE 1% SDV 30ML VIAL As Ordered ONE; +NORCO, ANEXSIA 5/325MG TABLET (HYDROcodone/ACETAMINOPHEN) As Ordered ONE; +diazePAM 5MG TABLET As Ordered ONE; +methylPREDNISolone SUSP 40MG/ML 1ML VIAL (DEPO MEDROL) As Ordered ONE
== END ==
LOC: M PAIN 13:20
PROVIDERS: ATTEND Anesthesiology
DX: M51.16 Intervertebral disc disorders with radiculopathy, lumbar region (principal); E03.8 Other specified hypothyroidism; R73.03 Prediabetes; E78.5 Hyperlipidemia, unspecified; E66.9 Obesity, unspecified; G43.009 Migraine without aura, not intractable, without status migrainosus; E55.9 Vitamin D deficiency, unspecified; J30.9 Allergic rhinitis, unspecified; K21.9 Gastro-esophageal reflux disease without esophagitis; Z91.018 Allergy to other foods; Z91.040 Latex allergy status; Z79.84 Long term (current) use of oral hypoglycemic drugs; Z79.891 Long term (current) use of opiate analgesic; Z79.899 Other long term (current) drug therapy; Z68.38 Body mass index [BMI] 38.0-38.9, adult
CPT/HCPCS: 62323; J1030; Q9967

== ENCOUNTER → 2021-09-27 | Outpatient (CLI) | payer BC ==
[~2021-09-27] MED LIST changes: -ISOVUE-M 300 61% 15ML VIAL As Ordered ONE; -LIDOCAINE 1% SDV 30ML VIAL As Ordered ONE; -NORCO, ANEXSIA 5/325MG TABLET (HYDROcodone/ACETAMINOPHEN) As Ordered ONE; -diazePAM 5MG TABLET As Ordered ONE; -methylPREDNISolone SUSP 40MG/ML 1ML VIAL (DEPO MEDROL) As Ordered ONE
== END ==
LOC: M PAIN 10:00
PROVIDERS: ATTEND Nurse Practitioner Family
DX: G89.29 Other chronic pain (principal); M51.16 Intervertebral disc disorders with radiculopathy, lumbar region; E05.00 Thyrotoxicosis with diffuse goiter without thyrotoxic crisis or storm; R73.03 Prediabetes; E78.5 Hyperlipidemia, unspecified; E66.9 Obesity, unspecified; G43.909 Migraine, unspecified, not intractable, without status migrainosus; E55.9 Vitamin D deficiency, unspecified; J30.9 Allergic rhinitis, unspecified; K21.9 Gastro-esophageal reflux disease without esophagitis; Z79.84 Long term (current) use of oral hypoglycemic drugs; Z79.899 Other long term (current) drug therapy; Z68.39 Body mass index [BMI] 39.0-39.9, adult

== ENCOUNTER → 2021-10-26 | Outpatient (CLI) | payer BC ==
[2021-10-26 17:48] LABS: HEMOGLOBIN A1c 5.3 %
[2021-10-26 18:05] LABS: ALBUMIN 3.5 GM/DL (3.2-5.2); BILIRUBIN,TOTAL 0.3 MG/DL (0.2-1.0); CALCIUM LEVEL 9.3 MG/DL (8.5-10.1); CHOLESTEROL RISK RATIO 3.357 (<5); CREATININE FOR GFR 1.03 MG/DL (0.55-1.30); FREE T4 1.31 NG/DL (0.76-1.46); GLOMERULAR FILTRATION RATE 58.4 (>51); POTASSIUM SERUM 3.7 MEQ/L (3.5-5.1); THYROID STIMULATING HORMONE 0.533 uIU/ML (0.358-3.740); TOTAL PROTEIN 7.2 GM/DL (6.4-8.2)
== END ==
LOC: M PLALAB 15:25
PROVIDERS: ATTEND Physician Assistant
DX: E78.2 Mixed hyperlipidemia (principal); E03.8 Other specified hypothyroidism; R73.03 Prediabetes

== ENCOUNTER → 2021-12-01 | Outpatient (CLI) | payer BC | LOC: M PAIN 14:45 | PROVIDERS: ATTEND Nurse Practitioner Family | DX: M51.16 Intervertebral disc disorders with radiculopathy, lumbar region (principal); G89.29 Other chronic pain; E11.9 Type 2 diabetes mellitus without complications; E03.9 Hypothyroidism, unspecified; G43.909 Migraine, unspecified, not intractable, without status migrainosus; K21.9 Gastro-esophageal reflux disease without esophagitis; E55.9 Vitamin D deficiency, unspecified; Z91.010 Allergy to peanuts; Z91.018 Allergy to other foods; Z91.040 Latex allergy status; Z79.84 Long term (current) use of oral hypoglycemic drugs; Z79.899 Other long term (current) drug therapy ==

== ENCOUNTER 2022-01-09 19:29 | Emergency (ER) | payer OTHER, BC ==
[~2022-01-09] VITALS: Ht 162.6 cm; Wt 100.1 kg
[2022-01-09] MEDS ORDERED: METH-1165 PO (22:50)
[2022-01-09 22:52] VITALS: BP 131/90
[2022-01-09] MEDS ORDERED: methocarbamoL 750 MG TAB PO ONE (23:00)
== END 2022-01-09 23:03 | disposition home or self-care (01) ==
LOC: M ED 19:29
DX: R07.81 Pleurodynia (principal); M62.838 Other muscle spasm; E11.9 Type 2 diabetes mellitus without complications; I10 Essential (primary) hypertension; E78.5 Hyperlipidemia, unspecified; E03.9 Hypothyroidism, unspecified; Z79.84 Long term (current) use of oral hypoglycemic drugs; Z79.890 Hormone replacement therapy; Z79.899 Other long term (current) drug therapy; Z91.040 Latex allergy status; Z91.018 Allergy to other foods

== ENCOUNTER → 2022-03-09 | Outpatient (CLI) | payer OTHER, BC ==
[~2022-03-09] MED LIST changes: +METH-1165 PO
== END ==
LOC: M LABSMTC 11:48
PROVIDERS: ATTEND Anesthesiology
DX: Z01.812 Encounter for preprocedural laboratory examination (principal); Z11.52 Encounter for screening for COVID-19

== ENCOUNTER → 2022-03-14 | Outpatient (CLI) | payer BC ==
[~2022-03-14] MED LIST changes: +BUPIVACAINE HCL 0.25% 30ML VIAL As Ordered ONE; +ISOVUE-M 300 61% 15ML VIAL As Ordered ONE; +LIDOCAINE 1% SDV 30ML VIAL As Ordered ONE; +NORCO, ANEXSIA 5/325MG TABLET (HYDROcodone/ACETAMINOPHEN) As Ordered ONE; +dexameTHASONE 10MG/1ML VIAL PRES.FREE (J1100 PER 1MG) As Ordered ONE; +diazePAM 5MG TABLET As Ordered ONE
== END ==
LOC: M PAIN 13:30
PROVIDERS: ATTEND Anesthesiology
DX: M51.16 Intervertebral disc disorders with radiculopathy, lumbar region (principal); G89.29 Other chronic pain; E11.9 Type 2 diabetes mellitus without complications; E03.9 Hypothyroidism, unspecified; G43.909 Migraine, unspecified, not intractable, without status migrainosus; E55.9 Vitamin D deficiency, unspecified; K21.9 Gastro-esophageal reflux disease without esophagitis; Z91.010 Allergy to peanuts; Z91.018 Allergy to other foods; Z91.040 Latex allergy status; E66.01 Morbid (severe) obesity due to excess calories; Z68.41 Body mass index [BMI] 40.0-44.9, adult; Z79.84 Long term (current) use of oral hypoglycemic drugs; Z79.890 Hormone replacement therapy; Z79.899 Other long term (current) drug therapy
CPT/HCPCS: 64483; 64484; J1100; Q9967

== ENCOUNTER → 2022-03-22 | Outpatient (REF) ==
[~2022-03-22] MED LIST changes: -BUPIVACAINE HCL 0.25% 30ML VIAL As Ordered ONE; -ISOVUE-M 300 61% 15ML VIAL As Ordered ONE; -LIDOCAINE 1% SDV 30ML VIAL As Ordered ONE; -NORCO, ANEXSIA 5/325MG TABLET (HYDROcodone/ACETAMINOPHEN) As Ordered ONE; -dexameTHASONE 10MG/1ML VIAL PRES.FREE (J1100 PER 1MG) As Ordered ONE; -diazePAM 5MG TABLET As Ordered ONE
== END ==
LOC: M LABSMTC 11:55
PROVIDERS: ATTEND Family Medicine
DX: Z20.828 Contact with and (suspected) exposure to other viral communicable diseases (principal)

== ENCOUNTER → 2022-04-05 | Outpatient (CLI) | payer BC | LOC: M PAIN 15:30 | PROVIDERS: ATTEND Anesthesiology | DX: M51.16 Intervertebral disc disorders with radiculopathy, lumbar region (principal); E03.9 Hypothyroidism, unspecified; R73.03 Prediabetes; E66.9 Obesity, unspecified; E78.5 Hyperlipidemia, unspecified; D25.9 Leiomyoma of uterus, unspecified; G43.009 Migraine without aura, not intractable, without status migrainosus; E55.9 Vitamin D deficiency, unspecified; J30.9 Allergic rhinitis, unspecified; K21.9 Gastro-esophageal reflux disease without esophagitis; K29.70 Gastritis, unspecified, without bleeding; Z79.84 Long term (current) use of oral hypoglycemic drugs; Z79.891 Long term (current) use of opiate analgesic; Z79.899 Other long term (current) drug therapy; Z79.890 Hormone replacement therapy; Z91.040 Latex allergy status; Z91.018 Allergy to other foods; Z68.41 Body mass index [BMI] 40.0-44.9, adult ==

== ENCOUNTER → 2022-06-08 | Outpatient (CLI) | payer BC ==
[2022-06-08 17:24] LABS: BASO # 0.1 10^3/uL (0.0-0.2); BASO % 0.7 % (0.0-1.0); EOS # 0.4 10^3/uL (0.0-0.5); EOS % 3.9 % (0.0-3.0); HEMATOCRIT 40.5 % (36.0-47.0); HEMOGLOBIN 12.7 g/dl (12.0-15.5); LYMPH # 2.9 10^3/uL (1.5-5.0); LYMPH % 32.4 % (24.0-44.0); MEAN CORPUSCULAR HEMOGLOBIN 28.7 pg (27.0-33.0); MEAN CORPUSCULAR HGB CONC 31.4 g/dl (32.0-36.5); MEAN CORPUSCULAR VOLUME 91.4 fl (80.0-96.0); MONO % 10.6 % (2.0-8.0); NEUTROPHILS # 4.7 10^3/uL (1.5-8.5); NEUTROPHILS % 52.1 % (36.0-66.0); PLATELET COUNT, AUTOMATED 362 10^3/uL (150-450); RED BLOOD COUNT 4.43 10^6/uL (4.00-5.40); WHITE BLOOD COUNT 8.9 10^3/uL (4.0-10.0)
[2022-06-08 18:00] LABS: ALBUMIN 3.5 G/DL (3.2-5.2); BILIRUBIN,TOTAL 0.2 MG/DL (0.3-1.2); CALCIUM LEVEL 9.3 MG/DL (8.5-10.1); CREATININE FOR GFR 1.04 MG/DL (0.55-1.30); GLOMERULAR FILTRATION RATE 57.7 (>51); POTASSIUM SERUM 3.7 MMOL/L (3.5-5.1); TOTAL PROTEIN 6.9 G/DL (5.7-8.2)
== END ==
LOC: M PLALAB 15:53
PROVIDERS: ATTEND Psychiatry & Neurology Neurology
DX: R51.9 Headache, unspecified (principal)

== ENCOUNTER → 2022-06-29 | Outpatient (CLI) | payer BC | LOC: M LABSMTC 09:13 | PROVIDERS: ATTEND Anesthesiology | DX: Z01.812 Encounter for preprocedural laboratory examination (principal); Z20.822 Contact with and (suspected) exposure to COVID-19 ==

== ENCOUNTER → 2022-07-04 | Outpatient (CLI) | payer BC ==
[~2022-07-04] MED LIST changes: +BUPIVACAINE HCL 0.25% 30ML VIAL As Ordered ONE; +ISOVUE-M 300 61% 15ML VIAL As Ordered ONE; +LIDOCAINE 1% SDV 30ML VIAL As Ordered ONE; +NORCO, ANEXSIA 5/325MG TABLET (HYDROcodone/ACETAMINOPHEN) As Ordered ONE; +diazePAM 5MG TABLET As Ordered ONE
== END ==
LOC: M PAIN 08:15
PROVIDERS: ATTEND Anesthesiology
DX: M51.16 Intervertebral disc disorders with radiculopathy, lumbar region (principal); G89.29 Other chronic pain; E11.9 Type 2 diabetes mellitus without complications; E03.9 Hypothyroidism, unspecified; G43.909 Migraine, unspecified, not intractable, without status migrainosus; E55.9 Vitamin D deficiency, unspecified; K21.9 Gastro-esophageal reflux disease without esophagitis; Z91.018 Allergy to other foods; Z91.040 Latex allergy status; E66.01 Morbid (severe) obesity due to excess calories; Z68.41 Body mass index [BMI] 40.0-44.9, adult; Z79.890 Hormone replacement therapy; Z79.85 Long-term (current) use of injectable non-insulin antidiabetic drugs; Z79.899 Other long term (current) drug therapy
CPT/HCPCS: 64483; 64484; J1100; S0020

== ENCOUNTER → 2022-07-26 | Outpatient (CLI) | payer BC ==
[~2022-07-26] MED LIST changes: -BUPIVACAINE HCL 0.25% 30ML VIAL As Ordered ONE; -ISOVUE-M 300 61% 15ML VIAL As Ordered ONE; -LIDOCAINE 1% SDV 30ML VIAL As Ordered ONE; -NORCO, ANEXSIA 5/325MG TABLET (HYDROcodone/ACETAMINOPHEN) As Ordered ONE; -diazePAM 5MG TABLET As Ordered ONE
[2022-07-26 17:34] LABS: BASO # 0.1 10^3/uL (0.0-0.2); BASO % 1.2 % (0.0-1.0); EOS # 0.5 10^3/uL (0.0-0.5); EOS % 5.5 % (0.0-3.0); HEMOGLOBIN 12.8 g/dl (12.0-15.5); LYMPH # 2.9 10^3/uL (1.5-5.0); LYMPH % 34.7 % (24.0-44.0); MEAN CORPUSCULAR HEMOGLOBIN 27.8 pg (27.0-33.0); MEAN CORPUSCULAR HGB CONC 30.5 g/dl (32.0-36.5); MEAN CORPUSCULAR VOLUME 91.1 fl (80.0-96.0); MONO # 0.9 10^3/uL (0.0-0.8); MONO % 10.8 % (2.0-8.0); NEUTROPHILS % 47.3 % (36.0-66.0); PLATELET COUNT, AUTOMATED 367 10^3/uL (150-450); RED BLOOD COUNT 4.61 10^6/uL (4.00-5.40); WHITE BLOOD COUNT 8.4 10^3/uL (4.0-10.0)
[2022-07-26 17:43] LABS: ALBUMIN 3.6 G/DL (3.2-5.2); BILIRUBIN,TOTAL 0.2 MG/DL (0.3-1.2); CALCIUM LEVEL 9.5 MG/DL (8.5-10.1); CREATININE FOR GFR 1.06 MG/DL (0.55-1.30); GLOMERULAR FILTRATION RATE 56.5 (>51); TOTAL PROTEIN 6.9 G/DL (5.7-8.2)
[2022-07-26 17:47] LABS: FREE T4 1.09 NG/DL (0.89-1.76); THYROID STIMULATING HORMONE 3.278 uIU/ML (0.55-4.78)
[2022-07-26 18:22] LABS: HEMOGLOBIN A1c 5.7 % (4.0-6.0)
== END ==
LOC: M PLALAB 15:06
PROVIDERS: ATTEND Physician Assistant
DX: E03.8 Other specified hypothyroidism (principal); E13.22 Other specified diabetes mellitus with diabetic chronic kidney disease

== ENCOUNTER → 2022-08-17 | Outpatient (CLI) | payer BC | LOC: M PAIN 16:30 | PROVIDERS: ATTEND Anesthesiology | DX: G89.29 Other chronic pain (principal); M51.16 Intervertebral disc disorders with radiculopathy, lumbar region; E03.9 Hypothyroidism, unspecified; R73.03 Prediabetes; E78.5 Hyperlipidemia, unspecified; E66.9 Obesity, unspecified; G43.909 Migraine, unspecified, not intractable, without status migrainosus; E55.9 Vitamin D deficiency, unspecified; J30.9 Allergic rhinitis, unspecified; K21.9 Gastro-esophageal reflux disease without esophagitis; K29.70 Gastritis, unspecified, without bleeding; Z91.018 Allergy to other foods; Z91.040 Latex allergy status; Z79.890 Hormone replacement therapy; Z79.85 Long-term (current) use of injectable non-insulin antidiabetic drugs; Z79.891 Long term (current) use of opiate analgesic; Z79.899 Other long term (current) drug therapy ==

== ENCOUNTER → 2022-08-25 | Outpatient (CLI) | payer BC | LOC: M PAIN 15:30 | PROVIDERS: ATTEND Anesthesiology | DX: M47.816 Spondylosis without myelopathy or radiculopathy, lumbar region (principal); G89.29 Other chronic pain; E11.9 Type 2 diabetes mellitus without complications; E03.9 Hypothyroidism, unspecified; G43.909 Migraine, unspecified, not intractable, without status migrainosus; E55.9 Vitamin D deficiency, unspecified; K21.9 Gastro-esophageal reflux disease without esophagitis; Z91.010 Allergy to peanuts; Z91.018 Allergy to other foods; Z91.040 Latex allergy status; Z79.84 Long term (current) use of oral hypoglycemic drugs; Z79.85 Long-term (current) use of injectable non-insulin antidiabetic drugs; Z79.890 Hormone replacement therapy; Z79.899 Other long term (current) drug therapy ==

== ENCOUNTER → 2022-11-13 | Outpatient (CLI) | payer BC | LOC: M PAIN 14:45 | PROVIDERS: ATTEND Nurse Practitioner Family | DX: G43.009 Migraine without aura, not intractable, without status migrainosus (principal); E03.9 Hypothyroidism, unspecified; R73.03 Prediabetes; E78.5 Hyperlipidemia, unspecified; E66.9 Obesity, unspecified; M54.50 Low back pain, unspecified; G89.29 Other chronic pain; E55.9 Vitamin D deficiency, unspecified; J30.9 Allergic rhinitis, unspecified; K21.9 Gastro-esophageal reflux disease without esophagitis; Z79.891 Long term (current) use of opiate analgesic; Z79.899 Other long term (current) drug therapy; Z79.84 Long term (current) use of oral hypoglycemic drugs; Z68.41 Body mass index [BMI] 40.0-44.9, adult; Z91.040 Latex allergy status; Z91.018 Allergy to other foods ==

== ENCOUNTER → 2022-11-30 | Outpatient (CLI) | payer BC ==
[~2022-11-30] MED LIST changes: +ISOVUE-M 300 61% 15ML VIAL As Ordered ONE; +LIDOCAINE 1% SDV 30ML VIAL As Ordered ONE
== END ==
LOC: M PAIN 11:30
PROVIDERS: ATTEND Anesthesiology
DX: M47.816 Spondylosis without myelopathy or radiculopathy, lumbar region (principal); G89.29 Other chronic pain; E11.9 Type 2 diabetes mellitus without complications; E03.9 Hypothyroidism, unspecified; G43.909 Migraine, unspecified, not intractable, without status migrainosus; K21.9 Gastro-esophageal reflux disease without esophagitis; Z91.010 Allergy to peanuts; Z91.018 Allergy to other foods; Z91.040 Latex allergy status; E66.01 Morbid (severe) obesity due to excess calories; Z68.41 Body mass index [BMI] 40.0-44.9, adult; Z79.84 Long term (current) use of oral hypoglycemic drugs; Z79.890 Hormone replacement therapy; Z79.899 Other long term (current) drug therapy
CPT/HCPCS: 64493; 64494; J0665; Q9967

== ENCOUNTER → 2022-12-05 | Outpatient (CLI) | payer BC ==
[~2022-12-05] MED LIST changes: -ISOVUE-M 300 61% 15ML VIAL As Ordered ONE; -LIDOCAINE 1% SDV 30ML VIAL As Ordered ONE
[2022-12-05 18:09] LABS: HEMOGLOBIN A1c 5.6 % (4.0-6.0)
[2022-12-05 18:14] LABS: BASO # 0.1 10^3/uL (0.0-0.2); BASO % 0.8 % (0.0-1.0); EOS # 0.4 10^3/uL (0.0-0.5); EOS % 4.5 % (0.0-3.0); HEMOGLOBIN 12.6 g/dl (12.0-15.5); LYMPH # 2.6 10^3/uL (1.5-5.0); LYMPH % 31.4 % (24.0-44.0); MEAN CORPUSCULAR HEMOGLOBIN 28.6 pg (27.0-33.0); MEAN CORPUSCULAR HGB CONC 31.5 g/dl (32.0-36.5); MEAN CORPUSCULAR VOLUME 90.7 fl (80.0-96.0); MONO # 0.7 10^3/uL (0.0-0.8); MONO % 8.5 % (2.0-8.0); NEUTROPHILS # 4.5 10^3/uL (1.5-8.5); NEUTROPHILS % 54.6 % (36.0-66.0); PLATELET COUNT, AUTOMATED 391 10^3/uL (150-450); RED BLOOD COUNT 4.41 10^6/uL (4.00-5.40); WHITE BLOOD COUNT 8.3 10^3/uL (4.0-10.0)
[2022-12-05 18:29] LABS: TOTAL 25(OH) VITAMIN D 29.1 NG/ML (20.0-100.0)
[2022-12-05 18:31] LABS: FREE T4 1.22 NG/DL (0.89-1.76)
[2022-12-05 18:32] LABS: ALBUMIN 3.5 G/DL (3.2-5.2); ALKALINE PHOSPHATASE 157 U/L (46-116); ALT/SGPT 33 U/L (7.0-40); AST/SGOT 52 U/L (<34); BILIRUBIN,TOTAL 0.3 MG/DL (0.3-1.2); BLOOD UREA NITROGEN 13 MG/DL (9-23); CALCIUM LEVEL 8.8 MG/DL (8.3-10.6); CARBON DIOXIDE LEVEL 31 MMOL/L (20-31); CHLORIDE LEVEL 104 MMOL/L (98-107); CHOLESTEROL LEVEL 163 MG/DL (<200); CHOLESTEROL RISK RATIO 3.59 (<5); GLOMERULAR FILTRATION RATE > 60.0 (>45); GLUCOSE, FASTING 75 MG/DL (74-106); HDL CHOLESTEROL 45.3 MG/DL (>40); LDL CHOLESTEROL 81.1 MG/DL (<100); NON-HDL-C 117.7 MG/DL; POTASSIUM SERUM 3.7 MMOL/L (3.5-5.1); SODIUM LEVEL 141 MMOL/L (136-145); TOTAL PROTEIN 6.9 G/DL (5.7-8.2); TRIGLYCERIDES LEVEL 183 MG/DL (<150)
== END ==
LOC: M PLALAB 16:16
PROVIDERS: ATTEND Physician Assistant
DX: E03.8 Other specified hypothyroidism (principal); E78.2 Mixed hyperlipidemia; E55.9 Vitamin D deficiency, unspecified; N18.31 Chronic kidney disease, stage 3a; R73.03 Prediabetes

== ENCOUNTER → 2022-12-19 | Outpatient (CLI) | payer BC ==
[~2022-12-19] MED LIST changes: +BOTOX THERAPEUTIC 100 UNIT VIAL IM ONE; +NORCO, ANEXSIA 5/325MG TABLET (HYDROcodone/ACETAMINOPHEN) As Ordered ONE; +diazePAM 5MG TABLET As Ordered ONE
== END ==
LOC: M PAIN 13:00
PROVIDERS: ATTEND Anesthesiology
DX: G43.709 Chronic migraine without aura, not intractable, without status migrainosus (principal); E03.9 Hypothyroidism, unspecified; R73.03 Prediabetes; E78.5 Hyperlipidemia, unspecified; E66.9 Obesity, unspecified; M54.50 Low back pain, unspecified; E55.9 Vitamin D deficiency, unspecified; J30.9 Allergic rhinitis, unspecified; K21.9 Gastro-esophageal reflux disease without esophagitis; Z79.890 Hormone replacement therapy; Z79.84 Long term (current) use of oral hypoglycemic drugs; Z79.899 Other long term (current) drug therapy; Z91.018 Allergy to other foods; Z91.040 Latex allergy status; Z68.41 Body mass index [BMI] 40.0-44.9, adult
CPT/HCPCS: 64615; J0585

== ENCOUNTER → 2023-01-04 | Outpatient (CLI) | payer BC ==
[~2023-01-04] MED LIST changes: -BOTOX THERAPEUTIC 100 UNIT VIAL IM ONE; -NORCO, ANEXSIA 5/325MG TABLET (HYDROcodone/ACETAMINOPHEN) As Ordered ONE; -diazePAM 5MG TABLET As Ordered ONE
== END ==
LOC: M PAIN 14:45
PROVIDERS: ATTEND Nurse Practitioner Family
DX: M47.816 Spondylosis without myelopathy or radiculopathy, lumbar region (principal); G89.29 Other chronic pain; M47.817 Spondylosis without myelopathy or radiculopathy, lumbosacral region; E03.9 Hypothyroidism, unspecified; E05.00 Thyrotoxicosis with diffuse goiter without thyrotoxic crisis or storm; R73.03 Prediabetes; E78.5 Hyperlipidemia, unspecified; E66.9 Obesity, unspecified; G43.909 Migraine, unspecified, not intractable, without status migrainosus; M54.50 Low back pain, unspecified; E55.9 Vitamin D deficiency, unspecified; J30.9 Allergic rhinitis, unspecified; K21.9 Gastro-esophageal reflux disease without esophagitis; Z79.84 Long term (current) use of oral hypoglycemic drugs; Z79.891 Long term (current) use of opiate analgesic; Z91.010 Allergy to peanuts; Z91.018 Allergy to other foods; Z91.040 Latex allergy status; Z68.41 Body mass index [BMI] 40.0-44.9, adult

== ENCOUNTER → 2023-01-12 | Outpatient (CLI) | payer BC ==
[2023-01-12 18:00] LABS: ALBUMIN 3.4 G/DL (3.2-5.2); BILIRUBIN,DIRECT 0.1 MG/DL (<0.4); BILIRUBIN,TOTAL 0.3 MG/DL (0.3-1.2)
[2023-01-12 18:01] LABS: FREE T4 1.15 NG/DL (0.89-1.76); THYROID STIMULATING HORMONE 2.178 uIU/ML (0.55-4.78)
== END ==
LOC: M PLALAB 15:21
PROVIDERS: ATTEND Physician Assistant
DX: E03.8 Other specified hypothyroidism (principal); E06.3 Autoimmune thyroiditis

== ENCOUNTER → 2023-02-05 | Outpatient (CLI) | payer BC ==
[2023-02-05 18:02] LABS: ALBUMIN 3.9 G/DL (3.2-5.2); ALKALINE PHOSPHATASE 120 U/L (46-116); ALT/SGPT 42 U/L (7.0-40); AST/SGOT 26 U/L (<34); BILIRUBIN,DIRECT 0.1 MG/DL (<0.4); BILIRUBIN,TOTAL 0.3 MG/DL (0.3-1.2); TOTAL PROTEIN 7.4 G/DL (5.7-8.2)
[2023-02-05 18:35] LABS: HEPATITIS C VIRUS ABY INDEX 0.17 INDEX (<0.8)
[2023-02-05 18:36] LABS: HEPATITIS B CORE ANTIBODY IGM NEGATIVE (NEGATIVE)
== END ==
LOC: M PLALAB 15:19
PROVIDERS: ATTEND Physician Assistant
DX: R79.89 Other specified abnormal findings of blood chemistry (principal)

== ENCOUNTER 2023-02-28 09:51 | Day surgery (SDC) | payer BC ==
[~2023-02-28] VITALS: Ht 162.6 cm; Wt 117.1 kg
[~2023-02-28 09:51] MED LIST changes: +LEVO137T2 PO; +LIDOCAINE 2% 100MG/5ML SDV (FOR ANES.) As Ordered ONE; +METF-839 PO; +NS 1,000 ML IV ONE; +POTA-150 PO; +SIMV20TA22 PO; +propofoL 200 MG/20 ML VIAL As Ordered ONE
[2023-02-28 13:07] VITALS: TEMP 97.8
[2023-02-28 13:22] VITALS: BP 187/102; O2SAT 99
== END 2023-02-28 13:50 | disposition home or self-care (01) ==
LOC: M OPP 09:51
PROVIDERS: ATTEND Surgery
DX: Z12.11 Encounter for screening for malignant neoplasm of colon (principal); Z80.0 Family history of malignant neoplasm of digestive organs; D12.6 Benign neoplasm of colon, unspecified; K64.9 Unspecified hemorrhoids; K57.30 Diverticulosis of large intestine without perforation or abscess without bleeding; R60.0 Localized edema; E11.9 Type 2 diabetes mellitus without complications; E03.9 Hypothyroidism, unspecified; G43.909 Migraine, unspecified, not intractable, without status migrainosus; Z91.018 Allergy to other foods; Z91.040 Latex allergy status; Z79.84 Long term (current) use of oral hypoglycemic drugs; Z79.890 Hormone replacement therapy; Z79.899 Other long term (current) drug therapy

== ENCOUNTER → 2023-03-13 | Outpatient (CLI) | payer BC ==
[~2023-03-13] MED LIST changes: +LIDOCAINE 1% SDV 30ML VIAL As Ordered ONE; -LIDOCAINE 2% 100MG/5ML SDV (FOR ANES.) As Ordered ONE; +NORCO, ANEXSIA 5/325MG TABLET (HYDROcodone/ACETAMINOPHEN) As Ordered ONE; -NS 1,000 ML IV ONE; +dexAMETHasone 10MG/1ML VIAL PRES.FREE As Ordered ONE; +diazePAM 5MG TABLET As Ordered ONE; -propofoL 200 MG/20 ML VIAL As Ordered ONE
== END ==
LOC: M PAIN 09:00
PROVIDERS: ATTEND Anesthesiology
DX: M47.816 Spondylosis without myelopathy or radiculopathy, lumbar region (principal); G89.29 Other chronic pain; E11.9 Type 2 diabetes mellitus without complications; Z80.0 Family history of malignant neoplasm of digestive organs; Z91.010 Allergy to peanuts; Z91.018 Allergy to other foods; Z91.040 Latex allergy status; E66.01 Morbid (severe) obesity due to excess calories; Z68.41 Body mass index [BMI] 40.0-44.9, adult; Z79.84 Long term (current) use of oral hypoglycemic drugs; Z79.899 Other long term (current) drug therapy
CPT/HCPCS: 64635; 64636; J0665; J1100

== ENCOUNTER → 2023-03-27 | Outpatient (CLI) | payer BC ==
[~2023-03-27] MED LIST changes: +BOTOX THERAPEUTIC 100 UNIT VIAL IM ONE; -LIDOCAINE 1% SDV 30ML VIAL As Ordered ONE; -NORCO, ANEXSIA 5/325MG TABLET (HYDROcodone/ACETAMINOPHEN) As Ordered ONE; -dexAMETHasone 10MG/1ML VIAL PRES.FREE As Ordered ONE; -diazePAM 5MG TABLET As Ordered ONE
== END ==
LOC: M PAIN 12:45
PROVIDERS: ATTEND Anesthesiology
DX: G43.709 Chronic migraine without aura, not intractable, without status migrainosus (principal); E03.9 Hypothyroidism, unspecified; R73.03 Prediabetes; E78.5 Hyperlipidemia, unspecified; E66.9 Obesity, unspecified; M54.50 Low back pain, unspecified; G89.29 Other chronic pain; E55.9 Vitamin D deficiency, unspecified; J30.9 Allergic rhinitis, unspecified; K21.9 Gastro-esophageal reflux disease without esophagitis; Z79.890 Hormone replacement therapy; Z79.84 Long term (current) use of oral hypoglycemic drugs; Z79.899 Other long term (current) drug therapy; Z91.018 Allergy to other foods; Z91.040 Latex allergy status; Z68.41 Body mass index [BMI] 40.0-44.9, adult
CPT/HCPCS: 64615; J0585

== ENCOUNTER → 2023-04-10 | Outpatient (CLI) | payer BC ==
[~2023-04-10] MED LIST changes: -BOTOX THERAPEUTIC 100 UNIT VIAL IM ONE
== END ==
LOC: M PAIN 15:30
PROVIDERS: ATTEND Nurse Practitioner Family
DX: M47.817 Spondylosis without myelopathy or radiculopathy, lumbosacral region (principal); M47.816 Spondylosis without myelopathy or radiculopathy, lumbar region; G89.29 Other chronic pain; Z80.0 Family history of malignant neoplasm of digestive organs; Z91.010 Allergy to peanuts; Z91.018 Allergy to other foods; Z91.040 Latex allergy status; E66.01 Morbid (severe) obesity due to excess calories; Z68.41 Body mass index [BMI] 40.0-44.9, adult; Z79.84 Long term (current) use of oral hypoglycemic drugs; Z79.899 Other long term (current) drug therapy

== ENCOUNTER → 2023-05-31 | Outpatient (CLI) | payer BC | LOC: M PAIN 09:45 | PROVIDERS: ATTEND Anesthesiology | DX: M47.816 Spondylosis without myelopathy or radiculopathy, lumbar region (principal); G89.29 Other chronic pain; Z80.0 Family history of malignant neoplasm of digestive organs; Z80.8 Family history of malignant neoplasm of other organs or systems; Z91.010 Allergy to peanuts; Z91.018 Allergy to other foods; Z91.040 Latex allergy status; E66.01 Morbid (severe) obesity due to excess calories; Z68.41 Body mass index [BMI] 40.0-44.9, adult; Z79.84 Long term (current) use of oral hypoglycemic drugs; Z79.899 Other long term (current) drug therapy | CPT/HCPCS: 76000; G0463 ==

== ENCOUNTER → 2023-07-31 | Outpatient (CLI) | payer BC ==
[~2023-07-31] MED LIST changes: +LIDOCAINE 1% SDV 30ML VIAL As Ordered ONE; +NORCO, ANEXSIA 5/325MG TABLET (HYDROcodone/ACETAMINOPHEN) As Ordered ONE; +dexAMETHasone 10MG/1ML VIAL PRES.FREE As Ordered ONE; +diazePAM 5MG TABLET As Ordered ONE
== END ==
LOC: M PAIN 15:00
PROVIDERS: ATTEND Anesthesiology
DX: M47.816 Spondylosis without myelopathy or radiculopathy, lumbar region (principal); M54.50 Low back pain, unspecified; G89.29 Other chronic pain; G43.909 Migraine, unspecified, not intractable, without status migrainosus; E03.9 Hypothyroidism, unspecified; R73.03 Prediabetes; E78.5 Hyperlipidemia, unspecified; E66.9 Obesity, unspecified; E55.9 Vitamin D deficiency, unspecified; K21.9 Gastro-esophageal reflux disease without esophagitis; Z79.890 Hormone replacement therapy; Z79.84 Long term (current) use of oral hypoglycemic drugs; Z79.899 Other long term (current) drug therapy; Z91.018 Allergy to other foods; Z91.040 Latex allergy status
CPT/HCPCS: 64634; 64635; J0665; J1100

== ENCOUNTER → 2023-09-06 | Outpatient (CLI) | payer BC ==
[~2023-09-06] MED LIST changes: +GASTROGRAFIN SOLUTION 30ML As Ordered ONE; +ISOVUE-370 76% 100ML VIAL As Ordered ONE; -LIDOCAINE 1% SDV 30ML VIAL As Ordered ONE; -NORCO, ANEXSIA 5/325MG TABLET (HYDROcodone/ACETAMINOPHEN) As Ordered ONE; -dexAMETHasone 10MG/1ML VIAL PRES.FREE As Ordered ONE; -diazePAM 5MG TABLET As Ordered ONE
== END ==
LOC: M RAD 11:26
PROVIDERS: ATTEND Physician Assistant
DX: R10.2 Pelvic and perineal pain (principal); N20.0 Calculus of kidney; K57.30 Diverticulosis of large intestine without perforation or abscess without bleeding; K44.9 Diaphragmatic hernia without obstruction or gangrene
CPT/HCPCS: 74177; Q9963; Q9967

== ENCOUNTER → 2023-10-04 | Outpatient (CLI) | payer BC ==
[~2023-10-04] MED LIST changes: -GASTROGRAFIN SOLUTION 30ML As Ordered ONE; -ISOVUE-370 76% 100ML VIAL As Ordered ONE
[2023-10-04 15:55] LABS: BASO # 0.1 10^3/uL (0.0-0.2); BASO % 1.1 % (0.0-1.0); EOS # 0.7 10^3/uL (0.0-0.5); EOS % 8.5 % (0.0-3.0); HEMATOCRIT 39.6 % (36.0-47.0); HEMOGLOBIN 12.9 g/dl (12.0-15.5); LYMPH % 37.8 % (24.0-44.0); MEAN CORPUSCULAR HEMOGLOBIN 29.1 pg (27.0-33.0); MEAN CORPUSCULAR HGB CONC 32.6 g/dl (32.0-36.5); MEAN CORPUSCULAR VOLUME 89.4 fl (80.0-96.0); MONO # 0.7 10^3/uL (0.0-0.8); MONO % 8.3 % (2.0-8.0); NEUTROPHILS # 3.5 10^3/uL (1.5-8.5); NEUTROPHILS % 43.9 % (36.0-66.0); PLATELET COUNT, AUTOMATED 428 10^3/uL (150-450); RED BLOOD COUNT 4.43 10^6/uL (4.00-5.40); WHITE BLOOD COUNT 7.9 10^3/uL (4.0-10.0)
[2023-10-04 16:01] LABS: ERYTHROCYTE SEDIMENTATION RATE 31 mm/hr (0-30)
[2023-10-04 16:32] LABS: HEMOGLOBIN A1c 5.6 % (4.0-6.0)
[2023-10-04 16:36] LABS: C REACTIVE PROTEIN QUANTITATIV < 0.40 MG/DL (<1.0); LIPASE 108 U/L (12-53)
[2023-10-04 16:38] LABS: ALBUMIN 3.5 G/DL (3.2-5.2); ALKALINE PHOSPHATASE 107 U/L (46-116); ALT/SGPT 21 U/L (7.0-40); AST/SGOT 17 U/L (<34); BILIRUBIN,TOTAL 0.2 MG/DL (0.3-1.2); BLOOD UREA NITROGEN 21 MG/DL (9-23); CARBON DIOXIDE LEVEL 25 MMOL/L (20-31); CHLORIDE LEVEL 106 MMOL/L (98-107); CHOLESTEROL LEVEL 270 MG/DL (<200); CHOLESTEROL RISK RATIO 6.17 (<5); CREATININE FOR GFR 1.06 MG/DL (0.55-1.30); FREE T4 0.41 NG/DL (0.89-1.76); GLOMERULAR FILTRATION RATE 56.1 (>45); GLUCOSE, FASTING 87 MG/DL (74-106); HDL CHOLESTEROL 43.7 MG/DL (>40); LDL CHOLESTEROL 176.9 MG/DL (<100); NON-HDL-C 226.3 MG/DL; POTASSIUM SERUM 3.8 MMOL/L (3.5-5.1); SODIUM LEVEL 141 MMOL/L (136-145); THYROID STIMULATING HORMONE 93.473 uIU/ML (0.55-4.78); TOTAL 25(OH) VITAMIN D 21.2 NG/ML (20.0-100.0); TOTAL PROTEIN 6.7 G/DL (5.7-8.2); TRIGLYCERIDES LEVEL 247 MG/DL (<150)
== END ==
LOC: M PLALAB 14:00
PROVIDERS: ATTEND Physician Assistant
DX: E78.2 Mixed hyperlipidemia (principal); E55.9 Vitamin D deficiency, unspecified; R10.9 Unspecified abdominal pain; E03.8 Other specified hypothyroidism

== ENCOUNTER → 2023-10-25 | Outpatient (CLI) | payer BC ==
[2023-10-25 16:33] LABS: ALBUMIN 3.7 G/DL (3.2-5.2); CALCIUM LEVEL 9.3 MG/DL (8.3-10.6); POTASSIUM SERUM 4.2 MMOL/L (3.5-5.1)
[2023-10-25 16:34] LABS: THYROXINE (T4) 9.1 UG/DL (4.5-10.9)
[2023-10-25 16:35] LABS: THYROID STIMULATING HORMONE 15.043 uIU/ML (0.55-4.78)
[2023-10-25 16:38] LABS: FREE THYROXINE INDEX 2.8 % (1.3-4.8); T UPTAKE 30.3 % (22.5-37.0)
== END ==
LOC: M PLALAB 13:47
PROVIDERS: ATTEND Physician Assistant
DX: E03.8 Other specified hypothyroidism (principal); R73.03 Prediabetes; R74.8 Abnormal levels of other serum enzymes

== ENCOUNTER → 2023-11-02 | Outpatient (CLI) | payer BC | LOC: M PAIN 14:45 | PROVIDERS: ATTEND Nurse Practitioner Family | DX: M79.10 Myalgia, unspecified site (principal); Z79.891 Long term (current) use of opiate analgesic; G89.29 Other chronic pain; E03.9 Hypothyroidism, unspecified; R73.03 Prediabetes; E66.9 Obesity, unspecified; G43.909 Migraine, unspecified, not intractable, without status migrainosus; M54.50 Low back pain, unspecified; E55.9 Vitamin D deficiency, unspecified; K21.9 Gastro-esophageal reflux disease without esophagitis; Z79.84 Long term (current) use of oral hypoglycemic drugs; Z79.890 Hormone replacement therapy; Z91.018 Allergy to other foods; Z91.040 Latex allergy status ==

== ENCOUNTER → 2023-11-16 | Outpatient (CLI) | payer BC ==
[~2023-11-16] MED LIST changes: +BOTOX THERAPEUTIC 100 UNIT VIAL IM ONE
== END ==
LOC: M PAIN 14:45
PROVIDERS: ATTEND Anesthesiology
DX: G43.709 Chronic migraine without aura, not intractable, without status migrainosus (principal); Z91.018 Allergy to other foods; Z91.040 Latex allergy status; Z79.02 Long term (current) use of antithrombotics/antiplatelets; Z79.890 Hormone replacement therapy; Z79.899 Other long term (current) drug therapy
CPT/HCPCS: 64615; J0585

== ENCOUNTER → 2023-12-04 | Outpatient (CLI) | payer BC ==
[~2023-12-04] MED LIST changes: -BOTOX THERAPEUTIC 100 UNIT VIAL IM ONE
[2023-12-04 15:52] LABS: LIPASE 26 U/L (12-53)
[2023-12-04 15:55] LABS: ALBUMIN 3.3 G/DL (3.2-5.2); BLOOD UREA NITROGEN 16 MG/DL (9-23); CALCIUM LEVEL 9.7 MG/DL (8.3-10.6); CARBON DIOXIDE LEVEL 28 MMOL/L (20-31); CHLORIDE LEVEL 110 MMOL/L (98-107); CHOLESTEROL LEVEL 172 MG/DL (<200); CHOLESTEROL RISK RATIO 4.17 (<5); CREATININE FOR GFR 0.81 MG/DL (0.55-1.30); GLOMERULAR FILTRATION RATE > 60.0 (>45); GLUCOSE, FASTING 63 MG/DL (74-106); HDL CHOLESTEROL 41.2 MG/DL (>40); LDL CHOLESTEROL 96.8 MG/DL (<100); MAGNESIUM LEVEL 1.7 MG/DL (1.8-2.4); NON-HDL-C 130.8 MG/DL; PHOSPHORUS LEVEL 2.5 MG/DL (2.4-5.1); POTASSIUM SERUM 3.8 MMOL/L (3.5-5.1); SODIUM LEVEL 143 MMOL/L (136-145); TRIGLYCERIDES LEVEL 170 MG/DL (<150)
[2023-12-04 15:56] LABS: FREE T4 1.11 NG/DL (0.89-1.76); THYROID STIMULATING HORMONE 5.628 uIU/ML (0.55-4.78)
== END ==
LOC: M PLALAB 13:16
PROVIDERS: ATTEND Physician Assistant
DX: K85.90 Acute pancreatitis without necrosis or infection, unspecified (principal); E78.2 Mixed hyperlipidemia; E06.3 Autoimmune thyroiditis; E03.8 Other specified hypothyroidism; R60.0 Localized edema

== ENCOUNTER → 2023-12-13 | Outpatient (CLI) | payer BC | LOC: M RAD 10:45 | PROVIDERS: ATTEND Physician Assistant | DX: R33.9 Retention of urine, unspecified (principal) ==

== ENCOUNTER → 2023-12-28 | Outpatient (CLI) | payer BC | LOC: M PAIN 15:00 | PROVIDERS: ATTEND Nurse Practitioner Family | DX: G43.709 Chronic migraine without aura, not intractable, without status migrainosus (principal); E03.9 Hypothyroidism, unspecified; R73.03 Prediabetes; E78.5 Hyperlipidemia, unspecified; E66.9 Obesity, unspecified; M54.50 Low back pain, unspecified; G89.29 Other chronic pain; E55.9 Vitamin D deficiency, unspecified; K21.9 Gastro-esophageal reflux disease without esophagitis; Z91.018 Allergy to other foods; Z91.040 Latex allergy status ==

== ENCOUNTER → 2024-01-31 | Outpatient (CLI) | payer BC ==
[~2024-01-31] MED LIST changes: +TRIAMCINOLONE ACETONIDE SUSP 40MG/ML 1ML VIAL As Ordered ONE
== END ==
LOC: M PAIN 14:00
PROVIDERS: ATTEND Anesthesiology
DX: M79.18 Myalgia, other site (principal); G89.29 Other chronic pain; E03.9 Hypothyroidism, unspecified; R73.03 Prediabetes; E78.5 Hyperlipidemia, unspecified; E66.9 Obesity, unspecified; G43.009 Migraine without aura, not intractable, without status migrainosus; M54.50 Low back pain, unspecified; E55.9 Vitamin D deficiency, unspecified; K21.9 Gastro-esophageal reflux disease without esophagitis; Z79.84 Long term (current) use of oral hypoglycemic drugs; Z79.899 Other long term (current) drug therapy; Z91.010 Allergy to peanuts; Z91.018 Allergy to other foods; Z91.040 Latex allergy status; Z68.41 Body mass index [BMI] 40.0-44.9, adult
CPT/HCPCS: 20552; J0665; J3301

== ENCOUNTER → 2024-02-01 | Outpatient (CLI) | payer BC ==
[~2024-02-01] MED LIST changes: -TRIAMCINOLONE ACETONIDE SUSP 40MG/ML 1ML VIAL As Ordered ONE
[2024-02-01 18:04] LABS: BASO # 0.1 10^3/uL (0.0-0.2); BASO % 0.8 % (0.0-1.0); EOS # 0.2 10^3/uL (0.0-0.5); EOS % 2.2 % (0.0-3.0); HEMATOCRIT 38.8 % (36.0-47.0); HEMOGLOBIN 12.3 g/dl (12.0-15.5); LYMPH # 2.2 10^3/uL (1.5-5.0); LYMPH % 23.4 % (24.0-44.0); MEAN CORPUSCULAR HEMOGLOBIN 29.4 pg (27.0-33.0); MEAN CORPUSCULAR HGB CONC 31.7 g/dl (32.0-36.5); MEAN CORPUSCULAR VOLUME 92.8 fl (80.0-96.0); MONO # 0.7 10^3/uL (0.0-0.8); MONO % 7.3 % (2.0-8.0); NEUTROPHILS # 6.1 10^3/uL (1.5-8.5); NEUTROPHILS % 65.9 % (36.0-66.0); PLATELET COUNT, AUTOMATED 384 10^3/uL (150-450); RED BLOOD COUNT 4.18 10^6/uL (4.00-5.40); WHITE BLOOD COUNT 9.3 10^3/uL (4.0-10.0)
[2024-02-01 18:32] LABS: ALBUMIN 3.6 G/DL (3.2-5.2); BILIRUBIN,TOTAL 0.2 MG/DL (0.3-1.2); CALCIUM LEVEL 9.6 MG/DL (8.3-10.6); CREATININE FOR GFR 1.04 MG/DL (0.55-1.30); GLOMERULAR FILTRATION RATE 57.4 (>45); POTASSIUM SERUM 4.4 MMOL/L (3.5-5.1); TOTAL PROTEIN 7.2 G/DL (5.7-8.2)
[2024-02-01 18:37] LABS: FREE T4 1.24 NG/DL (0.89-1.76)
[2024-02-01 18:38] LABS: THYROID STIMULATING HORMONE 2.567 uIU/ML (0.55-4.78)
== END ==
LOC: M PLALAB 15:28
PROVIDERS: ATTEND Physician Assistant
DX: E03.8 Other specified hypothyroidism (principal)

== ENCOUNTER → 2024-02-26 | Outpatient (CLI) | payer BC ==
[~2024-02-26] MED LIST changes: +BOTOX THERAPEUTIC 100 UNIT VIAL IM ONE
== END ==
LOC: M PAIN 13:00
PROVIDERS: ATTEND Anesthesiology
DX: G43.709 Chronic migraine without aura, not intractable, without status migrainosus (principal); E03.9 Hypothyroidism, unspecified; R73.03 Prediabetes; E78.5 Hyperlipidemia, unspecified; E66.9 Obesity, unspecified; M54.50 Low back pain, unspecified; G89.29 Other chronic pain; E55.9 Vitamin D deficiency, unspecified; K21.9 Gastro-esophageal reflux disease without esophagitis; Z79.84 Long term (current) use of oral hypoglycemic drugs; Z79.899 Other long term (current) drug therapy; Z91.040 Latex allergy status; Z91.018 Allergy to other foods
CPT/HCPCS: 64615; J0585

== ENCOUNTER → 2024-03-03 | Outpatient (CLI) | payer BC ==
[~2024-03-03] MED LIST changes: -BOTOX THERAPEUTIC 100 UNIT VIAL IM ONE
== END ==
LOC: M PAIN 15:00
PROVIDERS: ATTEND Nurse Practitioner Family
DX: G89.29 Other chronic pain (principal); M47.816 Spondylosis without myelopathy or radiculopathy, lumbar region; E03.9 Hypothyroidism, unspecified; R73.03 Prediabetes; E78.5 Hyperlipidemia, unspecified; E66.9 Obesity, unspecified; G43.009 Migraine without aura, not intractable, without status migrainosus; M54.50 Low back pain, unspecified; E55.9 Vitamin D deficiency, unspecified; K21.9 Gastro-esophageal reflux disease without esophagitis; Z79.84 Long term (current) use of oral hypoglycemic drugs; Z79.899 Other long term (current) drug therapy; Z91.018 Allergy to other foods; Z91.040 Latex allergy status

== ENCOUNTER → 2024-03-20 | Outpatient (CLI) | payer BC ==
[2024-03-20 17:51] LABS: BASO # 0.1 10^3/uL (0.0-0.2); EOS # 0.2 10^3/uL (0.0-0.5); EOS % 3.4 % (0.0-3.0); HEMOGLOBIN 12.9 g/dl (12.0-15.5); LYMPH # 2.4 10^3/uL (1.5-5.0); LYMPH % 38.7 % (24.0-44.0); MEAN CORPUSCULAR HEMOGLOBIN 29.3 pg (27.0-33.0); MEAN CORPUSCULAR HGB CONC 31.5 g/dl (32.0-36.5); MEAN CORPUSCULAR VOLUME 93.2 fl (80.0-96.0); MONO # 0.7 10^3/uL (0.0-0.8); MONO % 12.1 % (2.0-8.0); NEUTROPHILS # 2.7 10^3/uL (1.5-8.5); NEUTROPHILS % 44.5 % (36.0-66.0); PLATELET COUNT, AUTOMATED 372 10^3/uL (150-450); WHITE BLOOD COUNT 6.1 10^3/uL (4.0-10.0)
[2024-03-20 18:04] LABS: HEMOGLOBIN A1c 5.5 % (4.0-6.0)
[2024-03-20 18:15] LABS: ALBUMIN 3.4 G/DL (3.2-5.2); BILIRUBIN,TOTAL 0.2 MG/DL (0.3-1.2); CALCIUM LEVEL 9.5 MG/DL (8.3-10.6); CREATININE FOR GFR 1.04 MG/DL (0.55-1.30); FERRITIN 17.7 NG/ML (7.3-270.7); GLOMERULAR FILTRATION RATE 57.4 (>45); POTASSIUM SERUM 3.9 MMOL/L (3.5-5.1); TOTAL PROTEIN 6.9 G/DL (5.7-8.2)
== END ==
LOC: M PLALAB 16:11
PROVIDERS: ATTEND Family Medicine
DX: E66.01 Morbid (severe) obesity due to excess calories (principal)

== ENCOUNTER → 2024-03-20 | Outpatient (CLI) | payer BC ==
[2024-03-20 17:51] LABS: BASO # 0.1 10^3/uL (0.0-0.2); EOS # 0.2 10^3/uL (0.0-0.5); EOS % 3.9 % (0.0-3.0); HEMATOCRIT 40.6 % (36.0-47.0); LYMPH # 2.3 10^3/uL (1.5-5.0); LYMPH % 39.6 % (24.0-44.0); MEAN CORPUSCULAR VOLUME 90.6 fl (80.0-96.0); MONO # 0.7 10^3/uL (0.0-0.8); MONO % 11.5 % (2.0-8.0); NEUTROPHILS # 2.6 10^3/uL (1.5-8.5); NEUTROPHILS % 43.7 % (36.0-66.0); PLATELET COUNT, AUTOMATED 385 10^3/uL (150-450); RED BLOOD COUNT 4.48 10^6/uL (4.00-5.40); WHITE BLOOD COUNT 5.9 10^3/uL (4.0-10.0)
[2024-03-20 18:13] LABS: ALBUMIN 3.3 G/DL (3.2-5.2); BILIRUBIN,TOTAL 0.2 MG/DL (0.3-1.2); CALCIUM LEVEL 9.5 MG/DL (8.3-10.6); CREATININE FOR GFR 1.06 MG/DL (0.55-1.30); GLOMERULAR FILTRATION RATE 56.1 (>45); POTASSIUM SERUM 3.8 MMOL/L (3.5-5.1)
[2024-03-20 18:21] LABS: HEMOGLOBIN A1c 5.4 % (4.0-6.0)
== END ==
LOC: M PLALAB 16:07
PROVIDERS: ATTEND Physician Assistant Surgical
DX: E66.01 Morbid (severe) obesity due to excess calories (principal)

== ENCOUNTER → 2024-03-20 | Outpatient (CLI) | payer BC ==
[2024-03-20 18:10] LABS: ALBUMIN 3.3 G/DL (3.2-5.2); BILIRUBIN,TOTAL 0.2 MG/DL (0.3-1.2); CALCIUM LEVEL 9.5 MG/DL (8.3-10.6); CREATININE FOR GFR 1.08 MG/DL (0.55-1.30); GLOMERULAR FILTRATION RATE 54.9 (>45); MAGNESIUM LEVEL 2.1 MG/DL (1.8-2.4)
== END ==
LOC: M PLALAB 16:08
PROVIDERS: ATTEND Physician Assistant
DX: R25.2 Cramp and spasm (principal)

== ENCOUNTER → 2024-05-07 | Outpatient (CLI) | payer BC ==
[2024-05-07 18:44] LABS: BASO # 0.1 10^3/uL (0.0-0.2); BASO % 0.8 % (0.0-1.0); EOS # 0.5 10^3/uL (0.0-0.5); EOS % 4.9 % (0.0-3.0); HEMATOCRIT 42.1 % (36.0-47.0); HEMOGLOBIN 13.2 g/dl (12.0-15.5); LYMPH # 2.6 10^3/uL (1.5-5.0); MEAN CORPUSCULAR HEMOGLOBIN 29.2 pg (27.0-33.0); MEAN CORPUSCULAR HGB CONC 31.4 g/dl (32.0-36.5); MEAN CORPUSCULAR VOLUME 93.1 fl (80.0-96.0); MONO # 0.8 10^3/uL (0.0-0.8); MONO % 8.2 % (2.0-8.0); NEUTROPHILS # 5.3 10^3/uL (1.5-8.5); NEUTROPHILS % 57.8 % (36.0-66.0); PLATELET COUNT, AUTOMATED 389 10^3/uL (150-450); RED BLOOD COUNT 4.52 10^6/uL (4.00-5.40); WHITE BLOOD COUNT 9.2 10^3/uL (4.0-10.0)
[2024-05-07 18:46] LABS: HEMATOCRIT 42.5 % (36.0-47.0)
[2024-05-07 18:54] LABS: HEMOGLOBIN A1c 5.3 % (4.0-6.0)
[2024-05-07 19:06] LABS: ALKALINE PHOSPHATASE 119 U/L (35-104); ALT/SGPT 29 U/L (7.0-40); AST/SGOT 25 U/L (<34); BILIRUBIN,TOTAL 0.3 MG/DL (0.3-1.2); BLOOD UREA NITROGEN 12 MG/DL (9-23); CALCIUM LEVEL 9.5 MG/DL (8.3-10.6); CARBON DIOXIDE LEVEL 26 MMOL/L (20-31); CHLORIDE LEVEL 110 MMOL/L (98-107); CREATININE FOR GFR 0.96 MG/DL (0.55-1.30); GLOMERULAR FILTRATION RATE > 60.0 (>45); GLUCOSE, FASTING 86 MG/DL (74-106); IRON (FE) 55 UG/DL (50-170); MAGNESIUM LEVEL 1.8 MG/DL (1.8-2.4); PERCENT SATURATION 20.9 % (13.2-45.0); PHOSPHORUS LEVEL 3.1 MG/DL (2.4-5.1); POTASSIUM SERUM 4.3 MMOL/L (3.5-5.1); SODIUM LEVEL 145 MMOL/L (136-145); TOTAL IRON BINDING CAPACITY 263 UG/DL (250-425)
[2024-05-07 19:10] LABS: FERRITIN 18.5 NG/ML (7.3-270.7); TOTAL 25(OH) VITAMIN D 29.1 NG/ML (20.0-100.0); VITAMIN B12 LEVEL 354 PG/ML (211-911)
== END ==
LOC: M PLALAB 15:52
PROVIDERS: ATTEND Surgery
DX: K91.2 Postsurgical malabsorption, not elsewhere classified (principal); Z98.84 Bariatric surgery status; E55.9 Vitamin D deficiency, unspecified

== ENCOUNTER → 2024-05-16 | Outpatient (CLI) | payer BC | LOC: M PLAIMG 04-14 09:26 → M PLARAD 15:49 | PROVIDERS: ATTEND Nurse Practitioner Family | DX: M47.816 Spondylosis without myelopathy or radiculopathy, lumbar region (principal); Z53.9 Procedure and treatment not carried out, unspecified reason ==

== ENCOUNTER → 2024-06-18 | Outpatient (CLI) | payer BC | LOC: M PAIN 15:00 | PROVIDERS: ATTEND Anesthesiology | DX: G43.709 Chronic migraine without aura, not intractable, without status migrainosus (principal); M54.50 Low back pain, unspecified; M54.6 Pain in thoracic spine; E03.9 Hypothyroidism, unspecified; E78.5 Hyperlipidemia, unspecified; R73.03 Prediabetes; K21.9 Gastro-esophageal reflux disease without esophagitis; Z79.890 Hormone replacement therapy; Z79.84 Long term (current) use of oral hypoglycemic drugs; Z79.899 Other long term (current) drug therapy; Z91.018 Allergy to other foods; Z91.040 Latex allergy status ==

== ENCOUNTER 2024-06-24 10:58 | Emergency (ER) | payer OTHER, BC ==
[~2024-06-24] VITALS: Ht 162.6 cm; Wt 91.3 kg
[2024-06-24] MEDS: ACETAMINOPHEN 500 MG TAB PO ONE (14:49)
[2024-06-24 15:59] VITALS: BP 151/94; TEMP 97.6; O2SAT 97
== END 2024-06-24 16:00 | disposition home or self-care (01) ==
LOC: M ED 10:58
DX: S70.02XA Contusion of left hip, initial encounter (principal); W00.0XXA Fall on same level due to ice and snow, initial encounter; Y92.410 Unspecified street and highway as the place of occurrence of the external cause; Y93.9 Activity, unspecified; Y99.9 Unspecified external cause status; Z98.84 Bariatric surgery status; Z79.899 Other long term (current) drug therapy; Z91.018 Allergy to other foods; Z91.040 Latex allergy status

== ENCOUNTER → 2024-08-25 | Outpatient (CLI) | payer BC ==
[2024-08-25 19:49] LABS: FREE T4 1.73 NG/DL (0.89-1.76)
[2024-08-25 19:50] LABS: THYROID STIMULATING HORMONE 0.037 uIU/ML (0.55-4.78)
== END ==
LOC: M PLALAB 15:14
PROVIDERS: ATTEND Nurse Practitioner Family
DX: E03.8 Other specified hypothyroidism (principal)

== ENCOUNTER → 2024-10-06 | Outpatient (CLI) | payer BC ==
[~2024-10-06] MED LIST changes: +TOPI-257 PO; -TOPI100T9 PO
[2024-10-06 17:48] LABS: THYROID STIMULATING HORMONE 0.033 uIU/ML (0.55-4.78)
[2024-10-06 17:49] LABS: FREE T4 1.54 NG/DL (0.89-1.76)
== END ==
LOC: M PLALAB 14:59
PROVIDERS: ATTEND Nurse Practitioner Family
DX: E03.8 Other specified hypothyroidism (principal)

== ENCOUNTER → 2024-12-02 | Outpatient (CLI) | payer BC ==
[2024-12-02 18:18] LABS: CHOLESTEROL LEVEL 180.0 MG/DL (<200); CHOLESTEROL RISK RATIO 3.99 (<5); LDL CHOLESTEROL 117.1 MG/DL (<100); NON-HDL-C 134.9 MG/DL; TRIGLYCERIDES LEVEL 89.0 MG/DL (<150)
[2024-12-02 18:20] LABS: FREE T4 1.4 NG/DL (0.89-1.76)
[2024-12-02 19:02] LABS: ESTIMATED AVERAGE GLUCOSE 111.0 MG/DL (60-110)
== END ==
LOC: M PLALAB 14:50
PROVIDERS: ATTEND Nurse Practitioner Family
DX: E03.8 Other specified hypothyroidism (principal)

== ENCOUNTER → 2024-12-02 | Outpatient (CLI) | payer BC ==
[2024-12-02 17:58] LABS: PLATELET COUNT, AUTOMATED 389 10^3/uL (150-450)
[2024-12-02 18:17] LABS: ALT/SGPT 18 U/L (7.0-40); AST/SGOT 20 U/L (<34); CALCIUM LEVEL 9.0 MG/DL (8.3-10.6); CARBON DIOXIDE LEVEL 28 MMOL/L (20-31); CHLORIDE LEVEL 108 MMOL/L (98-107); CREATININE FOR GFR 0.65 MG/DL (0.55-1.30); GLOMERULAR FILTRATION RATE > 90.0 (>45); IRON (FE) 54 UG/DL (50-170); MAGNESIUM LEVEL 1.8 MG/DL (1.8-2.4); PERCENT SATURATION 17.8 % (13.2-45.0); PHOSPHORUS LEVEL 4.1 MG/DL (2.4-5.1); POTASSIUM SERUM 4.5 MMOL/L (3.5-5.1); SODIUM LEVEL 144 MMOL/L (136-145)
[2024-12-02 18:22] LABS: TOTAL 25(OH) VITAMIN D 38.2 NG/ML (20.0-100.0); VITAMIN B12 LEVEL 379 PG/ML (211-911)
[2024-12-02 19:03] LABS: ESTIMATED AVERAGE GLUCOSE 111.0 MG/DL (60-110)
== END ==
LOC: M PLALAB 14:48
PROVIDERS: ATTEND Physician Assistant Surgical
DX: Z86.39 Personal history of other endocrine, nutritional and metabolic disease (principal)

== ENCOUNTER → 2025-01-30 | Outpatient (CLI) | payer BC ==
[2025-01-30 18:04] LABS: FREE T4 1.43 NG/DL (0.89-1.76)
== END ==
LOC: M PLALAB 15:18
PROVIDERS: ATTEND Nurse Practitioner Family
DX: E03.8 Other specified hypothyroidism (principal)

== ENCOUNTER → 2025-02-19 | Outpatient (CLI) | payer BC | LOC: M WHC 13:47 | PROVIDERS: ATTEND Nurse Practitioner Family | DX: R42 Dizziness and giddiness (principal); I65.22 Occlusion and stenosis of left carotid artery ==

== ENCOUNTER → 2025-02-23 | Outpatient (CLI) | payer BC | LOC: M PLALAB 15:37 | PROVIDERS: ATTEND Nurse Practitioner Family | DX: E87.6 Hypokalemia (principal) ==